=== PATIENT | male | born 1940 | race Hispanic/Latino ===

== ENCOUNTER 2019-06-05 12:07 | Inpatient (IN) | payer MEDICARE, OTHER ==
[~2019-06-05] VITALS: Ht 165.1 cm; Wt 65.1 kg
--- OUTSIDE RECORDS SUMMARY | 2019-06-05 12:11 | XMS REPORT | Clinical Summary ---
Author Author [facility] Organization [facility] Address Unknown Phone Unavailable Care Team Providers Care Jewel Sawyer Name Role Phone PCP Unavailable Allergies No Known Allergies Medications End Date Status Medication Sig Dispensed Refills Start Date 06/08/2019 Active lisinopril (PRINIVIL, Take 1 tablet 90 tablet 1 ZESTRIL) 5 mg by mouth 9 tabletIndications: Acute daily for 90 on chronic combined days. systolic and diastolic congestive heart failure 06/08/2019 Active atorvastatin (LIPITOR) 20 Take 1 tablet 90 tablet 1 mg tabletIndications: by mouth at 9 Acute on chronic combined bedtime systolic and diastolic nightly for congestive heart failure 90 days. 07/06/2019 Active furosemide (LASIX) 40 mg Take 2 360 tablet 1 tabletIndications: Acute tablets by 9 on chronic combined mouth 2 times systolic and diastolic daily for 90 congestive heart failure days. 03/03/2019 Discontinued lisinopril (PRINIVIL, Take 1 tablet 90 tablet 1 ZESTRIL) 5 mg by mouth 7 tabletIndications: daily. Syncope and collapse, Essential hypertension, benign 03/10/2019 Discontinued atorvastatin (LIPITOR) 20 Take 1 tablet 90 tablet 1 mg tabletIndications: by mouth at 7 Syncope and collapse, bedtime Hospital discharge nightly. follow-up, Abnormal computed tomography angiography (CTA) 12/27/2018 Discontinued furosemide (LASIX) 20 mg Take 1 tablet 30 tablet 0 tabletIndications: by mouth 9 Shortness of breath daily. 03/03/2019 Discontinued furosemide (LASIX) 20 mg Take 1 tablet 30 tablet 0 tabletIndications: by mouth 9 Shortness of breath daily. 03/10/2019 Discontinued furosemide (LASIX) 40 mg Take 1 tablet 60 tablet 2 tabletIndications: Acute by mouth 2 9 on chronic combined times daily systolic and diastolic for 90 days. congestive heart failure 03/10/2019 Discontinued lisinopril (PRINIVIL, Take 1 tablet 30 tablet 2 ZESTRIL) 5 mg by mouth 9 tabletIndications: Acute daily for 90 on chronic combined days. systolic and diastolic congestive heart failure 03/10/2019 Discontinued albuterol (PROVENTIL) 2.5 Inhale 3 mL 75 mL 3 mg /3 mL (0.083 %) by mouth 9 nebulizer every 6 hours solutionIndications: as needed for Chronic obstructive Wheezing. pulmonary disease, unspecified COPD type 04/07/2019 Discontinued furosemide (LASIX) 40 mg Take 1 tablet 360 tablet 1 tabletIndications: Acute by mouth 2 9 on chronic combined times daily systolic and diastolic for 90 days. congestive heart failure Active Problems Problem Noted Date Heart failure, diastolic, acute on chronic 03/01/2019 Renal cyst 01/16/2017 Overview: noted on CTA Essential hypertension, benign 01/16/2017 Abnormal computed tomography angiography (CTA) 01/16/2017 Aortic insufficiency 01/09/2017 Heart failure 01/09/2017 Overview: Added By MIPs Interface Last Assessment & Plan: Condition: stable Diagnosis based upon a [id number] evaluation, physical exam, and ROS. Compensated Requested patient to continue regular follow-up with their PCP and/or specialist for continued evaluation and/or treatment. Follow up in: six months Prostatic hypertrophy 02/25/2011 SOB (shortness of breath) Resolved Problems Problem Noted Date Resolved Date S/P thoracentesis 03/02/2019 03/03/2019 Pleural effusion on right 03/01/2019 03/03/2019 Fish hook injury of finger of right hand 01/31/2018 04/07/2019 Encounters Care Team Description Date Type Specialty Rui Yung MD Chest pain, unspecified type (Primary Dx) 04/30/2019 Emergency Emergency Medicine 04/30/2019 Travel 04/07/2019 Hospital Lab Encounter Zack Gimenez ResidentMD Hughes, Andres, ResidentMD Acute on chronic combined systolic and diastolic congestive heart failure 04/07/2019 Office Visit Internal Medicine 04/07/2019 Travel Marv Acevedo MD 04/05/2019 Pre-Clinic Internal Medicine Review 03/20/2019 Hospital Lab Encounter Bebo Simon ResidentMD Wesley, Robby G, DO Encounter for monitoring diuretic therapy (Primary Dx); Aortic valve insufficiency, etiology of cardiac valve disease unspecified; Healthcare maintenance; Chronic combined systolic and diastolic heart failure 03/20/2019 Office Visit Internal Medicine Marv Acevedo MD 03/19/2019 Pre-Clinic Internal Medicine Review Acute on chronic combined systolic and diastolic congestive heart failure 03/10/2019 Hospital Lab Encounter Acute on chronic combined systolic and diastolic congestive heart failure 03/10/2019 Hospital Radiology Encounter Porter Jones ResidentMD Acute on chronic combined systolic and diastolic congestive heart failure (Primary Dx); Essential hypertension, benign; Loculated pleural effusion; Prostatic hypertrophy 03/10/2019 Office Visit Internal Medicine Denisse Aleman Interpretation 03/07/2019 Telephone Judy Pedro RNre etcher F/U; Appointment Related Questions 03/07/2019 Telephone Mario Montano LMSW 03/06/2019 Clinical Case Mgt Mario Montano LMSW 03/05/2019 Clinical Case Mgt Dante Espinal Interpretation 03/03/2019 Telephone Stiven Myrick ResidentMD Pleural effusion on right (Primary Dx) 03/02/2019 Orders Only Lab Jordan Meadows MD Aisenberg, Gabriel M, MD S/P thoracentesis (Primary Dx); SOB (shortness of breath); Pleural effusion on right; Heart failure, diastolic, acute on chronic; Chronic obstructive pulmonary disease, unspecified COPD type; Acute on chronic combined systolic and diastolic congestive heart failure 03/01/2019 Emergency - 03/03/2019 03/01/2019 Travel Mahsa Briggs MD Chest pain, unspecified type (Primary Dx) 01/23/2019 Emergency Emergency Medicine 01/23/2019 Travel Dayna Saleem MD Shortness of breath (Primary Dx) 12/27/2018 Emergency Emergency Medicine 12/27/2018 Travel after 06/04/2018 Immunizations Name Administration Dates Next Due PCV 13 (Pnuemococcal 03/10/2019 Conjugated 13 Valent) Tdap (Tetanus Toxoid, 01/30/2018 Reduced Diphtheria Toxoid And Acellular Pertussis, Absorbed) Family History Medical History Relation Name Comments Unknown Fam Hx Father Unknown Fam Hx Maternal Grandfather Unknown Fam Hx Maternal Grandmother Unknown Fam Hx Mother Unknown Fam Hx Paternal Grandfather Unknown Fam Hx Paternal Grandmother Relation Name Status Comments Brother Alive Father Maternal Grandfather Maternal Grandmother Mother Paternal Grandfather Paternal Grandmother Sister Alive Social History Date Tobacco Use Types Packs/Day Years Used Never Smoker Smokeless Tobacco: Never Used Drinks/Week oz/Week Comments Alcohol Use 0 Standard drinks or equivalent 0.0 4-18-17 denies any ETOH usage No Food Insecurity Answer Date Recorded Within the past 12 months, you worried that your Never true 03/10/2019 food would run out before you got money to buy more. Within the past 12 months, the food you bought Never true 03/10/2019 just didn't last and you didn't have money to get more. Sex Assigned at Date Recorded Not on file Industry Job Start Date Occupation Not on file Not on file Not on file Travel End Travel History Travel Start No recent travel history available. Last Filed Vital Signs Reading Time Taken Comments Vital Sign 126/72 04/30/2019 11:47 AM CDT Blood Pressure 90 04/30/2019 11:47 AM CDT Pulse 36.5 C (97.7 F) 04/30/2019 11:47 AM CDT Temperature 18 04/30/2019 11:47 AM CDT Respiratory Rate 98% 04/30/2019 11:47 AM CDT Oxygen Saturation - - Inhaled Oxygen Concentration 64 kg (141 lb 1.6 oz) 04/07/2019 9:20 AM CDT Weight 152.4 cm (5') 04/07/2019 9:20 AM CDT Height 27.56 04/07/2019 9:20 AM CDT Body Mass Index Plan of Treatment Care Team Description Date Type Specialty Rui Yung MD [address] [facility], [id number] [place] [address] 07/22/2019 Office Visit Cardiology Health Maintenance Due Date Last Done Comments IMM Pneumococcal Age 65 2006 and Up IMM Influenza Seasonal 07/01/2019 Oct to November (>/=19 yrs) Procedures Comments Procedure Name Priority Date/Time Associated Diagnosis XRAY CHEST 2 VIEWS STAT 04/30/2019 Chest pain, unspecified 2:17 PM CDT type BMP POC Routine 04/30/2019 1:13 PM CDT CBC STAT 04/30/2019 1:12 PM CDT CBC/DIFF STAT 04/30/2019 1:12 PM CDT TROPONIN I POC Routine 04/30/2019 1:11 PM CDT 12 LEAD EKG Routine 04/30/2019 10:57 AM CDT BASIC METABOLIC PANEL Routine 04/07/2019 Acute on chronic combined 11:45 AM CDT systolic and diastolic congestive heart failure THYROID STIMULATING Routine 03/20/2019 Chronic combined systolic HORMONE (TSH) 10:15 AM CDT and diastolic heart failure LIPID PROFILE Routine 03/20/2019 Aortic valve 10:15 AM CDT insufficiency, etiology of cardiac valve disease unspecified BASIC METABOLIC PANEL Routine 03/20/2019 Encounter for monitoring 10:15 AM CDT diuretic therapy BASIC METABOLIC PANEL Routine 03/10/2019 2:02 PM CDT BASIC METABOLIC PANEL Routine 03/10/2019 Acute on chronic combined 11:36 AM CDT systolic and diastolic congestive heart failure XRAY CHEST 2 VIEWS Routine 03/10/2019 Acute on chronic combined 11:18 AM CDT systolic and diastolic congestive heart failure TRANSTHORACIC ECHO (TTE) STAT 03/03/2019 7:51 AM CDT CBC STAT 03/03/2019 7:26 AM CDT BASIC METABOLIC PANEL STAT 03/03/2019 7:26 AM CDT CBC/DIFF STAT 03/03/2019 7:26 AM CDT GLUCOSE, FLD Routine 03/02/2019 Pleural effusion on right 2:26 PM CDT T PROTEIN, FLD Add-on 03/02/2019 2:26 PM CDT LDH, FLD Routine 03/02/2019 2:11 PM CDT XRAY CHEST 1 VIEW STAT 03/02/2019 S/P thoracentesis 1:46 PM CDT PLEURAL FLUID CYTOLOGY Routine 03/02/2019 1:27 PM CDT FLUID CULTURE AND GRAM Routine 03/02/2019 STAIN 1:27 PM CDT BLD GAS, MIXED VENOUS POC Routine 03/02/2019 1:26 PM CDT CBC Routine 03/02/2019 10:55 AM CDT CBC/DIFF Routine 03/02/2019 10:55 AM CDT BASIC METABOLIC PANEL Routine 03/02/2019 10:55 AM CDT BMP POC Routine 03/01/2019 5:45 PM CDT TROPONIN I POC Routine 03/01/2019 2:38 PM CDT XRAY CHEST 2 VIEWS STAT 03/01/2019 SOB (shortness of breath) 11:37 AM CDT URINALYSIS Routine 03/01/2019 11:18 AM CDT ABG POC Routine 03/01/2019 11:12 AM CDT BMP POC Routine 03/01/2019 11:12 AM CDT TROPONIN I POC Routine 03/01/2019 11:10 AM CDT COMPREHENSIVE METABOLIC Routine 03/01/2019 PANEL 10:12 AM CDT CBC/DIFF Routine 03/01/2019 10:12 AM CDT 12 LEAD EKG Routine 03/01/2019 9:18 AM CDT URINALYSIS STAT 01/23/2019 8:30 AM CDT CTA CHEST AORTA STAT 01/23/2019 Chest pain, unspecified 8:25 AM CDT type CTA ABDOMEN-PELVIS W STAT 01/23/2019 Chest pain, unspecified CONTRAST - AORTA 8:25 AM CDT type XRAY CHEST 2 VIEWS STAT 01/23/2019 Chest pain, unspecified 6:20 AM CDT type VBG POC Routine 01/23/2019 5:59 AM CDT BMP POC Routine 01/23/2019 5:57 AM CDT TROPONIN I POC Routine 01/23/2019 5:56 AM CDT TYPE AND SCREEN STAT 01/23/2019 5:51 AM CDT LIPASE STAT 01/23/2019 5:51 AM CDT LIVER PROFILE STAT 01/23/2019 5:51 AM CDT PT/INR/PTT STAT 01/23/2019 5:51 AM CDT CBC/DIFF STAT 01/23/2019 5:51 AM CDT 12 LEAD EKG Routine 01/23/2019 5:37 AM CDT CTA CHEST AORTA STAT 12/27/2018 Shortness of breath 3:38 PM CDT CTA ABDOMEN-PELVIS W STAT 12/27/2018 Shortness of breath CONTRAST - AORTA 3:38 PM CDT ABG POC Routine 12/27/2018 3:18 PM CDT XRAY CHEST 2 VIEWS STAT 12/27/2018 Shortness of breath 2:50 PM CDT BMP POC Routine 12/27/2018 2:18 PM CDT TROPONIN I POC Routine 12/27/2018 2:16 PM CDT HIV-1/HIV-2 ROUTINE STAT 12/27/2018 SCREENING 2:14 PM CDT BEDSIDE ULTRASOUND Routine 12/27/2018 1:54 PM CDT 12 LEAD EKG Routine 12/27/2018 11:47 AM CDT after 06/04/2018 Results * XRAY CHEST 2 VIEWS (04/30/2019 2:17 PM CDT) Only the most recent of 5 results within the time period is included. Specimen Impressions Performed At IMPRESSION: [facility] *Cardiomegaly with bilateral pleural effusions, unchanged from prior with probable loculation on the right, and underlying streaky opacities that may represent atelectasis. *Fluffy opacities at the lung bases may represent any combination of edema, atelectasis or early consolidation with overlying pleural fluid. Signed By: Kathy Casas MD, 04/30/2019 2:23 PM Narrative Performed At XRAY CHEST 2 VIEWS [facility] DATE: 04/30/2019 2:17 PM CLINICAL INDICATION: CP COMPARISON: Chest x-ray performed 03/10/2019 TECHNIQUE: PA and lateral views of the chest are obtained and submitted for interpretation. DISCUSSION: Streaky opacities are seen in the perihilar and bibasilar regions along with overlying patchy opacities.The lungs appear emphysematous. Bilateral pleural effusions are again identified bilaterally, right greater than left, overall unchanged. There is some loculated appearance on the right side. The heart remains enlarged with tortuosity of the aorta and scattered vascular calcifications. Bones and surrounding soft tissues are unchanged. Procedure Note Interface, Rad/Mammog In - 04/30/2019 2:28 PM CDT XRAY CHEST 2 VIEWS DATE: 04/30/2019 2:17 PM CLINICAL INDICATION: CP COMPARISON: Chest x-ray performed 03/10/2019 TECHNIQUE: PA and lateral views of the chest are obtained and submitted for interpretation. DISCUSSION: Streaky opacities are seen in the perihilar and bibasilar regions along with overlying patchy opacities. The lungs appear emphysematous. Bilateral pleural effusions are again identified bilaterally, right greater than left, overall unchanged. There is some loculated appearance on the right side. The heart remains enlarged with tortuosity of the aorta and scattered vascular calcifications. Bones and surrounding soft tissues are unchanged. IMPRESSION IMPRESSION: * Cardiomegaly with bilateral pleural effusions, unchanged from prior with probable loculation on the right, and underlying streaky opacities that may represent atelectasis. * Fluffy opacities at the lung bases may represent any combination of edema, atelectasis or early consolidation with overlying pleural fluid. Signed By: Kathy Casas MD, 04/30/2019 2:23 PM Performing Organization Address City/[facility] Phone Number SMS * BMP POC (04/30/2019 1:13 PM CDT) Only the most recent of 3 results within the time period is included. Pathologist [facility] Sodium POC 138 136 - 145 mmol/L [facility] Potassium POC 4.4 3.5 - 5.1 mmol/L [facility] Chloride POC 104 98 - 107 mmol/L [facility] TCO2 POC 26 21 - 32 mmol/L [facility] Urea Nitrogen 9 7 - 18 mg/dL [facility] POC Creatinine POC 0.8 0.6 - 1.3 mg/dL [facility] Glucose POC 101 74 - 106 mg/dL [facility] Ionized Calcium 1.13 (L) 1.15 - 1.29 mmol/L [facility] POC GFR, Estimated 86 (L) >=90 mL/min/1.73 m2 [facility] Specimen Blood, venous Performing Organization Address [facility] Phone Number [facility] [address] [place] [address] * CBC (04/30/2019 1:12 PM CDT) Only the most recent of 3 results within the time period is included. WBC 7.3 4.5 - 12.0 K/uL [facility] RBC 4.56 (L) 4.60 - 6.20 M/uL [facility] Hemoglobin 12.5 (L) 14.0 - 18.0 g/dL [facility] Hematocrit 38.7 (L) 40.0 - 54.0 % [facility] MCV 84.9 82.0 - 92.0 fL [facility] MCH 27.4 27.0 - 31.0 pg [facility] MCHC 32.3 32.0 - 36.0 g/dL [facility] RDW 43.1 35.1 - 43.9 fL [facility] Platelet 252 150 - 400 K/uL [facility] Mean Platelet 9.9 9.4 - 12.4 fL [facility] Volume Percent NRBC 0.0 % [facility] Neutrophil 66.9 34.0 - 67.9 % [facility] Lymphs 16.9 (L) 21.8 - 50.0 % [facility] Monocytes 8.1 5.3 - 12.0 % [facility] Eos 7.3 (H) 0.8 - 5.0 % [facility] Basos 0.4 0.2 - 1.2 % [facility] Immature 0.4 0.0 - 0.5 % [facility] Granulocytes Neutrophils 4.87 1.78 - 5.36 K/uL [facility] (Absolute) Lymphs 1.23 (L) 1.32 - 3.57 K/uL [facility] (Absolute) Monocytes(Absol 0.59 0.30 - 0.82 K/uL [facility] alt[place]) Eos (Absolute) 0.53 0.04 - 0.54 K/uL [facility] Baso (Absolute) 0.03 0.01 - 0.08 K/uL [facility] Immature Grans 0.03 0.00 - 0.03 K/uL [facility] (Abs) Absolute NRBC 0.00 K/uL [facility] Specimen Blood Performing Organization Address [facility] Phone Number [facility] [address] [place] [address] * TROPONIN I POC (04/30/2019 1:11 PM CDT) Only the most recent of 3 results within the time period is included. Pathologist [facility] Troponin POC 0.06 0.00 - 0.08 ng/mL [facility] Specimen Blood, venous Performing Organization Address [facility] Phone Number [facility] [address] [place] [address] * 12 LEAD EKG (04/30/2019 10:57 AM CDT) Pathologist [facility] 12 LEAD EKG FOR [facility] Test Date:2019-04-30 Pat Name: JEFF Ruiz ent: Room: Gender: M [employer] Manager: HELENA :[id number] Requested By: VONNIE Soria Order Number: [id number] Reading MD: Armond Akbar Measurements Intervals [place] Rate: 94 P:60 CT: 192 QRS: -54 QRSD: 132 T: 69 QT: 404 QTc:507 Interpretive Statements SINUS RHYTHM RIGHT BUNDLE BRANCH BLOCK LEFT ANTERIOR FASCICULAR BLOCK Left Ventricular Hypertrophy Bifasicular block Prolonged QT Interval Non-specific T wave abnormality Electronically Signed On 04-30-2019 12:38:57 CDT by Armond Akbar Specimen Performing Organization Address [facility] Phone Number SMS * BASIC METABOLIC PANEL (04/07/2019 11:45 AM CDT) Only the most recent of 6 results within the time period is included. Sodium 140 136 - 145 mmol/L [facility] Potassium 4.0 3.5 - 5.1 mmol/L [facility] Chloride 105 98 - 107 mmol/L [facility] CO2 31 21 - 31 mmol/L [facility] Urea Nitrogen 15.0 7.0 - 25.0 mg/dL [facility] Creatinine 0.9 0.7 - 1.3 mg/dL [facility] Glucose 99 70 - 110 mg/dL [facility] Calcium, Total 9.4 8.6 - 10.3 mg/dL [facility] GFR, Estimated 82 (L) >=90 mL/min/1.73 m2 [facility] Anion Gap 4 (L) 5 - 16 mmol/L [facility] Specimen Blood Performing Organization Address [facility] Phone Number [facility] [address] [place] [address] * THYROID STIMULATING HORMONE (TSH) (03/20/2019 10:15 AM CDT) Pathologist [facility] TSH 3.05 0.57 - 3.74 uIU/mL [facility] Specimen Blood Performing Organization Address [facility] Phone Number [facility] [address] [place] [address] * LIPID PROFILE (03/20/2019 10:15 AM CDT) Triglyceride 108 <150 mg/dL [facility] Comment: Normal: < 150.0 mg/dL Borderline: 150-199 mg/dL High: 200-499 mg/dL Very High: >=500 mg/dL Cholesterol 186.0 <=200.0 mg/dL [facility] Comment: Desirable: < 200.0 mg/dL Borderline: 200 - 240 mg/dL High Risk: > 240 mg/dL HDL 39.0 See Reference Range [facility] Comment: Narrative. mg/dL Increased CHD Risk: < 40.0 mg/dL Decreased CHD Risk: > 60 mg/dL LDL 125 (H) <100 mg/dL [facility] Comment: Optimal: < 100.0 mg/dL Near Optimal: 120-129 mg/dL Borderline: 130-159 mg/dL High: 160-189 mg/dL Very High: >=190 mg/dL Specimen Blood Performing Organization Address City/State/Zipcode Phone Number [facility] [address] [place] [address] * TRANSTHORACIC ECHO (TTE) (03/03/2019 7:51 AM CDT) TRANSTHORACIC Transthoracic SMS ECHO (TTE) Echo Report JEFF MA Age:79 Gender: M :1940 Exam Date: 03/03/2019 07:51 Exam Location: [facility] Echo Ordering Phys: NARENDRA PETTY Referring Phys:MALINDA Delarosa Reading Phys:Clemencia Robles M.D. Fellow Phys: Fellow Phys: Rubber Gasket Inspector Trimmer: Nicole John Reason For Exam: Indications: CHF exacerbation ICD-9 Codes: Exam Type: Transthoracic Echo Procedure CPT:92753 Addtional CPT: Ht (in): 60 BSA: 1.72HR: 76 Rhythm: Sinus rhythm w/ectopy Wt (lb): 149BP: 122/ 65 Technical Quality: Technically difficult History: MEASUREMENTS Normal ranges based on 95% confidence intervals for adults, some normal patients may fall outside of this range especially when indexing for BSA 2D ECHO LV Diastolic Diameter PLAX5.3 cm 4.2-5.8 (M) / 3.8-5.2 (F) LV Systolic Diameter PLAX 5.1 cm 2.5-4.0 (M) / 2.2-3.5 (F) LV Fractional Shortening PLAX 5.5 % IVS Diastolic Thickness 1 cm 0.6-1.0 (M) / 0.6-0.9 (F) IVS Systolic Thickness 1.4 cm LVPW Diastolic Thickness0 .98 cm 0.6-1.0 (M) / 0.6-0.9 (F) LVPW Systolic Thickness 1.3 cm LV Relative Wall Thickness0.37 <=0.42 LVOT Diameter 2 cm Aortic Root Diameter 3 cm LV Diastolic Volume MOD BP226 cm 62-150 cm (M) / 46-106 cm (F) LV Systolic Volume MOD BP 139 cm 21-61 cm (M) / 14-42 cm (F) LV Ejection Fraction MOD BP 38.6 % 52-72 (M) / 54-74 (F) LV Stroke Volume MOD BP 87.2 cm LV Cardiac Output MOD [id number] cm/min LV Cardiac Index MOD BP 3863 cm/minm LV Diastolic Volume MOD 4C195 cm LV Systolic Volume MOD 4C 128 cm LV Ejection Fraction MOD 4C 34 % LV Stroke Volume MOD 4C 66.1 cm LV Cardiac Output MOD [id number] cm/min LV Cardiac Index MOD 4C 2928 cm/minm LV Diastolic Volume MOD 2C249 cm LV Systolic Volume MOD 2C 160 cm LV Ejection Fraction MOD 2C 35.7 % LV Stroke Volume MOD 2C 89 cm LV Cardiac Output MOD [id number] cm/min LV Cardiac Index MOD 2C 3943 cm/minm LA Volume 75.4 cm LA Volume Index 44 cm/m 16 - 34 cm/m LA Volume MOD 2C 99.5 cm LA Volume MOD 4C 92.8 cm LV Mass by linear g LV Mass by linear method [id number] g/m IVC Diameter Inspiration 1.1 cm IVC Diameter Expiration 1.6 cm RA Volume 81.4 cm RA Volume Index 47.4 cm/m DOPPLER AV Peak Velocity 128 cm/s AV Peak Gradient 6.6 mmHg AV Mean Velocity 93.1 cm/s AV Mean Gradient 3.8 mmHg AV Velocity Time Integral 20.6 cm AI Peak Velocity 328 cm/s AI Peak Gradient 43 mmHg AI Deceleration [place] 245 cm/s LVOT Peak Velocity 119 cm/s LVOT Peak Gradient 5.7 mmHg LVOT Mean Velocity 91.8 cm/s LVOT Mean Gradient 3.6 mmHg LVOT Velocity Time Integral 23.5 cm LVOT Stroke Volume 72.1 cm AV Area Cont Eq vti 3.5 cm AV Area Cont Eq pk 2.8 cm Mitral E Point Velocity 162 cm/s MR Peak Velocity 502 cm/s MR Peak Gradient 101 mmHg MR Velocity Time Integral 154 cm MR Flow Rate PISA 19.7 cm/s MR ERO PISA 0.039 cm MR Regurgitant Volume PISA6 cm PV Peak Velocity 93.2 cm/s PV Peak Gradient 3.5 mmHg PV Mean Velocity 67.2 cm/s PV Mean Gradient 1.9 mmHg PV Velocity Time Integral 18.6 cm FINDINGS Left Ventricle Study enhanced with Optison contrast. The left ventricle is normal in size. Mild eccentric left ventricular hypertrophy. LV systolic function is moderatelu reduced. LVEF is 35-39%. Moderate global hypokinesis with sevrely hypokinetic basal to mid inferior and basal to mid inferolateral wall segments. "Pseudonormal" filling pattern of the left ventricle for age (grade 2 diastolic dysfunction) with elevated filling pressure (mean E/e' 40.6). Right Ventricle The right ventricle is normal in size and systolic function. TAPSE 2.3 cm. Right Atrium The right atrium is dilated (EMILE 47.5 cm3/m2). Left Atrium The left atrium is moderately dilated. IAS Mitral Valve Structurally normal mitral valve without significant stenosis or prolapse. There is moderate mitral regurgitation (EROA 0.4 cm2, Regurg Vol 6.2 mL, Regurg Frac 7.8%; these values likely underetimated the extent of regurgitation due to reduced cardiac output). Aortic Valve The aortic valve is trileaflet. There is no aortic stenosis. There is mild- moderate aortic regurgitation. Tricuspid Valve Structurally normal tricuspid valve without significant stenosis. There is trace tricuspid regurgitation. RVSP could not be estimated due to insufficient TR jet. Pulmonic Valve Not well visualized. No significant stenosis. There is no pulmonic regurgitation. Pericardium No pericardial effusion. Aorta Normal aortic root for body surface area. Dilated ascending aorta (4.9 cm). Normal descending aorta diameter (2.4 cm). IVC The inferior vena cava is normal in size with blunted respirophasic variation. Estimated RA pressure is 8 mmHg. CONCLUSIONS Left ventricle is normal in size with mild eccentric left ventricular hypertrophy and moderately reduced systolic function. Moderate global hypokinesis with sevrely hypokinetic basal to mid inferior and basal to mid inferolateral wall segments. LVEF is estimated at 35-39%. "Pseudonormal" filling pattern of the left ventricle for age (grade 2 diastolic dysfunction) with elevated filling pressure. Right ventricle is normal in size and systolic function. Moderately dilated left atrium. Dilated right atrium. Moderate mitral regurgitation Mild-moderate aortic regurgitation. RVSP could not be estimated due to insufficient TR jet. No pericardial effusion. Normal aortic root for body surface area. Dilated ascending aorta (4.9 cm). Normal descending aorta diameter (2.4 cm). Compared to the prior echocardiogram from 03/01/19, IV contrast was used in this study and the LV systolic function has declined with new wall motion abnormalities. Also, there is grade 2 diastolic dysfunction, increased mitral regurgitation, and increased dilatation of the ascending aorta. If clinically indicated, recommend CTA of the aorta for definitive measurements. Clemencia Robles M.D. (Electronically Signed) Final Date:03 March 2019 10:27 2D ECHO LV Diastolic Diameter PLAX5.3 cm 4.2-5.8 (M) / 3.8-5.2 (F) LV Systolic Diameter PLAX 5.1 cm 2.5-4.0 (M) / 2.2-3.5 (F) LV Fractional Shortening PLAX 5.5 % IVS Diastolic Thickness 1 cm 0.6-1.0 (M) / 0.6-0.9 (F) IVS Systolic Thickness 1.4 cm LVPW Diastolic Thickness0 .98 cm 0.6-1.0 (M) / 0.6-0.9 (F) LVPW Systolic Thickness 1.3 cm LV Relative Wall Thickness0.37 <=0.42 LVOT Diameter 2 cm Aortic Root Diameter 3 cm LV Diastolic Volume MOD BP226 cm 62-150 cm (M) / 46-106 cm (F) LV Systolic Volume MOD BP 139 cm 21-61 cm (M) / 14-42 cm (F) LV Ejection Fraction MOD BP 38.6 % 52-72 (M) / 54-74 (F) LV Stroke Volume MOD BP 87.2 cm LV Cardiac Output MOD [id number] cm/min LV Cardiac Index MOD BP 3863 cm/minm LV Diastolic Volume MOD 4C195 cm LV Systolic Volume MOD 4C 128 cm LV Ejection Fraction MOD 4C 34 % LV Stroke Volume MOD 4C 66.1 cm LV Cardiac Output MOD [id number] cm/min LV Cardiac Index MOD 4C 2928 cm/minm LV Diastolic Volume MOD 2C249 cm LV Systolic Volume MOD 2C 160 cm LV Ejection Fraction MOD 2C 35.7 % LV Stroke Volume MOD 2C 89 cm LV Cardiac Output MOD [id number] cm/min LV Cardiac Index MOD 2C 3943 cm/minm LA Volume 75.4 cm LA Volume Index 44 cm/m 16 - 34 cm/m LA Volume MOD 2C 99.5 cm LA Volume MOD 4C 92.8 cm LV Mass by linear [id number] g LV Mass by linear method [id number] g/m IVC Diameter Inspiration 1.1 cm IVC Diameter Expiration 1.6 cm RA Volume 81.4 cm RA Volume Index 47.4 cm/m DOPPLER AV Peak Velocity 128 cm/s AV Peak Gradient 6.6 mmHg AV Mean Velocity 93.1 cm/s AV Mean Gradient 3.8 mmHg AV Velocity Time Integral 20.6 cm AI Peak Velocity 328 cm/s AI Peak Gradient 43 mmHg AI Deceleration [place] 245 cm/s LVOT Peak Velocity 119 cm/s LVOT Peak Gradient 5.7 mmHg LVOT Mean Velocity 91.8 cm/s LVOT Mean Gradient 3.6 mmHg LVOT Velocity Time Integral 23.5 cm LVOT Stroke Volume 72.1 cm AV Area Cont Eq vti 3.5 cm AV Area Cont Eq pk 2.8 cm Mitral E Point Velocity 162 cm/s MR Peak Velocity 502 cm/s MR Peak Gradient 101 mmHg MR Velocity Time Integral 154 cm MR Flow Rate PISA 19.7 cm/s MR ERO PISA 0.039 cm MR Regurgitant Volume PISA6 cm PV Peak Velocity 93.2 cm/s PV Peak Gradient 3.5 mmHg PV Mean Velocity 67.2 cm/s PV Mean Gradient 1.9 mmHg PV Velocity Time Integral 18.6 cm Specimen Performing Organization Address [facility] Phone Number SMS * T PROTEIN, NJD (03/02/2019 2:26 PM CDT) Pathologist [facility] Protein, Fluid 1.4 g/dL [facility] Comment: The reference range and other method performance specifications have not been established for body fluids. The test result must be interpreted into clinical context for integration. Specimen Body Fluid - Pleura, right Narrative Performed At Transudate <3 g/dL, Exudate >3 g/dL [facility] TEST PERFORMED [facility] Performing Organization Address [facility] Phone Number [facility] [address] [place] [address] * GLUCOSE, FLD (03/02/2019 2:26 PM CDT) Glucose, Pad 64 mg/dL [facility] Comment: The reference range and other method performance specifications have not been established for body fluids. The test result must be interpreted into clinical context for integration. Specimen Body Fluid - Pleura, right Narrative Performed At [facility] Performing Organization Address [facility]/Zipcode Phone Number [facility] [address] [place] [address] * LDH, FLD (03/02/2019 2:11 PM CDT) LDH, Fld 59 U/L [facility] Comment: The reference range and other method performance specifications have not been established for body fluids. The test result must be interpreted into clinical context for integration. Specimen Body Fluid - Pleura, right Narrative Performed At Transudate <200 U/L, Exudate >200 U/L [facility] TEST [facility] [place] Performing Organization Address [facility] Phone Number [facility] [address] [place] [address] * XRAY CHEST 1 VIEW (03/02/2019 1:46 PM CDT) Specimen Impressions Performed At IMPRESSION: SMS 1. Decrease layering right pleural effusion following thoracentesis. 2. Persistent loculated right pleural effusion and small left pleural effusion. 3. Focal alveolar opacity of right lower lobe and to a lesser degree right middle lobe are due singly or in combination to effusion, atelectasis or superimposed consolidation. 4. Improving mild interstitial pulmonary edema. 5. Stable cardiomegaly. Signed By: Nicolette Palomino MD, 03/02/2019 2:18 PM Narrative Performed At EXAM: XR CHEST 1 VIEW SMS DATE: 03/02/2019 1:47 PM INDICATION: s/p thoracentesis. S/P thoracentesis COMPARISON: Chest 2 views 03/01/2019 at 11:29 AM TECHNIQUE: AP chest FINDINGS: Lines, tubes and hardware: None. Lungs and pleura:Hazy opacification of right lower lobe has improved following thoracentesis. This indicates decreasing right pleural effusion although this is associated with the persistent loculated component seen adjacent to the lateral wall of the right hemithorax. There is increased hazy opacification within right middle lobe. Left pleural effusion persists. Central pulmonary vascularity remains increased and perihilar haze persists however, pulmonary vascularity overall has improved. A pneumothorax is not visible. Heart and mediastinum: The cardiac silhouette is enlarged with a left ventricular shape. The thoracic aorta remains tortuous and partially calcified as well as mildly ectatic.Mediastinal contours are stable. Bones: No acute bony abnormality is identified. Procedure Note Interface, Rad/Mammog In - 03/02/2019 2:23 PM CDT EXAM: XR CHEST 1 VIEW DATE: 03/02/2019 1:47 PM INDICATION: s/p thoracentesis. S/P thoracentesis COMPARISON: Chest 2 views 03/01/2019 at 11:29 AM TECHNIQUE: AP chest FINDINGS: Lines, tubes and hardware: None. Lungs and pleura: Hazy opacification of right lower lobe has improved following thoracentesis. This indicates decreasing right pleural effusion although this is associated with the persistent loculated component seen adjacent to the lateral wall of the right hemithorax. There is increased hazy opacification within right middle lobe. Left pleural effusion persists. Central pulmonary vascularity remains increased and perihilar haze persists however, pulmonary vascularity overall has improved. A pneumothorax is not visible. Heart and mediastinum: The cardiac silhouette is enlarged with a left ventricular shape. The thoracic aorta remains tortuous and partially calcified as well as mildly ectatic. Mediastinal contours are stable. Bones: No acute bony abnormality is identified. IMPRESSION IMPRESSION: 1. Decrease layering right pleural effusion following thoracentesis. 2. Persistent loculated right pleural effusion and small left pleural effusion. 3. Focal alveolar opacity of right lower lobe and to a lesser degree right middle lobe are due singly or in combination to effusion, atelectasis or superimposed consolidation. 4. Improving mild interstitial pulmonary edema. 5. Stable cardiomegaly. Signed By: Nicolette Palomino MD, 03/02/2019 2:18 PM Performing Organization Address City/State/Zipcode Phone Number SMS * PLEURAL FLUID CYTOLOGY (03/02/2019 1:27 PM CDT) Case Report Non-gynecologic [facility] Cytology Case: [id number] Authorizing Provider:Narendra Petty MD Collected: 03/02/2019 01:27 PM Ordering Location: [facility] Med SurgRe ceived: 03/03/2019 07:38 AM Pathologist: Kassidy Pearl MD Specimen:Pleural Cavity, right Specimen Satisfactory for evaluation [facility] Adequacy INTERPRETATION Negative for malignancy [facility] Final Diagnosis Negative for malignancy [facility] Comment Chronic inflammation and scant [facility] degenerative mesothelial cells Pertinent right pleural effusion [facility] Clinical Information Gross 10cc unfixed cloudy orange [facility] Description fluid 1 PAP cytospin prepared 1 DQ cytospin prepared 1 Cell Block prepared Specimen Body Fluid - Pleural Cavity, right Performing Organization Address [facility] Phone Number [facility] [address] [place] [address] * FLUID CULTURE AND GRAM STAIN (03/02/2019 1:27 PM CDT) Body Fluid No growth 3 days [facility] Gram Stain 2+ WBCs [facility] Gram Stain No organisms seen [facility] Specimen Body Fluid - Pleural Cavity, right Performing Organization Address [facility] Phone Number [facility] [address] [place] [address] * BLD GAS, MIXED VENOUS POC (03/02/2019 1:26 PM CDT) pCO2, Mix Carl 44.5 40 - 50 mm Hg [facility] POC pH, Mix Carl POC 7.32 7.32 - 7.45 [facility] pO2, Mix Carl 98 (H) 36 - 42 mm Hg [facility] POC HCO3, Mix Carl 23 22 - 31 mmol/L [facility] POC Base Deficit, -2 [facility] Mix Carl POC % Sat, Mix Carl 97 (H) 60 - 80 % [facility] POC Lactic Acid, 5.0 (H) 0.4 - 2.0 mmol/L [facility] Mix Carl POC Vitaliy's Test POSITI [facility] Sample Type IMIX [facility] Site CENTRAComment: Physician [facility] Notified TCO2, MIXED 24 15-9,999 mmol/L [facility] VENOUS POC Specimen Blood, venous Performing Organization Address [facility] Phone Number [facility] [address] [place] [address] * ABG POC (03/01/2019 11:12 AM CDT) pH, Art POC 7.41 7.35 - 7.45 [facility] pCO2, Arterial 37.1 32 - 45 mmHg [facility] POC pO2, Arterial 57 (L) 72 - 104 mmHg [facility] POC HCO3, Arterial 24 22 - 26 mmol/L [facility] POC Base Deficit -1 [facility] Arterial POC % Sat, Art POC 90 % [facility] TCO2, ART POC 25 21 - 32 mmol/L [facility] Lactic Acid POC 1 0.4 - 2 mmol/L [facility] Sample Type IART [facility] ETCO2 [facility] Specimen Blood, arterial Performing Organization Address [facility] Phone Number [facility] [address] [place] [address] * 12 LEAD EKG (03/01/2019 9:18 AM CDT) 12 LEAD [facility] Date:2019-03-01 Pat Name: JEFF Ruiz ent: [id number] Room: Gender: M [employer] Manager: [id number] Requested By: VONNIE Soria Order Number: [id number] Reading MD: Jonny WEBSTER Measurements Intervals [place] Rate: 92 P:80 CT: 186 QRS: -62 QRSD: 100 T: 88 QT: 377 QTc:468 Interpretive Statements SINUS RHYTHM WITH FREQUENT VENTRICULAR PREMATURE COMPLEXES POSSIBLE RIGHT VENTRICULAR CONDUCTION DELAY LEFT ANTERIOR FASCICULAR BLOCK Poor anterior R wave cannot r/o prior Anteroseptal Infarct POSSIBLE LEFT VENTRICULAR HYPERTROPHY NONSPECIFIC ST & T-WAVE ABNORMALITY Abnormal ECG Electronically Signed On 03-01-2019 11:16:09 CDT by Jonny WEBSTER Specimen Performing Organization Address [facility] Phone Number [facility] * UA CHEMISTRIES (01/23/2019 8:30 AM CDT) Color Straw [facility] Clarity Clear [facility] Specific 1.005 1.001 - 1.035 [facility] [place] [facility] pH 8.0 5 - 8 [facility] Protein Negative NEG [facility] Glucose Negative NEG [facility] Ketones Negative NEG [facility] Bilirubin Negative NEG [facility] Nitrate Negative NEG [facility] Urobilinogen,Se <1.0 0.2 - 1.0 EU/dL [facility] Leukocyte Negative NEG [facility] Occult Blood Negative NEG [facility] Specimen Urine Performing Organization Address City/[facility] Phone Number MISYS [facility] * CTA ABDOMEN-PELVIS W CONTRAST - AORTA (01/23/2019 8:25 AM CDT) Only the most recent of 2 results within the time period is included. Specimen Impressions Performed At IMPRESSION: SMS 1.Unchanged thoracic aortic aneurysm up to 4.7 cm transverse. No dissection, pseudoaneurysm or surrounding hemorrhage. 2.Enlarging bilateral loculated pleural effusions, moderate to large on the right and small on the left 3.Unchanged four-chamber cardiomegaly with coronary artery calcifications 4.Mild dilatation of the main pulmonary artery suggestive of pulmonary hypertension 5.No acute intra-abdominal abnormality. Unchanged prostatomegaly impinging upon the bladder base Signed By: Erin Sotomayor MD, 01/23/2019 9:09 AM Narrative Performed At EXAM: CTA CHEST WITH CONTRAST SMS EXAM: CTA ABDOMEN AND PELVIS WITH CONTRAST DATE: 01/23/2019 8:47 AM INDICATION: Known CTA aneurysm. Chest pain, unspecified type ADDITIONAL INFORMATION: None. COMPARISON: 12/27/2018. TECHNIQUE: Volumetric CTA of the chest, abdomen and pelvis is acquired following intravenous administration of contrast. Axial, coronal and sagittal images are provided. IV contrast: 100 mL Omnipaque 350 Enteric contrast: None. DLP: 1062.37 mGy-cm FINDINGS: VASCULAR: Aorta: No dissection, penetrating ulcer, or rupture identified. Fine detail of the ascending aorta is limited by motion artifact on this nongated examination. Within this limitation, measurements are as follows: Aortic root: 3.9 cm Sinotubular junction: 4.5 cm Ascending aorta at the level of the RPA: 4.7 cm Aortic arch: 3.8 cm Descending aorta at the level of the RPA: 3.2 cm Descending aorta at the hiatus: 3.2 cm Abdominal aorta at the level of the renal arteries: 2.4 cm Abdominal aorta prior to the bifurcation: 2 cm Thoracic and abdominal arterial anatomy: Great vessels: Conventional anatomy at the aortic arch without hemodynamically significant stenosis at the visualized carotids, subclavian, vertebral arteries Pulmonary arteries: Dilated. MPA: 3.2 cm Hepatic arteries: Conventional. Renal arteries: Single right and left renal artery without stenosis Right run-off: Common iliac artery: 1.7 cm External iliac artery: 1.1 cm Internal iliac artery: 0.9 cm Common femoral artery: Patent with only minimal atherosclerotic plaque Superficial femoral artery: Patent with only minimal atherosclerotic plaque Left run-off: Common iliac artery: 1.5 cm External iliac artery: 1 cm Internal iliac artery: 0.9 cm Common femoral artery: Patent with only minimal atherosclerotic plaque Superficial femoral artery: Patent with only minimal atherosclerotic plaque SVC, IVC and veins: Normal. Portal vasculature: Main portal vein: 1.5 cm NONVASCULAR: Lines, tubes and hardware: None. Lower neck:The visible portions or the lower neck and thyroid are unremarkable. Axilla: Clear. Airway: Clear. Lungs and pleura:Loculated bilateral pleural effusions are present, moderate to large on the right and small on the left, with areas of loculation in the minor fissures bilaterally. Parenchymal evaluation is limited by patient breathing motion artifact, with areas of scattered atelectasis related to the pleural effusions, and small areas of air trapping present. Mediastinum, favio and intrathoracic lymph nodes: Normal. Heart and pericardium: Four-chamber cardiomegaly. Atherosclerotic calcifications of all 3 coronary arteries. Liver: Normal. Biliary tree: No intra- or extrahepatic biliary ductal dilation. Gallbladder: Normal. Pancreas: Normal. Spleen: Few dystrophic calcifications at the splenic capsule and inferiorly, most likely postinfectious. Otherwise unremarkable.. Adrenals: Normal. Kidneys and ureters: Large bilateral simple density renal cysts measure up to 8.1 cm on the left, unchanged. No hydronephrosis or acute renal abnormality. Bladder: Normal. Reproductive organs: Prostatomegaly. Seminal vesicles are symmetric. Gastrointestinal tract: Stomach: Normal. Small bowel: Normal. Colon: Uninflamed diverticula. Appendix: Not seen. No inflammation. Peritoneum, mesentery and retroperitoneum: No free air, ascites or loculated fluid. Abdominal and pelvic lymph nodes: Normal. Bones: No acute abnormality. 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 Degenerative disc height loss is also present at L2-3, with small multilevel osteophytes.. Soft tissues: Postsurgical changes of prior left inguinal hernia repair. Procedure Note Interface, Rad/Mammog In - 01/23/2019 9:14 AM CDT EXAM: CTA CHEST WITH CONTRAST EXAM: CTA ABDOMEN AND PELVIS WITH CONTRAST DATE: 01/23/2019 8:47 AM INDICATION: Known CTA aneurysm. Chest pain, unspecified type ADDITIONAL INFORMATION: None. COMPARISON: 12/27/2018. TECHNIQUE: Volumetric CTA of the chest, abdomen and pelvis is acquired following intravenous administration of contrast. Axial, coronal and sagittal images are provided. IV contrast: 100 mL Omnipaque 350 Enteric contrast: None. DLP: 1062.37 mGy-cm FINDINGS: VASCULAR: Aorta: No dissection, penetrating ulcer, or rupture identified. Fine detail of the ascending aorta is limited by motion artifact on this nongated examination. Within this limitation, measurements are as follows: Aortic root: 3.9 cm Sinotubular junction: 4.5 cm Ascending aorta at the level of the RPA: 4.7 cm Aortic arch: 3.8 cm Descending aorta at the level of the RPA: 3.2 cm Descending aorta at the hiatus: 3.2 cm Abdominal aorta at the level of the renal arteries: 2.4 cm Abdominal aorta prior to the bifurcation: 2 cm Thoracic and abdominal arterial anatomy: Great vessels: Conventional anatomy at the aortic arch without hemodynamically significant stenosis at the visualized carotids, subclavian, vertebral arteries Pulmonary arteries: Dilated. MPA: 3.2 cm Hepatic arteries: Conventional. Renal arteries: Single right and left renal artery without stenosis Right run-off: Common iliac artery: 1.7 cm External iliac artery: 1.1 cm Internal iliac artery: 0.9 cm Common femoral artery: Patent with only minimal atherosclerotic plaque Superficial femoral artery: Patent with only minimal atherosclerotic plaque Left run-off: Common iliac artery: 1.5 cm External iliac artery: 1 cm Internal iliac artery: 0.9 cm Common femoral artery: Patent with only minimal atherosclerotic plaque Superficial femoral artery: Patent with only minimal atherosclerotic plaque SVC, IVC and veins: Normal. Portal vasculature: Main portal vein: 1.5 cm NONVASCULAR: Lines, tubes and hardware: None. Lower neck: The visible portions or the lower neck and thyroid are unremarkable. Axilla: Clear. Airway: Clear. Lungs and pleura: Loculated bilateral pleural effusions are present, moderate to large on the right and small on the left, with areas of loculation in the minor fissures bilaterally. Parenchymal evaluation is limited by patient breathing motion artifact, with areas of scattered atelectasis related to the pleural effusions, and small areas of air trapping present. Mediastinum, favio and intrathoracic lymph nodes: Normal. Heart and pericardium: Four-chamber cardiomegaly. Atherosclerotic calcifications of all 3 coronary arteries. Liver: Normal. Biliary tree: No intra- or extrahepatic biliary ductal dilation. Gallbladder: Normal. Pancreas: Normal. Spleen: Few dystrophic calcifications at the splenic capsule and inferiorly, most likely postinfectious. Otherwise unremarkable.. Adrenals: Normal. Kidneys and ureters: Large bilateral simple density renal cysts measure up to 8.1 cm on the left, unchanged. No hydronephrosis or acute renal abnormality. Bladder: Normal. Reproductive organs: Prostatomegaly. Seminal vesicles are symmetric. Gastrointestinal tract: Stomach: Normal. Small bowel: Normal. Colon: Uninflamed diverticula. Appendix: Not seen. No inflammation. Peritoneum, mesentery and retroperitoneum: No free air, ascites or loculated fluid. Abdominal and pelvic lymph nodes: Normal. Bones: No acute abnormality. 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 Degenerative disc height loss is also present at L2-3, with small multilevel osteophytes.. Soft tissues: Postsurgical changes of prior left inguinal hernia repair. IMPRESSION IMPRESSION: 1. Unchanged thoracic aortic aneurysm up to 4.7 cm transverse. No dissection, pseudoaneurysm or surrounding hemorrhage. 2. Enlarging bilateral loculated pleural effusions, moderate to large on the right and small on the left 3. Unchanged four-chamber cardiomegaly with coronary artery calcifications 4. Mild dilatation of the main pulmonary artery suggestive of pulmonary hypertension 5. No acute intra-abdominal abnormality. Unchanged prostatomegaly impinging upon the bladder base Signed By: Erin Sotomayor MD, 01/23/2019 9:09 AM Performing Organization Address City/State/Zipcode Phone Number SMS * CTA CHEST AORTA (01/23/2019 8:25 AM CDT) Only the most recent of 2 results within the time period is included. Specimen Impressions Performed At IMPRESSION: SMS 1.Unchanged thoracic aortic aneurysm up to 4.7 cm transverse. No dissection, pseudoaneurysm or surrounding hemorrhage. 2.Enlarging bilateral loculated pleural effusions, moderate to large on the right and small on the left 3.Unchanged four-chamber cardiomegaly with coronary artery calcifications 4.Mild dilatation of the main pulmonary artery suggestive of pulmonary hypertension 5.No acute intra-abdominal abnormality. Unchanged prostatomegaly impinging upon the bladder base Signed By: Erin Sotomayor MD, 01/23/2019 9:09 AM Narrative Performed At EXAM: CTA CHEST WITH CONTRAST SMS EXAM: CTA ABDOMEN AND PELVIS WITH CONTRAST DATE: 01/23/2019 8:47 AM INDICATION: Known CTA aneurysm. Chest pain, unspecified type ADDITIONAL INFORMATION: None. COMPARISON: 12/27/2018. TECHNIQUE: Volumetric CTA of the chest, abdomen and pelvis is acquired following intravenous administration of contrast. Axial, coronal and sagittal images are provided. IV contrast: 100 mL Omnipaque 350 Enteric contrast: None. DLP: 1062.37 mGy-cm FINDINGS: VASCULAR: Aorta: No dissection, penetrating ulcer, or rupture identified. Fine detail of the ascending aorta is limited by motion artifact on this nongated examination. Within this limitation, measurements are as follows: Aortic root: 3.9 cm Sinotubular junction: 4.5 cm Ascending aorta at the level of the RPA: 4.7 cm Aortic arch: 3.8 cm Descending aorta at the level of the RPA: 3.2 cm Descending aorta at the hiatus: 3.2 cm Abdominal aorta at the level of the renal arteries: 2.4 cm Abdominal aorta prior to the bifurcation: 2 cm Thoracic and abdominal arterial anatomy: Great vessels: Conventional anatomy at the aortic arch without hemodynamically significant stenosis at the visualized carotids, subclavian, vertebral arteries Pulmonary arteries: Dilated. MPA: 3.2 cm Hepatic arteries: Conventional. Renal arteries: Single right and left renal artery without stenosis Right run-off: Common iliac artery: 1.7 cm External iliac artery: 1.1 cm Internal iliac artery: 0.9 cm Common femoral artery: Patent with only minimal atherosclerotic plaque Superficial femoral artery: Patent with only minimal atherosclerotic plaque Left run-off: Common iliac artery: 1.5 cm External iliac artery: 1 cm Internal iliac artery: 0.9 cm Common femoral artery: Patent with only minimal atherosclerotic plaque Superficial femoral artery: Patent with only minimal atherosclerotic plaque SVC, IVC and veins: Normal. Portal vasculature: Main portal vein: 1.5 cm NONVASCULAR: Lines, tubes and hardware: None. Lower neck:The visible portions or the lower neck and thyroid are unremarkable. Axilla: Clear. Airway: Clear. Lungs and pleura:Loculated bilateral pleural effusions are present, moderate to large on the right and small on the left, with areas of loculation in the minor fissures bilaterally. Parenchymal evaluation is limited by patient breathing motion artifact, with areas of scattered atelectasis related to the pleural effusions, and small areas of air trapping present. Mediastinum, favio and intrathoracic lymph nodes: Normal. Heart and pericardium: Four-chamber cardiomegaly. Atherosclerotic calcifications of all 3 coronary arteries. Liver: Normal. Biliary tree: No intra- or extrahepatic biliary ductal dilation. Gallbladder: Normal. Pancreas: Normal. Spleen: Few dystrophic calcifications at the splenic capsule and inferiorly, most likely postinfectious. Otherwise unremarkable.. Adrenals: Normal. Kidneys and ureters: Large bilateral simple density renal cysts measure up to 8.1 cm on the left, unchanged. No hydronephrosis or acute renal abnormality. Bladder: Normal. Reproductive organs: Prostatomegaly. Seminal vesicles are symmetric. Gastrointestinal tract: Stomach: Normal. Small bowel: Normal. Colon: Uninflamed diverticula. Appendix: Not seen. No inflammation. Peritoneum, mesentery and retroperitoneum: No free air, ascites or loculated fluid. Abdominal and pelvic lymph nodes: Normal. Bones: No acute abnormality. 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 Degenerative disc height loss is also present at L2-3, with small multilevel osteophytes.. Soft tissues: Postsurgical changes of prior left inguinal hernia repair. Procedure Note Interface, Rad/Mammog In - 01/23/2019 9:14 AM CDT EXAM: CTA CHEST WITH CONTRAST EXAM: CTA ABDOMEN AND PELVIS WITH CONTRAST DATE: 01/23/2019 8:47 AM INDICATION: Known CTA aneurysm. Chest pain, unspecified type ADDITIONAL INFORMATION: None. COMPARISON: 12/27/2018. TECHNIQUE: Volumetric CTA of the chest, abdomen and pelvis is acquired following intravenous administration of contrast. Axial, coronal and sagittal images are provided. IV contrast: 100 mL Omnipaque 350 Enteric contrast: None. DLP: 1062.37 mGy-cm FINDINGS: VASCULAR: Aorta: No dissection, penetrating ulcer, or rupture identified. Fine detail of the ascending aorta is limited by motion artifact on this nongated examination. Within this limitation, measurements are as follows: Aortic root: 3.9 cm Sinotubular junction: 4.5 cm Ascending aorta at the level of the RPA: 4.7 cm Aortic arch: 3.8 cm Descending aorta at the level of the RPA: 3.2 cm Descending aorta at the hiatus: 3.2 cm Abdominal aorta at the level of the renal arteries: 2.4 cm Abdominal aorta prior to the bifurcation: 2 cm Thoracic and abdominal arterial anatomy: Great vessels: Conventional anatomy at the aortic arch without hemodynamically significant stenosis at the visualized carotids, subclavian, vertebral arteries Pulmonary arteries: Dilated. MPA: 3.2 cm Hepatic arteries: Conventional. Renal arteries: Single right and left renal artery without stenosis Right run-off: Common iliac artery: 1.7 cm External iliac artery: 1.1 cm Internal iliac artery: 0.9 cm Common femoral artery: Patent with only minimal atherosclerotic plaque Superficial femoral artery: Patent with only minimal atherosclerotic plaque Left run-off: Common iliac artery: 1.5 cm External iliac artery: 1 cm Internal iliac artery: 0.9 cm Common femoral artery: Patent with only minimal atherosclerotic plaque Superficial femoral artery: Patent with only minimal atherosclerotic plaque SVC, IVC and veins: Normal. Portal vasculature: Main portal vein: 1.5 cm NONVASCULAR: Lines, tubes and hardware: None. Lower neck: The visible portions or the lower neck and thyroid are unremarkable. Axilla: Clear. Airway: Clear. Lungs and pleura: Loculated bilateral pleural effusions are present, moderate to large on the right and small on the left, with areas of loculation in the minor fissures bilaterally. Parenchymal evaluation is limited by patient breathing motion artifact, with areas of scattered atelectasis related to the pleural effusions, and small areas of air trapping present. Mediastinum, favio and intrathoracic lymph nodes: Normal. Heart and pericardium: Four-chamber cardiomegaly. Atherosclerotic calcifications of all 3 coronary arteries. Liver: Normal. Biliary tree: No intra- or extrahepatic biliary ductal dilation. Gallbladder: Normal. Pancreas: Normal. Spleen: Few dystrophic calcifications at the splenic capsule and inferiorly, most likely postinfectious. Otherwise unremarkable.. Adrenals: Normal. Kidneys and ureters: Large bilateral simple density renal cysts measure up to 8.1 cm on the left, unchanged. No hydronephrosis or acute renal abnormality. Bladder: Normal. Reproductive organs: Prostatomegaly. Seminal vesicles are symmetric. Gastrointestinal tract: Stomach: Normal. Small bowel: Normal. Colon: Uninflamed diverticula. Appendix: Not seen. No inflammation. Peritoneum, mesentery and retroperitoneum: No free air, ascites or loculated fluid. Abdominal and pelvic lymph nodes: Normal. Bones: No acute abnormality. 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 Degenerative disc height loss is also present at L2-3, with small multilevel osteophytes.. Soft tissues: Postsurgical changes of prior left inguinal hernia repair. IMPRESSION IMPRESSION: 1. Unchanged thoracic aortic aneurysm up to 4.7 cm transverse. No dissection, pseudoaneurysm or surrounding hemorrhage. 2. Enlarging bilateral loculated pleural effusions, moderate to large on the right and small on the left 3. Unchanged four-chamber cardiomegaly with coronary artery calcifications 4. Mild dilatation of the main pulmonary artery suggestive of pulmonary hypertension 5. No acute intra-abdominal abnormality. Unchanged prostatomegaly impinging upon the bladder base Signed By: Erin Sotomayor MD, 01/23/2019 9:09 AM Performing Organization Address [facility] Phone Number SMS * VBG POC (01/23/2019 5:59 AM CDT) pH, Carl POC 7.39 7.33 - 7.43 [facility] pCO2, Carl POC 41.9 38.0 - 50.0 mm Hg [facility] pO2, Carl POC 30 (L) 50 - 75 mm Hg [facility] 1 Base Excess, 0 mmol/L [facility] Carl POC [facility] 1 HCO3, Carl POC 25.4 22.0 - 26.0 mmol/L [facility] % Sat, Carl POC 57 (L) 60 - 85 % [facility] 1 Lactic Acid, 1.18 0.4 - 2.0 mmol/L [facility] Carl POC [facility] 1 Sample Type Carl [facility] 1 TCO2, CARL POC 27 21 - 32 mmol/L [facility] 1 Specimen Performing Organization Address [facility] Phone Number MISYS [facility] * BMP POC (01/23/2019 5:57 AM CDT) Only the most recent of 2 results within the time period is included. CO2 POC 25 21 - 32 mmol/L [facility] Chloride POC 102 98 - 107 mmol/L [facility] 1 Potassium POC 3.8 3.50 - 5.10 mmol/L [facility] 1 Sodium POC 141 136 - 145 mmol/L [facility] 1 Glucose POC 118 (H) 74 - 106 mg/dL [facility] 1 Urea Nitrogen 4 (L) 7 - 18 mg/dL [facility] POC [facility] 1 Creatinine POC 0.8 0.6 - 1.3 mg/dL [facility] 1 Calcium Ionized 1.24 1.15 - 1.29 mmol/L [facility] POC [facility] 1 Hemoglobin POC 15.0 14.0 - 18.0 g/dL [facility] 1 Hematocrit POC 44.0 40.0 - 54.0 % [facility] 1 GFR, Estimated >60 mL/min/1.73 m2 [facility] 1 GFR, Estim, >60 mL/min/1.73 m2 [facility] Afr-Am [facility] 1 Specimen Performing Organization Address [facility] [place] Phone Number [facility] 1 * TROPONIN I POC (01/23/2019 5:56 AM CDT) Only the most recent of 2 results within the time period is included. Pathologist [facility] Troponin POC 0.05 0.00 - 0.08 ng/mL [facility] 1 Specimen Performing Organization Address [facility] [place] Phone [facility] 1 * PT/INR/PTT (01/23/2019 5:51 AM CDT) Pathologist [facility] PT 14.4 11.8 - 15.0 Seconds [facility] 2 INR 1.1 [facility] SUGGESTED THERAPEUTIC RANGES: MAIN-STATION 2 INR 2.0-3.0 for MODERATE INTENSITY ANTICOAGULATION INR 2.5-3.5 for HIGH INTENSITY ANTICOAGULATION PTT 35.9 23.6 - 36.4 Seconds [facility] 2 Specimen Blood Performing Organization Address [facility] [place] Phone Number [facility] 2 * LIVER PROFILE (01/23/2019 5:51 AM CDT) Pathologist [facility] Protein, Total, 7.2 6.0 - 8.3 g/dL [facility] Serum [facility] 1 Albumin 4.3 4.2 - 5.5 g/dL [facility] 1 Bilirubin, 0.6 0.2 - 1.2 mg/dL [facility] Total [facility] 1 Alkaline 90 34 - 104 U/L [facility] Phosphatase, S [facility] 1 AST (SGOT) 19 13 - 39 U/L [facility] 1 ALT 14 7 - 52 U/L [facility] 1 D Bilirubin 0.1 0.0 - 0.2 mg/dL [facility] 1 Specimen Blood Performing Organization Address City/State/Zipcode Phone Number [facility] 1 * LIPASE (01/23/2019 5:51 AM CDT) Lipase 7 (L) 11 - 81 U/L [facility] 1 Specimen Blood Performing Organization Address City/State/Zipcode Phone [facility] 1 * CBC/DIFF (01/23/2019 5:51 AM CDT) WBC 7.4 4.5 - 12.0 K/uL [facility] 2 RBC 4.72 4.60 - 6.20 M/uL [facility] 2 Hemoglobin 13.4 (L) 14.0 - 18.0 g/dL [facility] 2 Hematocrit 41.8 40.0 - 54.0 % [facility] 2 MCV 89 82 - 92 fL [facility] 2 MCH 28.4 27.0 - 31.0 pg [facility] 2 MCHC 32.1 32.0 - 36.0 g/dL [facility] 2 RDW 44.3 (H) 35.1 - 43.9 fL [facility] 2 Platelets 254 150 - 400 K/uL [facility] 2 Mean Platelet 10.0 9.4 - 12.4 fL [facility] Volume [facility] 2 Percent NRBC 0.0 [facility] 2 Absolute NRBC 0.00 [facility] 2 Neutrophils 76.9 (H) 34.0 - 67.9 % [facility] 2 Lymphs 12.8 (L) 21.8 - 50.0 % [facility] 2 Monocytes 6.7 5.3 - 12.0 % [facility] 2 Eos 2.7 0.8 - 5.0 % [facility] 2 Basos 0.5 0.2 - 1.2 % [facility] 2 Immature 0.4 0.0 - 0.5 [facility] Granulocytes [facility] 2 Neutrophils 5.70 (H) 1.78 - 5.36 K/uL [facility] (Absolute) [facility] 2 Lymphs 0.95 (L) 1.32 - 3.57 K/uL [facility] (Absolute) [facility] 2 Monocytes(Absol 0.50 0.30 - 0.82 K/uL [facility] [place]) [facility] 2 Eos (Absolute) 0.20 0.04 - 0.54 K/uL [facility] 2 Baso (Absolute) 0.04 0.01 - 0.08 K/uL [facility] 2 Immature Grans 0.03 0.00 - 0.03 K/uL [facility] (Abs) [facility] 2 Specimen Blood Performing Organization Address City/[facility] Phone Number MISYS [facility] 2 * 12 LEAD EKG (01/23/2019 5:37 AM CDT) 12 LEAD EKG FOR [facility] Test Date:2019-01-23 Pat Name: JEFF Ruiz ent: [id number] Room: Gender: M [employer] Manager: 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 :[id number] 4-16 Requested By: VONNIE Soria Order Number: [id number] Reading MD: Darien Menendez Measurements Intervals [place] Rate: 91 P:49 CT: 194 QRS: -40 QRSD: 97 T:104 QT: 389 QTc:481 Interpretive Statements SINUS RHYTHM WITH OCCASIONAL VENTRICULAR PREMATURE COMPLEXES MARKED LEFT AXIS DEVIATION POSSIBLE LEFT VENTRICULAR HYPERTROPHY PROLONGED QTC NONSPECIFIC T-WAVE ABNORMALITY Abnormal ECG Electronically Signed On 01-23-2019 7:43:25 CDT by Darien Menendez Specimen Performing Organization Address [facility] [place] Phone Number [facility] * ABG POC (12/27/2018 3:18 PM CDT) pH, Art POC 7.40Comment: Physician 7.35 - 7.45 [facility] Notified [facility] 1 pCO2,Art POC 39.5 32.0 - 45.0 mm Hg [facility] 1 pO2, Art POC 31 (LL) 72 - 104 mm Hg [facility] 1 Base Excess, 0 mmol/L [facility] ART POC [facility] 1 HCO3, Art POC 24.5 22.0 - 26.0 mmol/L [facility] % Sat, Art POC 59 (L) 95 - 99 % [facility] 1 Lactic Acid POC 1.10 0.4 - 2.0 mmol/L [facility] 1 Sample Type Art [facility] 1 TCO2, ART POC 26 21 - 32 mmol/L [facility] 1 Specimen Performing Organization Address City/[facility] Phone Number [facility] MA[facility] 1 * HIV-1/HIV-2 ROUTINE SCREENING (12/27/2018 2:14 PM CDT) HIV-1/HIV-2 Negative NEG [facility] Specimen Performing Organization Address City/[facility] Phone Number [facility] [address] [place] [address] * Bedside Ultrasound (12/27/2018 1:54 PM CDT) Narrative Performed At [facility] ResidentMD 12/27/20187:08 PM Bedside Ultrasound Date/Time: 12/27/2018 6:32 PM Performed by: Eloise Villareal ResidentMD Authorized by: Dayna Saleem MD Consent: Consent obtained:Verbal Consent given by:Patient Indications: Indications:Chest pain Comments: Cardiothoracic Bedside Ultrasound Views obtained: PSLAX, PSSAX, IVC, R Thoracic, L Thoracic Adequate LV systolic fxn with EF moderately depressed, No evidence of RV enlargement, Septal bowing, D sign. No pericardial effusion. Bilateral lung slided. 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[place] :[id number] 01-14 Requested By: VONNIE Soria Order Number: [id number] Aakash MD: Armond Akbar Measurements Intervals [place] Rate: 84 P:78 CT: 213 QRS: -60 QRSD: 124 T: 56 QT: 386 QTc:458 Interpretive Statements SINUS RHYTHM WITH FIRST DEGREE AV BLOCK WITH FREQUENT VENTRICULAR PREMATURE COMPLEXES RIGHT BUNDLE BRANCH BLOCK [120+ ms QRS DURATION, UPRIGHT V1, 40+ ms S IN I/aVL/V4/V5/V6] MODERATE VOLTAGE CRITERIA FOR LVH, CONSIDER NORMAL VARIANT [MEETS CRITERIA IN ONE OF: R(aVL), S(V1), R(V5), R(V5/V6)+S(V1)] early r wave progression Electronically Signed On 12-27-2018 12:10:48 CDT by Armond Akbar Specimen Performing Organization Address City/State/Zipcode Phone Number SMS after 06/04/2018 Insurance Type Payer Benefit Subscriber ID Effective Phone Address Plan / Dates Group [employer] OPTIONS S[place]Y xxxxxxxxx 2016-P [phone] [facility] [id number] [employer] [address] [address] [place] [address] Advance Directives Date Inactivated Comments Code Status Date Activated 03/03/2019 6:46 PM Full Code 03/01/2019 4:50 PM 01/10/2017 7:44 PM Full Code 01/08/2017 3:24 PM 01/08/2017 9:33 AM Full Code 01/08/2017 8:28 AM
--- OUTSIDE RECORDS SUMMARY | 2019-06-05 12:12 | XMS REPORT | Continuity of Care Document ---
Author Author [employer] Address Unknown Phone Unavailable Care Team Providers Care Orthotics Prosthetics Assistant Name Role Phone [employer] Unavailable Unavailable Problems Problem Status Onset Date Classification Date Reported Comments Source Heart failure, diastolic, acute on chronic Active 03/01/2019 04/30/2019 Located [facility] Fish hook injury of finger of right hand Active 01/31/2018 01/30/2019 [facility] Renal cyst Active 01/16/2017 04/30/2019 [facility] Essential hypertension, benign Active 01/16/2017 04/30/2019 [facility] Abnormal computed tomography angiography (CTA) Active 01/16/2017 04/30/2019 [facility] Aortic insufficiency Active 01/09/2017 04/30/2019 [facility] Heart failure Active 01/09/2017 04/30/2019 Loc[facility] ABDOMINAL PAIN GENERAL Active 01/08/2016 [facility] Discharge Diagnosis: Abdominal pain in male 01/08/2016 01/11/2016 [facility] RIGHT INGUINAL HERNIA Active 12/20/2015 [facility] Prostatic hypertrophy Active 02/25/2011 04/30/2019 Located [facility] Disease of hand (disorder) Resolved Problem 01/11/2016 [facility] Shortness of breath Active 04/30/2019 Located [facility] Fish hook injury of finger of right hand, initial encounter Active 01/30/2019 [facility] Chest pain, unspecified type Active 04/30/2019 [facility] SOB (shortness of breath) Active 04/30/2019 [facility] Acute on chronic combined systolic and diastolic congestive heart failure Active 04/30/2019 [facility] Encounter for monitoring diuretic therapy Active 04/30/2019 [facility] Aortic valve insufficiency, etiology of cardiac valve disease unspecified Active 04/30/2019 [facility] Healthcare maintenance Active 04/30/2019 [facility] Chronic combined systolic and diastolic heart failure Active 04/30/2019 [facility] Loculated pleural effusion Active 04/30/2019 [facility] Pleural effusion on right Active 04/30/2019 [facility] S/P thoracentesis Active 04/30/2019 [facility] Chronic obstructive pulmonary disease, unspecified COPD type Active 04/30/2019 [facility] UNIL INGUINAL HERNIA, W/O OBST OR GANGR, Active [facility] Medications Medication Details Route Status Patient Instructions Ordering Provider Order Date Source furosemide (LASIX) 40 mg tablet Take 2 tablets by mouth 2 times daily for 90 days. Oral Active 04/07/2019 [facility] lisinopril (PRINIVIL, ZESTRIL) 5 mg tablet Take 1 tablet by mouth daily for 90 days. Oral Active 03/10/2019 [facility] furosemide (LASIX) 40 mg tablet Take 1 tablet by mouth 2 times daily for 90 days. Oral No Longer Active 03/10/2019 [facility] atorvastatin (LIPITOR) 20 mg tablet Take 1 tablet by mouth at bedtime nightly for 90 days. Oral Active 03/10/2019 [facility] lisinopril (PRINIVIL, ZESTRIL) 5 mg tablet Take 1 tablet by mouth daily for 90 days. Oral No Longer Active 03/04/2019 [facility] furosemide (LASIX) 40 mg tablet Take 1 tablet by mouth 2 times daily for 90 days. Oral No Longer Active 03/03/2019 [facility] albuterol (PROVENTIL) 2.5 mg /3 mL (0.083 %) nebulizer solution Inhale 3 mL by mouth every 6 hours as needed for Wheezing. Inhalation No Longer Active 03/03/2019 [facility] furosemide (LASIX) 20 mg tablet Take 1 tablet by mouth daily. Oral Inactive 12/27/2018 [facility] furosemide (LASIX) 20 mg tablet Take 1 tablet by mouth daily. Oral Inactive 12/27/2018 [facility] doxycycline monohydrate (MONODOX) 100 mg capsule Take 1 capsule by mouth 2 times daily for 10 days. Oral No Longer Active 01/31/2018 [facility] levoFLOXacin (LEVAQUIN) 750 mg tablet Take 1 tablet by mouth daily for 10 days. Oral No Longer Active 01/31/2018 [facility] lisinopril (PRINIVIL, ZESTRIL) 5 mg tablet Take 1 tablet by mouth daily. Oral No Longer Active 01/16/2017 [facility] atorvastatin (LIPITOR) 20 mg tablet Take 1 tablet by mouth at bedtime nightly. Oral No Longer Active 01/16/2017 [facility] Naproxen 500 MG Oral Tablet [Naprosyn] 500 mg=1 tab, PO, BID, # 30 tab, 0 Refill(s) Active 01/09/2016 [facility] tramadol hydrochloride 50 MG Oral Tablet 50 mg=1 tab, PO, Q6H, PRN Pain, X 10 day, # 40 tab, 0 Refill(s) Active 01/09/2016 [facility] Metoprolol 1 mg, 1 mL, Route: IVP, Drug form: INJ, Q5Min, Dosing Weight 71.818, kg, PRN Other -See Comment, Start date: 12/21/15 8:05:00, Duration: 5 doses or times, Stop date: Limited # of timesNotes: (Same as: Lopressor) Push over 2 minutes Inactive 12/21/2015 [facility] Oxycodone Hydrochloride 1 MG/ML Oral Solution 5 mg, 5 mL, Route: NG, Drug form: LIQ, Q4H, Dosing Weight 71.818, kg, PRN Pain Score 4-6, Start date: 12/21/15 8:05:00, Duration: 30 day, Stop date: 01/20/16 8:04:00Notes: (Same as: 'Roxicodone) Inactive 12/21/2015 [facility] Calcium Chloride 0.0014 MEQ/ML / Potassium Chloride 0.004 MEQ/ML / Sodium Chloride 0.103 MEQ/ML / Sodium Lactate 0.028 MEQ/ML Injectable Solution 1,000 mL, Rate: 125 ml/hr, Infuse over: 8 hr, Route: IV, Dosing Weight 71.818 kg, Total Volume: 1,000, Start date: 12/21/15 8:05:00, Duration: 30 day, Stop date: 01/20/16 8:04:00 Inactive 12/21/2015 [facility] Hydralazine 10 mg, 0.5 mL, Route: IVP, Drug form: INJ, Q20Min, Dosing Weight 71.818, kg, PRN Elevated BP, Start date: 12/21/15 8:05:00, Duration: 2 doses or times, Stop date: Limited # of timesNotes: (Same as: A presoline) Push over 5 minutes Inactive 12/21/2015 [facility] Ondansetron 4 mg, 2 mL, Route: IVP, Drug form: INJ, ONCE, Dosing Weight 71.818, kg, PRN Nausea & Vomiting, Start date: 12/21/15 8:05:00Notes: (Same as: Zofran) MEDICATION WASTE Product Size: 4 mg Product Wasted: ___ mg Inactive 12/21/2015 [facility] Fentanyl 50 microgram, 1 mL, Route: IVP, Drug form: INJ, Q5Min, Dosing Weight 71.818, kg, PRN Pain Score 7-10, Start date: 12/21/15 8:05:00, Duration: 2 doses or times, Stop date: Limited # of timesNotes: (Same as: Sublimaze) Preservative free. Inactive 12/21/2015 [facility] Morphine 4 mg, 1 mL, Route: IVP, Drug form: INJ, Q5Min, Dosing Weight 71.818, kg, PRN Pain Score 7-10, Start date: 12/21/15 8:05:00, Duration: 3 doses or times, Stop date: Limited # of timesNotes: (Same as:MO RPhine Sulfate) Inactive 12/21/2015 [facility] Meperidine 12.5 mg, 0.25 mL, Route: IVP, Drug form: INJ, Q30Min, Dosing Weight 71.818, kg, PRN Other -See Comment, For shivering, Start date: 12/21/15 8:05:00, Duration: 2 doses or times, Stop date: Limited # of timesNotes: (Same As: Demerol) Inactive 12/21/2015 [facility] Naloxone 0.04 mg, 0.1 mL, Route: IVP, Drug form: INJ, Q2MIN, Dosing Weight 71.818, kg, PRN Narcotic Reversal, Start date: 12/21/15 8:05:00, Duration: 8 doses or times, Stop date: Limited # of timesNotes: Same as Narcan Inactive 12/21/2015 [facility] Flumazenil 0.2 mg, 2 mL, Route: IVP, Drug form: INJ, PRN, Dosing Weight 71.818, kg, PRN Benzodiazepine Reversal, Initial dose, Start date: 12/21/15 8:05:00, Duration: 30 day, Stop date: 01/20/16 8:04:00Notes: ( Same as: Romazicon) Inactive 12/21/2015 [facility] Allergies, Adverse Reactions, Alerts No Known Medication Allergies Immunizations Immunization Date Given Site Status Last Updated Comments Source PCV 13 (Pnuemococcal Conjugated 13 Valent) 03/10/2019 completed Agustin Loc[facility] Tdap (Tetanus Toxoid, Reduced Diphtheria Toxoid And Acellular Pertussis, Absorbed) 01/30/2018 completed Juliette Loc[facility] Results Order Name Results Value Reference Range Date Interpretation Comments Source BASIC METABOLIC PANEL <td ID="[id number]">Sodium</td><td>140</td><td>136 - 145 mmol/L</td><td>[facility]</td><td ID="[id number]"/> 140 136 - 145 04/07/2019 [facility] BASIC METABOLIC PANEL <td ID="[id number]">Potassium</td><td>4.0</td><td>3.5 - 5.1 mmol/L</td><td>[facility]</td><td ID="[id number]"/> 4.0 3.5 - 5.1 04/07/2019 Loc[facility] BASIC METABOLIC PANEL <td ID="[id number]">Chloride</td><td>105</td><td>98 - 107 mmol/L</td><td>[facility]</td><td ID="[id number]"/> 105 98 - 107 04/07/2019 Loc[facility] BASIC METABOLIC PANEL CO2 31 21 - 31 04/07/2019 [facility] BASIC METABOLIC PANEL Urea Nitrogen 15.0 7 - 25 04/07/2019 Loc[facility] BASIC METABOLIC PANEL Creatinine 0.9 0.7 - 1.3 04/07/2019 Loc[facility] BASIC METABOLIC PANEL Glucose 99 70 - 110 04/07/2019 Loc[facility] BASIC METABOLIC PANEL Calcium, Total 9.4 8.6 - 10.3 04/07/2019 Loc[facility] BASIC METABOLIC PANEL GFR, Estimated 82 >=90 mL/min/1.73 m2 04/07/2019 Loc[facility] BASIC METABOLIC PANEL Anion Gap 4 5 - 16 04/07/2019 Located [facility] BASIC METABOLIC PANEL Lab Interpretation Abnormal 04/07/2019 Loc[facility] THYROID STIMULATING HORMONE (TSH) TSH 3.05 0.57 - 3.74 03/20/2019 Located [facility] THYROID STIMULATING HORMONE (TSH) Lab Interpretation Normal 03/20/2019 Loc[facility] BASIC METABOLIC PANEL <td ID="[id number]">Sodium</td><td>142</td><td>136 - 145 mmol/L</td><td>[facility]</td><td ID="[id number]"/> 142 136 - 145 03/20/2019 Located [facility] BASIC METABOLIC PANEL <td ID="[id number]">Potassium</td><td>3.5</td><td>3.5 - 5.1 mmol/L</td><td>[facility]</td><td ID="[id number]"/> 3.5 3.5 - 5.1 03/20/2019 Located [facility] BASIC METABOLIC PANEL <td ID="[id number]">Chloride</td><td>102</td><td>98 - 107 mmol/L</td><td>[facility]</td><td ID="[id number]"/> 102 98 - 107 03/20/2019 Loc[facility] BASIC METABOLIC PANEL CO2 33 21 - 31 03/20/2019 Loc[facility] BASIC METABOLIC PANEL Urea Nitrogen 10.0 7 - 25 03/20/2019 Located [facility] BASIC METABOLIC PANEL Creatinine 0.9 0.7 - 1.3 03/20/2019 Located [facility] BASIC METABOLIC PANEL Glucose 98 70 - 110 03/20/2019 Loc[facility] BASIC METABOLIC PANEL Calcium, Total 9.3 8.6 - 10.3 03/20/2019 Located [facility] BASIC METABOLIC PANEL GFR, Estimated 82 >=90 mL/min/1.73 m2 03/20/2019 Located [facility] BASIC METABOLIC PANEL Anion Gap 7 5 - 16 03/20/2019 Loc[facility] BASIC METABOLIC PANEL Lab Interpretation Abnormal 03/20/2019 Located [facility] LIPID PROFILE Triglyceride 108 <150 03/20/2019 Normal: < 150.0 mg/dL
Borderline: 150-199 mg/dL
High: 200- 499 mg/dL
Very High: >=500 mg/dL
Loc[facility] LIPID PROFILE <td ID="[id number]">Cholesterol</td><td><span>186.0</span>
<span style="allIndent"><span style="cellHeader">Comment: </span>
<span ID="[id number]" style="pre">Desirable: < 200.0 mg/dL
Borderline: 200 - 240 mg/dL
High Risk: > 240 mg/dL
</span&gt ;</span></td><td><=200.0 mg/dL</td><td>[facility]</td><td ID="[id number]"/> 186.0 <=200.0 03/20/2019 Desirable: < 200.0 mg/dL
Borderline: 200 - 240 mg/dL
High Risk: > 240 mg/dL
[facility] LIPID PROFILE <td ID="[id number]">HDL</td><td><span>39.0</span>
<span style="allIndent"><span style="cellHeader">Comment: </span>
<span ID="[id number]" style="pre">Increased CHD Risk: < 40.0 mg/dL
Decreased CHD Risk: > 60 mg/dL
</span></span></td><td>See Reference Range Narrative. mg/dL</td><td>[facility]</td><td ID="[id number]"/> 39.0 See Reference Range Narrative. 03/20/2019 Increased CHD Risk: < 40.0 mg/dL
Decreased CHD Risk: > 60 mg/dL
[facility] LIPID PROFILE <td ID="[id number]">LDL</td><td><span style="flagData">125</span><span style="flagData"> (H)</span>
<span style="allIndent"><span style="cellHeader">Comment: </span>
<span ID="[id number]" style="pre">Optimal: < 100.0 mg/dL
Near Optimal: 120-129 mg/dL
Borderline: 130-159 mg/dL
High: 160-189 mg/dL
Very High: >=190 mg/dL
</span></span></td><td><100 mg/dL</td><td>[facility]</td><td ID="[id number]"/> 125 <100 03/20/2019 Optimal: < 100.0 mg/dL
Near Optimal: 120-129 mg/dL
Borderline: 130-159 mg/dL
High: 160-189 mg/dL
Very High: >=190 mg/dL
[facility] LIPID PROFILE Lab Interpretation Abnormal 03/20/2019 [facility] GLUCOSE, FLD Glucose, Fld 64 03/11/2019
The reference range and other method performance specifications have not been established for body fluids. The test result must be interpreted into clinical context for integration.
[facility] GLUCOSE, FLD <p>TEST PERFORMED [facility]</p> TEST PERFORMED [facility] 03/11/2019 Loc[facility] T PROTEIN, FLD <td ID="[id number]">Protein, Fluid</td><td><span>1.4</span>
<span style="allIndent"><span style="cellHeader">Comment: </span>
<span ID="[id number]" style="pre">
The reference range and other method performance specifications have not been established for body fluids. The test result must be interpreted into clinical context for integration.
</span></span></td><td>g/dL</td><td>[facility]</td><td ID="[id number]"/> 1.4 03/11/2019
The reference range and other method performance specifications have not been established for body fluids. The test result must be interpreted into clinical context for integration.
[facility] T PROTEIN, FLD <p>Transudate <3 g/dL, Exudate >3 g/dL</p><p>TEST PERFORMED [facility]</p> Transudate 3 g/dLTEST PERFORMED [facility] 03/11/2019 Located [facility] LDH, FLD LDH, Fld 59 03/11/2019
The reference range and other method performance specifications have not been established for body fluids. The test result must be interpreted into clinical context for integration.
Loc[facility] LDH, FLD <p>Transudate <200 U/L, Exudate >200 U/L</p><p>TEST PERFORMED [facility]</p> Transudate 200 U/LTEST PERFORMED [facility] 03/11/2019 Loc[facility] FLUID CULTURE AND GRAM STAIN <td ID="[id number]">Body Fluid Culture</td><td>No growth 3 days</td><td/><td>[facility]</td><td ID="[id number]"/> No growth 3 days 03/05/2019 Loc[facility] FLUID CULTURE AND GRAM STAIN <td ID="[id number]">Gram Stain</td><td>2+ WBCs</td><td/><td>[facility]</td><td ID="[id number]"/> 2+ WBCs 03/05/2019 Loc[facility] FLUID CULTURE AND GRAM STAIN <td ID="[id number]">Gram Stain</td><td>No organisms seen</td><td/><td>[facility]</td><td ID="[id number]"/> No organisms seen 03/05/2019 Loc[facility] PLEURAL FLUID CYTOLOGY Case Report Non-gynecologic CytologyCase: [id number] Authorizing Provider:Narendra Petty MD Collected: 03/02/2019 01:27 PM Ordering Location: [address] SurgReceived:03/03/2019 07:38 AM Pathologist: Kassidy Pearl MD Specimen:Pleural Cavity, right 03/04/2019 [facility] PLEURAL FLUID CYTOLOGY Specimen Adequacy Satisfactory for evaluation 03/04/2019 Loc[facility] PLEURAL FLUID CYTOLOGY INTERPRETATION Negative for malignancy 03/04/2019 Loc[facility] PLEURAL FLUID CYTOLOGY Final Diagnosis Negative for malignancy 03/04/2019 Loc[facility] PLEURAL FLUID CYTOLOGY Comment Chronic inflammation and scant degenerative mesothelial cells 03/04/2019 Loc[facility] PLEURAL FLUID CYTOLOGY Pertinent Clinical Information right pleural effusion 03/04/2019 Loc[facility] PLEURAL FLUID CYTOLOGY Gross Description 10cc unfixed cloudy orange fluid 1 PAP cytospin prepared 1 DQ cytospin prepared 1 Cell Block prepared 03/04/2019 [facility] TRANSTHORACIC ECHO (TTE) TRANSTHORACIC ECHO (TTE) Transthoracic Echo Report JEFF MA Age:79 Gender: M :1940 Exam Date: 03/03/2019 07:51 Exam Location: [facility] Echo Ordering Phys: NARENDRA PETTY Referring Phys:[id number] Pérez Reading Phys:Clemencia Robles M.D. Fellow Phys: Fellow Phys: Storm Chaser: Nicole John Reason For Exam: Indications:CHF exacerbation ICD-9 Codes: Exam Type: Transthoracic Echo Procedure CPT:69339 Addtional CPT: Ht (in): 60 BSA: 1.72HR: 76 Rhythm: Sinus rhythm w/ectopy Wt (lb): 149BP: 122/ 65 Technical Quality: Technically difficult History: MEASUREMENTS Normal ranges based on 95% confidence intervals for adults, some normal patients may fall outside of this range especially when indexing for BSA 2D ECHO LV Diastolic Diameter PLAX5.3 cm4.2-5.8 (M) / 3.8-5.2 (F) LV Systolic Diameter PLAX 5.1 cm2.5-4.0 (M) / 2.2-3.5 (F) LV Fractional Shortening PLAX 5.5 % IVS Diastolic Thickness 1 cm0.6-1.0 (M) / 0.6-0.9 (F) IVS Systolic Thickness1.4 cm LVPW Diastolic Thickness0.98 cm 0.6-1.0 (M) / 0.6-0.9 (F) LVPW Systolic Thickness 1.3 cm LV Relative Wall Thickness0.37<=0.42 LVOT Diameter 2 cm Aortic Root Diameter3 cm LV Diastolic Volume MOD BP226 cm 62-150 cm (M) / 46-106 cm (F) LV Systolic Volume MOD BP 139 cm 21-61 cm (M) / 14-42 cm (F) LV Ejection Fraction MOD BP 38.6 %52-72 (M) / 54-74 (F) LV Stroke Volume MOD BP 87.2 cm LV Cardiac Output MOD QE2627 cm/min LV Cardiac Index MOD BP 3863 cm/minm LV Diastolic Volume MOD 4C195 cm LV Systolic Volume MOD 4C 128 cm LV Ejection Fraction MOD 4C 34 % LV Stroke Volume MOD 4C 66.1 cm LV Cardiac Output MOD 9J5255 cm/min LV Cardiac Index MOD 4C 2928 cm/minm LV Diastolic Volume MOD 2C249 cm LV Systolic Volume MOD 2C 160 cm LV Ejection Fraction MOD 2C 35.7 % LV Stroke Volume MOD 2C 89 cm LV Cardiac Output MOD 0E2188 cm/min LV Cardiac Index MOD 2C 3943 cm/minm LA Volume 75.4 cm LA Volume Index 44 cm/m 16 - 34 cm/m LA Volume MOD 2C99.5 cm LA Volume MOD 4C92.8 cm LV Mass by linear ukxziu960 g LV Mass by linear method Ergpy691 g/m IVC Diameter Inspiration1.1 cm IVC Diameter Expiration 1.6 cm RA Volume 81.4 cm RA Volume Index 47.4 cm/m DOPPLER AV Peak Vcypxdlu173 cm/s AV Peak Gradient6.6 mmHg AV Mean Lqcykqsc40.1 cm/s AV Mean Gradient3.8 mmHg AV Velocity Time Integral 20.6 cm AI Peak Nrnwwbsi278 cm/s AI Peak Eackssxr27 mmHg AI Deceleration [place] 245 cm/s LVOT Peak Rqeilgqe202 cm/s LVOT Peak Gradient5.7 mmHg LVOT Mean Cumljefd21.8 cm/s LVOT Mean Gradient3.6 mmHg LVOT Velocity Time Integral 23.5 cm LVOT Stroke Igbalw90.1 cm AV Area Cont Eq vti 3.5 cm AV Area Cont Eq pk2.8 cm Mitral E Point Velocity 162 cm/s MR Peak Iytmqtqq626 cm/s MR Peak Wwpxwroj436 mmHg MR Velocity Time Integral 154 cm MR Flow Rate PISA 19.7 cm/s MR ERO PISA 0.039 cm MR Regurgitant Volume PISA6 cm PV Peak Ndaqionb36.2 cm/s PV Peak Gradient3.5 mmHg PV Mean Fonwjvpx38.2 cm/s PV Mean Gradient1.9 mmHg PV Velocity Time Integral 18.6 cm [...] 10:27 2D ECHO LV Diastolic Diameter PLAX5.3 cm4.2-5.8 (M) / 3.8-5.2 (F) LV Systolic Diameter PLAX 5.1 cm2.5-4.0 (M) / 2.2-3.5 (F) LV Fractional Shortening PLAX 5.5 % IVS Diastolic Thickness 1 cm0.6-1.0 (M) / 0.6-0.9 (F) IVS Systolic Thickness1.4 cm LVPW Diastolic Thickness0.98 cm 0.6-1.0 (M) / 0.6-0.9 (F) LVPW Systolic Thickness 1.3 cm LV Relative Wall Thickness0.37<=0.42 LVOT Diameter 2 cm Aortic Root Diameter3 cm LV Diastolic Volume MOD BP226 cm 62-150 cm (M) / 46-106 cm (F) LV Systolic Volume MOD BP 139 cm 21-61 cm (M) / 14-42 cm (F) LV Ejection Fraction MOD BP 38.6 %52-72 (M) / 54-74 (F) LV Stroke Volume MOD BP 87.2 cm LV Cardiac Output MOD XX7088 cm/min LV Cardiac Index MOD BP 3863 cm/minm LV Diastolic Volume MOD 4C195 cm LV Systolic Volume MOD 4C 128 cm LV Ejection Fraction MOD 4C 34 % LV Stroke Volume MOD 4C 66.1 cm LV Cardiac Output MOD 1N4592 cm/min LV Cardiac Index MOD 4C 2928 cm/minm LV Diastolic Volume MOD 2C249 cm LV Systolic Volume MOD 2C 160 cm LV Ejection Fraction MOD 2C 35.7 % LV Stroke Volume MOD 2C 89 cm LV Cardiac Output MOD 6V6456 cm/min LV Cardiac Index MOD 2C 3943 cm/minm LA Volume 75.4 cm LA Volume Index 44 cm/m 16 - 34 cm/m LA Volume MOD 2C99.5 cm LA Volume MOD 4C92.8 cm LV Mass by linear dosvlh303 g LV Mass by linear method Uxgjy929 g/m IVC Diameter Inspiration1.1 cm IVC Diameter Expiration 1.6 cm RA Volume 81.4 cm RA Volume Index 47.4 cm/m DOPPLER AV Peak Pzilyneu614 cm/s AV Peak Gradient6.6 mmHg AV Mean Hfgkqtlr22.1 cm/s AV Mean Gradient3.8 mmHg AV Velocity Time Integral 20.6 cm AI Peak Bmcutsmc275 cm/s AI Peak Fxjshtuu58 mmHg AI Deceleration [place] 245 cm/s LVOT Peak Gwyzkvol524 cm/s LVOT Peak Gradient5.7 mmHg LVOT Mean Yfrjacla94.8 cm/s LVOT Mean Gradient3.6 mmHg LVOT Velocity Time Integral 23.5 cm LVOT Stroke Ptowng24.1 cm AV Area Cont Eq vti 3.5 cm AV Area Cont Eq pk2.8 cm Mitral E Point Velocity 162 cm/s MR Peak Goqpvsar424 cm/s MR Peak Jtfsffkr907 mmHg MR Velocity Time Integral 154 cm MR Flow Rate PISA 19.7 cm/s MR ERO PISA 0.039 cm MR Regurgitant Volume PISA6 cm PV Peak Pjfefhcw44.2 cm/s PV Peak Gradient3.5 mmHg PV Mean Lvufrhio56.2 cm/s PV Mean Gradient1.9 mmHg PV Velocity Time Integral 18.6 cm 03/03/2019 Located [facility] CBC <td ID="[id number]">WBC</td><td>6.1</td><td>4.5 - 12.0 K/uL</td><td>[facility]</td><td ID="[id number]"/> 6.1 4.5 - 12 03/03/2019 Loc[facility] CBC <td ID="[id number]">RBC</td><td>4.60</td><td>4.60 - 6.20 M/uL</td><td>[facility]</td><td ID="[id number]"/> 4.60 4.60 - 6.20 03/03/2019 [facility] CBC <td ID="[id number]">Hemoglobin</td><td><span style="flagData">12.8</span><span style="flagData"> (L)</span></td><td>14.0 - 18.0 g/dL</td><td>[facility]</td><td ID="[id number]"/> 12.8 14 - 18 03/03/2019 [facility] CBC <td ID="[id number]">Hematocrit</td><td><span style="flagData">39.2</span><span style="flagData"> (L)</span></td><td>40.0 - 54.0 %</td><td>[facility]</td><td ID="[id number]"/> 39.2 40 - 54 03/03/2019 [facility] CBC <td ID="[id number]">MCV</td><td>85.2</td><td>82.0 - 92.0 fL</td><td>[facility]</td><td ID="Huknuf378332158Wquo6Tkudbrjfi"/> 85.2 82 - 92 03/03/2019 [facility] CBC <td ID="Sneeet770711932Qnzi9Wwdu">MCH</td><td>27.8</td><td>27.0 - 31.0 pg</td><td>[facility]</td><td ID="Ssnxny791213522Tmex2Lbugbhsbg"/> 27.8 27 - 31 03/03/2019 [facility] CBC <td ID="[id number]">MCHC</td><td>32.7</td><td>32.0 - 36.0 g/dL</td><td>[facility]</td><td ID="[id number]"/> 32.7 32 - 36 03/03/2019 Located [facility] CBC <td ID="[id number]">RDW</td><td>43.4</td><td>35.1 - 43.9 fL</td><td>[facility]</td><td ID="[id number]"/> 43.4 35.1 - 43.9 03/03/2019 Located [facility] CBC <td ID="[id number]">Platelet</td><td>230</td><td>150 - 400 K/uL</td><td>[facility]</td><td ID="[id number]"/> 230 150 - 400 03/03/2019 Loc[facility] CBC <td ID="[id number]">Mean Platelet Volume</td><td>9.8</td><td>9.4 - 12.4 fL</td><td>[facility]</td><td ID="[id number]"/> 9.8 9.4 - 12.4 03/03/2019 Located [facility] CBC Percent NRBC 0.0 03/03/2019 Located [facility] CBC <td ID="[id number]">Neutrophil</td><td>65.4</td><td>34.0 - 67.9 %</td><td>[facility]</td><td ID="[id number]"/> 65.4 34 - 67.9 03/03/2019 Loc[facility] CBC <td ID="[id number]">Lymphocyte</td><td><span style="flagData">18.8</span><span style="flagData"> (L)</span></td><td>21.8 - 50.0 %</td><td>[facility]</td><td ID="[id number]"/> 18.8 21.8 - 50 03/03/2019 [facility] CBC <td ID="[id number]">Monocyte</td><td>9.9</td><td>5.3 - 12.0 %</td><td>[facility]</td><td ID="[id number]"/> 9.9 5.3 - 12 03/03/2019 Loc[facility] CBC <td ID="[id number]">Eosinophil</td><td><span style="flagData">5.1</span><span style="flagData"> (H)</span></td><td>0.8 - 5.0 %</td><td>[facility]</td><td ID="[id number]"/> 5.1 0.8 - 5 03/03/2019 [facility] CBC <td ID="[id number]">Basophil</td><td>0.5</td><td>0.2 - 1.2 %</td><td>[facility]</td><td ID="[id number]"/> 0.5 0.2 - 1.2 03/03/2019 [facility] CBC Pct Immat Gran 0.3 0 - 0.5 03/03/2019 [facility]ated [facility] CBC Neutrophil, Abs 3.98 1.78 - 5.36 03/03/2019 [facility] CBC Lymphocyte, Abs 1.14 1.32 - 3.57 03/03/2019 [facility]ated [facility] CBC Monocyte, Abs 0.60 0.3 - 0.82 03/03/2019 [facility]ated [facility] CBC Eosinophil, Abs 0.31 0.04 - 0.54 03/03/2019 [facility] CBC Basophil, Abs 0.03 0.01 - 0.08 03/03/2019 Located [facility] CBC Absol Immat Gran 0.02 0 - 0.03 03/03/2019 [facility] CBC Absolute NRBC-CV 0.00 03/03/2019 Located [facility] CBC Lab Interpretation Abnormal 03/03/2019 [facility] BLD GAS, MIXED VENOUS POC pCO2, Mix Carl POC 44.5 40 - 50 03/02/2019 [facility] BLD GAS, MIXED VENOUS POC pH, Mix Carl POC 7.32 7.32 - 7.45 03/02/2019 [facility] BLD GAS, MIXED VENOUS POC pO2, Mix Carl POC 98 36 - 42 03/02/2019 [facility] BLD GAS, MIXED VENOUS POC HCO3, Mix Carl POC 23 22 - 31 03/02/2019 [facility] BLD GAS, MIXED VENOUS POC Base Deficit, Mix Carl POC -2 03/02/2019 [facility] BLD GAS, MIXED VENOUS POC % Sat, Mix Carl POC 97 60 - 80 03/02/2019 [facility] BLD GAS, MIXED VENOUS POC Lactic Acid, Mix Carl POC 5.0 0.4 - 2 03/02/2019 [facility] BLD GAS, MIXED VENOUS POC Vitaliy's Test POSITI 03/02/2019 Loc[facility] BLD GAS, MIXED VENOUS POC Sample Type [facility] 03/02/2019 Physician Notified Located [facility] BLD GAS, MIXED VENOUS POC TCO2, MIXED VENOUS POC 24 53 - 9999 03/02/2019 [facility]ated [facility] BLD GAS, MIXED VENOUS POC Lab Interpretation Abnormal 03/02/2019 [facility] AB POC pH, Art POC 7.41 7.35 - 7.45 03/02/2019 [facility] POC pCO2, Arterial POC 37.1 32 - 45 03/02/2019 [facility] POC pO2, Arterial POC 57 72 - 104 03/02/2019 [facility] POC HCO3, Arterial POC 24 22 - 26 [facility] [facility] Deficit Arterial POC -1 03/02/2019 [facility] ABG POC % Sat, Art POC 90 03/02/[address] [facility] TCO2, ART POC 25 21 - 32 03/02/2019 [facility] POC Lactic Acid POC 1 0.4 - 2 03/02/[address] [facility] Sample Type IART 03/02/[address] [facility] ETCO2 ETCO2 [facility] 03/02/[address] [facility] Lab Interpretation Abnormal 03/02/2019 [facility] POC Sodium POC 142 136 - 145 03/02/2019 [facility] POC Potassium POC 3.9 3.5 - 5.1 03/02/2019 [facility] POC Chloride POC 103 98 - 107 03/02/2019 [facility] POC TCO2 POC 29 21 - 32 03/02/2019 [facility] POC Urea Nitrogen POC 11 7 - 18 03/02/2019 [facility] POC Creatinine POC 1.0 0.6 - 1.3 03/02/2019 [facility] POC Glucose POC 86 74 - 106 03/02/2019 [facility] POC Ionized Calcium POC 1.14 1.15 - 1.29 03/02/2019 [facility] POC GFR, Estimated, -Thai >60 mL/min/1.73 m2 03/02/2019 [facility] POC Lab Interpretation Abnormal 03/02/2019 [facility] TROPONIN I POC Troponin POC 0.08 0 - 0.08 03/01/2019 Physician Notified Located [facility] TROPONIN I POC Lab Interpretation Normal 03/01/2019 Located [facility] 12 LEAD EKG 12 LEAD EKG FOR [facility] Test Date:2019-03-01 Pat Name: JEFF MADepartment: 6520 : Gender: MTechnician: [id number] :1940 Requested By: VONNIE Soria Order Number: [id number] MD: Jonny WEBSTER Measurements IntervalsAxis Rate: 92 P:80 AR: 186QRS:-62 QRSD: 100T:88 QT: 377 QTc:468 Interpretive Statements SINUS RHYTHM WITH FREQUENT VENTRICULAR PREMATURE COMPLEXES POSSIBLE RIGHT VENTRICULAR CONDUCTION DELAY LEFT ANTERIOR FASCICULAR BLOCK Poor anterior R wave cannot r/o prior Anteroseptal Infarct POSSIBLE LEFT VENTRICULAR HYPERTROPHY NONSPECIFIC ST and T-WAVE ABNORMALITY Abnormal ECG Electronically Signed On 03-01-2019 11:16:09 CDT by Jonny WEBSTER 03/01/2019 Located [facility] UA CHEMISTRIES <td ID="[id number]">Color</td><td>Straw</td><td/><td>[facility]</td><td ID="[id number]"/> Straw 01/23/2019 Located [facility] UA CHEMISTRIES Clarity Clear 01/23/2019 Located [facility] UA CHEMISTRIES <td ID="[id number]">Specific Ideal</td><td>1.005</td><td>1.001 - 1.035</td><td>[facility]</td><td ID="[id number]"/> 1.005 1.001 - 1.035 01/23/2019 Located [facility] UA CHEMISTRIES <td ID="[id number]">pH</td><td>8.0</td><td>5 - 8</td><td>[facility]</td><td ID="Yhfqlf287754575Vrpu5Pphpuzisp"/> 8.0 5 - 8 01/23/2019 Loc[facility] UA CHEMISTRIES <td ID="Hzxbbx759007736Ircc7Ujmn">Protein</td><td>Negative</td><td>NEG</td><td>[facility]</td><td ID="[id number]"/> Negative NEG 01/23/2019 Located [facility] UA CHEMISTRIES <td ID="[id number]">Glucose</td><td>Negative</td><td>NEG</td><td>[facility] 2</td><td ID="[id number]"/> Negative NEG 01/23/2019 Loc[facility]A CHEMISTRIES <td ID="[id number]">Ketones</td><td>Negative</td><td>NEG</td><td>[facility]</td><td ID="[id number]"/> Negative NEG 01/23/2019 Loc[facility]A CHEMISTRIES <td ID="[id number]">Bilirubin</td><td>Negative</td><td>NEG</td><td>[facility]</td><td ID="Hhdbxz990254775Ogsh8Lhexaxdfb"/> Negative NEG 01/23/2019 Loc[facility]A CHEMISTRIES <td ID="Hxdlme168734876Rnew9Rtab">Nitrate</td><td>Negative</td><td>NEG</td><td>[facility]</td><td ID="[id number]"/> Negative NEG 01/23/2019 Located [facility]A CHEMISTRIES <td ID="[id number]">Urobilinogen,Semi- Qn</td><td><1.0</td><td>0.2 - 1.0 EU/dL</td><td>[facility] 2</td><td ID="[id number]"/> <1.0 0.2 - 1 01/23/2019 Located [facility] CHEMISTRIES <td ID="[id number]">Leukocyte</td><td>Negative</td><td>NEG</td><td>[facility] 2</td><td ID="[id number]"/> Negative NEG 01/23/2019 Loc[facility] Occult Blood Negative NEG 01/23/2019 Loc[facility] LIPASE <td ID="[id number]">Lipase</td><td><span style="flagData">7</span><span style="flagData"> (L)</span></td><td>11 - 81 U/L</td><td>[facility]IN-STATION 1</td><td ID=&a mp;quot;[id number]"/> 7 11 - 81 01/23/2019 Located [facility] LIPASE Lab Interpretation Abnormal 01/23/2019 Located [facility] LIVER PROFILE <td ID="[id number]">Protein, Total, Serum</td><td>7.2</td><td>6.0 - 8.3 g/dL</td><td>[facility]</td><td ID="[id number]"/> 7.2 6 - 8.3 01/23/2019 [facility] LIVER PROFILE <td ID="[id number]">Albumin</td><td>4.3</td><td>4.2 - 5.5 g/dL</td><td>[facility]</td><td ID="Fmklcr816528999Oorr3Apqsiubeo"/> 4.3 4.2 - 5.5 01/23/2019 [facility] LIVER PROFILE <td ID="[id number]">Bilirubin, Total</td><td>0.6</td><td>0.2 - 1.2 mg/dL</td><td>[facility]-ST[facility] 1</td><td ID="[id number]"/> 0.6 0.2 - 1.2 01/23/2019 [facility] LIVER PROFILE <td ID="[id number]">Alkaline Phosphatase, S</td><td>90</td><td>34 - 104 U/L</td><td>[facility] 1</td><td ID="[id number]"/> 90 34 - 104 01/23/2019 [facility] LIVER PROFILE <td ID="Rubqpz541744272Pmrr6Dino">AST (SGOT)</td><td>19</td><td>13 - 39 U/L</td><td>[facility]IN-ST[facility] 1</td><td ID="[id number]"/> 19 13 - 39 01/23/2019 [facility] LIVER PROFILE <td ID="[id number]">ALT</td><td>14</td><td>7 - 52 U/L</td><td>[facility] 1</td><td ID="Dfwrmo834029336Adut8Fjiwgliws"/> 14 7 - 52 01/23/2019 [facility] LIVER PROFILE <td ID="[id number]">D Bilirubin</td><td>0.1</td><td>0.0 - 0.2 mg/dL</td><td>[facility] 1</td><td ID="[id number]"/> 0.1 0 - 0.2 01/23/2019 Loc[facility] 12 LEAD EKG 12 [facility] Pat Name: JEFF Spauldingpartment: 6520 : Gender: MTechnician: [id number] :1940 Requested By: VONNIE Soria Order Number: [id number] MD: Darien Menendez Measurements IntervalsAxis Rate: 91 P:49 AR: 194QRS:-40 QRSD: 97 T:104 QT: 389 QTc:481 Interpretive Statements SINUS RHYTHM WITH OCCASIONAL VENTRICULAR PREMATURE COMPLEXES MARKED LEFT AXIS DEVIATION POSSIBLE LEFT VENTRICULAR HYPERTROPHY PROLONGED QTC NONSPECIFIC T-WAVE ABNORMALITY Abnormal ECG Electronically Signed On 01-23-2019 7:43:25 CDT by Darien Menendez 01/23/2019 Located [facility] PT/INR/PTT <td ID="[id number]">PT</td><td>14.4</td><td>11.8 - 15.0 Seconds</td><td>[facility] 2</td><td ID="[id number]"/> 14.4 11.8 - 15.0 01/23/2019 Located [facility] PT/INR/PTT INR 1.1 SUGGESTED THERAPEUTIC RANGES: INR 2.0-3.0 for MODERATE INTENSITY ANTICOAGULATION INR 2.5-3.5 for HIGH INTENSITY ANTICOAGULATION 01/23/2019 Located [facility] PT/INR/PTT PTT 35.9 23.6 - 36.4 01/23/2019 Located [facility] CBC/DIFF <td ID="[id number]">WBC</td><td>7.4</td><td>4.5 - 12.0 K/uL</td><td>[facility] 2</td><td ID="[id number]"/> 7.4 4.5 - 12 01/23/2019 Located [facility] CBC/DIFF <td ID="Cmuvun751709170Acke5Hfxi">RBC</td><td>4.72</td><td>4.60 - 6.20 M/uL</td><td>[facility] 2</td><td ID="[id number]"/> 4.72 4.60 - 6.20 01/23/2019 Located [facility] CBC/DIFF <td ID="Ooycgu509970769Edqc4Seum">Hemoglobin</td><td><span style="flagData">13.4</span><span style="flagData"> (L)</span></td><td>14.0 - 18.0 g/dL</td><td>[facility] 2</td><td ID="[id number]"/> 13.4 14 - 18 01/23/2019 Located [facility] CBC/DIFF <td ID="[id number]">Hematocrit</td><td>41.8</td><td>40.0 - 54.0 %</td><td>[facility] 2</td><td ID="[id number]"/> 41.8 40 - 54 01/23/2019 Located [facility] CBC/DIFF <td ID="[id number]">MCV</td><td>89</td><td>82 - 92 fL</td><td>[facility]</td><td ID="Nylczi094539689Uadz2Spwfotknj"/> 89 82 - 92 01/23/2019 Located [facility] CBC/DIFF <td ID="[id number]">MCH</td><td>28.4</td><td>27.0 - 31.0 pg</td><td>[facility] 2</td><td ID="[id number]"/> 28.4 27 - 31 01/23/2019 Located [facility] CBC/DIFF <td ID="[id number]">MCHC</td><td>32.1</td><td>32.0 - 36.0 g/dL</td><td>[facility] 2</td><td ID="[id number]"/> 32.1 32 - 36 01/23/2019 Located [facility] CBC/DIFF <td ID="[id number]">RDW</td><td><span style="flagData">44.3</span><span style="flagData"> (H)</span></td><td>35.1 - 43.9 fL</td><td>[facility] 2</td><td ID="[id number]"/> 44.3 35.1 - 43.9 01/23/2019 Located [facility] CBC/DIFF <td ID="[id number]">Platelets</td><td>254</td><td>150 - 400 K/uL</td><td>[facility]</td><td ID="[id number]"/> 254 150 - 400 01/23/2019 Located [facility] CBC/DIFF <td ID="[id number]">Mean Platelet Volume</td><td>10.0</td><td>9.4 - 12.4 fL</td><td>[facility]</td><td ID="[id number]"/> 10.0 9.4 - 12.4 01/23/2019 Located [facility] CBC/DIFF Percent NRBC 0.0 01/23/2019 Located [facility] CBC/DIFF Absolute NRBC 0.00 01/23/2019 Located [facility] CBC/DIFF <td ID="[id number]">Neutrophils</td><td><span style="flagData">76.9</span><span style="flagData"> (H)</span></td><td>34.0 - 67.9 %</td><td>[facility]</td><td ID="[id number]"/> 76.9 34 - 67.9 01/23/2019 Located [facility] CBC/DIFF <td ID="[id number]">Lymphs</td><td><span style="flagData">12.8</span><span style="flagData"> (L)</span></td><td>21.8 - 50.0 %</td><td>[facility]</td><td ID="[id number]"/> 12.8 21.8 - 50 01/23/2019 Located [facility] CBC/DIFF <td ID="[id number]">Monocytes</td><td>6.7</td><td>5.3 - 12.0 %</td><td>[facility] 2</td><td ID="[id number]"/> 6.7 5.3 - 12 01/23/2019 Located [facility] CBC/DIFF <td ID="[id number]">Eos</td><td>2.7</td><td>0.8 - 5.0 %</td><td>[facility] 2</td><td ID="[id number]"/> 2.7 0.8 - 5 01/23/2019 Located [facility] CBC/DIFF <td ID="[id number]">Basos</td><td>0.5</td><td>0.2 - 1.2 %</td><td>[facility] 2</td><td ID="[id number]"/> 0.5 0.2 - 1.2 01/23/2019 Located [facility] CBC/DIFF Immature Granulocytes 0.4 0.0 - 0.5 01/23/2019 Located [facility] CBC/DIFF Neutrophils (Absolute) 5.70 1.78 - 5.36 01/23/2019 Located [facility] CBC/DIFF Lymphs (Absolute) 0.95 1.32 - 3.57 01/23/2019 Located [facility] CBC/DIFF Monocytes(Absolute) 0.50 0.3 - 0.82 01/23/2019 Located [facility] CBC/DIFF Eos (Absolute) 0.20 0.04 - 0.54 01/23/2019 Located [facility] CBC/DIFF Baso (Absolute) 0.04 0.01 - 0.08 01/23/2019 Located [facility] CBC/DIFF Immature Grans (Abs) 0.03 0 - 0.03 01/23/2019 Located [facility] CBC/DIFF Lab Interpretation Abnormal 01/23/2019 Located [facility] TROPONIN I POC Troponin POC 0.05 0 - 0.08 [facility] POC 7.39 7.33 - 7.43 [facility] pCO2, Carl POC 41.9 38.0 - 50.0 [facility] pO2, Carl POC 30 50 - 75 [facility] Base Excess, Carl POC 0 [facility] HCO3, Carl POC 25.4 22 - 26 [facility] % Sat, Carl POC 57 60 - 85 [facility] Lactic Acid, Carl POC 1.18 0.4 - 2 01/23/2019 Loc[facility] VBG POC Sample Type Carl [facility] TCO[facility], CARL POC 27 21 - 32 [facility] Lab Interpretation Abnormal 01/23/2019 Loc[facility] BMP POC CO2 POC 25 21 - 32 01/23/2019 [facility] POC Chloride POC 102 98 - 107 01/23/2019 [facility] POC Potassium POC 3.8 3.5 - 5.1 01/23/2019 [facility] POC Sodium POC 141 136 - 145 01/23/2019 [facility] POC <td ID="Xlcqta972173090Obib1Rqxh">Glucose POC</td><td><span style="flagData">118</span><span style="flagData"> (H)</span></td><td>74 - 106 mg/dL</td><td>[facility] MAIN-STATION 1</td><td ID="[id number]"/> 118 74 - 106 01/23/2019 [facility] POC Urea Nitrogen POC 4 7 - 18 01/23/2019 [facility] POC Creatinine POC 0.8 0.6 - 1.3 01/23/2019 [facility] POC Calcium Ionized POC 1.24 1.15 - 1.29 01/23/2019 [facility] POC Hemoglobin POC 15.0 14 - 18 01/23/2019 [facility] POC Hematocrit POC 44.0 40 - 54 01/23/2019 [facility] POC GFR, Estimated >60 mL/min/1.73 m2 01/23/2019 [facility] POC GFR, Estim, Afr-Am >60 mL/min/1.73 m2 01/23/2019 [facility] POC Lab Interpretation Abnormal 01/23/2019 Located [facility] HIV-1/HIV-2 ROUTINE SCREENING <td ID="[id number]">HIV-1/HIV-2</td><td>Negative</td><td>NEG</td><td>[facility]LOOD [facility]</td><td ID="[id number]"/> Negative NEG 12/27/2018 [facility] POC pH, Art POC 7.40 7.35 - 7.45 12/27/2018 Physician Notified [facility] POC pCO2,Art POC 39.5 32.0 - 45.0 12/27/2018 [facility] POC pO2, Art POC 31 72 - 104 [facility]/[address] [facility] Excess, ART POC 0 12/27/2018 [facility] POC HCO3, Art POC 24.5 22 - 26 12/27/[address] [facility] % Sat, Art POC 59 95 - 99 12/27/2018 [facility] POC Lactic Acid POC 1.10 0.4 - 2 12/27/[address] [facility] Sample Type Art 12/27/2018 [facility] POC TCO2, ART POC 26 21 - 32 12/27/2018 [facility] POC Lab Interpretation Abnormal 12/27/2018 Located [facility] TROPONIN I POC Troponin POC 0.03 0 - 0.08 12/27/2018 [facility] POC CO2 POC 25 21 - 32 12/27/[address] [facility] POC Chloride POC 104 98 - 107 12/27/2018 [facility] POC Potassium POC 4.1 3.5 - 5.1 12/27/2018 [facility] POC Sodium POC 141 136 - 145 12/27/2018 [facility] POC Glucose POC 106 74 - 106 12/27/2018 [facility] POC Urea Nitrogen POC 9 7 - 18 12/27/2018 [facility] POC Creatinine POC 0.8 0.6 - 1.3 12/27/2018 [facility] POC Calcium Ionized POC 1.23 1.15 - 1.29 12/27/2018 [facility] POC Hemoglobin POC 14.6 14 - 18 12/27/2018 [facility] POC Hematocrit POC 43.0 40 - 54 12/27/2018 [facility] POC GFR, Estimated >60 mL/min/1.73 m2 12/27/2018 [facility] POC GFR, Estim, Afr-Am >60 mL/min/1.73 m2 12/27/2018 Located [facility] Bedside Ultrasound <p>Eloise Villareal ResidentMD 12/27/20187:08 PM</p><p>Bedside Ultrasound</p><p>Date/Time: 12/27/2018 6:32 PM</p>&amp ;lt;p>Performed by: Eloise Villareal ResidentMD</p><p>Authorized by: Dayna Saleem MD </p><p> </p><p>Consent: </p><p>Consent obtained:Verbal</p><p>Consent given by:Patient</p><p>Indications: </p><p& amp;gt;Indications:Chest pain</p><p>Comments: </p><p> Cardiothoracic Bedside Ultrasound</p><p>Views obtained: PSLAX, PSSAX, IVC, R Thoracic, L Thoracic</p><p>Adequate LV systolic fxn with EF moderately depressed, No evidence of RV </p><p>enlargement, Septal bowing, D sign. No pericardial effusion. Bilateral </p><p>lung slided.</p><p>IVC: plethoric</p> Eloise Villareal ResidentMD 12/27/20187:08 PMBedside UltrasoundDate/Time: 12/27/2018 6:32 PMPerformed by: Eloise Villareal ResidentMDAuthorized by: Dayna Saleem MD Consent: Consent obtained:VerbalConsent given by:PatientIndications: Indications:Chest painComments: Cardiothoracic Bedside UltrasoundViews obtained: PSLAX, PSSAX, IVC, R Thoracic, L ThoracicAdequate LV systolic fxn with EF moderately depressed, No evidence of RV enlargement, Septal bowing, D sign. No pericardial effusion. Bilateral lung slided.IVC: plethoric 12/27/2018 Repeatit 12 LEAD EKG 12 LEAD EKG FOR [facility] Test Date:2018-12-27 Pat Name: JEFF Spauldingpartment: [id number] : Gender:Registered Nurse Maternity: KAI :[id number] Requested By: VONNIE Soria Order Number: [id number] MD: Armond Akbar Measurements IntervalsAxis Rate: 84 P:78 AR: 213QRS:-60 QRSD: 124T:56 QT: 386 QTc:458 Interpretive Statements SINUS RHYTHM WITH FIRST DEGREE AV BLOCK WITH FREQUENT VENTRICULAR PREMATURE COMPLEXES RIGHT BUNDLE BRANCH BLOCK [120+ ms QRS DURATION, UPRIGHT V1, 40+ ms S IN I/aVL/V4/V5/V6] MODERATE VOLTAGE CRITERIA FOR LVH, CONSIDER NORMAL VARIANT [MEETS CRITERIA IN ONE OF: R(aVL), S(V1), R(V5), R(V5/V6)+S(V1)] early r wave progression Electronically Signed On 12-27-2018 12:10:48 CDT by Armond Akbar 12/27/2018 Repeatit FOREIGN BODY REMOVAL SIMPLE <p>Franchesca Paz NP 01/31/2018 12:26 AM</p><p>Foreign body removal simple</p><p>Date/Time: 01/31/2018 12:22 AM</p><p>Performed by: FRANCHESCA PAZ</p><p>Authorized by: FRANCHESCA PAZ </p><p> </p><p>Consent: </p><p>Consent obtained:Verbal</p><p>Consent given by:Patient</p><p>Risks discussed:Bleeding, incomplete removal, infection, pain, nerve </p><p>damage, worsening of condition and poor cosmetic result</p><p>Alternatives discussed:No treatment</p>< p>Location: </p><p>Location:Finger</p><p>Finger location:R middle finger</p><p>Depth:Subcutaneous</p><p>Tendon involvement:None</p><p>Pre- procedure details: </p><p>Neurovascular status: intact</p><p>Preparation: Patient was prepped and draped in usual sterile fashion</p><p>Anesthesia (see MAR for exact dosages): </p><p>Anesthesia method:Local infiltration</p><p>Local anesthetic:Lidocaine 1% w/o epi</p><p>Procedure type: </p><p>Procedure complexity:Simple</p><p>Procedure details: </p><p>Removal mechanism: needle technique.</p><p>Foreign bodies recovered:1</p><p>Description:One prong fish hook</p><p>Intact foreign body removal: yes</p><p>Post-procedure details: </p><p>Neurovascular status: intact</p><p>Confirmation:No additional foreign bodies on visualization</p><p>Skin closure:None</p><p>Dressing:Sterile dressing</p><p>Patient tolerance of procedure:Tolerated well, no immediate </p><p>complications</p> Franchesca Paz NP 01/31/2018 12:26 AMForeign body removal simpleDate/Time: 01/31/2018 12:22 AMPerformed by: FRANCHESCA PAZ CAuthorized by: FRANCHESCA PAZ Consent: Consent obtained:VerbalConsent given by:PatientRisks discussed:Bleeding, incomplete removal, infection, pain, nerve damage, worsening of condition and poor cosmetic resultAlternatives discussed:No treatmentLocation: Location:FingerFinger location:R middle fingerDepth:SubcutaneousTendon involvement:NonePre-procedure details: Neurovascular status: intactPreparation: Patient was prepped and draped in usual sterile fashionAnesthesia (see MAR for exact dosages): Anesthesia method:Local infiltrationLocal anesthetic:Lidocaine 1% w/o epiProcedure type: Procedure complexity:SimpleProcedure details: Removal mechanism: needle technique.Foreign bodies recovered:1Description:One prong fish hookIntact foreign body removal: yesPost-procedure details: Neurovascular status: intactConfirmation:No additional foreign bodies on visualizationSkin closure:NoneDressing:Sterile dressingPatient tolerance of procedure:Tolerated well, no immediate complications 01/31/2018 Located Within [facility] URINE AND STOOL UA Protein Negative mg/dL Negative mg/dL 01/08/2016 [facility] URINE AND STOOL UA pH 6.0 5.0 - 8.0 01/08/2016 [facility] URINE AND STOOL UA Glucose Negative mg/dL Negative mg/dL 01/08/2016 [facility] URINE AND STOOL UA Ketones Negative mg/dL Negative mg/dL 01/08/2016 [facility] URINE AND STOOL UA Spec Grav 1.015 <=1.030 01/08/2016 [facility] URINE AND STOOL UA Color Yellow *NA* (01/08/16 6:25 PM) Yellow 01/08/2016 [facility] URINE AND STOOL UA Turbidity Clear (01/08/16 6:25 PM) Clear 01/08/2016 [facility] URINE AND STOOL UA Leuk Est Negative (01/08/16 6:25 PM) Negative 01/08/2016 [facility] URINE AND STOOL UA Bili Negative *NA* (01/08/16 6:25 PM) Negative 01/08/2016 [facility] URINE AND STOOL UA Nitrite Negative (01/08/16 6:25 PM) Negative 01/08/2016 [facility] URINE AND STOOL UA Blood Negative (01/08/16 6:25 PM) Negative 01/08/2016 [facility] URINE AND STOOL UA Urobilinogen 0.2 0.1 - 1.0 01/08/2016 [facility] URINE AND STOOL UA Sq Epi None Seen (01/08/16 6:25 PM) Few 01/08/2016 [facility] URINE AND STOOL UA Bacteria None Seen (01/08/16 6:25 PM) None Seen 01/08/2016 [facility] CHEM PANEL Lipase Lvl 124 73 - 393 01/08/2016 [facility] CHEM PANEL B/C Ratio 10 6 - 25 01/08/2016 [facility] CHEM PANEL Globulin 3.2 2.0 - 4.0 01/08/2016 [facility] CHEM PANEL A/G Ratio 1.2 0.7 - 1.6 01/08/2016 [facility] CHEM PANEL AGAP 10.0 10.0 - 20.0 01/08/2016 [facility] CHEM PANEL Bili Total 0.3 0.2 - 1.3 01/08/2016 [facility] CHEM PANEL AST 15 0 - 37 01/08/2016 [facility] CHEM PANEL Alk Phos 74 39 - 136 01/08/2016 [facility] CHEM PANEL ALT 28 0 - 65 01/08/2016 [facility] CHEM PANEL eGFR 92 01/08/2016 Result Comment: The eGFR is calculated using the CKD-EPI formula. In most young, healthy individuals the eGFR will be >90 mL/min/1.73m2. The eGFR declines with age. An eGFR of 60-89 may be normal in some populations, particularly the elderly, for whom the CKD-EPI formula has not been extensively validated. Use of the eGFR is not recommended in the following populations:

Individuals with unstable creatinine concentrations, including patients and those with serious co-morbid conditions.

Patients with extremes in muscle mass or diet.

The data above are obtained from the National Kidney Disease Education Program (NKDEP) which additionally recommends that when the eGFR is used in patients with extremes of body mass index for purposes of drug dosing, the eGFR should be multiplied by the estimated BMI. [facility] CHEM PANEL Creatinine Lvl 0.71 0.50 - 1.40 01/08/2016 [facility] CHEM PANEL Glucose Lvl 88 70 - 99 01/08/2016 [facility] CHEM PANEL Calcium Lvl 9.2 8.5 - 10.5 01/08/2016 [facility] CHEM PANEL Chloride Lvl 109 95 - 109 01/08/2016 [facility] CHEM PANEL Sodium Lvl 140 135 - 145 01/08/2016 [facility] CHEM PANEL Potassium Lvl 4.0 3.5 - 5.1 01/08/2016 [facility] CHEM PANEL BUN 7 7 - 22 01/08/2016 [facility] CHEM PANEL Total Protein 7.2 6.4 - 8.4 01/08/2016 [facility] CHEM PANEL Albumin Lvl 4.0 3.5 - 5.0 01/08/2016 [facility] CHEM PANEL CO2 25 24 - 32 01/08/2016 [facility] HEMATOLOGY Segs 50.0 45.0 - 75.0 01/08/2016 [facility] HEMATOLOGY Lymphocytes # 2.3 1.0 - 5.5 01/08/2016 [facility] HEMATOLOGY Monocytes # 0.6 0.0 - 0.8 01/08/2016 [facility] HEMATOLOGY Eosinophils # 0.4 0.0 - 0.5 01/08/2016 [facility] Lymphocytes 33.9 20.0 - 40.0 01/08/2016 [facility] Monocytes 9.0 2.0 - 12.0 01/08/2016 [facility] HEMATOLOGY Segs-Bands # 3.3 1.5 - 8.1 01/08/2016 [facility] HEMATOLOGY Eosinophils 6.5 0.0 - 4.0 01/08/2016 [facility] HEMATOLOGY Basophils 0.6 0.0 - 1.0 01/08/2016 [facility] Basophils # 0.0 0.0 - 0.2 01/08/2016 [facility] PTT 31.0 22.9 - 35.8 01/08/2016 [facility] Hct 47.1 42.0 - 54.0 01/08/2016 [facility] Hgb 15.5 14.0 - 18.0 01/08/2016 [facility] MCV 89.1 80.0 - 94.0 01/08/2016 [facility] MCH 29.3 27.0 - 31.0 01/08/2016 [facility] Platelet 252 133 - 450 01/08/2016 [facility] MCHC 32.9 32.0 - 36.0 01/08/2016 [facility] MPV 7.9 7.4 - 10.4 01/08/2016 [facility] RDW 13.8 11.5 - 14.5 01/08/2016 [facility] WBC 6.7 3.7 - 10.4 01/08/2016 [facility] HEMATOLOGY RBC 5.29 4.70 - 6.10 01/08/2016 [facility] HEMATOLOGY INR 1.04 0.85 - 1.17 01/08/2016 [facility] HEMATOLOGY PT 13.9 12.0 - 14.7 01/08/2016 [facility] ELECTROLYTES AGAP 13.0 10.0 - 20.0 12/21/2015 [facility] ELECTROLYTES eGFR 88 12/21/2015 Result Comment: The eGFR is calculated using the CKD-EPI formula. In most young, healthy individuals the eGFR will be >90 mL/min/1.73m2. The eGFR declines with age. An eGFR of 60-89 may be normal in some populations, particularly the elderly, for whom the CKD-EPI formula has not been extensively validated. Use of the eGFR is not recommended in the following populations:

Individuals with unstable creatinine concentrations, including patients and those with serious co-morbid conditions.

Patients with extremes in muscle mass or diet.

The data above are obtained from the National Kidney Disease Education Program (NKDEP) which additionally recommends that when the eGFR is used in patients with extremes of body mass index for purposes of drug dosing, the eGFR should be multiplied by the estimated BMI. [facility] ELECTROLYTES BUN 9 7 - 22 12/21/2015 [facility] ELECTROLYTES Glucose Lvl 103 70 - 99 12/21/2015 [facility] ELECTROLYTES Creatinine Lvl 0.80 0.50 - 1.40 12/21/2015 [facility] ELECTROLYTES Calcium Lvl 9.0 8.5 - 10.5 12/21/2015 [facility] ELECTROLYTES Sodium Lvl 141 135 - 145 12/21/2015 [facility] ELECTROLYTES Chloride Lvl 107 95 - 109 12/21/2015 [facility] ELECTROLYTES Potassium Lvl 4.0 3.5 - 5.1 12/21/2015 [facility] ELECTROLYTES CO2 25 24 - 32 12/21/2015 [facility] HEMATOLOGY Basophils 0.5 0.0 - 1.0 12/21/2015 [facility] HEMATOLOGY Segs-Bands # 2.7 1.5 - 8.1 12/21/2015 [facility] HEMATOLOGY Monocytes # 0.5 0.0 - 0.8 12/21/2015 [facility] HEMATOLOGY Eosinophils # 0.5 0.0 - 0.5 12/21/2015 [facility] HEMATOLOGY Lymphocytes # 1.9 1.0 - 5.5 12/21/2015 [facility] Monocytes 9.4 2.0 - 12.0 12/21/2015 [facility] Eosinophils 8.6 0.0 - 4.0 12/21/2015 [facility] Segs 47.2 45.0 - 75.0 12/21/2015 [facility] Lymphocytes 34.3 20.0 - 40.0 12/21/2015 [facility] MCH 28.9 27.0 - 31.0 12/21/2015 [facility] MCV 87.9 80.0 - 94.0 12/21/2015 [facility] Hct 47.7 42.0 - 54.0 12/21/2015 [facility] RBC 5.43 4.70 - 6.10 12/21/2015 [facility] Hgb 15.7 14.0 - 18.0 12/21/2015 [facility] WBC 5.7 3.7 - 10.4 12/21/2015 [facility] MPV 8.1 7.4 - 10.4 12/21/2015 [facility] Platelet 200 133 - 450 12/21/2015 [facility] RDW 13.6 11.5 - 14.5 12/21/2015 [facility] MCHC 32.8 32.0 - 36.0 12/21/2015 [facility] Pathology Reports No Data Provided for This Section Diagnostic Reports Report Value Date Source XRAY CHEST 2 VIEWS IMPRESSION: 1. Mild cardiomegaly2. 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 Heart and mediastinum: The cardiac silhouette is slightly enlarged.There is calcification in the aortic knob. The thoracic aorta istortuous. A soft tissue opacity in the right superior mediastinum isthought to be vascular in origin. Lungs and pleura: Small bilateral, right greater than left, pleuraleffusions are present. There has been some decrease in the right-sidedpleural effusion when compared with a chest x-ray done on 03/09/2019.There may be atelectasis and/or consolidation associated with theright-sided pleural effusion. Pulmonary vascularity is normal. Bones/soft tissues: The bony structures are intact. Upper abdomen: Unremarkable Interface, Rad/Mammog In - 03/11/2019 7:33 AM CDTEXAM: XR CHEST 2 VIEWS DATE: 03/10/2019 11:44 AM INDICATION: Hx of pleural effusions Acute on chronic combined systolic and diastolic congestive heart failure COMPARISON: 03/02/2019 TECHNIQUE: PA and lateral views DISCUSSION: Lines/tubes/devices: None. Heart and mediastinum: The cardiac silhouette is slightly enlarged. There is calcification in the aortic knob. The thoracic aorta is tortuous. A soft tissue opacity in the right superior mediastinum is thought to be vascular in origin. Lungs and pleura: Small bilateral, right greater than left, pleural effusions are present. There has been some decrease in the right-sided pleural effusion when compared with a chest x-ray done on 03/09/2019. There may be atelectasis and/or consolidation associated with the right-sided pleural effusion. Pulmonary vascularity is normal. Bones/soft tissues: The bony structures are intact. Upper abdomen: Unremarkable IMPRESSION IMPRESSION: 1. Mild cardiomegaly 2. Bilateral, right greater than left, pleural effusions with some decrease in the right-sided pleural effusion when compared with a chest x-ray done on 03/02/2019 Signed By: Aime Palma MD, 03/11/2019 7:28 AM 03/11/2019 Located Within [facility] XRAY CHEST 1 VIEW IMPRESSION:1. Decrease layering right pleural effusion following thoracentesis.2. Persistent loculated right pleural effusion and small left pleuraleffusion.3. Focal alveolar opacity of right lower lobe and to a lesser degreeright middle lobe are due singly or in combination to effusion,atelectasis or superimposed consolidation.4. Improving mild interstitial pulmonary edema.5. Stable cardiomegaly. Signed By: Nicolette Palomino MD, 03/02/2019 2:18 PM EXAM: XR CHEST 1 VIEW DATE: 03/02/2019 1:47 PM INDICATION: s/p thoracentesis. S/P thoracentesis COMPARISON: Chest 2 views 03/01/2019 at 11:29 AM TECHNIQUE: AP chest FINDINGS: Lines, tubes and hardware: None. Lungs and pleura:Hazy opacification of right lower lobe has improvedfollowing thoracentesis. This indicates decreasing right pleuraleffusion although this is associated with the persistent loculatedcomponent seen adjacent to the lateral wall of the right hemithorax.There is increased hazy opacification within right middle lobe. Leftpleural effusion persists. Central pulmonary vascularity remainsincreased and perihilar haze persists however, pulmonary vascularityoverall has improved. A pneumothorax is not visible. Heart andmediastinum: The cardiac silhouette is enlarged with a left ventricularshape. The thoracic aorta remains tortuous and partially calcified aswell as mildly ectatic.Mediastinal contours are stable. Bones: No acute bony abnormality is identified. Interface, Rad/Mammog In - 03/02/2019 2:23 PM CDTEXAM: XR CHEST 1 VIEW DATE: 03/02/2019 1:47 [...] By: Nicolette Palomino MD, 03/02/2019 2:18 PM 03/02/2019 Located Within [facility] CTA CHEST AORTA IMPRESSION:1.Unchanged thoracic aortic aneurysm up to 4.7 cm transverse. Nodissection, pseudoaneurysm or surrounding hemorrhage.2.Enlarging bilateral loculated pleural effusions, moderate to largeon the right and small on the left3.Unchanged four-chamber cardiomegaly with coronary arterycalcifications4.Mild dilatation of the main pulmonary artery suggestive of pulmonaryhypertension5.No acute intra-abdominal abnormality. Unchanged prostatomegalyimpinging upon the bladder base Signed By: Erin Sotomayor MD, 01/23/2019 9:09 AM EXAM: CTA CHEST WITH CONTRASTEXAM: CTA ABDOMEN AND PELVIS WITH CONTRAST DATE: 01/23/2019 8:47 AM INDICATION: Known CTA aneurysm. Chest pain, unspecified type ADDITIONAL INFORMATION: None. COMPARISON: 12/27/2018. TECHNIQUE: Volumetric CTA of the chest, abdomen and pelvis is acquire dfollowing intravenous administration of contrast. Axial, coronal andsagittal images are provided.IV contrast: 100 mL Omnipaque 350Enteric contrast: None.DLP: 1062.37 mGy-cm FINDINGS: VASCULAR: Aorta: No dissection, penetrating ulcer, or rupture identified. Finedetail of the ascending aorta is limited by motion artifact on thisnongated examination. Within this limitation, measurements are asfollows:Aortic root: 3.9 cmSinotubular junction: 4.5 cmAscending aorta at the level of the RPA: 4.7 cmAortic arch: 3.8 cmDescending aorta at the level of the RPA: 3.2 cmDescending aorta at the hiatus: 3.2 cmAbdominal aorta at the level of the renal arteries: 2.4 cmAbdominal aorta prior to the bifurcation: 2 cm Thoracic and abdominal arterial anatomy:Great vessels: Conventional anatomy at the aortic arch withouthemodynamically significant stenosis at the visualized carotids,subclavian, vertebral arteriesPulmonary arteries: Dilated. MPA: 3.2 cmHepatic arteries: Conventional.Renal arteries: Single right and left renal artery without stenosis Right run-off:Common iliac artery: 1.7 cmExternal iliac artery: 1.1 cmInternal iliac artery: 0.9 cmCommon femoral artery: Patent with only minimal atherosclerotic plaqueSuperficial femoral artery: Patent with only minimal atheroscleroticplaque Left run-off:Common iliac artery: 1.5 cmExternal iliac artery: 1 cmInternal iliac artery: 0.9 cmCommon femoral artery: Patent wit h only minimal atherosclerotic plaqueSuperficial femoral artery: Patent with only minimal atheroscleroticplaque SVC, IVC and veins: Normal.Portal vasculature: Main portal vein: 1.5 cm NONVASCULAR: Lines, tubes and hardware: None. Lower neck:The visible portions or the lower neck and thyroid areunremarkable. Axilla: Clear. Airway: Clear. Lungs and pleura:Loculated bilateral pleural effusions are present,moderate to large on the right and small on the left, with areas ofloculation in the minor fissures bilaterally. Parenchymal evaluation islimited by patient breathing motion artifact, with areas of scatteredatelectasis related to the pleural effusions, and small areas of airtrapping present. Mediastinum, favio and intrathoracic lymph nodes: Normal. Heart and pericardium: Four-chamber cardiomegaly. Atheroscleroticcalcifications of all 3 coronary arteries. Liver: Normal. Biliary tree: No intra- or extrahepatic biliary ductal dilation. Gallbladder: Normal. Pancreas: Normal. Spleen: Few dystrophic calcifications at the splenic capsule andinferiorly, most likely postinfectious. Otherwise unremarkable.. Adrenals: Normal. Kidneys and ureters: Large bilateral simple density renal cysts measureup to 8.1 cm on the left, unchanged. No hydronephrosis or acute renalabnormality. Bladder: Normal. Reproductive organs: Prostatomegaly. Seminal vesicles are symmetric. Gastrointestinal tract:Stomach: Normal.Small bowel: Normal.Colon: Uninflamed diverticula.Appendix: Not seen. No inflammation. Peritoneum, mesentery and retroperitoneum: No free air, ascites orloculated fluid. Abdominal and pelvic lymph nodes: Normal. Bones: No acute abnormality. Bilateral L5 pars defects are againidentified, with grade 1 anterolisthesis of L5 on S1. Degenerative discheight loss is also present at L2-3, with small multilevel osteophytes.. Soft tissues: Postsurgical changes of prior left inguinal hernia repair. Interface, Rad/Mammog In - 01/23/2019 9:14 AM CDTEXAM: CTA CHEST WITH CONTRAST EXAM: CTA ABDOMEN [...] upon the bladder base Signed By: Erin oStomayor MD, 01/23/2019 9:09 AM 01/23/2019 Located Within [facility] CTA ABDOMEN-PELVIS W CONTRAST - AORTA IMPRESSION:1.Unchanged thoracic aortic aneurysm up to 4.7 cm transverse. Nodissection, pseudoaneurysm or surrounding hemorrhage.2.Enlarging bilateral loculated pleural effusions, moderate to largeon the right and small on the left3.Unchanged four-chamber cardiomegaly with coronary arterycalcifications4.Mild dilatation of the main pulmonary artery suggestive of pulmonaryhypertension5.No acute intra-abdominal abnormality. Unchanged prostatomegalyimpinging upon the bladder base Signed By: Erin Sotomayor MD, 01/23/2019 9:09 AM EXAM: CTA CHEST WITH CONTRASTEXAM: CTA ABDOMEN AND PELVIS WITH CONTRAST DATE: 01/23/2019 8:47 AM INDICATION: Known CTA aneurysm. Chest pain, unspecified type ADDITIONAL INFORMATION: None. COMPARISON: 12/27/2018. TECHNIQUE: Volumetric CTA of the chest, abdomen and pelvis is acquiredfollowing intravenous administration of contrast. Axial, coronal andsagittal images are provided.IV contrast: 100 mL Omnipaque 350Enteric contrast: None.DLP: 1062.37 mGy-cm FINDINGS: VASCULAR: Aorta: No dissection, penetrating ulcer, or rupture identified. Finedetail of the ascending aorta is limited by motion artifact on thisnongated examination. Within this limitation, measurements are asfollows:Aortic root: 3.9 cmSinotubular junction: 4.5 cmAscending aorta at the level of the RPA: 4.7 cmAortic arch: 3.8 cmDescending aorta at the level of the RPA: 3.2 cmDescending aorta at the hiatus: 3.2 cmAbdom inal aorta at the level of the renal arteries: 2.4 cmAbdominal aorta prior to the bifurcation: 2 cm Thoracic and abdominal arterial anatomy:Great vessels: Conventional anatomy at the aortic arch withouthemodynamically significant stenosis at the visualized carotids,subclavian, vertebral arteriesPulmonary arteries: Dilated. MPA: 3.2 cmHepatic arteries: Conventional.Renal arteries: Single right and left renal artery without stenosis Right run-off:Common iliac artery: 1.7 cmExternal iliac artery: 1.1 cmInternal iliac artery: 0.9 cmCommon femoral artery: Patent with only minimal atherosclerotic plaqueSuperficial femoral artery: Patent with only minimal atheroscleroticplaque Left run- off:Common iliac artery: 1.5 cmExternal iliac artery: 1 cmInternal iliac artery: 0.9 cmCommon femoral artery: Patent with only minimal atherosclerotic plaqueSuperficial femoral artery: Patent with only minimal atheroscleroticplaque SVC, IVC and veins: Normal.Portal vasculature: Main portal vein: 1.5 cm NONVASCULAR: Lines, tubes and hardware: None. Lower neck:The visible portions or the lower neck and thyroid areunremarkable. Axilla: Clear. Airway: Clear. Lungs and pleura:Loculated bilateral pleural effusions are present,moderate to large on the right and small on the left, with areas ofloculation in the minor fissures bilaterally. Parenchymal evaluation islimited by patient breathing motion artifact, with areas of scatteredatelectasis related to the pleural effusions, and small areas of airtrapping present. Mediastinum, favio and intrathoracic lymph nodes: Normal. Heart and pericardium: Four-chamber cardiomegaly. Atheroscleroticcalcifications of all 3 coronary arteries. Liver: Normal. Biliary tree: No intra- or extrahepatic biliary ductal dilation. Gallbladder: Normal. Pancreas: Normal. Spleen: Few dystrophic calcifications at the splenic capsule andinferiorly, most likely postinfectious. Otherwise unremarkable.. Adrenals: Normal. Kidneys and ureters: Large bilateral simple density renal cysts measureup to 8.1 cm on the left, unchanged. No hydronephrosis or acute renalabnormality. Bladder: Normal. Reproductive organs: Prostatomegaly. Seminal vesicles are symmetric. Gastrointestinal tract:Stomach: Normal.Small bowel: Normal.Colon: Uninflamed diverticula.Appendix: Not seen. No inflammation. Peritoneum, mesentery and retroperitoneum: No free air, ascites orloculated fluid. Abdominal and pelvic lymph nodes: Normal. Bones: No acute abnormality. Bilateral L5 pars defects are againidentified, with grade 1 anterolisthesis of L5 on S1. Degenerative discheight loss is also present at L2- 3, with small multilevel osteophytes.. Soft tissues: Postsurgical changes of prior left inguinal hernia repair. Interface, Rad/Mammog In - 01/23/2019 9:14 AM CDTEXAM: CTA CHEST WITH CONTRAST EXAM: CTA ABDOMEN [...] By: Erin Sotomayor MD, 01/23/2019 9:09 AM 01/23/2019 Located Within [facility] XRAY CHEST 2 VIEWS IMPRESSION:1.Slight interval enlargement in the moderate sized right pleuraleffusion. Stable trace left pleural effusion.2.Unchanged right lung base opacities may represent atelectasis orconsolidation.3.Mild left basilar subsegmental atelectasis.4.Moderate cardiomegaly with mild pulmonary venous congestion. This [facility] radiology report is a preliminary resident dictation untilfinalized by an attending.Changes to this preliminary report may occurin an additional preliminary or finalized version. Dictated By: Chong Malik MD, 01/23/2019 6:25 AM I have reviewed the study and agree with the findings in this report. Signed By: Porter Santos MD, 01/23/2019 7:10 AM EXAM: XR CHEST 2 VIEWS DATE: 01/23/2019 6:04 AM INDICATION: Chest pain. Chest pain, unspecified type COMPARISON: CXR two-view 12/27/2018; CTA chest 12/27/2018. TECHNIQUE: PA and lateral chest radiographs FINDINGS: Lines, tubes and hardware: None. Lungs and pleura: Again seen is a moderate- sized right pleural effusionwhich is increased slightly in the interim. A trace left pleuraleffusion is unchanged. Right basilar airspace opacities may representatelectasis or consolidation. Left basilar subsegmental atelectasis isagain noted.No pneumothorax. Heart and mediastinum: The heart size is moderately enlarged butunchanged. There is mild pulmonary venous congestion. The thoracic aortais ectatic and tortuous with calcifications along the arch. Bones: No acute bony abnormality. Interface, Rad/Mammog In - 01/23/2019 7:15 AM CDTEXAM: XR CHEST 2 VIEWS DATE: 01/23/2019 6:04 AM INDICATION: Chest pain. Chest pain, unspecified type COMPARISON: CXR two-view 12/27/2018; CTA chest 12/27/2018. TECHNIQUE: PA and lateral chest radiographs FINDINGS: Lines, tubes and hardware: None. Lungs and pleura: Again seen is a moderate-sized right pleural effusion which is increased slightly in the interim. A trace left pleural effusion is unchanged. Right basilar airspace opacities may represent atelectasis or consolidation. Left basilar subsegmental atelectasis is again noted. No pneumothorax. Heart and mediastinum: The heart size is moderately enlarged but unchanged. There is mild pulmonary venous congestion. The thoracic aorta is ectatic and tortuous with calcifications along the arch. Bones: No acute bony abnormality. IMPRESSION IMPRESSION: 1. Slight interval enlargement in the moderate sized right pleural effusion. Stable trace left pleural effusion. 2. Unchanged right lung base opacities may represent atelectasis or consolidation. 3. Mild left basilar subsegmental atelectasis. 4. Moderate cardiomegaly with mild pulmonary venous congestion. This [facility] radiology report is a preliminary resident dictation until finalized by an attending. Changes to this preliminary report may occur in an additional preliminary or finalized version. Dictated By: Chong Malik MD, 01/23/2019 6:25 AM I have reviewed the study and agree with the findings in this report. Signed By: Porter Santos MD, 01/23/2019 7:10 AM 01/23/2019 Located Within [facility] CTA CHEST AORTA IMPRESSION: 1.No aortic dissection. Minimally progressed ascending aortaaneurysmal dilation, now measuring up approximately 4.7 cm, previously4.6 cm in 2017.2.Mild pulmonary edema with small bilateral p leural effusions, rightgreater left. There is scattered overlying compressive atelectasis. 3.Large bilateral renal exophytic simple renal cysts. Unlesspreviously performed, renal ultrasound recommended for completeevaluation.4.Moderate prostatomegaly with mass effect on the bladder. Recommendfurther evaluation with PSA and clinical exam, unless previouslyperformed.5.Bilateral pars defects at L5. Grade 1/2 anterolisthesis at L5-S1. This [facility] radiology report is a preliminary resident dictation untilfinalized by an attending.Changes to this preliminary report may occurin an additional preliminary or finalized version. I have reviewed the study and agree with the findings in this report. Signed By: Nito Lopez MD, 12/27/2018 4:28 PM EXAM: CTA CHEST WITH CONTRASTEXAM: CTA ABDOMEN AND PELVIS WITH CONTRAST DATE: 12/27/2018 3:42 PM INDICATION: hx of aneurysm ascending aorta with back pain. Shortness ofbreath COMPARISON: Same-day chest x-ray and CTA on 01/15/2017. TECHNIQUE:Volumetric CT of the chest, abdomen and pelvis is acquiredduring the intravenous infusion of contrast in arterial phase. Axial,coronal and sagittal reconstructions, along with MIP reconstructions,are created at the acquisition workstation. IV contrast: 100 mL of Omnipaque 350Oral contrast: None.DLP: 639 mGy-cm FINDINGS: AORTA:The aorta measures:4.7 cm at the ascending aorta at the level of the pulmonary artery(previously 4.6 cm),3.6 cm at the mid arch, 3.4 cm at the descending aorta at the level of the main pulmonaryartery,3.2 cm at the level of the aortic hiatus, 2.5 cm at the level of the renal arteries, and 2.2 cm just proximal to the iliac bifurcation. Mild scattered atherosclerotic plaque. The branching pattern isunremarkable. No dissection is identified. The main pulmonary trunk measures 2.6 cm. Prominent right left mainpulmonary arteries continue to measure 2.4 and 2.5 cm. Lungs and pleura: Mild diffuse mucosal opacification and interlobularseptal thickening, consistent with pulmonary edema. Scatteredsubsegmental atelectasis in the lungs, most prominent in the right base.Minimal diffuse groundglass opacification. There are small bilateralpleural effusions, more prominent on the right, and layering into thefissures bilaterally. Hearth and mediastinum: Heart size is is mildly enlarged.Subcentimetermediastinal lymph nodes are nonspecific. Hepatobiliary: Unremarkable. Gallbladder: Unremarkable. Spleen: Punctate calcified splenic granulomas. Pancreas: Unremarkable. Adrenals: Unremarkable. Kidneys: Multiple large bilateral exophytic simple renal cysts largestof which the right kidney measures up to 5.3 cm and in the left kidneymeasures up to 7.5 cm. Left renal cyst has been, partially calcifiedseptations.Other: Prominent prostatomegaly measuring up to 6 cm axial, and exertingmass effect on the bladder inferiorly. Bowel and mesentery: Unremarkable. Bones: No acute abnormality. Age-related degenerative changes. Bilateralpars defects at L5. Grade 1/2 anterolisthesis at L5-S1. Interface, Rad/Mammog In - 12/27/2018 4:33 PM CDTEXAM: CTA CHEST WITH CONTRAST EXAM: CTA ABDOMEN AND PELVIS WITH CONTRAST DATE: 12/27/2018 3:42 PM INDICATION: hx of aneurysm ascending aorta with back pain. Shortness of breath COMPARISON: Same-day chest x-ray and CTA on 01/15/2017. TECHNIQUE: Volumetric CT of the chest, abdomen and pelvis is acquired during the intravenous infusion of contrast in arterial phase. Axial, coronal and sagittal reconstructions, along with MIP reconstructions, are created at the acquisition workstation. IV contrast: 100 mL of Omnipaque 350 Oral contrast: None. DLP: 639 mGy-cm FINDINGS: AORTA: The aorta measures: 4.7 cm at the ascending aorta at the level of the pulmonary artery (previously 4.6 cm), 3.6 cm at the mid arch, 3.4 cm at the descending aorta at the level of the main pulmonary artery, 3.2 cm at the level of the aortic hiatus, 2.5 cm at the level of the renal arteries, and 2.2 cm just proximal to the iliac bifurcation. Mild scattered atherosclerotic plaque. The branching pattern is unremarkable. No dissection is identified. The main pulmonary trunk measures 2.6 cm. Prominent right left main pulmonary arteries continue to measure 2.4 and 2.5 cm. Lungs and pleura: Mild diffuse mucosal opacification and interlobular septal thickening, consistent with pulmonary edema. Scattered subsegmental atelectasis in the lungs, most prominent in the right base. Minimal diffuse groundglass opacification. There are small bilateral pleural effusions, more prominent on the right, and layering into the fissures bilaterally. Hearth and mediastinum: Heart size is is mildly enlarged. Subcentimeter mediastinal lymph nodes are nonspecific. Hepatobiliary: Unremarkable. Gallbladder: Unremarkable. Spleen: Punctate calcified splenic granulomas. Pancreas: Unremarkable. Adrenals: Unremarkable. Kidneys: Multiple large bilateral exophytic simple renal cysts largest of which the right kidney measures up to 5.3 cm and in the left kidney measures up to 7.5 cm. Left renal cyst has been, partially calcified septations. Other: Prominent prostatomegaly measuring up to 6 cm axial, and exerting mass effect on the bladder inferiorly. Bowel and mesentery: Unremarkable. Bones: No acute abnormality. Age-related degenerative changes. Bilateral pars defects at L5. Grade 1/2 anterolisthesis at L5-S1. IMPRESSION IMPRESSION: 1. No aortic dissection. Minimally progressed ascending aorta aneurysmal dilation, now measuring up approximately 4.7 cm, previously 4.6 cm in 2017. 2. Mild pulmonary edema with small bilateral pleural effusions, right greater left. There is scattered overlying compressive atelectasis. 3. Large bilateral renal exophytic simple renal cysts. Unless previously performed, renal ultrasound recommended for complete evaluation. 4. Moderate prostatomegaly with mass effect on the bladder. Recommend further evaluation with PSA and clinical exam, unless previously performed. 5. Bilateral pars defects at L5. Grade 1/2 anterolisthesis at L5-S1. This [facility] radiology report is a preliminary resident dictation until finalized by an attending. Changes to this preliminary report may occur in an additional preliminary or finalized version. I have reviewed the study and agree with the findings in this report. Signed By: Nito Lopez MD, 12/27/2018 4:28 PM 12/27/2018 Located Within [facility] CTA ABDOMEN-PELVIS W CONTRAST - AORTA IMPRESSION: 1.No aortic dissection. Minimally progressed ascending aortaaneurysmal dilation, now measuring up approximately 4.7 cm, previously4.6 cm in 2017.2.Mild pulmonary edema with small bilateral pleural effusions, rightgreater left. There is scattered overlying compressive atelectasis. 3.Large bilateral renal exophytic simple renal cysts. Unlesspreviously performed, renal ultrasound recommended for completeevaluation.4.Moderate prostatomegaly with mass effect on the bladder. Recommendfurther evaluation with PSA and clinical exam, unless previouslyperformed.5.Bilateral pars defects at L5. Grade 1/2 anterolisthesis at L5-S1. This [facility] radiology report is a preliminary resident dictation untilfinalized by an attending.Changes to this preliminary report may occurin an additional preliminary or finalized version. I have reviewed the study and agree with the findings in this report. Signed By: Nito Lopez MD, 12/27/2018 4:28 PM EXAM: CTA CHEST WITH CONTRASTEXAM: CTA ABDOMEN AND PELVIS WITH CONTRAST DATE: 12/27/2018 3:42 PM INDICATION: hx of aneurysm ascending aorta with back pain. Shortness ofbreath COMPARISON: Same-day chest x-ray and CTA on 01/15/2017. TECHNIQUE:Volumetric CT of the chest, abdomen and pelvis is acquiredduring the intravenous infusion of contrast in arterial phase. Axial,coronal and sagittal reconstructions, along with MIP reconstructions,are created at the acquisition workstation. IV contrast: 100 mL of Omnipaque 350Oral contrast: None.DLP: 639 mGy-cm FINDINGS: AORTA:The aorta measures:4.7 cm at the ascending aorta at the level of the pulmonary artery(previously 4.6 cm),3.6 cm at the mid arch, 3.4 cm at the descending aorta at the level of the main pulmonaryartery,3.2 cm at the level of the aortic hiatus, 2.5 cm at the level of the renal arteries, and 2.2 cm just proximal to the iliac bifurcation. Mild scattered atherosclerotic plaque. The branching pattern isunremarkable. No dissection is identified. The main pulmonary trunk measures 2.6 cm. Prominent right left mainpulmonary arteries continue to measure 2.4 and 2.5 cm. Lungs and pleura: Mild diffuse mucosal opacification and interlobularseptal thickening, consistent with pulmonary edema. Scatteredsubsegmental atelectasis in the lungs, most prominent in the right base.Minimal diffuse groundglass opacification. There are small bilateralpleural effusions, more prominent on the right, and layering into thefissures bilaterally. Hearth and mediastinum: Heart size is is mildly enlarged.Subcentimetermediastinal lymph nodes are nonspecific. Hepatobiliary: Unremarkable. Gallbladder: Unremarkable. Spleen: Punctate calcified splenic granulomas. Pancreas: Unremarkable. Adrenals: Unremarkable. Kidneys: Multiple large bilateral exophytic simple renal cysts largestof which the right kidney measures up to 5.3 cm and in the left kidneymeasures up to 7.5 cm. Left renal cyst has been, partially calcifiedseptations.Other: Prominent prostatomegaly measuring up to 6 cm axial, and exertingmass effect on the bladder inferiorly. Bowel and mesentery: Unremarkable. Bones: No acute abnormality. Age-related degenerative changes. Bilateralpars defects at L5. Grade 1/2 anterolisthesis at L5-S1. Interface, Rad/Mammog In - 12/27/2018 4:33 PM CDTEXAM: CTA CHEST WITH CONTRAST EXAM: CTA ABDOMEN AND PELVIS WITH CONTRAST DATE: 12/27/2018 3:42 PM INDICATION: hx of aneurysm ascending aorta with back pain. Shortness of breath COMPARISON: Same-day chest x-ray and CTA on 01/15/2017. TECHNIQUE: Volumetric CT of the chest, abdomen and pelvis is acquired during the intravenous infusion of contrast in arterial phase. Axial, coronal and sagittal reconstructions, along with MIP reconstructions, are created at the acquisition workstation. IV contrast: 100 mL of Omnipaque 350 Oral contrast: None. DLP: 639 mGy-cm FINDINGS: AORTA: The aorta measures: 4.7 cm at the ascending aorta at the level of the pulmonary artery (previously 4.6 cm), 3.6 cm at the mid arch, 3.4 cm at the descending aorta at the level of the main pulmonary artery, 3.2 cm at the level of the aortic hiatus, 2.5 cm at the level of the renal arteries, and 2.2 cm just proximal to the iliac bifurcation. Mild scattered atherosclerotic plaque. The branching pattern is unremarkable. No dissection is identified. The main pulmonary trunk measures 2.6 cm. Prominent right left main pulmonary arteries continue to measure 2.4 and 2.5 cm. Lungs and pleura: Mild diffuse mucosal opacification and interlobular septal thickening, consistent with pulmonary edema. Scattered subsegmental atelectasis in the lungs, most prominent in the right base. Minimal diffuse groundglass opacification. There are small bilateral pleural effusions, more prominent on the right, and layering into the fissures bilaterally. Hearth and mediastinum: Heart size is is mildly enlarged. Subcentimeter mediastinal lymph nodes are nonspecific. Hepatobiliary: Unremarkable. Gallbladder: Unremarkable. Spleen: Punctate calcified splenic granulomas. Pancreas: Unremarkable. Adrenals: Unremarkable. Kidneys: Multiple large bilateral exophytic simple renal cysts largest of which the right kidney measures up to 5.3 cm and in the left kidney measures up to 7.5 cm. Left renal cyst has been, partially calcified septations. Other: Prominent prostatomegaly measuring up to 6 cm axial, and exerting mass effect on the bladder inferiorly. Bowel and mesentery: Unremarkable. Bones: No acute abnormality. Age-related degenerative changes. Bilateral pars defects at L5. Grade 1/2 anterolisthesis at L5-S1. IMPRESSION IMPRESSION: 1. No aortic dissection. Minimally progressed ascending aorta aneurysmal dilation, now measuring up approximately 4.7 cm, previously 4.6 cm in 2017. 2. Mild pulmonary edema with small bilateral pleural effusions, right greater left. There is scattered overlying compressive atelectasis. 3. Large bilateral renal exophytic simple renal cysts. Unless previously performed, renal ultrasound recommended for complete evaluation. 4. Moderate prostatomegaly with mass effect on the bladder. Recommend further evaluation with PSA and clinical exam, unless previously performed. 5. Bilateral pars defects at L5. Grade 1/2 anterolisthesis at L5-S1. This [facility] radiology report is a preliminary resident dictation until finalized by an attending. Changes to this preliminary report may occur in an additional preliminary or finalized version. I have reviewed the study and agree with the findings in this report. Signed By: Nito Lopez MD, 12/27/2018 4:28 PM 12/27/2018 Located Within [facility] XRAY CHEST 2 VIEWS IMPRESSION:1.Small right pleural effusion. Trace left pleural effusion.2.Bilateral lower lung opacities, more prominent on the right, mayrepresent infection, atelectasis layering effusion, or any combin ationof these entities. Signed By: Nito Lopez MD, 12/27/2018 2:54 PM EXAM: XR CHEST 2 VIEWS DATE: 12/27/2018 2:50 PM INDICATION: dyspnea, chest pain. Shortness of breath COMPARISON: Chest x-ray 01/07/2017 TECHNIQUE: PA and lateral chest radiographs FINDINGS: Lines, tubes and hardware: Lungs and pleura: Low lung lines. There are bilateral lower lungopacities, more prominent on the right. Small right pleural effusion.Trace left pleural effusion. No pneumothorax. Heart and mediastinum: Mildly enlarged cardiac silhouette. Tortuousthoracic aorta. Bones: No acute bony abnormality. Interface, Rad/Mammog In - 12/27/2018 2:59 PM CDTEXAM: XR CHEST 2 VIEWS DATE: 12/27/2018 2:50 PM INDICATION: dyspnea, chest pain. Shortness of breath COMPARISON: Chest x-ray 01/07/2017 TECHNIQUE: PA and lateral chest radiographs FINDINGS: Lines, tubes and hardware: Lungs and pleura: Low lung lines. There are bilateral lower lung opacities, more prominent on the right. Small right pleural effusion. Trace left pleural effusion. No pneumothorax. Heart and mediastinum: Mildly enlarged cardiac silhouette. Tortuous thoracic aorta. Bones: No acute bony abnormality. IMPRESSION IMPRESSION: 1. Small right pleural effusion. Trace left pleural effusion. 2. Bilateral lower lung opacities, more prominent on the right, may represent infection, atelectasis layering effusion, or any combination of these entities. Signed By: Nito Lopez MD, 12/27/2018 2:54 PM 12/27/2018 Located Within [facility] Abdomen AP DX Study: Abdomen, one view Clinical Indication: Abdominal pain, acute; Comparison: None FINDINGS: Supine exam demonstrates a normal bowel gas pattern. Left inguinal hernia repair has been performed. No abnormal soft tissue mass or calcification is seen. Minor spondylosis is noted. IMPRESSION: No acute abnormality. SL: [id number] 01/08/2016 [facility] Consultation Notes No Data Provided for This Section Discharge Summaries No Data Provided for This Section History and Physicals No Data Provided for This Section Vital Signs Vital Sign Value Date Comments Source Systolic (mm Hg) 126 04/30/2019 [facility] Diastolic (mm Hg) 72 04/30/2019 [facility] Heart Rate 90 04/30/2019 [facility] Temperature Oral (F) 36.5 Angélica 04/30/2019 [facility] Respitory Rate 18 04/30/2019 Located Within [facility] Height 152.4 cm 04/07/2019 Located Within [facility] Weight 64.003 04/07/2019 [facility] Systolic (mm Hg) 114 04/07/2019 [facility] Diastolic (mm Hg) 70 04/07/2019 [facility] Heart Rate 80 04/07/2019 [facility] Temperature Oral (F) 36.61 Angélica 04/07/2019 [facility] Respitory Rate 19 04/07/2019 [facility] Systolic (mm Hg) 135 01/23/2019 [facility] Diastolic (mm Hg) 65 01/23/2019 [facility] Heart Rate 83 01/23/2019 [facility] Temperature Oral (F) 36.5 Angélica 01/23/2019 [facility] Respitory Rate 20 01/23/2019 [facility] Systolic (mm Hg) 174 12/28/2018 Located [facility] Diastolic (mm Hg) 53 12/28/2018 Located [facility] Heart Rate 83 12/28/2018 Located [facility] Temperature Oral (F) 36.61 Angélica 12/28/2018 Located [facility] Respitory Rate 18 12/28/2018 Located [facility] Systolic (mm Hg) 176 12/27/2018 Located [facility] Diastolic (mm Hg) 55 12/27/2018 Located [facility] Heart Rate 80 12/27/2018 Located [facility] Temperature Oral (F) 36.28 Angélica 12/27/2018 [facility] Respitory Rate 16 12/27/2018 Located [facility] Weight 68.04 12/27/2018 Located [facility] Heart Rate 71 01/09/2016 [facility] Respitory Rate 20 01/09/2016 [facility] Temperature Oral (F) 98.0 F 01/09/2016 [facility] Systolic (mm Hg) 128 01/09/2016 [facility] Diastolic (mm Hg) 84 01/09/2016 [facility] Temperature Oral (F) 97.6 F 01/08/2016 [facility] Weight 63.636 01/08/2016 [facility] Systolic (mm Hg) 144 01/08/2016 [facility] Diastolic (mm Hg) 94 01/08/2016 [facility] Heart Rate 79 01/08/2016 [facility] Respitory Rate 20 01/08/2016 [facility] Systolic (mm Hg) 150 12/21/2015 [facility] Diastolic (mm Hg) 76 12/21/2015 [facility] Respitory Rate 18 12/21/2015 [facility] Systolic (mm Hg) 152 12/21/2015 [facility] Diastolic (mm Hg) 78 12/21/2015 [facility] Respitory Rate 11 12/21/2015 [facility] Systolic (mm Hg) 142 12/21/2015 [facility] Diastolic (mm Hg) 78 12/21/2015 [facility] Respitory Rate 11 12/21/2015 [facility] Temperature Oral (F) 97.7 F 12/21/2015 [facility] Heart Rate 69 12/21/2015 [facility] BMI Calculated 29.92 12/20/2015 [facility] Height 154.94 cm 12/20/2015 [facility] Weight 71.818 12/20/2015 [facility] Encounters Location Location Details Encounter Type Encounter Number Reason For Visit Attending Provider ADM Date DC Date Status Source [facility] OBS Day Surgery [id number] Mike zacarias Leon 12/21/2015 12/21/2015 [facility] [id number] Jason Resendiz 01/08/2016 01/09/2016 [facility] ([facility] [id number] Chacorta Baltazar MD 01/31/2018 01/31/2018 Located [facility] Travel [id number] 12/27/2018 Located [facility] ([facility] [id number] Dayna Saleem MD 12/27/2018 12/28/2018 Located [facility] Travel [id number] 01/23/2019 Located [facility] Center ([facility] [id number] Mahsa Briggs MD 01/23/2019 01/23/2019 Located [facility] Travel [id number] 03/01/2019 Located [facility] 2[facility] Med Surg Emergency [id number] Jordan Meadows MD 03/01/2019 03/03/2019 Located [facility] LABORATORY [facility] Orders Only [id number] Stiven Myrick ResidentCT 03/02/2019 [facility] CUSTOMER RELATIONS SERVICES Telephone [id number] Dante Espinal 03/03/2019 Located [facility] OC ACS Clinical Case Mgmt Svcs Clinical Case Mgt [id number] Mario Montano [facility] 03/05/2019 Located [facility] ACS Clinical Case Mgmt S[facility] Clinical Case Mgt [id number] Mario Montano [facility] 03/06/2019 [facility] CUSTOMER RELATIONS SERVICES Telephone [id number] Denisse Aleman 03/07/2019 [facility] Craft Worker Services Telephone [id number] Judy Pedro RN 03/07/2019 Located [facility] Medicine Clinic [place] Office Visit [id number] Porter Jones ResidentMD 03/10/2019 03/10/2019 Located [facility] Radiology [facility] Encounter [id number] 03/10/2019 03/10/2019 Located [facility] LAB[facility]ATORY [facility] Encounter [id number] 03/10/2019 03/11/2019 Located [facility] Pre-Clinic Review [id number] Marv Acevedo MD 03/19/2019 Located [facility] Office Visit [id number] Bebo Simon ResidentMD 03/20/2019 03/20/2019 Located [facility] LAB[facility]ATORY [facility] Encounter [id number] 03/20/2019 03/21/2019 Located [facility] Pre-Clinic Review [id number] Marv Acevedo MD 04/05/2019 Located [facility] Travel [id number] 04/07/2019 Located [facility] Office Visit [id number] Zack Gimenez ResidentMD 04/07/2019 04/07/2019 Located [facility] LAB[facility]ATORY [facility] Encounter [id number] 04/07/2019 04/08/2019 Located [facility] Travel [id number] 04/30/2019 Located [facility] Emergency Center ([facility] [id number] 04/30/2019 Located [facility] Procedures Procedure Code Date Perfomer Comments Source LIPID PROFILE [id number] 03/20/2019 [facility] THYROID STIMULATING HORMONE (TSH) 81914 03/20/2019 [facility] BASIC METABOLIC PANEL 31549 03/10/2019 [facility] TRANSTHORACIC ECHO (TTE) 12814 03/03/2019 [facility] T PROTEIN, FLD 85742 03/03/2019 [facility] GLUCOSE, FLD 28926 03/03/2019 [facility] LDH, FLD 53021 03/03/2019 [facility] XRAY CHEST 1 VIEW 61389 03/02/2019 [facility] FLUID CULTURE AND GRAM STAIN 32856 03/02/2019 [facility] PLEURAL FLUID CYTOLOGY 35790 03/02/2019 [facility] BLD GAS, MIXED VENOUS POC 76210 03/02/2019 [facility] BASIC METABOLIC PANEL 17368 03/02/2019 [facility] CBC/DIFF 46713 03/02/2019 [facility] CBC 14244 03/02/2019 [facility] COMPREHENSIVE METABOLIC PANEL 12784 03/01/2019 [facility] UA CHEMISTRIES [id number] 01/23/2019 [facility] URINALYSIS [id number] 01/23/2019 [facility] VBG POC 11356 01/23/2019 [facility] CBC/DIFF 51074 01/23/2019 [facility] [facility] PT/INR/PTT [id number] 01/23/2019 [facility] LIVER PROFILE [id number] 01/23/2019 [facility] LIPASE [id number] 01/23/2019 [facility] TYPE AND SCREEN [id number] 01/23/2019 [facility] CTA ABDOMEN-PELVIS W CONTRAST - AORTA [id number] 12/28/2018 [facility] CTA CHEST AORTA [id number] 12/28/2018 [facility] ABG POC [id number] 12/28/2018 [facility] XRAY CHEST 2 VIEWS 05930 12/28/2018 [facility] BMP POC [id number] 12/28/2018 [facility] BMP POC [id number] 12/28/2018 [facility] TROPONIN I POC [id number] 12/28/2018 [facility] HIV-1/HIV-2 ROUTINE SCREENING [id number] 12/28/2018 [facility] BEDSIDE ULTRASOUND [id number] 12/27/2018 [facility] 12 LEAD EKG 35301 12/27/2018 [facility] FOREIGN BODY REMOVAL SIMPLE [id number] 01/31/2018 [facility] Operative procedure on hand [id number] [facility] Hernia repair [phone] [facility] Assessment and Plan No Data Provided for This Section Plan of Care Plan of Care Date Source IMM Influenza Seasonal Jul to November (>/=19 yrs) 07/01/2019 Located [facility] Upcoming EncountersDateTypeSpecialtyCare TeamDescription 05/08/2019 Office Visit Internal Medicine Karel Lopez, Stacia Gómez[address] [phone] Health MaintenanceDue DateLast DoneComments IMM Pneumococcal Age 65 and Up 2006 IMM Influenza Seasonal Jul to November (>/=19 yrs) 07/01/2019 04/30/2019 [facility] IMM Influenza Seasonal Oct to November (>/=19 yrs) 07/01/2018 [facility] IMM Pneumococcal Age 65 and Up 2006 [facility] Social History Social History Date Source Tobacco UseTypesPacks/DayYears UsedDate Never Smoker Smokeless Tobacco: Never Used Alcohol UseDrinks/Weekoz/WeekComments No 0 Standard drinks or equivalent 0.0 4-18-17 denies any ETOH usage Food InsecurityAnswerDate Recorded Within the past 12 months, you worried that your food would run out before you got money to buy more. Never true 03/10/2019 Within the past 12 months, the food you bought just didn't last and you didn't have money to get more. Never true 03/10/2019 Sex Assigned at BirthDate Recorded Not on file Job Start DateOccupationIndustry Not on file Not on file Not on file Travel HistoryTravel StartTravel End No recent travel history available. 04/07/2019 [facility] Social History TypeResponse Substance Abuse Use: None. Alcohol Never Smoking Status Never smoker; Exposure to Tobacco Smoke None; Cigarette Smoking Last 365 Days No; Reg Smoking Cessation Counseling No 12/20/2015 [facility] Family History Value Date Source Medical HistoryRelationNameComments Unknown Fam Hx Father Unknown Fam Hx Maternal Grandfather Unknown Fam Hx Maternal Grandmother Unknown Fam Hx Mother Unknown Fam Hx Paternal Grandfather Unknown Fam Hx Paternal Grandmother RelationNameStatusComments Brother Alive Father Maternal Grandfather Maternal Grandmother Mother Paternal Grandfather Paternal Grandmother Sister Alive 04/30/2019 [facility] Medical HistoryRelationNameComments Unknown Fam Hx Father Unknown Fam Hx Maternal Grandfather Unknown Fam Hx Maternal Grandmother Unknown Fam Hx Mother Unknown Fam Hx Paternal Grandfather Unknown Fam Hx Paternal Grandmother RelationNameStatusComments Brother Alive Father Maternal Grandfather Maternal Grandmother Mother Paternal Grandfather Paternal Grandmother Sister Alive 04/07/2019 [facility] Medical HistoryRelationNameComments Unknown Fam Hx Father Unknown Fam Hx Maternal Grandfather Unknown Fam Hx Maternal Grandmother Unknown Fam Hx Mother Unknown Fam Hx Paternal Grandfather Unknown Fam Hx Paternal Grandmother RelationNameStatusComments Brother Alive Father Maternal Grandfather Maternal Grandmother Mother Paternal Grandfather Paternal Grandmother Sister Alive 01/30/2019 [facility] Medical HistoryRelationNameComments Unknown Fam Hx Father Unknown Fam Hx Maternal Grandfather Unknown Fam Hx Maternal Grandmother Unknown Fam Hx Mother Unknown Fam Hx Paternal Grandfather Unknown Fam Hx Paternal Grandmother RelationNameStatusComments Brother Alive Father Maternal Grandfather Maternal Grandmother Mother Paternal Grandfather Paternal Grandmother Sister Alive 01/23/2019 [facility] Medical HistoryRelationNameComments Unknown Fam Hx Father Unknown Fam Hx Maternal Grandfather Unknown Fam Hx Maternal Grandmother Unknown Fam Hx Mother Unknown Fam Hx Paternal Grandfather Unknown Fam Hx Paternal Grandmother RelationNameStatusComments Brother Alive Father Maternal Grandfather Maternal Grandmother Mother Paternal Grandfather Paternal Grandmother Sister Alive 12/27/2018 [facility] Advance Directives Order Name Results Value Date Source Advance Directives Advance Directives Latest Code Status on FileCode StatusDate ActivatedDate InactivatedComments Full Code 03/01/2019 4:50 PM 03/03/2019 6:46 PM Full Code 01/08/2017 3:24 PM 01/10/2017 7:44 PM Full Code 01/08/2017 8:28 AM 01/08/2017 9:33 AM 04/30/2019 [facility] Advance Directives Advance Directives Latest Code Status on FileCode StatusDate ActivatedDate InactivatedComments Full Code 03/01/2019 4:50 PM 03/03/2019 6:46 PM Full Code 01/08/2017 3:24 PM 01/10/2017 7:44 PM Full Code 01/08/2017 8:28 AM 01/08/2017 9:33 AM 04/07/2019 [facility] Advance Directives Advance Directives For more information, please contact:[address] [id number] Code Status on FileCode StatusDate ActivatedDate InactivatedComments Full Code 01/08/2017 3:24 PM 01/10/2017 7:44 PM Full Code 01/08/2017 8:28 AM 01/08/2017 9:33 AM 01/30/2019 [facility] Advance Directives Advance Directives For more information, please contact:[address] [id number] Code Status on FileCode StatusDate ActivatedDate InactivatedComments Full Code 01/08/2017 3:24 PM 01/10/2017 7:44 PM Full Code 01/08/2017 8:28 AM 01/08/2017 9:33 AM 01/23/2019 [facility] Advance Directives Advance Directives For more information, please contact:[address] [id number] Code Status on FileCode StatusDate ActivatedDate InactivatedComments Full Code 01/08/2017 3:24 PM 01/10/2017 7:44 PM Full Code 01/08/2017 8:28 AM 01/08/2017 9:33 AM 12/27/2018 [facility] Functional Status No Data Provided for This Section
--- OUTSIDE RECORDS SUMMARY | 2019-06-05 12:12 | XMS REPORT | Summary of Care ---
Author Author [facility] Organization [facility] Address Unknown Phone Unavailable Encounter EASTON Canas(DIOMEDES) [id number] Date(s): 12/21/15 - 12/21/15 [facility] [address] [place] [address]- [phone] Discharge Disposition: Home Attending Physician: Mike Murphy MD Referring Physician: Mike Murphy MD Vital Signs 1 2 3 Most recent to oldest [Reference Range]: 154.94 cm (12/20/15 6:42 PM) Height 97.7 DegF (12/21/15 6:45 AM) Temperature Oral [96.4-99.1 DegF] 150/76 mmHg *HI* (12/21/15 1:00 PM) 152/78 mmHg *HI* (12/21/15 12:45 PM) Blood Pressure [90-140/60-90 mmHg] 142 mmHg *HI* (12/21/15 12:30 PM) Systolic Blood Pressure [90-140 mmHg] 78 mmHg (12/21/15 12:30 PM) Diastolic Blood Pressure [60-90 mmHg] 18 BRMIN (12/21/15 1:00 PM) 11 BRMIN *LOW* (12/21/15 12:45 PM) 11 BRMIN *LOW* (12/21/15 12:30 PM) Respiratory Rate [14-20 BRMIN] 69 bpm (12/21/15 6:45 AM) Peripheral Pulse Rate [60-100 bpm] 71.818 kg (12/20/15 6:42 PM) Weight 29.92 m2 (12/20/15 6:42 PM) Body Mass Index Problem List Condition Effective Dates Status Health Status Informant Hand Resolved disorder(Confirmed) Allergies, Adverse Reactions, Alerts Substance Reaction Severity Status NKDA Active Medications fentaNYL 50 microgram, 1 mL, Route: IVP, Drug form: INJ, Q5Min, Dosing Weight 71.818, kg, PRN Pain Score 7-10, Start date: 12/21/15 8:05:00, Duration: 2 doses or times, Stop date: Limited # of times Notes: (Same as: Sublimaze) Preservative free. Start Date: 12/21/15 Stop Date: 12/21/15 Status: Discontinued flumazenil 0.2 mg, 2 mL, Route: IVP, Drug form: INJ, PRN, Dosing Weight 71.818, kg, PRN Miles zodiazepine Reversal, Initial dose, Start date: 12/21/15 8:05:00, Duration: 30 d ay, Stop date: 01/20/16 8:04:00 Notes: (Same as: Romazicon) Start Date: 12/21/15 Stop Date: 12/21/15 Status: Discontinued hydrALAZINE 10 mg, 0.5 mL, Route: IVP, Drug form: INJ, Q20Min, Dosing Weight 71.818, kg, PRN Elevated BP, Start date: 12/21/15 8:05:00, Duration: 2 doses or times, Stop ovidio e: Limited # of times Notes: (Same as: Apresoline)Push over 5 minutes Start Date: 12/21/15 Stop Date: 12/21/15 Status: Discontinued Lactated Ringers Injection IV 1,000 mL 1,000 mL, Rate: 125 ml/hr, Infuse over: 8 hr, Route: IV, Dosing Weight 71.818 kg , Total Volume: 1,000, Start date: 12/21/15 8:05:00, Duration: 30 day, Stop date : 01/20/16 8:04:00 Start Date: 12/21/15 Stop Date: 12/21/15 Status: Discontinued meperidine 12.5 mg, 0.25 mL, Route: IVP, Drug form: INJ, Q30Min, Dosing Weight 71.818, kg, PRN Other -See Comment, For shivering, Start date: 12/21/15 8:05:00, Duration: 2 doses or times, Stop date: Limited # of times Notes: (Same As: Demerol) Start Date: 12/21/15 Stop Date: 12/21/15 Status: Discontinued metoprolol 1 mg, 1 mL, Route: IVP, Drug form: INJ, Q5Min, Dosing Weight 71.818, kg, PRN Oth er -See Comment, Start date: 12/21/15 8:05:00, Duration: 5 doses or times, Stop date: Limited # of times Notes: (Same as: Lopressor)Push over 2 minutes Start Date: 12/21/15 Stop Date: 12/21/15 Status: Discontinued morphine Sulfate 4 mg, 1 mL, Route: IVP, Drug form: INJ, Q5Min, Dosing Weight 71.818, kg, PRN Dimitris n Score 7-10, Start date: 12/21/15 8:05:00, Duration: 3 doses or times, Stop ovidio e: Limited # of times Notes: (Same as:MORPhine Sulfate) Start Date: 12/21/15 Stop Date: 12/21/15 Status: Discontinued naloxone 0.04 mg, 0.1 mL, Route: IVP, Drug form: INJ, Q2MIN, Dosing Weight 71.818, kg, UT N Narcotic Reversal, Start date: 12/21/15 8:05:00, Duration: 8 doses or times, S top date: Limited # of times Notes: Same as Narcan Start Date: 12/21/15 Stop Date: 12/21/15 Status: Discontinued ondansetron 4 mg, 2 mL, Route: IVP, Drug form: INJ, ONCE, Dosing Weight 71.818, kg, PRN Naus ea & Vomiting, Start date: 12/21/15 8:05:00 Notes: (Same as: Kay) MEDICATION WASTE Product Size: 4 mgProduct Was roe: ___ mg Start Date: 12/21/15 Stop Date: 12/21/15 Status: Completed oxyCODONE 5 mg/5 mL oral solution 5 mg, 5 mL, Route: NG, Drug form: LIQ, Q4H, Dosing Weight 71.818, kg, PRN Pain S core 4-6, Start date: 12/21/15 8:05:00, Duration: 30 day, Stop date: 01/20/16 8: 04:00 Notes: (Same as: 'Roxicodone) Start Date: 12/21/15 Stop Date: 12/21/15 Status: Discontinued oxyCODONE 5 mg/5 mL oral solution 10 mg, 10 mL, Route: NG, Drug form: LIQ, Q4H, Dosing Weight 71.818, kg, PRN Pain Score 7-10, Start date: 12/21/15 8:05:00, Duration: 30 day, Stop date: 01/20/16 8:04:00 Notes: (Same as: 'Roxicodone) Start Date: 12/21/15 Stop Date: 12/21/15 Status: Discontinued Results ELECTROLYTES Most recent to 1 oldest [Reference Range]: Sodium Lvl [135-145 141 mEq/L mEq/L] (12/21/15 7:07 AM) Potassium Lvl 4.0 mEq/L [3.5-5.1 mEq/L] (12/21/15 7:07 AM) Chloride Lvl [95-109 107 mEq/L mEq/L] (12/21/15 7:07 AM) CO2 [24-32 mEq/L] 25 mEq/L (12/21/15 7:07 AM) AGAP [10.0-20.0 13.0 mEq/L mEq/L] (12/21/15 7:07 AM) CHEM PANEL Most recent to 1 oldest [Reference Range]: Creatinine Lvl 0.80 mg/dL [0.50-1.40 mg/dL] (12/21/15 7:07 AM) eGFR 88 mL/min/1.73m2 1 *NA* (12/21/15 7:07 AM) BUN [7-22 mg/dL] 9 mg/dL (12/21/15 7:07 AM) Glucose Lvl [70-99 103 mg/dL mg/dL] *HI* (12/21/15 7:07 AM) Calcium Lvl 9.0 mg/dL [8.5-10.5 mg/dL] (12/21/15 7:07 AM) 1Result Comment: The eGFR is calculated using the [...] from the National Kidney Disease Education Program ( NKDEP) which additionally recommends that when the eGFR is used in patients with extremes of body mass index for purposes of drug dosing, the eGFR should be mul tiplied by the estimated BMI. HEMATOLOGY Most recent to 1 oldest [Reference Range]: WBC [3.7-10.4 K/CMM] 5.7 K/CMM (12/21/15 707 AM) RBC [4.70-6.10 5.43 M/CMM M/CMM] (12/21/15 AM) Hgb [14.0-18.0 g/dL] 15.7 g/dL (12/21/15 AM) Hct [42.0-54.0 %] 47.7 % (12/21/15 AM) MCV [80.0-94.0 fL] 87.9 fL (12/21/15 AM) MCH [27.0-31.0 pg] 28.9 pg (12/21/15 AM) MCHC [32.0-36.0 32.8 g/dL g/dL] (12/21/15 AM) RDW [11.5-14.5 %] 13.6 % (12/21/15 AM) Platelet [133-450 200 K/CMM K/CMM] (12/21/15 AM) MPV [7.4-10.4 fL] 8.1 fL (12/21/1507 AM) Segs [45.0-75.0 %] 47.2 % (12/21/15 AM) Lymphocytes 34.3 % [20.0-40.0 %] (12/21/15 AM) Monocytes [2.0-12.0 9.4 % %] (12/21/15 AM) Eosinophils [0.0-4.0 8.6 % %] *HI* (12/21/15 AM) Basophils [0.0-1.0 0.5 % %] (12/21/15 7:07 AM) Segs-Bands # 2.7 K/CMM [1.5-8.1 K/CMM] (12/21/15 7:07 AM) Lymphocytes # 1.9 K/CMM [1.0-5.5 K/CMM] (12/21/15 7:07 AM) Monocytes # [0.0-0.8 0.5 K/CMM K/CMM] (12/21/15 7:07 AM) Eosinophils # 0.5 K/CMM [0.0-0.5 K/CMM] (12/21/15 7:07 AM) Immunizations No data available for this section Procedures Procedure Date Related Diagnosis Body Site Operative procedure on hand Social History Social History Type Response Substance Abuse Use: None. Alcohol Never Smoking Status Never smoker; Exposure to Tobacco Smoke None; Cigarette Smoking Last 365 Days No; Reg Smoking Cessation Counseling No Assessment and Plan No data available for this section
--- OUTSIDE RECORDS SUMMARY | 2019-06-05 12:12 | XMS REPORT | Summary of Care ---
Author Author [facility] Organization [facility] Address Unknown Phone Unavailable Encounter EASTON Canas(DIOMEDES) [id number] Date(s): 01/08/16 - 01/08/16 [facility] [address] [place] [address]- Discharge Diagnosis: Abdominal pain in male Discharge Disposition: Home Attending Physician: Jason Resendiz MD Vital Signs Most recent to 1 2 oldest [Reference Range]: Temperature Oral 98.0 DegF 97.6 DegF [96.4-99.1 DegF] (01/08/16 8:00 PM) (01/08/16 5:53 PM) Blood Pressure 128/84 mmHg 144/94 mmHg [90-140/60-90 mmHg] (01/08/16 8:00 PM) *HI* (01/08/16 5:53 PM) Respiratory Rate 20 BRMIN 20 BRMIN [14-20 BRMIN] (01/08/16 8:00 PM) (01/08/16 5:53 PM) Peripheral Pulse 71 bpm 79 bpm Rate [60-100 bpm] (01/08/16 8:00 PM) (01/08/16 5:53 PM) Weight 63.636 kg (01/08/16 5:53 PM) Problem List Condition Effective Dates Status Health Status Informant Hand Resolved disorder(Confirmed) Allergies, Adverse Reactions, Alerts Substance Reaction Severity Status NKDA Active Medications Naprosyn 500 mg oral tablet 500 mg=1 tab, PO, BID, # 30 tab, 0 Refill(s) Start Date: 01/08/16 Status: Ordered tramadol 50 mg oral tablet 50 mg=1 tab, PO, Q6H, PRN Pain, X 10 day, # 40 tab, 0 Refill(s) Start Date: 01/08/16 Stop Date: 01/18/16 Status: Ordered Results ELECTROLYTES Most recent to 1 oldest [Reference Range]: Sodium Lvl [135-145 140 mEq/L mEq/L] (01/08/16 6:17 PM) Potassium Lvl 4.0 mEq/L [3.5-5.1 mEq/L] (01/08/16: PM) Chloride Lvl [95-109 109 mEq/L mEq/L] (01/08/16: PM) CO2 [24-32 mEq/L] 25 mEq/L (01/08/16: PM) AGAP [10.0-20.0 10.0 mEq/L mEq/L] (01/08/16: PM) CHEM PANEL Most recent to 1 oldest [Reference Range]: Creatinine Lvl 0.71 mg/dL [0.50-1.40 mg/dL] (01/08/16: PM) eGFR 92 mL/min/1.73m2 1 *NA* (01/08/16: PM) BUN [7-22 mg/dL] 7 mg/dL (01/08/16: PM) B/C Ratio [6-25] 10 (01/08/16: PM) Glucose Lvl [70-99 88 mg/dL mg/dL] (01/08/16: PM) Total Protein 7.2 g/dL [6.4-8.4 g/dL] (01/08/16: PM) Albumin Lvl [3.5-5.0 4.0 g/dL g/dL] (01/08/16: PM) Globulin [2.0-4.0 3.2 g/dL g/dL] (01/08/16: PM) A/G Ratio [0.7-1.6] 1.2 (01/08/16: PM) Calcium Lvl 9.2 mg/dL [8.5-10.5 mg/dL] (01/08/16: PM) ALT [0-65 unit/L] 28 unit/L (01/08/16 6: PM) AST [0-37 unit/L] 15 unit/L (01/08/16: PM) Alk Phos [39-136 74 unit/L unit/L] (01/08/16 6:17 PM) Bili Total [0.2-1.3 0.3 mg/dL mg/dL] (01/08/16 6:17 PM) Lipase Lvl [73-393 124 unit/L unit/L] (01/08/16 6:17 PM) 1Result Comment: The eGFR is calculated using [...] be mul tiplied by the estimated BMI. URINE AND STOOL Most recent to 1 oldest [Reference Range]: UA Turbidity [Clear] Clear (01/08/16 6:25 PM) UA Color [Yellow] Yellow *NA* (01/08/16 6:25 PM) UA pH [5.0-8.0] 6.0 (01/08/16 6:25 PM) UA Spec Grav 1.015 [<=1.030] (01/08/16 6:25 PM) UA Glucose [Negative Negative mg/dL mg/dL] (01/08/16 6:25 PM) UA Blood [Negative] Negative (01/08/16 6:25 PM) UA Ketones [Negative Negative mg/dL mg/dL] *NA* (01/08/16 6:25 PM) UA Protein [Negative Negative mg/dL mg/dL] (01/08/16 6:25 PM) UA Urobilinogen 0.2 EU/dL [0.1-1.0 EU/dL] (01/08/16 6:25 PM) UA Bili [Negative] Negative *NA* (01/08/16 6:25 PM) UA Leuk Est Negative [Negative] (01/08/16 6:25 PM) UA Nitrite Negative [Negative] (01/08/16 6:25 PM) UA Bacteria [None None Seen Seen] (01/08/16 6:25 PM) UA Sq Epi [Few] None Seen (01/08/16 6:25 PM) HEMATOLOGY Most recent to 1 oldest [Reference Range]: WBC [3.7-10.4 K/CMM] 6.7 K/CMM (01/08/16 6:17 PM) RBC [4.70-6.10 5.29 M/CMM M/CMM] (01/08/16 6:17 PM) Hgb [14.0-18.0 g/dL] 15.5 g/dL (01/08/16:17 PM) Hct [42.0-54.0 %] 47.1 % (01/08/16: PM) MCV [80.0-94.0 fL] 89.1 fL (01/08/16: PM) MCH [27.0-31.0 pg] 29.3 pg (01/08/16: PM) MCHC [32.0-36.0 32.9 g/dL g/dL] (01/08/16 6:17 PM) RDW [11.5-14.5 %] 13.8 % (01/08/16: PM) Platelet [133-450 252 K/CMM K/CMM] (01/08/16:17 PM) MPV [7.4-10.4 fL] 7.9 fL (01/08/16:17 PM) Segs [45.0-75.0 %] 50.0 % (01/08/16:17 PM) Lymphocytes 33.9 % [20.0-40.0 %] (01/08/16:17 PM) Monocytes [2.0-12.0 9.0 % %] (01/08/16:17 PM) Eosinophils [0.0-4.0 6.5 % %] *HI* (01/08/16:17 PM) Basophils [0.0-1.0 0.6 % %] (01/08/16:17 PM) Segs-Bands # 3.3 K/CMM [1.5-8.1 K/CMM] (01/08/16 6:17 PM) Lymphocytes # 2.3 K/CMM [1.0-5.5 K/CMM] (01/08/16 6:17 PM) Monocytes # [0.0-0.8 0.6 K/CMM K/CMM] (01/08/16 6:17 PM) Eosinophils # 0.4 K/CMM [0.0-0.5 K/CMM] (01/08/16 6:17 PM) Basophils # [0.0-0.2 0.0 K/CMM K/CMM] (01/08/16 6:17 PM) PT [12.0-14.7 13.9 seconds seconds] (01/08/16 6:17 PM) INR [0.85-1.17] 1.04 (01/08/16 6:17 PM) PTT [22.9-35.8 31.0 seconds seconds] (01/08/16 6:17 PM) Immunizations No data available for this section Procedures Procedure Date Related Diagnosis Body Site Hernia repair Operative procedure on hand Social History Social History Type Response Substance Abuse Use: None. Alcohol Never Smoking Status Never smoker; Exposure to Tobacco Smoke None; Cigarette Smoking Last 365 Days No; Reg Smoking Cessation Counseling No Assessment and Plan No data available for this section
--- OUTSIDE RECORDS SUMMARY | 2019-06-05 12:12 | XMS REPORT | Clinical Summary ---
Author Author [facility] Organization [facility] Address Unknown Phone Unavailable Care Team Providers Care Wildlife Biology Technician Name Role Phone PCP Unavailable Allergies No Known Allergies Medications End Date Status Medication Sig Dispensed Refills Start Date Active lisinopril (PRINIVIL, Take 1 tablet 90 tablet 1 ZESTRIL) 5 mg by mouth 7 tabletIndications: daily. Syncope and collapse, Essential hypertension, benign Active atorvastatin (LIPITOR) 20 Take 1 tablet 90 tablet 1 mg tabletIndications: by mouth at 7 Syncope and collapse, bedtime Hospital discharge nightly. follow-up, Abnormal computed tomography angiography (CTA) Active furosemide (LASIX) 20 mg Take 1 tablet 30 tablet 0 tabletIndications: by mouth 9 Shortness of breath daily. 02/10/2018 doxycycline monohydrate Take 1 20 capsule 0 (MONODOX) 100 mg capsule by 8 capsuleIndications: Fish mouth 2 times hook injury of finger of daily for 10 right hand, initial days. encounter 02/10/2018 levoFLOXacin (LEVAQUIN) Take 1 tablet 10 tablet 0 750 mg tabletIndications: by mouth 8 Fish hook injury of daily for 10 finger of right hand, days. initial encounter 12/27/2018 Discontinued furosemide (LASIX) 20 mg Take 1 tablet 30 tablet 0 tabletIndications: by mouth 9 Shortness of breath daily. Active Problems Problem Noted Date Fish hook injury of finger of right hand 01/31/2018 Renal cyst 01/16/2017 Overview: noted on CTA Essential hypertension, benign 01/16/2017 Abnormal computed tomography angiography (CTA) 01/16/2017 Aortic insufficiency 01/09/2017 Prostatic hypertrophy 02/25/2011 Encounters Care Team Description Date Type Specialty 01/23/2019 Emergency Emergency Medicine Dayna Saleem MD Shortness of breath (Primary Dx) 12/27/2018 Emergency Emergency Medicine 12/27/2018 Travel Chacorta Baltazar MD Fish hook injury of finger of right hand, initial encounter (Primary Dx) 01/30/2018 Emergency Emergency Medicine - 01/31/2018 after 01/22/2018 Immunizations Name Dates Previously Given Next Due Tdap (Tetanus Toxoid, 01/30/2018 Reduced Diphtheria Toxoid [...] Used Never Smoker Smokeless Tobacco: Never Used Alcohol Use Drinks/Week oz/Week Comments No 0 Standard 0.0 18-17 denies any ETOH usage drinks or equivalent Sex Assigned at Date Recorded Not on file Industry Job Start Date Occupation Not on file Not on file Not on file Travel End Travel History Travel Start No recent travel history available. Last Filed Vital Signs Time Taken Vital Sign Reading 12/27/2018 7:00 PM CDT Blood Pressure 174/53 12/27/2018 7:00 PM CDT Pulse 83 12/27/2018 7:00 PM CDT Temperature 36.6 C (97.9 F) 12/27/2018 7:00 PM CDT Respiratory Rate 18 12/27/2018 7:00 PM CDT Oxygen Saturation 96% - Inhaled Oxygen - Concentration 12/27/2018 11:40 AM CDT Weight 68 kg (150 lb) - Height - 01/16/2017 9:43 AM CDT Body Mass Index 25.75 Plan of Treatment Health Maintenance Due Date Last Done Comments IMM Pneumococcal Age 65 2006 and Up IMM Influenza Seasonal 07/01/2019 Oct to November (>/=19 yrs) Procedures Comments Procedure Name Priority Date/Time Associated Diagnosis CTA CHEST AORTA STAT 12/27/2018 Shortness of [...] LEAD EKG Routine 12/27/2018 11:47 AM CDT FOREIGN BODY REMOVAL Routine 01/30/2018 Fish hook injury of SIMPLE 10:20 PM CDT finger of right hand, initial encounter after 01/22/2018 Results * CTA ABDOMEN-PELVIS W CONTRAST - AORTA (12/27/2018 3:38 PM CDT) Impressions Performed At IMPRESSION: [facility] 1.No aortic dissection. Minimally progressed ascending aorta aneurysmal dilation, now measuring up approximately 4.7 cm, previously 4.6 cm in 2017. 2.Mild pulmonary edema with small bilateral pleural effusions, right greater left. There is scattered overlying compressive atelectasis. 3.Large bilateral renal exophytic simple renal cysts. Unless previously performed, renal ultrasound recommended for complete evaluation. 4.Moderate prostatomegaly with mass effect on the bladder. Recommend further evaluation with PSA and clinical exam, unless previously performed. 5.Bilateral pars defects at L5. Grade 1/2 anterolisthesis at L5-S1. This [facility] radiology report is a preliminary resident dictation until finalized by an attending.Changes to this preliminary report may occur in an additional preliminary or finalized version. I have reviewed the study and agree with the findings in this report. Signed By: Nito Lopez MD, 12/27/2018 4:28 PM Narrative Performed At EXAM: CTA CHEST WITH CONTRAST [facility] EXAM: CTA ABDOMEN AND PELVIS WITH CONTRAST [...] and mediastinum: Heart size is is mildly enlarged.Subcentimeter mediastinal lymph nodes are nonspecific. Hepatobiliary: Unremarkable. [...] at L5. Grade 1/2 anterolisthesis at L5-S1. Procedure Note Interface, Rad/Mammog In - 12/27/2018 4:33 PM CDT EXAM: CTA CHEST WITH CONTRAST EXAM: [...] L5. Grade 1/2 anterolisthesis at L5-S1. This [facility] radiology report is a preliminary resident dictation until finalized by an attending. Changes to this preliminary report may occur in an additional preliminary or finalized version. I have reviewed the study and agree with the findings in this report. Signed By: Nito Lopez MD, 12/27/2018 4:28 PM Performing Organization Address City/State/Zipcode Phone Number SMS * CTA CHEST AORTA (12/27/2018 3:38 PM CDT) Impressions Performed At IMPRESSION: [facility] 1.No aortic dissection. Minimally progressed ascending aorta aneurysmal dilation, now measuring up approximately 4.7 cm, previously 4.6 cm in 2017. 2.Mild pulmonary edema with small bilateral pleural effusions, right greater left. There is scattered overlying compressive atelectasis. 3.Large bilateral renal exophytic simple renal cysts. Unless previously performed, renal ultrasound recommended for complete evaluation. 4.Moderate prostatomegaly with mass effect on the bladder. Recommend further evaluation with PSA and clinical exam, unless previously performed. 5.Bilateral pars defects at L5. Grade 1/2 anterolisthesis at L5-S1. This [facility] radiology report is a preliminary resident dictation until finalized by an attending.Changes to this preliminary report may occur in an additional preliminary or finalized version. I have reviewed the study and agree with the findings in this report. Signed By: Nito Lopez MD, 12/27/2018 4:28 PM Narrative Performed At EXAM: CTA CHEST WITH CONTRAST [facility] EXAM: CTA ABDOMEN AND PELVIS WITH CONTRAST [...] and mediastinum: Heart size is is mildly enlarged.Subcentimeter mediastinal lymph nodes are nonspecific. Hepatobiliary: Unremarkable. [...] at L5. Grade 1/2 anterolisthesis at L5-S1. Procedure Note Interface, Rad/Mammog In - 12/27/2018 4:33 PM CDT EXAM: CTA CHEST WITH CONTRAST EXAM: [...] L5. Grade 1/2 anterolisthesis at L5-S1. This [facility] radiology report is a preliminary resident dictation until finalized by an attending. Changes to this preliminary report may occur in an additional preliminary or finalized version. I have reviewed the study and agree with the findings in this report. Signed By: Nito Lopez MD, 12/27/2018 4:28 PM Performing Organization Address [facility] Phone Number SMS * ABG POC (12/27/2018 3:18 PM CDT) [...] 21 - 32 mmol/L [facility] Performing Organization Address [facility] Phone Number MISYS [facility] * XRAY CHEST 2 VIEWS (12/27/2018 2:50 PM CDT) Impressions Performed At IMPRESSION: [facility] 1.Small right pleural effusion. Trace left pleural effusion. 2.Bilateral lower lung opacities, more prominent on the right, may represent infection, atelectasis layering effusion, or any combination of these entities. Signed By: Nito Lopez MD, 12/27/2018 2:54 PM Narrative Performed At EXAM: XR CHEST 2 VIEWS [facility] DATE: 12/27/2018 2:50 PM INDICATION: dyspnea, chest [...] thoracic aorta. Bones: No acute bony abnormality. Procedure Note Interface, Rad/Mammog In - 12/27/2018 2:59 PM CDT EXAM: XR CHEST 2 VIEWS DATE: 12/27/2018 [...] By: Nito Lopez MD, 12/27/2018 2:54 PM Performing Organization Address City/State/Zipcode Phone Number SMS * BMP POC (12/27/2018 2:18 PM CDT) CO2 POC 25Comment: Physician Notified 21 - 32 mmol/L [facility] Chloride POC 104 98 - 107 mmol/L [facility] Potassium POC 4.1 3.50 - 5.10 mmol/L [facility] Sodium POC 141 136 - 145 mmol/L [facility] Glucose POC 106 74 - 106 mg/dL [facility] Urea Nitrogen 9 7 - 18 mg/dL [facility] Creatinine POC 0.8 0.6 - 1.3 mg/dL [facility] Calcium Ionized 1.23 1.15 - 1.29 mmol/L [facility] Hemoglobin POC 14.6 14.0 - 18.0 g/dL [facility] Hematocrit POC 43.0 40.0 - 54.0 % [facility] GFR, Estimated >60 mL/min/1.73 m2 [facility] GFR, Estim, >60 mL/min/1.73 m2 [facility] Performing Organization Address [facility] Phone Number KUNALYS [facility] * TROPONIN I POC (12/27/2018 2:16 PM CDT) Troponin POC 0.03 0.00 - 0.08 ng/mL [facility] Performing Organization Address [facility] Phone Number MISBERNADINE [facility] * HIV-1/HIV-2 ROUTINE SCREENING (12/27/2018 2:14 PM CDT) HIV-1/HIV-2 Negative NEG [facility] Performing Organization Address [facility] Phone Number [facility] * 12 LEAD EKG (12/27/2018 11:47 AM CDT) 12 LEAD EKG FOR [facility] Test Date:2018-12-27 Pat Name: JOSE Ruiz ent: [id number] Room: Gender: Planning Specialist: KAI :[id number] 01-14 Requested By: VONNIE Soria Order Number: [id number] Reading MD: Armond Akbar Measurements Intervals [place] Rate: 84 P:78 WI: 213 QRS: -60 QRSD: 124 T: 56 [...] On 12-27-2018 12:10:48 CDT by Armond Akbar Performing Organization Address [facility] Phone Number [facility] * FOREIGN BODY REMOVAL SIMPLE (01/30/2018 10:20 PM CDT) Narrative Performed At Franchesca Paz NP 01/31/2018 12:26 AM Foreign body removal simple Date/Time: 01/31/2018 12:22 AM Performed by: FRANCHESCA PAZ Authorized by: FRANCHESCA PAZ Consent: Consent obtained:Verbal Consent given by:Patient Risks discussed:Bleeding, incomplete removal, infection, pain, nerve damage, worsening of condition and poor cosmetic result Alternatives discussed:No treatment Location: Location:Finger Finger location:R middle finger Depth:Subcutaneous Tendon involvement:None Pre-procedure details: Neurovascular status: intact Preparation: Patient was prepped and draped in usual sterile fashion Anesthesia (see MAR for exact dosages): Anesthesia method:Local infiltration Local anesthetic:Lidocaine 1% w/o epi Procedure type: Procedure complexity:Simple Procedure details: Removal mechanism: needle technique. Foreign bodies recovered:1 Description:One prong fish hook Intact foreign body removal: yes Post-procedure details: Neurovascular status: intact Confirmation:No additional foreign bodies on visualization Skin closure:None Dressing:Sterile dressing Patient tolerance of procedure:Tolerated well, no immediate complications after 01/22/2018 Insurance Type Payer Benefit Subscriber ID Effective Phone Address Plan / Dates Group [employer] OPTIONS SANDY xxxxxxxxxxxx 2016-P [phone] [employer] [place] D[employer] resent [id number] OPTION [facility] [address] [address] [place] [address] Advance Directives For more information, please contact: [address] [address] Date Inactivated Comments Code Status Date Activated 01/10/2017 7:44 PM Full Code 01/08/2017 3:24 PM 01/08/2017 9:33 AM Full Code 01/08/2017 8:28 AM
--- OUTSIDE RECORDS SUMMARY | 2019-06-05 12:13 | XMS REPORT | Clinical Summary ---
Author Author [facility] Organization [facility] Address Unknown Phone Unavailable Care Team Providers Care Retail Financial Analyst Name Role Phone PCP Unavailable Allergies No [...] Plan: Condition: stable Diagnosis based upon a [id number] evaluation, physical exam, and ROS. Compensated Requested [...] Encounters Care Team Description Date Type Specialty Chest pain, unspecified type (Primary Dx) 04/30/2019 Emergency Emergency Medicine 04/30/2019 Travel 04/07/2019 Hospital Lab Encounter Zack Gimenez ResidentMD Hughes, Andres, ResidentMD Acute on chronic combined systolic and diastolic congestive heart failure 04/07/2019 Office Visit Internal Medicine 04/07/2019 Travel Marv Acevedo MD 04/05/2019 Pre-Clinic Internal Medicine Review 03/20/2019 Hospital Lab Encounter Bebo Simon, Fermín Muñiz DO Encounter for monitoring diuretic therapy (Primary [...] Denisse Aleman Interpretation 03/07/2019 Telephone Judy Pedro RNpickler helper F/U; Appointment Related Questions 03/07/2019 Telephone Mario [...] 12/27/2018 Emergency Emergency Medicine 12/27/2018 Travel after 04/29/2018 Immunizations Name Administration Dates Next Due PCV [...] Treatment Care Team Description Date Type Specialty Karel Lopez ResidentDO [address] [address] 05/08/2019 Office Visit Internal Medicine Health Maintenance Due Date Last Done Comments IMM Pneumococcal Age 65 2006 and Up IMM Influenza Seasonal 07/01/2019 Oct to November (>/=19 yrs) Procedures * The patient is currently admitted. The information in this section might not be complete until the patient is discharged. Comments Procedure Name Priority Date/Time Associated Diagnosis 12 LEAD EKG Routine 04/30/2019 10:57 AM [...] EKG Routine 12/27/2018 11:47 AM CDT after 04/29/2018 Results * BASIC METABOLIC PANEL (04/07/2019 11:45 AM CDT) Only the most recent of 6 results within the time period is included. Sodium 140 136 - 145 mmol/L [facility] Potassium 4.0 3.5 - 5.1 mmol/L [facility] Chloride 105 98 - 107 mmol/L [facility] CO2 31 21 - 31 mmol/L [facility] Urea Nitrogen 15.0 7.0 - 25.0 mg/dL [facility] Creatinine 0.9 0.7 - 1.3 mg/dL [facility] Glucose 99 70 - 110 mg/dL [facility] Calcium, Total 9.4 8.6 - 10.3 mg/dL [facility] GFR, Estimated 82 (L) >=90 mL/min/1.73 m2 [facility] Anion Gap 4 (L) 5 - 16 mmol/L [facility] Specimen Blood Performing Organization Address [facility] Phone Number [facility] [address] [place] [phone] * THYROID STIMULATING HORMONE (TSH) (03/20/2019 10:15 AM CDT) TSH 3.05 0.57 - 3.74 uIU/mL [facility] Specimen Blood Performing Organization Address [facility] Phone Number [facility] [address] [place] [address] [phone] * LIPID PROFILE (03/20/2019 10:15 AM CDT) Triglyceride 108 <150 mg/dL [facility] Comment: Normal: < 150.0 mg/dL Borderline: 150-199 mg/dL High: 200-499 mg/dL Very High: >=500 mg/dL Cholesterol 186.0 <=200.0 mg/dL [facility] Comment: Desirable: < 200.0 mg/dL Borderline: 200 - 240 mg/dL High Risk: > 240 mg/dL HDL 39.0 See Reference Range [facility] Comment: Narrative. mg/dL Increased CHD Risk: < 40.0 mg/dL Decreased CHD Risk: > 60 mg/dL LDL 125 (H) <100 mg/dL [facility] Comment: Optimal: < 100.0 mg/dL Near Optimal: 120-129 mg/dL Borderline: 130-159 mg/dL High: 160-189 mg/dL Very High: >=190 mg/dL Specimen Blood Performing Organization Address [facility] Phone Number [facility] [address] [place] [address] * XRAY CHEST 2 VIEWS (03/10/2019 11:18 AM CDT) Only the most recent of 4 results within the time period is included. Specimen Impressions Performed At IMPRESSION: SMS 1. Mild cardiomegaly 2. Bilateral, right greater than left, pleural effusions with some decrease in the right-sided pleural effusion when compared with a chest x-ray done on 03/02/2019 Signed By: Aime Palma MD, 03/11/2019 7:28 AM Narrative Performed At EXAM: XR CHEST 2 VIEWS SMS DATE:03/10/2019 11:44 AM INDICATION: Hx of pleural [...] bony structures are intact. Upper abdomen: Unremarkable Procedure Note Interface, Rad/Mammog In - 03/11/2019 7:33 AM CDT EXAM: XR CHEST 2 VIEWS DATE: 03/10/2019 11:44 [...] By: Aime Palma MD, 03/11/2019 7:28 AM Performing Organization Address City/State/Zipcode Phone Number SMS * TRANSTHORACIC ECHO (TTE) (03/03/2019 7:51 AM CDT) TRANSTHORACIC Transthoracic SMS ECHO (TTE) Echo Report JEFF MA Age:79 Gender: M :1940 Exam Date: 03/03/2019 07:51 Exam Location: [facility] Echo Ordering Phys: NARENDRA PETTY Referring Phys:[id number] Pérez Reading Phys:Clemencia Robles M.D. Fellow Phys: Fellow Phys: Data Security Consultant: Nicole John Reason For Exam: Indications: CHF exacerbation ICD-9 Codes: Exam Type: Transthoracic Echo Procedure CPT:80813 Addtional CPT: Ht (in): 60 BSA: 1.72HR: [...] BP 87.2 cm LV Cardiac Output MOD QO1920 cm/min LV Cardiac Index MOD BP 3863 cm/minm LV Diastolic Volume MOD 4C195 cm LV Systolic Volume MOD 4C 128 cm LV Ejection Fraction MOD 4C 34 % LV Stroke Volume MOD 4C 66.1 cm LV Cardiac Output MOD [id number] cm/min LV Cardiac Index MOD 4C 2928 cm/minm LV Diastolic Volume MOD 2C249 cm LV Systolic Volume MOD 2C 160 cm LV Ejection Fraction MOD 2C 35.7 % LV Stroke Volume MOD 2C 89 cm LV Cardiac Output MOD [id number] cm/min LV Cardiac Index MOD 2C 3943 cm/minm LA Volume 75.4 cm LA Volume Index 44 cm/m 16 - 34 cm/m LA Volume MOD 2C 99.5 cm LA Volume MOD 4C 92.8 cm LV Mass by linear g LV Mass by linear method [id number] g/m IVC Diameter Inspiration 1.1 cm IVC Diameter Expiration 1.6 cm RA Volume 81.4 cm RA Volume Index 47.4 cm/m DOPPLER AV Peak Velocity 128 cm/s AV Peak Gradient 6.6 mmHg AV Mean Velocity 93.1 cm/s AV Mean Gradient 3.8 mmHg AV Velocity Time Integral 20.6 cm AI Peak Velocity 328 cm/s AI Peak Gradient 43 mmHg AI Deceleration [place] 245 cm/s LVOT Peak Velocity 119 cm/s [...] BP 87.2 cm LV Cardiac Output MOD [id number] cm/min LV Cardiac Index MOD BP 3863 cm/minm LV Diastolic Volume MOD 4C195 cm LV Systolic Volume MOD 4C 128 cm LV Ejection Fraction MOD 4C 34 % LV Stroke Volume MOD 4C 66.1 cm LV Cardiac Output MOD [id number] cm/min LV Cardiac Index MOD 4C 2928 cm/minm LV Diastolic Volume MOD 2C249 cm LV Systolic Volume MOD 2C 160 cm LV Ejection Fraction MOD 2C 35.7 % LV Stroke Volume MOD 2C 89 cm LV Cardiac Output MOD [id number] cm/min LV Cardiac Index MOD 2C 3943 cm/minm LA Volume 75.4 cm LA Volume Index 44 cm/m 16 - 34 cm/m LA Volume MOD 2C 99.5 cm LA Volume MOD 4C 92.8 cm LV Mass by linear g LV Mass by linear method [id number] g/m IVC Diameter Inspiration 1.1 cm IVC Diameter Expiration 1.6 cm RA Volume 81.4 cm RA Volume Index 47.4 cm/m DOPPLER AV Peak Velocity 128 cm/s AV Peak Gradient 6.6 mmHg AV Mean Velocity 93.1 cm/s AV Mean Gradient 3.8 mmHg AV Velocity Time Integral 20.6 cm AI Peak Velocity 328 cm/s AI Peak Gradient 43 mmHg AI Deceleration [place] 245 cm/s LVOT Peak Velocity 119 cm/s [...] Integral 18.6 cm Specimen Performing Organization Address City/State/Zipcode Phone Number SMS * CBC (03/03/2019 7:26 AM CDT) Only the most recent of 2 results within the time period is included. WBC 6.1 4.5 - 12.0 K/uL [facility] RBC 4.60 4.60 - 6.20 M/uL [facility] Hemoglobin 12.8 (L) 14.0 - 18.0 g/dL [facility] Hematocrit 39.2 (L) 40.0 - 54.0 % [facility] MCV 85.2 82.0 - 92.0 fL [facility] MCH 27.8 27.0 - 31.0 pg [facility] MCHC 32.7 32.0 - 36.0 g/dL [facility] RDW 43.4 35.1 - 43.9 fL [facility] Platelet 230 150 - 400 K/uL [facility] Mean Platelet 9.8 9.4 - 12.4 fL [facility] Volume Percent NRBC 0.0 % [facility] Neutrophil 65.4 34.0 - 67.9 % [facility] Lymphocyte 18.8 (L) 21.8 - 50.0 % [facility] Monocyte 9.9 5.3 - 12.0 % [facility] Eosinophil 5.1 (H) 0.8 - 5.0 % [facility] Basophil 0.5 0.2 - 1.2 % [facility] Pct Immat Gran 0.3 0.0 - 0.5 % [facility] Neutrophil, Abs 3.98 1.78 - 5.36 K/uL [facility] Lymphocyte, Abs 1.14 (L) 1.32 - 3.57 K/uL [facility] Monocyte, Abs 0.60 0.30 - 0.82 K/uL [facility] Eosinophil, Abs 0.31 0.04 - 0.54 K/uL [facility] Basophil, Abs 0.03 0.01 - 0.08 K/uL [facility] Absol Immat 0.02 0.00 - 0.03 K/uL [facility] Gran Absolute 0.00 K/uL [facility] NRBC-CV Specimen Blood Performing Organization Address [facility] Phone Number [facility] [address] [place] [address] * T PROTEIN, FLD (03/02/2019 2:26 PM CDT) Protein, Fluid 1.4 g/dL [facility] Comment: The reference range and other method performance specifications have not been established for body fluids. The test result must be interpreted into clinical context for integration. Specimen Body Fluid - Pleura, right Narrative Performed At Transudate <3 g/dL, Exudate >3 g/dL [facility] TEST PERFORMED [facility] Performing Organization Address [facility] Phone Number [facility] [address] [place] [phone] * GLUCOSE, FLD (03/02/2019 2:26 PM CDT) Pathologist [facility] Glucose, Fld 64 mg/dL [facility] Comment: The reference range and other method performance specifications have not been established for body fluids. The test result must be interpreted into clinical context for integration. Specimen Body Fluid - Pleura, right Narrative Performed At TEST PERFORMED [facility] Performing Organization Address [facility] Phone Number [facility] [address] [place] [phone] * LDH, FLD (03/02/2019 2:11 PM CDT) LDH, Fld 59 U/L [facility] Comment: The reference range and other method performance specifications have not been established for body fluids. The test result must be interpreted into clinical context for integration. Specimen Body Fluid - Pleura, right Narrative Performed At Transudate <200 U/L, Exudate >200 U/L [facility] TEST PERFORMED [facility] [place] Performing Organization Address City/State/Zipcode Phone Number [facility] [address] [place] [address] * XRAY CHEST 1 VIEW (03/02/2019 1:46 [...] MD, 03/02/2019 2:18 PM Performing Organization Address [facility] Phone Number SMS * PLEURAL FLUID CYTOLOGY (03/02/2019 1:27 PM CDT) Case Report Non-gynecologic [facility] Cytology Case: [id number] Authorizing Provider:Narendra Petty MD Collected: 03/02/2019 01:27 PM Ordering Location: [facility] Med SurgRe ceived: 03/03/2019 07:38 AM Pathologist: Kassidy Pearl MD Specimen:Pleural Cavity, right Specimen Satisfactory for evaluation [facility] Adequacy INTERPRETATION Negative for malignancy [facility] Final Diagnosis Negative for malignancy [facility] Comment Chronic inflammation and scant [facility] degenerative mesothelial cells Pertinent right pleural effusion [facility] Clinical Information Gross 10cc unfixed cloudy orange [facility] Description fluid 1 PAP cytospin prepared 1 DQ cytospin prepared 1 Cell Block prepared Specimen Body Fluid - Pleural Cavity, right Performing Organization Address [facility] Phone Number [facility] [address] [place] [address] * FLUID CULTURE AND GRAM STAIN (03/02/2019 1:27 PM CDT) [facility] Body Fluid No growth 3 days [facility] Gram Stain 2+ WBCs [facility] Gram Stain No organisms seen [facility] Specimen Body Fluid - Pleural Cavity, right Performing Organization Address [facility] Phone Number [facility] [address] [place] [address] * BLD GAS, MIXED VENOUS POC (03/02/2019 1:26 PM CDT) [facility] pCO2, Mix Carl 44.5 40 - 50 mm Hg [facility] POC pH, Mix Carl POC 7.32 7.32 - 7.45 [facility] pO2, Mix Carl 98 (H) 36 - 42 mm Hg [facility] POC HCO3, Mix Carl 23 22 - 31 mmol/L [facility] POC Base Deficit, -2 [facility] Mix Carl POC % Sat, Mix Carl 97 (H) 60 - 80 % [facility] POC Lactic Acid, 5.0 (H) 0.4 - 2.0 mmol/L [facility] Mix Carl POC Vitaliy's Test POSITI [facility] Sample Type IMIX [facility] Site CENTRAComment: Physician [facility] Notified TCO2, MIXED 24 15-9,999 mmol/L [facility] VENOUS POC Specimen Blood, venous Performing Organization Address [facility] Phone Number [facility] [address] [place], [place] [phone] * BMP POC (03/01/2019 5:45 PM CDT) Only the most recent of 2 results within the time period is included. [facility] Sodium POC 142 136 - 145 mmol/L [facility] Potassium POC 3.9 3.5 - 5.1 mmol/L [facility] Chloride POC 103 98 - 107 mmol/L [facility] TCO2 POC 29 21 - 32 mmol/L [facility] Urea Nitrogen 11 7 - 18 mg/dL [facility] POC Creatinine POC 1.0 0.6 - 1.3 mg/dL [facility] Glucose POC 86 74 - 106 mg/dL [facility] Ionized Calcium 1.14 (L) 1.15 - 1.29 mmol/L [facility] POC GFR, Estimated, >60 mL/min/1.73 m2 [facility] -[place] n Specimen Blood, venous Performing Organization Address [facility]/Zipcode Phone Number [facility] [address] [place] [address] * TROPONIN I POC (03/01/2019 2:38 PM CDT) Only the most recent of 2 results within the time period is included. [facility] Troponin POC 0.08Comment: Physician 0.00 - 0.08 ng/mL [facility] Notified Specimen Blood, venous Performing Organization Address [facility] Phone Number [facility] [address] [place] [address] * ABG POC (03/01/2019 11:12 AM CDT) [facility] pH, Art POC 7.41 7.35 - 7.45 [facility] pCO2, Arterial 37.1 32 - 45 mmHg [facility] POC pO2, Arterial 57 (L) 72 - 104 mmHg [facility] POC HCO3, Arterial 24 22 - 26 mmol/L [facility] POC Base Deficit -1 [facility] Arterial POC % Sat, Art POC 90 % [facility] TCO2, ART POC 25 21 - 32 mmol/L [facility] Lactic Acid POC 1 0.4 - 2 mmol/L [facility] Sample Type IART [facility] ETCO2 [facility] Specimen Blood, arterial Performing Organization Address [facility] Phone Number [facility] [address] [place], [place] [phone] * 12 LEAD EKG (03/01/2019 9:18 AM CDT) [facility] 12 LEAD EKG FOR [facility] Test Date:2019-03-01 Pat Name: JEFF Ruiz ent: [id number] Room: Gender: M Supervisor Shearing: [id number] :1940-0 01-14 Requested By: VONNIE Soria Order Number: [id number] Reading MD: Jonny WEBSTER Measurements Intervals [place] Rate: 92 P:80 MD: 186 QRS: -62 QRSD: 100 T: 88 QT: 377 QTc:468 Interpretive Statements SINUS RHYTHM WITH FREQUENT VENTRICULAR PREMATURE COMPLEXES POSSIBLE RIGHT VENTRICULAR CONDUCTION DELAY LEFT ANTERIOR FASCICULAR BLOCK Poor anterior R wave cannot r/o prior Anteroseptal Infarct POSSIBLE LEFT VENTRICULAR HYPERTROPHY NONSPECIFIC ST & T-WAVE ABNORMALITY Abnormal ECG Electronically Signed On 03-01-2019 11:16:09 CDT by Jonny WEBSTER Specimen Performing Organization Address [facility] Phone Number SMS * UA CHEMISTRIES (01/23/2019 8:30 AM CDT) Color Straw [facility] Clarity Clear [facility] Specific 1.005 1.001 - 1.035 [facility] 2 pH 8.0 5 - 8 [...] [facility]IN-[facility] 2 Specimen Urine Performing Organization Address City/[facility] Phone Number MISYS [facility] [...] Performed At EXAM: CTA CHEST WITH CONTRAST [facility] EXAM: CTA ABDOMEN AND PELVIS WITH [...] Organization Address City/State/Zipcode Phone Number SMS * VBG POC (01/23/2019 5:59 AM CDT) pH, Carl POC 7.39 7.33 - 7.43 [facility] pCO2, Carl POC 41.9 38.0 - 50.0 mm Hg [facility] pO2, Acrl POC 30 (L) 50 - 75 mm Hg [facility] Base Excess, 0 mmol/L [facility] Carl POC [facility] 1 HCO3, Carl POC 25.4 22.0 - 26.0 mmol/L [facility] 1 % Sat, Carl POC 57 (L) 60 - 85 % [facility] 1 Lactic Acid, 1.18 0.4 - 2.0 mmol/L [facility] Carl POC [facility] 1 Sample Type Carl [facility] 1 TCO2, CARL POC 27 21 - 32 mmol/L [facility] 1 Specimen Performing Organization Address [facility] Phone Number MISYS [facility] * BMP POC (01/23/2019 5:57 AM CDT) Only the most recent of 2 results within the time period is included. CO2 POC 25 21 - 32 mmol/L [facility] 1 Chloride POC 102 98 - 107 mmol/L [facility] 1 Potassium POC 3.8 3.50 - 5.10 mmol/L [facility] 1 Sodium POC 141 136 - 145 mmol/L [facility] 1 Glucose POC 118 (H) 74 - 106 mg/dL [facility] 1 Urea Nitrogen 4 (L) 7 - 18 mg/dL [facility] POC [facility] 1 Creatinine POC 0.8 0.6 - 1.3 mg/dL [facility] 1 Calcium Ionized 1.24 1.15 - 1.29 mmol/L [facility] POC [facility] 1 Hemoglobin POC 15.0 14.0 - 18.0 g/dL [facility] 1 Hematocrit POC 44.0 40.0 - 54.0 % [facility] 1 GFR, Estimated >60 mL/min/1.73 m2 [facility] 1 GFR, Estim, >60 mL/min/1.73 m2 [facility] Afr-Am [facility] 1 Specimen Performing Organization Address [facility] Phone Number [facility] * TROPONIN I POC (01/23/2019 5:56 AM CDT) Only the most recent of 2 results within the time period is included. Troponin POC 0.05 0.00 - 0.08 ng/mL [facility] 1 Specimen Performing Organization Address [facility]/Zipcode Phone Number MISYS [facility] * PT/INR/PTT (01/23/2019 5:51 AM CDT) PT 14.4 11.8 - 15.0 Seconds [facility] 2 INR 1.1 [facility] SUGGESTED THERAPEUTIC RANGES: MAIN-STATION 2 INR 2.0-3.0 for MODERATE INTENSITY ANTICOAGULATION INR 2.5-3.5 for HIGH INTENSITY ANTICOAGULATION PTT 35.9 23.6 - 36.4 Seconds [facility] 2 Specimen Blood Performing Organization Address [facility] Phone Number [facility] * LIVER PROFILE (01/23/2019 5:51 AM CDT) Protein, Total, 7.2 6.0 - 8.3 g/dL [facility] Serum [facility] 1 Albumin 4.3 4.2 - 5.5 g/dL [facility] 1 Bilirubin, 0.6 0.2 - 1.2 mg/dL [facility] Total [facility] 1 Alkaline 90 34 - 104 U/L [facility] Phosphatase, S [facility]IN-STATION 1 AST (SGOT) 19 13 - 39 U/L [facility] 1 ALT 14 7 - 52 U/L [facility] 1 D Bilirubin 0.1 0.0 - 0.2 mg/dL [facility] 1 Specimen Blood Performing Organization Address [facility] Phone Number [facility] * LIPASE (01/23/2019 5:51 AM CDT) Lipase 7 (L) 11 - 81 U/L [facility] 1 Specimen Blood Performing Organization Address [facility] Phone Number [facility] * CBC/DIFF (01/23/2019 5:51 AM CDT) WBC 7.4 4.5 - 12.0 K/uL [facility] 2 RBC 4.72 4.60 - 6.20 M/uL [facility] 2 Hemoglobin 13.4 (L) 14.0 - 18.0 g/dL [facility] 2 Hematocrit 41.8 40.0 - 54.0 % [facility] 2 MCV 89 82 - 92 fL [facility] 2 MCH 28.4 27.0 - 31.0 pg [facility] MCHC 32.1 32.0 - 36.0 g/dL [facility] 2 RDW 44.3 (H) 35.1 - 43.9 fL [facility] Platelets 254 150 - 400 K/uL [facility] Mean Platelet 10.0 9.4 - [...] Monocytes(Absol 0.50 0.30 - 0.82 K/uL [facility]) [facility] 2 Eos (Absolute) 0.20 0.04 - 0.54 K/uL [facility] Baso (Absolute) 0.04 0.01 - 0.08 K/uL [facility] 2 Immature Grans 0.03 0.00 - 0.03 K/uL [facility] (Abs) [facility] 2 Specimen Blood Performing Organization Address City/State/Zipcode Phone Number MISYS [facility] * 12 LEAD EKG (01/23/2019 5:37 AM CDT) [facility] Test Date:2019-01-23 Pat Name: JEFF Ruiz ent: [id number] Room: Gender: M Supervisor Shearing: [id number] :[id number] 4-16 Requested By: VONNIE Soria Order Number: [id number] Reading MD: Darien Menendez Measurements Intervals [place] Rate: 91 P:49 MD: 194 QRS: -40 QRSD: 97 T:104 QT: 389 QTc:481 Interpretive Statements SINUS RHYTHM WITH OCCASIONAL VENTRICULAR PREMATURE COMPLEXES MARKED LEFT AXIS DEVIATION POSSIBLE LEFT VENTRICULAR HYPERTROPHY PROLONGED QTC NONSPECIFIC T-WAVE ABNORMALITY Abnormal ECG Electronically Signed On 01-23-2019 7:43:25 CDT by Darien Menendez Specimen Performing Organization Address [facility] Phone Number SMS * ABG POC (12/27/2018 [...] [facility] Specimen Performing Organization Address [facility] Phone Number MIS[facility] 1 * HIV-1/HIV-2 ROUTINE SCREENING (12/27/2018 2:14 PM CDT) HIV-1/HIV-2 Negative NEG [facility] Specimen Performing Organization Address [facility] Phone Number MIS[facility] [address] [place] [address] * Bedside Ultrasound (12/27/2018 1:54 PM CDT) [...] 11:47 AM CDT) 12 LEAD EKG FOR [facility] Test Date:2018-12-27 Pat Name: JEFF Ruiz ent: [id number] Room: Gender: Supervisor Shearing: KAI :1940-0 01-14 Requested By: VONNIE Soria Order Number: [id number] Reading MD: Armond Akbar Measurements Intervals [place] Rate: 84 P:78 MD: 213 QRS: -60 QRSD: 124 T: 56 [...] Electronically Signed On 12-27-2018 12:10:48 CDT by Armnod Akbar Specimen Performing Organization Address City/State/Zipcode Phone Number [facility] after 04/29/2018 Insurance Type Payer Benefit Subscriber ID Effective Phone Address Plan / Dates Group [employer] [place] xxxxxxxxx 2016-P [phone] [facility] DUAL resent [id number] OPTION [facility] [address] [address] [place] [address] Advance Directives Date Inactivated Comments Code Status Date Activated 03/03/2019 6:46 PM Full Code 03/01/2019 4:50 PM 01/10/2017 7:44 PM Full Code 01/08/2017 3:24 PM 01/08/2017 9:33 AM Full Code 01/08/2017 8:28 AM
--- OUTSIDE RECORDS SUMMARY | 2019-06-05 12:13 | XMS REPORT | Clinical Summary ---
Author Author [facility] Organization [facility] Address Unknown Phone Unavailable Care Team Providers Care Litigation Legal Secretary Name Role Phone PCP Unavailable Allergies No [...] nightly. follow-up, Abnormal computed tomography angiography (CTA) 02/10/2018 doxycycline monohydrate Take 1 20 capsule 0 (MONODOX) 100 mg capsule by 8 capsuleIndications: Fish mouth 2 times hook injury of finger of daily for 10 right hand, initial days. encounter 02/10/2018 levoFLOXacin (LEVAQUIN) Take 1 tablet 10 tablet 0 750 mg tabletIndications: by mouth 8 Fish hook injury of daily for 10 finger of right hand, days. initial encounter Active Problems Problem Noted Date Fish hook injury of finger of right hand 01/31/2018 Renal cyst 01/16/2017 Overview: noted on CTA Essential hypertension, benign 01/16/2017 Abnormal computed tomography angiography (CTA) 01/16/2017 Aortic insufficiency 01/09/2017 Prostatic hypertrophy 02/25/2011 Encounters Care Team Description Date Type Specialty Dayna Saleem MD Shortness of breath (Primary Dx) 12/27/2018 Emergency Emergency Medicine 12/27/2018 Travel Chacorta Baltazar MD Fish hook injury of finger of right hand, initial encounter (Primary Dx) 01/30/2018 Emergency Emergency Medicine - 01/31/2018 after 12/26/2017 Immunizations Name Dates Previously Given Next Due [...] Drinks/Week oz/Week Comments No 0 Standard 0.0 01-16-17 denies any ETOH usage drinks or equivalent Sex Assigned at Date Recorded Not on file Industry Job Start Date Occupation Not on file Not on file Not on file Travel End Travel History Travel Start No recent travel history available. Last Filed Vital Signs Time Taken Vital Sign Reading 12/27/2018 11:40 AM CDT Blood Pressure 176/55 12/27/2018 11:40 AM CDT Pulse 80 12/27/2018 11:40 AM CDT Temperature 36.3 C (97.3 F) 12/27/2018 11:40 AM CDT Respiratory Rate 16 12/27/2018 11:40 AM CDT Oxygen Saturation 96% - Inhaled Oxygen - Concentration 12/27/2018 11:40 AM CDT Weight 68 kg (150 lb) - Height - 01/16/2017 9:43 AM CDT Body Mass Index 25.75 Plan of Treatment Health Maintenance Due Date Last Done Comments IMM Pneumococcal Age 65 2006 and Up IMM Influenza Seasonal 07/01/2018Jul to November (>/=19 yrs) Procedures * The patient is currently admitted. The information in this section might not be complete until the patient is discharged. Comments Procedure Name Priority Date/Time Associated Diagnosis BMP POC Routine 12/27/2018 2:18 PM CDT HIV-1/HIV-2 ROUTINE STAT 12/27/2018 SCREENING 2:14 PM CDT 12 LEAD EKG Routine 12/27/2018 11:47 AM CDT FOREIGN BODY REMOVAL Routine 01/30/2018 Fish hook injury of SIMPLE 10:20 PM CDT finger of right hand, initial encounter after 12/26/2017 Results * BMP POC (12/27/2018 2:18 PM CDT) CO2 POC 25Comment: Physician Notified 21 - 32 mmol/L [facility] 1 Chloride POC 104 98 - 107 mmol/L [facility] 1 Potassium POC 4.1 3.50 - 5.10 mmol/L [facility] 1 Sodium POC 141 136 - 145 mmol/L [facility] 1 Glucose POC 106 74 - 106 mg/dL [facility] 1 Urea Nitrogen 9 7 - 18 mg/dL [facility] POC MAIN-STATION 1 Creatinine POC 0.8 0.6 - 1.3 mg/dL [facility] 1 Calcium Ionized 1.23 1.15 - 1.29 mmol/L [facility] POC MAIN-STATION 1 Hemoglobin POC 14.6 14.0 - 18.0 g/dL [facility] 1 Hematocrit POC 43.0 40.0 - 54.0 % [facility] 1 GFR, Estimated >60 mL/min/1.73 m2 [facility] 1 GFR, Estim, >60 mL/min/1.73 m2 [facility] Afr-Am MAIN-STATION 1 Performing Organization Address City/State/Zipcode Phone Number MISYS [facility] 1 * 12 LEAD EKG (12/27/2018 11:47 AM CDT) 12 LEAD EKG FOR [facility] Test Date:2018-12-27 Pat Name: JOSE Ruiz ent: [id number] Room: Gender: Reconditioner: KAI :[id number] Requested By: VONNIE Soria Order Number: [id number] Reading MD: Armond Akbar Measurements Intervals [place] Rate: 84 P:78 [place]: 213 QRS: -60 QRSD: 124 T: 56 [...] CDT by Armond Akbar Performing Organization Address City/State/Zipcode Phone Number SMS * FOREIGN BODY REMOVAL SIMPLE (01/30/2018 10:20 [...] of procedure:Tolerated well, no immediate complications after 12/26/2017 Insurance Type Payer Benefit Subscriber ID Effective Phone Address Plan / Dates Group [employer] OPTIONS SANDY xxxxxxxxxxxx 2016-P [phone] [facility] DUAL resent [id number] OPTION [facility] [address] [address] [place] [address] Advance Directives For more information, please contact: [address] [address] Date Inactivated Comments Code Status Date Activated 01/10/2017 7:44 PM Full Code 01/08/2017 3:24 PM 01/08/2017 9:33 AM Full Code 01/08/2017 8:28 AM
--- OUTSIDE RECORDS SUMMARY | 2019-06-05 12:13 | XMS REPORT | Clinical Summary ---
Author Author [facility] Organization [facility] Address Unknown Phone Unavailable Care Team Providers Care Oyster Grower Name Role Phone PCP Unavailable Allergies No [...] Encounters Care Team Description Date Type Specialty Mahsa Briggs MD Chest pain, unspecified type (Primary Dx) 01/23/2019 Emergency Emergency Medicine 01/23/2019 Travel Dayna Saleem MD Shortness of breath (Primary Dx) 12/27/2018 Emergency Emergency Medicine 12/27/2018 Travel Chacorta Baltazar MD Fish hook injury of finger of right hand, initial encounter (Primary Dx) 01/30/2018 Emergency Emergency Medicine - 01/31/2018 after 01/29/2018 Immunizations Name Dates Previously Given Next Due [...] Vital Signs Time Taken Vital Sign Reading 01/23/2019 12:04 PM CDT Blood Pressure 135/65 01/23/2019 12:04 PM CDT Pulse 83 01/23/2019 12:04 PM CDT Temperature 36.5 C (97.7 F) 01/23/2019 12:04 PM CDT Respiratory Rate 20 01/23/2019 12:04 PM CDT Oxygen Saturation 96% - Inhaled [...] Comments Procedure Name Priority Date/Time Associated Diagnosis UA CHEMISTRIES STAT 01/23/2019 8:30 AM CDT CTA CHEST [...] finger of right hand, initial encounter after 01/29/2018 Results * UA CHEMISTRIES (01/23/2019 8:30 AM CDT) Color Straw [facility] 2 Clarity Clear [facility] Spec Walls 1.005 1.001 - 1.035 [facility] 2 pH 8.0 5 - 8 [facility] 2 Protein Negative NEG [facility] 2 Glucose Negative NEG [facility] 2 Ketone Negative NEG [facility] 2 Bilirubin Negative NEG [facility] 2 Nitrate Negative NEG [facility] 2 Urobilinogen <1.0 0.2 - 1.0 EU/dL [facility] 2 Leukocyte Negative NEG [facility] 2 Blood Negative NEG [facility] 2 Specimen Urine Performing Organization Address City/State/Zipcode Phone Number MISYS [facility] * CTA ABDOMEN-PELVIS W CONTRAST - AORTA (01/23/2019 8:25 AM CDT) Only the most recent of 2 results within the time period is included. Impressions Performed At IMPRESSION: SMS 1.Unchanged thoracic [...] Performed At EXAM: CTA CHEST WITH CONTRAST [facility] EXAM: CTA ABDOMEN AND PELVIS WITH CONTRAST [...] results within the time period is included. Impressions Performed At IMPRESSION: SMS 1.Unchanged thoracic [...] Performed At EXAM: CTA CHEST WITH CONTRAST [facility] EXAM: CTA ABDOMEN AND PELVIS WITH CONTRAST [...] Organization Address City/State/Zipcode Phone Number SMS * XRAY CHEST 2 VIEWS (01/23/2019 6:20 AM CDT) Only the most recent of 2 results within the time period is included. Impressions Performed At IMPRESSION: SMS 1.Slight interval enlargement in the moderate sized right pleural effusion. Stable trace left pleural effusion. 2.Unchanged right lung base opacities may represent atelectasis or consolidation. 3.Mild left basilar subsegmental atelectasis. 4.Moderate cardiomegaly with mild pulmonary venous congestion. This [facility] radiology report is a preliminary resident dictation until finalized by an attending.Changes to this preliminary report may occur in an additional preliminary or finalized version. Dictated By: Chong Malik MD, 01/23/2019 6:25 AM I have reviewed the study and agree with the findings in this report. Signed By: Porter Santos MD, 01/23/2019 7:10 AM Narrative Performed At EXAM: XR CHEST 2 VIEWS [facility] DATE: 01/23/2019 6:04 AM INDICATION: Chest pain. [...] consolidation. Left basilar subsegmental atelectasis is again noted.No pneumothorax. Heart and mediastinum: The heart size is moderately enlarged but unchanged. There is mild pulmonary venous congestion. The thoracic aorta is ectatic and tortuous with calcifications along the arch. Bones: No acute bony abnormality. Procedure Note Interface, Rad/Mammog In - 01/23/2019 7:15 AM CDT EXAM: XR CHEST 2 VIEWS DATE: 01/23/2019 [...] cardiomegaly with mild pulmonary venous congestion. This [facility] radiology report is a preliminary resident dictation until finalized by an attending. Changes to this preliminary report may occur in an additional preliminary or finalized version. Dictated By: Chong Malik MD, 01/23/2019 6:25 AM I have reviewed the study and agree with the findings in this report. Signed By: Porter Santos MD, 01/23/2019 7:10 AM Performing Organization Address [facility] Phone Number SMS * VBG POC (01/23/2019 [...] Lactic Acid, 1.18 0.4 - 2.0 mmol/L [facility] 1 Sample Type Carl [facility] TCO2, CARL POC 27 21 - 32 mmol/L [facility] 1 Performing Organization Address [facility] Phone Number MISYS [facility] 1 * BMP POC (01/23/2019 5:57 AM CDT) Only the most recent of 2 results within the time period is included. CO2 POC 25 21 - 32 mmol/L [facility] 1 Chloride POC 102 98 - 107 mmol/L [facility] 1 Potassium POC 3.8 3.50 - 5.10 mmol/L [facility] 1 Sodium POC 141 136 - 145 mmol/L J MAIN-STATION 1 Glucose POC 118 (H) 74 - 106 mg/dL [facility] 1 Urea Nitrogen 4 (L) 7 - 18 mg/dL [facility] POC MAIN-STATION 1 Creatinine POC 0.8 0.6 - 1.3 mg/dL [facility] MAIN[facility] 1 Calcium Ionized 1.24 1.15 - 1.29 mmol/L [facility] POC [facility] 1 Hemoglobin POC 15.0 14.0 - 18.0 g/dL [facility] 1 Hematocrit POC 44.0 40.0 - 54.0 % [facility] 1 GFR, Estimated >60 mL/min/1.73 m2 [facility] 1 GFR, Estim, >60 mL/min/1.73 m2 [facility] Afr-Am MAIN-STATION 1 Performing Organization Address [facility] Phone Number [facility] 1 * TROPONIN I POC (01/23/2019 5:56 AM CDT) Only the most recent of 2 results within the time period is included. Troponin POC 0.05 0.00 - 0.08 ng/mL [facility] MA[facility] 1 Performing Organization Address [facility] Phone [facility] 1 * PT/INR/PTT (01/23/2019 5:51 AM CDT) PT 14.4 11.8 - 15.0 Seconds [facility] MAIN-STATION 2 INR 1.1 [facility] SUGGESTED THERAPEUTIC RANGES: MAIN-STATION 2 INR 2.0-3.0 for MODERATE INTENSITY ANTICOAGULATION INR 2.5-3.5 for HIGH INTENSITY ANTICOAGULATION PTT 35.9 23.6 - 36.4 Seconds [facility] 2 Specimen Blood Performing Organization Address [facility] Phone Number [facility] 2 * LIVER PROFILE (01/23/2019 5:51 AM CDT) T Protein 7.2 6.0 - 8.3 g/dL [facility] MAIN-STATION 1 Albumin 4.3 4.2 - 5.5 g/dL [facility] MA[facility]-STATION 1 T Bilirubin 0.6 0.2 - 1.2 mg/dL [facility] MA[facility] 1 Alk Phos 90 34 - 104 U/L [facility] 1 AST 19 13 - 39 U/L [facility] MA[facility] 1 ALT 14 7 - 52 U/L [facility] 1 D Bilirubin 0.1 0.0 - 0.2 mg/dL [facility] 1 Specimen Blood Performing Organization Address City/State/Zipcode Phone Number MISYS [facility] MA[facility]STATION 1 * LIPASE (01/23/2019 5:51 AM CDT) Lipase 7 (L) 11 - 81 U/L [facility] 1 Specimen Blood Performing Organization Address City/State/Zipcode Phone Number KUNALYS [facility]-STATION 1 * CBC/DIFF (01/23/2019 5:51 AM CDT) WBC 7.4 4.5 - 12.0 K/uL [facility] 2 RBC 4.72 4.60 - 6.20 M/uL [facility] 2 Hemoglobin 13.4 (L) 14.0 - 18.0 g/dL [facility] 2 Hematocrit 41.8 40.0 - 54.0 % [facility] 2 MCV 89 82 - 92 fL [facility] 2 MCH 28.4 27.0 - 31.0 pg [facility] 2 MCHC 32.1 32.0 - 36.0 g/dL [facility] 2 RDW 44.3 (H) 35.1 - 43.9 fL [facility] 2 Platelet 254 150 - 400 K/uL [facility] 2 Mean Platelet 10.0 9.4 - 12.4 fL [facility] Volume [facility] 2 Percent NRBC 0.0 [facility] 2 Absolute NRBC 0.00 [facility] 2 Neutrophil 76.9 (H) 34.0 - 67.9 % [facility] 2 Lymphocyte 12.8 (L) 21.8 - 50.0 % [facility] 2 Monocyte 6.7 5.3 - 12.0 % [facility] 2 Eosinophil 2.7 0.8 - 5.0 % [facility] 2 Basophil 0.5 0.2 - 1.2 % [facility] 2 Pct Immat Gran 0.4 0.0 - 0.5 [facility] 2 Neutrophil, Abs 5.70 (H) 1.78 - 5.36 K/uL [facility] 2 Lymphocyte, Abs 0.95 (L) 1.32 - 3.57 K/uL [facility] 2 Monocyte, Abs 0.50 0.30 - 0.82 K/uL [facility] 2 Eosinophil, Abs 0.20 0.04 - 0.54 K/uL [facility] 2 Basophil, Abs 0.04 0.01 - 0.08 K/uL [facility] 2 Absol Immat 0.03 0.00 - 0.03 K/uL [facility] Gran [facility]IN-[facility] 2 Specimen Blood Performing Organization Address City/[facility]/Zipcode Phone Number [facility] * 12 LEAD EKG (01/23/2019 5:37 AM CDT) 12 [facility]AD [facility]:2019-01-23 Pat Name: JEFF Ruiz ent: [id number] Room: 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 Mother: [id number] Requested By: VONNIE Soria Order Number: [id number] Reading MD: Darien Menendez Measurements Intervals Preemption Rate: 91 P:49 OR: 194 QRS: -40 QRSD: 97 T:104 QT: 389 QTc:481 Interpretive Statements SINUS RHYTHM WITH OCCASIONAL VENTRICULAR PREMATURE COMPLEXES MARKED LEFT AXIS DEVIATION POSSIBLE LEFT VENTRICULAR HYPERTROPHY PROLONGED QTC NONSPECIFIC T-WAVE ABNORMALITY Abnormal ECG Electronically Signed On 01-23-2019 7:43:25 CDT by Darien Menendez Performing Organization Address [facility] Phone Number [facility] * ABG POC (12/27/2018 3:18 PM CDT) [...] mmol/L [facility] 1 Performing Organization Address [facility] Phone Number CHRISTA [facility] MA[facility]-STATION 1 * HIV-1/HIV-2 ROUTINE SCREENING (12/27/2018 2:14 PM CDT) HIV-1/HIV-2 Negative NEG [facility] BLOOD BANK Performing Organization Address [facility] Phone Number CHRISTA [facility] * 12 LEAD EKG (12/27/2018 11:47 AM CDT) 12 LEAD EKG FOR [facility] Test Date:2018-12-27 Pat Name: JEFF Ruiz ent: [id number] Room: 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 Mother: KAI :[id number] Requested By: VONNIE Soria Order Number: [id number] Reading MD: Armond Akbar Measurements Intervals Preemption Rate: 84 P:78 OR: 213 QRS: -60 QRSD: 124 T: 56 [...] CDT by Armond Akbar Performing Organization Address [facility] Phone Number [facility] * FOREIGN BODY REMOVAL SIMPLE (01/30/2018 10:20 PM CDT) Narrative Performed At Franchesca Paz NP 01/31/2018 12:26 AM Foreign body removal simple Date/Time: 01/31/2018 12:22 AM Performed by: FRANCHESCA APZ Authorized by: FRANCHESCA PAZ Consent: Consent obtained:Verbal [...] of procedure:Tolerated well, no immediate complications after 01/29/2018 Insurance Type Payer Benefit Subscriber ID Effective Phone Address Plan / Dates Group [employer] OPTIONS S[place]Y xxxxxxxxxxx 2016-P [phone] [facility] DUAL resent [id number] OPTION [facility] [address] [address] [place] [address] Advance Directives For more information, please contact: [address] [address] Date Inactivated Comments Code Status Date Activated 01/10/2017 7:44 PM Full Code 01/08/2017 3:24 PM 01/08/2017 9:33 AM Full Code 01/08/2017 8:28 AM
--- OUTSIDE RECORDS SUMMARY | 2019-06-05 12:14 | XMS REPORT ---
Author Author [facility] Address Unknown Phone Unavailable Care Team Providers Care Color Card Maker Name Role Phone Unavailable Unavailable Problems This patient has no known problems. Allergies, Adverse Reactions, Alerts This patient has no known allergies or adverse reactions. Medications This patient has no known medications. Encounters Start Date/Time End Date/Time Encounter Type Admission Type Attending [facility] Care Department Encounter ID 2019-03-03 11:57:57 Inpatient [facility] [id number] 2019-03-03 06:41:25 Inpatient [facility] [id number] 2019-03-02 13:30:40 Inpatient [facility] [id number] 2019-07-22 00:00:00 2019-07-22 00:00:00 Outpatient [facility] [id number] 2019-05-08 00:00:00 2019-05-08 00:00:00 Outpatient [facility] [id number] 2019-04-30 14:13:03 2019-04-30 14:13:03 Emergency [facility] [id number] 2019-04-30 12:19:38 2019-04-30 12:19:38 Emergency [facility] [id number] 2019-04-07 11:45:43 2019-04-07 11:45:43 Outpatient [facility] [id number] 2019-04-07 09:19:54 2019-04-07 09:19:54 Outpatient [facility] [id number] 2019-04-07 00:00:00 2019-04-07 00:00:00 Outpatient [facility] [id number] 2019-03-20 10:01:04 2019-03-20 10:01:04 Outpatient [facility] [id number] 2019-03-20 09:08:43 2019-03-20 09:08:43 Outpatient [facility] [id number] 2019-03-20 00:00:00 2019-03-20 00:00:00 Outpatient [facility] [id number] 2019-03-20 00:00:00 2019-03-20 00:00:00 Outpatient [facility] [id number] 2019-03-10 11:35:47 2019-03-10 11:35:47 Outpatient [facility] [id number] 2019-03-10 11:08:11 2019-03-10 11:08:11 Outpatient [facility] [id number] 2019-03-10 07:49:10 2019-03-10 07:49:10 Outpatient [facility] [id number] 2019-03-03 00:00:00 2019-03-03 00:00:00 Outpatient [facility] [id number] 2019-03-01 16:17:38 2019-03-01 16:17:38 Emergency [facility] [id number] 2019-03-01 10:00:12 2019-03-01 10:00:12 Outpatient [facility] [id number] 2019-01-23 07:51:35 2019-01-23 07:51:35 Emergency [facility] [id number] 2019-01-23 06:10:35 2019-01-23 06:10:35 Emergency [facility] [id number] 2019-01-23 06:04:29 2019-01-23 06:04:29 Emergency [facility] [id number] 2018-12-27 15:01:46 2018-12-27 15:01:46 Emergency [facility] [id number] 2018-12-27 14:21:14 2018-12-27 14:21:14 Emergency [facility] [id number] 2018-12-27 14:02:50 2018-12-27 14:02:50 Emergency [facility] [id number] 2018-12-27 13:07:33 2018-12-27 13:07:33 Emergency [facility] [id number] 2018-01-30 22:03:07 2018-01-30 22:03:07 Emergency [facility] [id number] 2017-04-11 00:00:00 2017-04-11 00:00:00 Outpatient [facility] [id number] 2017-03-14 00:00:00 2017-03-14 00:00:00 Outpatient [facility] [id number] 2017-03-12 00:00:00 2017-03-12 00:00:00 Outpatient [facility] [id number]
--- OUTSIDE RECORDS SUMMARY | 2019-06-05 12:14 | XMS REPORT | Clinical Summary ---
Author Author [facility] Organization [facility] Address Unknown Phone Unavailable Care Team Providers Care Retail Merchandiser Technician Name Role Phone PCP Unavailable Allergies No Known Allergies Medications End Date Status Medication Sig Dispensed Refills Start Date 06/08/2019 Active lisinopril (PRINIVIL, Take 1 tablet 90 tablet 1 ZESTRIL) 5 mg by mouth 9 tabletIndications: Acute daily for 90 on chronic combined days. systolic and diastolic congestive heart failure 06/08/2019 Active furosemide (LASIX) 40 mg Take 1 tablet 360 tablet 1 tabletIndications: Acute by mouth 2 9 on chronic combined times daily systolic and diastolic for 90 days. congestive heart failure 06/08/2019 Active atorvastatin (LIPITOR) 20 Take 1 tablet 90 tablet 1 mg tabletIndications: by mouth at 9 Acute on chronic combined bedtime systolic and diastolic nightly for congestive heart failure 90 days. 03/03/2019 Discontinued lisinopril (PRINIVIL, Take 1 [...] obstructive Wheezing. pulmonary disease, unspecified COPD type Active Problems Problem Noted Date Heart failure, diastolic, acute on chronic 03/01/2019 Renal cyst 01/16/2017 Overview: noted on CTA Essential hypertension, benign 01/16/2017 Abnormal computed tomography angiography (CTA) 01/16/2017 Aortic insufficiency 01/09/2017 Heart failure 01/09/2017 Overview: Added By MIPs Interface Last Assessment & Plan: Condition: stable Diagnosis based upon a ihcf-no-rwzj evaluation, physical exam, and ROS. Compensated Requested [...] Encounters Care Team Description Date Type Specialty Zack Gimenez ResidentMD Acute on chronic combined systolic and diastolic congestive heart failure 04/07/2019 Office Visit Internal Medicine 04/07/2019 Travel Marv Acevedo MD 04/05/2019 Pre-Clinic Internal Medicine Review 03/20/2019 Hospital Lab Encounter Bebo Simon, ResidentMD Fermín Thompson DO Encounter for monitoring diuretic therapy (Primary [...] Denisse Aleman Interpretation 03/07/2019 Telephone Judy Pedro RNit operations specialist F/U; Appointment Related Questions 03/07/2019 Telephone Mario [...] 12/27/2018 Emergency Emergency Medicine 12/27/2018 Travel after 04/06/2018 Immunizations Name Administration Dates Next Due PCV [...] Signs Reading Time Taken Comments Vital Sign 114/70 04/07/2019 9:20 AM CDT Blood Pressure 80 04/07/2019 9:20 AM CDT Pulse 36.6 C (97.9 F) 04/07/2019 9:20 AM CDT Temperature 19 04/07/2019 9:20 AM CDT Respiratory Rate 96% 03/03/2019 3:22 PM CDT Oxygen Saturation - - Inhaled Oxygen Concentration 64 kg (141 lb 1.6 oz) 04/07/2019 9:20 AM CDT Weight 152.4 cm (5') 04/07/2019 9:20 AM CDT Height 27.56 04/07/2019 9:20 AM CDT Body Mass Index Plan of Treatment Health Maintenance Due Date Last Done Comments IMM Pneumococcal Age 65 2006 and Up IMM Influenza Seasonal 07/01/2019 Oct to November (>/=19 yrs) Procedures Comments Procedure Name Priority Date/Time Associated Diagnosis THYROID STIMULATING Routine 03/20/2019 Chronic combined systolic [...] EKG Routine 12/27/2018 11:47 AM CDT after 04/06/2018 Results * THYROID STIMULATING HORMONE (TSH) (03/20/2019 10:15 AM CDT) TSH 3.05 0.57 - 3.74 uIU/mL [facility] Specimen Blood Performing Organization Address City/State/Zipcode Phone Number [facility] [address] [place] [address] * LIPID PROFILE (03/20/2019 10:15 AM CDT) Triglyceride 108 <150 mg/dL [facility] Comment: Normal: < 150.0 mg/dL Borderline: 150-199 mg/dL High: 200-499 mg/dL Very High: >=500 mg/dL Cholesterol 186.0 <=200.0 mg/dL [facility] Comment: Desirable: < 200.0 mg/dL Borderline: 200 - 240 mg/dL High Risk: > 240 mg/dL HDL 39.0 See Reference Range [facility] Comment: Narrative. mg/dL Increased CHD Risk: < 40.0 mg/dL Decreased CHD Risk: > 60 mg/dL LDL 125 (H) <100 mg/dL [facility] Comment: Optimal: < 100.0 mg/dL Near Optimal: 120-129 mg/dL Borderline: 130-159 mg/dL High: 160-189 mg/dL Very High: >=190 mg/dL Specimen Blood Performing Organization Address [facility] [place] [facility] Phone Number [facility] [address] [place] [address] * BASIC METABOLIC PANEL (03/20/2019 10:15 AM CDT) Only the most recent of 5 results within the time period is included. Sodium 142 136 - 145 mmol/L [facility] Potassium 3.5 3.5 - 5.1 mmol/L [facility] Chloride 102 98 - 107 mmol/L [facility] CO2 33 (H) 21 - 31 mmol/L [facility] Urea Nitrogen 10.0 7.0 - 25.0 mg/dL [facility] Creatinine 0.9 0.7 - 1.3 mg/dL [facility] Glucose 98 70 - 110 mg/dL [facility] Calcium, Total 9.3 8.6 - 10.3 mg/dL [facility] GFR, Estimated 82 (L) >=90 mL/min/1.73 m2 [facility] Anion Gap 7 5 - 16 mmol/L [facility] Specimen Blood Performing Organization Address [facility] [place] [facility] Phone Number [facility] [address] [place] [address] * XRAY CHEST 2 VIEWS (03/10/2019 11:18 AM CDT) Only the most recent of 4 results within the time period is included. Specimen Impressions Performed At IMPRESSION: [facility] 1. Mild cardiomegaly 2. Bilateral, right greater than left, pleural effusions with some decrease in the right-sided pleural effusion when compared with a chest x-ray done on 03/02/2019 Signed By: Aime Palma MD, 03/11/2019 7:28 AM Narrative Performed At EXAM: XR CHEST 2 VIEWS [facility] DATE:03/10/2019 11:44 AM INDICATION: Hx of pleural [...] Transthoracic SMS ECHO (TTE) Echo Report JEFF AM Age:79 Gender: M :1940 Exam Date: 03/03/2019 07:51 Exam Location: [facility] Echo Ordering Phys: NARENDRA PETTY Referring Phys:[id number] Pérez Reading Phys:Clemencia Robles M.D. Fellow Phys: Fellow Phys: Insurance Counselor: Nicole John Reason For Exam: Indications: CHF exacerbation ICD-9 Codes: Exam Type: Transthoracic Echo Procedure CPT:08792 Addtional CPT: Ht (in): 60 BSA: 1.72HR: [...] BP 87.2 cm LV Cardiac Output MOD [id number] cm/min LV Cardiac Index MOD BP 3863 cm/minm LV Diastolic Volume MOD 4C195 cm LV Systolic Volume MOD 4C 128 cm LV Ejection Fraction MOD 4C 34 % LV Stroke Volume MOD 4C 66.1 cm LV Cardiac Output MOD [id number] cm/min LV Cardiac Index MOD 4C 2928 cm/minm LV Diastolic Volume MOD 2C249 cm LV Systolic Volume MOD 2C 160 cm LV Ejection Fraction MOD 2C 35.7 % LV Stroke Volume MOD 2C 89 cm LV Cardiac Output MOD [id number] cm/min LV Cardiac Index MOD 2C 3943 cm/minm LA Volume 75.4 cm LA Volume Index 44 cm/m 16 - 34 cm/m LA Volume MOD 2C 99.5 cm LA Volume MOD 4C 92.8 cm LV Mass by linear g LV Mass by linear method [id number] g/m IVC Diameter Inspiration 1.1 cm IVC Diameter Expiration 1.6 cm RA Volume 81.4 cm RA Volume Index 47.4 cm/m DOPPLER AV Peak Velocity 128 cm/s AV Peak Gradient 6.6 mmHg AV Mean Velocity 93.1 cm/s AV Mean Gradient 3.8 mmHg AV Velocity Time Integral 20.6 cm AI Peak Velocity 328 cm/s AI Peak Gradient 43 mmHg AI Deceleration Blackford 245 cm/s LVOT Peak Velocity 119 cm/s [...] BP 87.2 cm LV Cardiac Output MOD [id number] cm/min LV Cardiac Index MOD BP 3863 cm/minm LV Diastolic Volume MOD 4C195 cm LV Systolic Volume MOD 4C 128 cm LV Ejection Fraction MOD 4C 34 % LV Stroke Volume MOD 4C 66.1 cm LV Cardiac Output MOD [id number] cm/min LV Cardiac Index MOD 4C 2928 cm/minm LV Diastolic Volume MOD 2C249 cm LV Systolic Volume MOD 2C 160 cm LV Ejection Fraction MOD 2C 35.7 % LV Stroke Volume MOD 2C 89 cm LV Cardiac Output MOD [id number] cm/min LV Cardiac Index MOD 2C 3943 cm/minm LA Volume 75.4 cm LA Volume Index 44 cm/m 16 - 34 cm/m LA Volume MOD 2C 99.5 cm LA Volume MOD 4C 92.8 cm LV Mass by linear [id number] g LV Mass by linear method [id number] g/m IVC Diameter Inspiration 1.1 cm IVC Diameter Expiration 1.6 cm RA Volume 81.4 cm RA Volume Index 47.4 cm/m DOPPLER AV Peak Velocity 128 cm/s AV Peak Gradient 6.6 mmHg AV Mean Velocity 93.1 cm/s AV Mean Gradient 3.8 mmHg AV Velocity Time Integral 20.6 cm AI Peak Velocity 328 cm/s AI Peak Gradient 43 mmHg AI Deceleration Blackford 245 cm/s LVOT Peak Velocity 119 cm/s [...] Integral 18.6 cm Specimen Performing Organization Address City/[facility] [place] [facility]/Zipcode Phone Number SMS * CBC (03/03/2019 7:26 AM CDT) Only the most recent of 2 results within the time period is included. WBC 6.1 4.5 - 12.0 K/uL [facility] RBC 4.60 4.60 - 6.20 M/uL [facility] Hemoglobin 12.8 (L) 14.0 - 18.0 g/dL [facility] Hematocrit 39.2 (L) 40.0 - 54.0 % [facility] MCV 85.2 82.0 - 92.0 fL [facility] MCH 27.8 27.0 - 31.0 pg [facility] MCHC 32.7 32.0 - 36.0 g/dL [facility] RDW 43.4 35.1 - 43.9 fL [facility] Platelet 230 150 - 400 K/uL [facility] Mean Platelet 9.8 9.4 - 12.4 fL [facility] Volume Percent NRBC 0.0 % [facility] Neutrophil 65.4 34.0 - 67.9 % [facility] Lymphocyte 18.8 (L) 21.8 - 50.0 % [facility] Monocyte 9.9 5.3 - 12.0 % [facility] Eosinophil 5.1 (H) 0.8 - 5.0 % [facility] Basophil 0.5 0.2 - 1.2 % [facility] Pct Immat Gran 0.3 0.0 - 0.5 % [facility] Neutrophil, Abs 3.98 1.78 - 5.36 K/uL [facility] Lymphocyte, Abs 1.14 (L) 1.32 - 3.57 K/uL [facility] Monocyte, Abs 0.60 0.30 - 0.82 K/uL [facility] Eosinophil, Abs 0.31 0.04 - 0.54 K/uL [facility] Basophil, Abs 0.03 0.01 - 0.08 K/uL [facility] Absol Immat 0.02 0.00 - 0.03 K/uL [facility] Gran Absolute 0.00 K/uL [facility] NRBC-CV Specimen Blood Performing Organization Address City/[facility] [place] [facility]/Zipcode Phone Number [facility] [address] [place], [place] [phone] * T PROTEIN, FLD (03/02/2019 2:26 PM CDT) Protein, Fluid 1.4 g/dL [facility] Comment: The reference range and other method performance specifications have not been established for body fluids. The test result must be interpreted into clinical context for integration. Specimen Body Fluid - Pleura, right Narrative Performed At Transudate <3 g/dL, Exudate >3 g/dL [facility] Performing Organization Address [facility] [place] [facility] Phone Number [facility] [address] [place] [address] * GLUCOSE, FLD (03/02/2019 2:26 PM CDT) Glucose, Fld 64 mg/dL [facility] Comment: The reference range and other method performance specifications have not been established for body fluids. The test result must be interpreted into clinical context for integration. Specimen Body Fluid - Pleura, right Narrative Performed At [facility] Performing Organization Address [facility] Phone Number [facility] [address] [place] [address] * LDH, FLD (03/02/2019 2:11 PM CDT) LDH, Fld 59 U/L [facility] Comment: The reference range and other method performance specifications have not been established for body fluids. The test result must be interpreted into clinical context for integration. Specimen Body Fluid - Pleura, right Narrative Performed At Transudate <200 U/L, Exudate >200 U/L [facility] TEST PERFORMED [facility] Performing Organization Address [facility] [place] [facility] Phone Number [facility] [address] [place] [address] * XRAY CHEST 1 VIEW (03/02/2019 1:46 [...] MD, 03/02/2019 2:18 PM Performing Organization Address [facility] [place] [facility] Phone Number SMS * PLEURAL FLUID CYTOLOGY (03/02/2019 1:27 PM CDT) Case Report Non-gynecologic [facility] Cytology Case: [id number] Authorizing Provider:Narendra Petty MD Collected: 03/02/2019 01:27 PM Ordering Location: [facility] Med SurgRe ceived: 03/03/2019 07:38 AM Pathologist: [...] - Pleural Cavity, right Performing Organization Address [facility] [place] [facility] Phone Number [facility] [address] [place] [address] * FLUID CULTURE AND GRAM STAIN (03/02/2019 1:27 PM CDT) Body Fluid No growth 3 days [facility] Gram Stain 2+ WBCs [facility] Gram Stain No organisms seen [facility] Specimen Body Fluid - Pleural Cavity, right Performing Organization Address [facility] [place] [facility] Phone Number [facility] [address] [place] [address] * BLD GAS, MIXED VENOUS POC (03/02/2019 1:26 PM CDT) pCO2, Mix Carl 44.5 40 - 50 mm Hg [facility] POC pH, Mix Carl POC 7.32 7.32 - 7.45 [facility] pO2, Mix Carl 98 (H) 36 - 42 mm Hg [facility] POC HCO3, Mix Carl 23 22 - 31 mmol/L [facility] POC Base Deficit, -2 [facility] Mix Carl POC % Sat, Mix Carl 97 (H) 60 - 80 % [facility] POC Lactic Acid, 5.0 (H) 0.4 - 2.0 mmol/L [facility] Mix Carl POC Vitaliy's Test POSITI [facility] Sample Type IMIX [facility] Site CENTRAComment: Physician [facility] Notified TCO2, MIXED 24 15-9,999 mmol/L [facility] VENOUS POC Specimen Blood, venous Performing Organization Address City/[facility] [place] [facility]ode Phone Number [facility] [address] [place] [address] * BMP POC (03/01/2019 5:45 PM CDT) Only the most recent of 2 results within the time period is included. Pathologist [facility] Sodium POC 142 136 - 145 mmol/L [facility] Potassium POC 3.9 3.5 - 5.1 mmol/L [facility] Chloride POC 103 98 - 107 mmol/L [facility] TCO2 POC 29 21 - 32 mmol/L [facility] Urea Nitrogen 11 7 - 18 mg/dL [facility] POC Creatinine POC 1.0 0.6 - 1.3 mg/dL [facility] Glucose POC 86 74 - 106 mg/dL [facility] Ionized Calcium 1.14 (L) 1.15 - 1.29 mmol/L [facility] POC GFR, Estimated, >60 mL/min/1.73 m2 [facility] -[place] n Specimen Blood, venous Performing Organization Address [facility] [place] [facility] Phone Number [facility] [address] [place] [address] * TROPONIN I POC (03/01/2019 2:38 PM CDT) Only the most recent of 2 results within the time period is included. Troponin POC 0.08Comment: Physician 0.00 - 0.08 ng/mL [facility] Notified Specimen Blood, venous Performing Organization Address City/[facility] [place] [facility]/Zipcode Phone Number [facility] [address] [place] [address] * ABG POC (03/01/2019 11:12 AM CDT) [facility] Signature pH, Art POC 7.41 7.35 - 7.45 [facility] pCO2, Arterial 37.1 32 - 45 mmHg [facility] POC pO2, Arterial 57 (L) 72 - 104 mmHg [facility] POC HCO3, Arterial 24 22 - 26 mmol/L [facility] POC Base Deficit -1 [facility] Arterial POC % Sat, Art POC 90 % [facility] TCO2, ART POC 25 21 - 32 mmol/L [facility] Lactic Acid POC 1 0.4 - 2 mmol/L [facility] Sample Type IART [facility] ETCO2 [facility] Specimen Blood, arterial Performing Organization Address City/[facility] [place] [facility] Centercode Phone Number [facility] [address] [place] [address] * 12 LEAD EKG (03/01/2019 9:18 AM CDT) 12 LEAD EKG FOR [facility] Date:2019-03-01 Pat Name: JEFF Ruiz ent: [id number] Room: Gender: Program Administrator: [id number] :[id number] Requested By: VONNIE Soria Order Number: [id number] Reading MD: Jonny WEBSTER Measurements Intervals [place] Rate: 92 P:80 MT: 186 QRS: -62 QRSD: 100 T: 88 QT: 377 QTc:468 Interpretive Statements SINUS RHYTHM WITH FREQUENT VENTRICULAR PREMATURE COMPLEXES POSSIBLE RIGHT VENTRICULAR CONDUCTION DELAY LEFT ANTERIOR FASCICULAR BLOCK Poor anterior R wave cannot r/o prior Anteroseptal Infarct POSSIBLE LEFT VENTRICULAR HYPERTROPHY NONSPECIFIC ST & T-WAVE ABNORMALITY Abnormal ECG Electronically Signed On 03-01-2019 11:16:09 CDT by Jonny WEBSTER Specimen Performing Organization Address City/[facility] [place] [facility] Phone Number [facility] * UA CHEMISTRIES (01/23/2019 8:30 AM CDT) Color Straw [facility] Clarity Clear [facility] Specific 1.005 1.001 - 1.035 [facility] 2 pH 8.0 5 - 8 [facility] Protein Negative NEG [facility] Glucose Negative NEG [facility] Ketones Negative NEG [facility] Bilirubin Negative NEG [facility] Nitrate Negative NEG [facility] 2 Urobilinogen,Se <1.0 0.2 - 1.0 EU/dL [facility] mi-Qn [facility] 2 Leukocyte Negative NEG [facility] 2 Occult Blood Negative NEG [facility] 2 Specimen Urine Performing Organization Address City/State/Zipcode Phone Number MISYS [facility] 2 * CTA ABDOMEN-PELVIS W CONTRAST [...] MD, 01/23/2019 9:09 AM Performing Organization Address City/[facility] [place] [email or web address] Phone Number SMS * VBG POC (01/23/2019 [...] [facility] Specimen Performing Organization Address City/[facility] [place] [facility] Phone Number M[facility] * BMP POC (01/23/2019 5:57 AM CDT) Only the most recent of 2 results within the time period is included. CO2 POC 25 21 - 32 mmol/L [facility] Chloride POC 102 98 - 107 mmol/L [facility] Potassium POC 3.8 3.50 - 5.10 mmol/L [facility] 1 Sodium POC 141 136 - 145 mmol/L [facility] 1 Glucose POC 118 (H) 74 - 106 mg/dL [facility] 1 Urea Nitrogen 4 (L) 7 - 18 mg/dL [facility] POC [facility] 1 Creatinine POC 0.8 0.6 - 1.3 mg/dL [facility] 1 Calcium Ionized 1.24 1.15 - 1.29 mmol/L [facility] POC [facility] 1 Hemoglobin POC 15.0 14.0 - 18.0 g/dL [facility] 1 Hematocrit POC 44.0 40.0 - 54.0 % [facility] 1 GFR, Estimated >60 mL/min/1.73 m2 [facility] 1 GFR, Estim, >60 mL/min/1.73 m2 [facility] Afr-Am [facility] 1 Specimen Performing Organization Address [facility] [place] [facility] Phone Number [facility] * TROPONIN I POC (01/23/2019 5:56 AM CDT) Only the most recent of 2 results within the time period is included. Troponin POC 0.05 0.00 - 0.08 ng/mL [facility] 1 Specimen Performing Organization Address [facility] [place] [facility] Phone Number [facility] * PT/INR/PTT (01/23/2019 5:51 AM CDT) PT 14.4 11.8 - 15.0 Seconds [facility] 2 INR 1.1 [facility] SUGGESTED THERAPEUTIC RANGES: MAIN-STATION 2 INR 2.0-3.0 for MODERATE INTENSITY ANTICOAGULATION INR 2.5-3.5 for HIGH INTENSITY ANTICOAGULATION PTT 35.9 23.6 - 36.4 Seconds [facility] 2 Specimen Blood Performing Organization Address [facility] [place] [facility] Phone Number [facility] 2 * LIVER PROFILE (01/23/2019 5:51 AM CDT) Protein, Total, 7.2 6.0 - 8.3 g/dL [facility] Serum [facility]IN-STATION 1 Albumin 4.3 4.2 - 5.5 g/dL [facility] 1 Bilirubin, 0.6 0.2 - 1.2 mg/dL [facility] Total [facility] 1 Alkaline 90 34 - 104 U/L [facility] Phosphatase, S [facility]IN[facility] 1 AST (SGOT) 19 13 - 39 U/L [facility] 1 ALT 14 7 - 52 U/L [facility] 1 D Bilirubin 0.1 0.0 - 0.2 mg/dL [facility] 1 Specimen Blood Performing Organization Address City/[facility] [place] [facility]/Zipcode Phone Number [facility] 1 * LIPASE (01/23/2019 5:51 AM CDT) Lipase 7 (L) 11 - 81 U/L [facility] Specimen Blood Performing Organization Address City/[facility] [place] [facility]/Zipcode Phone Number [facility] * CBC/DIFF (01/23/2019 5:51 [...] Monocytes(Absol 0.50 0.30 - 0.82 K/uL [facility]) [facility] 2 Eos (Absolute) 0.20 0.04 - 0.54 K/uL [facility] Baso (Absolute) 0.04 0.01 - 0.08 K/uL [facility] 2 Immature Grans 0.03 0.00 - 0.03 K/uL [facility] (Abs) [facility] 2 Specimen Blood Performing Organization Address City/[facility] [place] [facility] Phone Number MISYS [facility] * 12 LEAD EKG (01/23/2019 5:37 AM CDT) 12 LEAD EKG FOR [facility] Test Date:2019-01-23 Pat Name: JEFF Ruiz ent: [id number] Room: Gender: Program Administrator: [id number] Requested By: VONNIE Soria Order Number: [id number] Reading MD: Darien Menendez Measurements Intervals [place] Rate: 91 P:49 MT: 194 QRS: -40 QRSD: 97 T:104 QT: 389 QTc:481 Interpretive Statements SINUS RHYTHM WITH OCCASIONAL VENTRICULAR PREMATURE COMPLEXES MARKED LEFT AXIS DEVIATION POSSIBLE LEFT VENTRICULAR HYPERTROPHY PROLONGED QTC NONSPECIFIC T-WAVE ABNORMALITY Abnormal ECG Electronically Signed On 01-23-2019 7:43:25 CDT by Darien Menendez Specimen Performing Organization Address City/[facility] [place] [facility] Phone Number [facility] * ABG POC (12/27/2018 3:18 PM CDT) [...] [facility] Specimen Performing Organization Address City/[facility] [place] [facility] Phone Number [facility] 1 * HIV-1/HIV-2 ROUTINE SCREENING (12/27/2018 2:14 PM CDT) HIV-1/HIV-2 Negative NEG [facility] Specimen Performing Organization Address City/[facility] [place] [facility] Phone Number [facility] [address] [place] [address] * Bedside Ultrasound (12/27/2018 1:54 PM CDT) [...] CDT) 12 LEAD EKG FOR [facility] Test Date:2018-12-27 Pat Name: JEFF Ruiz ent: [id number] Room: Gender: Program Administrator: [id number] :[id number] 01-14 Requested By: VONNIE Soria Order Number: [id number] Reading MD: Armond Akbar Measurements Intervals [place] Rate: 84 P:78 MT: 213 QRS: -60 QRSD: 124 T: 56 [...] Organization Address City/State/Zipcode Phone Number SMS after 04/06/2018 Insurance Type Payer Benefit Subscriber ID Effective Phone Address Plan / Dates Group [employer] OPTIONS [place] xxxxxxxxxxxx 2016-P [phone] [id number] [address] [address] [place] [address] Advance Directives Date Inactivated Comments Code Status Date Activated 03/03/2019 6:46 PM Full Code 03/01/2019 4:50 PM 01/10/2017 7:44 PM Full Code 01/08/2017 3:24 PM 01/08/2017 9:33 AM Full Code 01/08/2017 8:28 AM
[2019-06-05] MEDS ORDERED: PANTOPRAZOLE 40 MG 10ML VIAL IV STA (13:00)
[2019-06-05] MEDS ORDERED: ONDANSETRON HCL INJ 2MG/ML 2ML 2 MG/ML VIAL IV NR (13:00)
[2019-06-05] MEDS ORDERED: SODIUM CHLORIDE 0.9% 1000ML 1,000 ML IV STA (13:00)
[2019-06-05 13:42] LABS: BASOPHILS % 0.5 % (0.0-1.0); EOSINOPHILS # (AUTO) 0.2 (0.0-0.4); EOSINOPHILS % 3.6 % (0.0-6.0); HEMATOCRIT 37.8 % (38.2-49.6); HEMOGLOBIN 12.3 g/dL (14.0-18.0); LYMPHOCYTES # (AUTO) 1.1 (1.0-3.2); LYMPHOCYTES % 16.6 % (18.0-39.1); MEAN CORPUSCULAR HGB CONC 32.5 g/dL (31-35); MEAN CORPUSCULAR VOLUME 85.9 fL (81-99); MONOCYTES # (AUTO) 0.5 (0.2-0.8); MONOCYTES % 8.1 % (4.4-11.3); NEUTROPHILS # (AUTO) 4.5 (2.1-6.9); NEUTROPHILS % 70.9 % (38.7-80.0); PLATELET COUNT 220 x10e3/uL (140-360); RED CELL DISTRIBUTION WIDTH 14.9 % (11.7-14.4)
[2019-06-05 13:55] LABS: BILIRUBIN,URINE NEGATIVE (NEGATIVE); CLARITY,URINE CLEAR (CLEAR); COLOR,URINE YELLOW (YELLOW); KETONES,URINE NEGATIVE (NEGATIVE); LEUKOCYTE ESTERASE ,URINE NEGATIVE (NEGATIVE); NITRITE,URINE NEGATIVE (NEGATIVE); PROTEIN,URINE DIPSTICK NEGATIVE (NEGATIVE); URINE UROBILINOGEN 0.2 mg/dL (0.2 - 1)
[2019-06-05 13:58] LABS: INR 1.19; PROTHROMBIN TIME 15.7 seconds (11.9-14.5)
[2019-06-05 13:59] LABS: PARTIAL THROMBOPLASTIN TIME 34.5 seconds (23.8-35.5)
[2019-06-05 14:09] LABS: ALANINE AMINOTRANSFERASE 12 IU/L (0-55); ALBUMIN 3.7 g/dL (3.5-5.0); ALBUMIN/GLOBULIN RATIO 1.2 (0.8-2.0); ALKALINE PHOSPHATASE 93 IU/L (40-150); AMYLASE 55 U/L (25-125); ANION GAP 12.9 mmol/L (8-16); BLOOD UREA NITROGEN 10 mg/dL (7-26); BUN/CREATININE RATIO 11 (6-25); CALCIUM 9.6 mg/dL (8.4-10.2); CARBON DIOXIDE 26 mmol/L (22-29); CHLORIDE 103 mmol/L (98-107); CREATINE KINASE 80 IU/L (30-200); CREATININE, SERUM 0.92 mg/dL (0.72-1.25); EST GLOMERULAR FILTRATION RATE > 60 ML/MIN (60-); GLUCOSE 101 mg/dL (74-118); LIPASE 11 U/L (8-78); POTASSIUM 3.9 mmol/L (3.5-5.1); SODIUM 138 mmol/L (136-145)
[2019-06-05 14:12] LABS: BACTERIA,URINE FEW /HPF; EPITHELIAL CELLS,URINE RARE /LPF
--- NOTE | 2019-06-05 14:16 | Diagnostic Imaging Report ---
Examination: Single AP view of the chest. COMPARISON: None. INDICATION: Abdominal pain DISCUSSION: Lines/tubes: None. Lungs: Lung base opacities likely atelectasis. Pulmonary venous congestion. Pleura: Moderate right small left pleural effusion. Heart and mediastinum: Cardiomegaly Bones and soft tissues: No acute bony abnormalities. IMPRESSION: 1. Cardiomegaly with pulmonary venous congestion and moderate right and small left effusion 2. Lung base opacities likely related to atelectasis Signed by: Dr. Russel Lu M.D. on 06/05/2019 2:13 PM
--- NOTE | 2019-06-05 15:42 | Diagnostic Imaging Report ---
EXAMINATION: CT of the abdomen and pelvis with contrast. TECHNIQUE: Helical CT images of the abdomen and pelvis were performed from the lung bases to the lesser trochanters after the intravenous administration of 100 cc of Isovue 300 and the oral administration of none. Coronal and sagittal reformatted images were obtained.Dose modulation, iterative reconstruction, and/or weight based adjustment of the mA/kV was utilized to reduce the radiation dose to as low as reasonably achievable. COMPARISON: None. CLINICAL HISTORY:Abdominal pain DISCUSSION: ABDOMEN/PELVIS: LOWER THORAX:Moderate right and small left pleural effusion. Adjacent atelectasis. Cardiomegaly. HEPATOBILIARY: No focal hepatic lesions. No intra-or extrahepatic biliary ductal dilation. Gallbladder wall thickening. SPLEEN: No splenomegaly. PANCREAS: No focal masses or ductal dilatation. ADRENALS: No adrenal nodules. KIDNEYS/URETERS: No solid mass lesion. No obstruction. Bilateral renal cysts largest on the right 6.1 cm and largest on the left 7.8 cm. PELVIC ORGANS/BLADDER: The bladder is normal. The prostate is enlarged measuring 6 cm. PERITONEUM/RETROPERITONEUM: No free air or fluid. LYMPH NODES: No intra-abdominal, retroperitoneal, pelvic or inguinal lymphadenopathy. VESSELS: Vascular calcifications. Mild dilation of the suprarenal abdominal aorta measuring 3.2 cm. GI TRACT: No distention or wall thickening. BONES AND SOFT TISSUE: No bony destructive lesions. 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 IMPRESSION: No definite acute CT finding. Gallbladder wall thickening secondary to volume overload. If right upper quadrant pain consider right upper quadrant ultrasound if patient is fasting. Cardiomegaly with bilateral effusions and adjacent atelectasis. Multiple bilateral simple renal cysts, largest on the left 7.8 cm. Prostate hypertrophy. Pars defect L5 Signed by: Dr. Russel Lu M.D. on 06/05/2019 3:38 PM
[2019-06-05] MEDS ORDERED: MORPHINE SULFATE 2 MG/ML SYR 1ML IV PRN (16:30)
[2019-06-05] MEDS ORDERED: ONDANSETRON HCL INJ 2MG/ML 2ML 2 MG/ML VIAL IV PRN (16:30)
--- OUTSIDE RECORDS SUMMARY | 2019-06-05 17:01 | XMS REPORT | Clinical Summary ---
Author Author [facility] Organization [facility] Address Unknown Phone Unavailable Care Team Providers Care Manager Of Internal Name Role Phone PCP Unavailable Allergies No [...] Plan: Condition: stable Diagnosis based upon a [id number] evaluation, physical exam, and ROS. Compensated Requested [...] type (Primary Dx) 04/30/2019 Emergency Emergency Medicine 04/07/2019 Hospital Lab Encounter Zack Gimenez ResidentMD Hughes, Andres, ResidentMD Acute on chronic combined systolic and diastolic congestive heart failure 04/07/2019 Office Visit Internal Medicine Marv Acevedo MD 04/05/2019 Pre-Clinic Internal Medicine [...] Prostatic hypertrophy 03/10/2019 Office Visit Internal Medicine Mario Montano LMSW 03/06/2019 Clinical Case Mgt Mario Montano LMSW 03/05/2019 Clinical Case Mgt Stiven Myrick ResidentMD Pleural effusion on right (Primary Dx) 03/02/2019 Orders Only Lab [place] MD Aisenberg, Gabriel M, MD S/P thoracentesis (Primary Dx); SOB (shortness of breath); Pleural effusion on right; Heart failure, diastolic, acute on chronic; Chronic obstructive pulmonary disease, unspecified COPD type; Acute on chronic combined systolic and diastolic congestive heart failure 03/01/2019 Emergency - 03/03/2019 Mahsa Briggs MD Chest pain, unspecified type (Primary Dx) 01/23/2019 Emergency Emergency Medicine Dayna Saleem MD Shortness of breath (Primary Dx) 12/27/2018 Emergency Emergency Medicine after 06/04/2018 Immunizations Name Administration Dates Next [...] Description Date Type Specialty Rui Yung MD [address] [place] [id number] 07/22/2019 Office Visit Cardiology Health Maintenance Due Date Last Done Comments IMM Pneumococcal Age 65 2006 and Up IMM Influenza Seasonal 07/01/2019Jul to November (>/=19 yrs) Procedures Comments Procedure [...] included. Specimen Impressions Performed At IMPRESSION: SMS *Cardiomegaly with bilateral pleural effusions, unchanged from prior with probable loculation on the right, and underlying streaky opacities that may represent atelectasis. *Fluffy opacities at the lung bases may represent any combination of edema, atelectasis or early consolidation with overlying pleural fluid. Signed By: Kathy Casas MD, 04/30/2019 2:23 PM Narrative Performed At XRAY CHEST 2 VIEWS [facility] DATE: 04/30/2019 2:17 PM CLINICAL INDICATION: CP [...] MD, 04/30/2019 2:23 PM Performing Organization Address City/State/Zipcode Phone Number [facility] * BMP POC (04/30/2019 1:13 PM CDT) Only the most recent of 3 results within the time period is included. Sodium POC 138 136 - 145 mmol/L [facility] Potassium POC 4.4 3.5 - 5.1 mmol/L [facility] Chloride POC 104 98 - 107 mmol/L [facility] TCO2 POC 26 21 - 32 mmol/L [facility] Urea Nitrogen 9 7 - 18 mg/dL [facility] POC Creatinine POC 0.8 0.6 - 1.3 mg/dL [facility] Glucose POC 101 74 - 106 mg/dL [facility] Ionized Calcium 1.13 (L) 1.15 - 1.29 mmol/L [facility] POC GFR, Estimated 86 (L) >=90 mL/min/1.73 m2 [facility] Specimen Blood, venous Performing Organization Address City/State/Zipcode Phone Number [facility] [address] [place] [address] * CBC (04/30/2019 1:12 PM CDT) Only the most recent of 3 results within the time period is included. Pathologist [facility] WBC 7.3 4.5 - 12.0 K/uL [facility] RBC 4.56 (L) 4.60 - 6.20 M/uL [facility] Hemoglobin 12.5 (L) 14.0 - 18.0 g/dL [facility] Hematocrit 38.7 (L) 40.0 - 54.0 % [facility] MCV 84.9 82.0 - 92.0 fL [facility] MCH 27.4 27.0 - 31.0 pg [facility] MCHC 32.3 32.0 - 36.0 g/dL [facility] RDW 43.1 35.1 - 43.9 fL [facility] Platelet 252 150 - 400 K/uL [facility] Mean Platelet 9.9 9.4 - 12.4 fL [facility] Volume [...] 0.59 0.30 - 0.82 K/uL [facility] carolyn) Eos (Absolute) 0.53 0.04 - 0.54 K/uL [facility] Baso (Absolute) 0.03 0.01 - 0.08 K/uL [facility] Immature Grans 0.03 0.00 - 0.03 K/uL [facility] (Abs) Absolute NRBC 0.00 K/uL [facility] Specimen Blood Performing Organization Address [facility] Phone Number [facility] [address] [place], [place] [phone] * TROPONIN I POC (04/30/2019 1:11 PM CDT) Only the most recent of 3 results within the time period is included. Pathologist [facility] Troponin POC 0.06 0.00 - 0.08 ng/mL [facility] Specimen Blood, venous Performing Organization Address [facility] Phone Number [facility] [address] [place], [place] [phone] * 12 LEAD EKG (04/30/2019 10:57 AM CDT) Pathologist [facility] 12 LEAD EKG FOR [facility] Test Date:2019-04-30 Pat Name: JEFF Ruiz ent: Room: Gender: M Water Filter Cleaner: HELENA :1940-0 01-14 Requested By: VONNEI Soria Order Number: [id number] Reading MD: Armond Akbar Measurements Intervals [place] Rate: 94 P:60 MT: 192 QRS: -54 QRSD: 132 T: 69 QT: 404 QTc:507 Interpretive Statements SINUS RHYTHM RIGHT BUNDLE BRANCH BLOCK LEFT ANTERIOR FASCICULAR BLOCK Left Ventricular Hypertrophy Bifasicular block Prolonged QT Interval Non-specific T wave abnormality Electronically Signed On 04-30-2019 12:38:57 CDT by Armond Akbar Specimen Performing Organization Address City/[facility] Phone Number [facility] * BASIC METABOLIC PANEL (04/07/2019 11:45 AM CDT) Only the most recent of 6 results within the time period is included. Sodium 140 136 - 145 mmol/L [facility] Potassium 4.0 3.5 - 5.1 mmol/L [facility] Chloride 105 98 - 107 mmol/L [facility] CO2 31 21 - 31 mmol/L [facility] Urea Nitrogen 15.0 7.0 - 25.0 mg/dL [facility] Creatinine 0.9 0.7 - 1.3 mg/dL [facility] Glucose 99 70 - 110 mg/dL [facility] Calcium, Total 9.4 8.6 - 10.3 mg/dL [facility] GFR, Estimated 82 (L) >=90 mL/min/1.73 m2 [facility] Anion Gap 4 (L) 5 - 16 mmol/L [facility] Specimen Blood Performing Organization Address City/[facility]/Zipcode Phone Number [facility] [address] [place] [address] * THYROID STIMULATING HORMONE (TSH) (03/20/2019 10:15 AM CDT) TSH 3.05 0.57 - 3.74 uIU/mL [facility] Specimen Blood Performing Organization Address [facility]/Zipcode Phone Number [facility] [address] [place] [address] * LIPID PROFILE (03/20/2019 10:15 AM CDT) Pathologist [facility] Triglyceride 108 <150 mg/dL [facility] Comment: Normal: < 150.0 mg/dL Borderline: 150-199 mg/dL High: 200-499 mg/dL Very High: >=500 mg/dL Cholesterol 186.0 <=200.0 mg/dL [facility] Comment: Desirable: < 200.0 mg/dL Borderline: 200 - 240 mg/dL High Risk: > 240 mg/dL HDL 39.0 See Reference Range [facility] Comment: Narrative. mg/dL Increased CHD Risk: < 40.0 mg/dL Decreased CHD Risk: > 60 mg/dL LDL 125 (H) <100 mg/dL [facility] Comment: Optimal: < 100.0 mg/dL Near Optimal: 120-129 mg/dL Borderline: 130-159 mg/dL High: 160-189 mg/dL Very High: >=190 mg/dL Specimen Blood Performing Organization Address City/State/Zipcode Phone Number [facility] [address] [place] [address] * TRANSTHORACIC ECHO (TTE) (03/03/2019 7:51 AM CDT) TRANSTHORACIC Transthoracic SMS ECHO (TTE) Echo Report JEFF MA Age:79 Gender: M :1940 Exam Date: 03/03/2019 07:51 Exam Location: [facility] Echo Ordering Phys: NARENDRA PETTY Referring Phys:[id number] Pérez Reading Phys:Clemencia Robles M.D. Fellow Phys: Fellow Phys: Metal Window Screen Assembler: Nicole John Reason For Exam: Indications: CHF exacerbation ICD-9 Codes: Exam Type: Transthoracic Echo Procedure CPT:64540 Addtional CPT: Ht (in): 60 BSA: 1.72HR: [...] BP 87.2 cm LV Cardiac Output MOD [id number] cm/min LV Cardiac Index MOD BP 3863 cm/minm LV Diastolic Volume MOD 4C195 cm LV Systolic Volume MOD 4C 128 cm LV Ejection Fraction MOD 4C 34 % LV Stroke Volume MOD 4C 66.1 cm LV Cardiac Output MOD 3G9249 cm/min LV Cardiac Index MOD 4C 2928 cm/minm LV Diastolic Volume MOD 2C249 cm LV Systolic Volume MOD 2C 160 cm LV Ejection Fraction MOD 2C 35.7 % LV Stroke Volume MOD 2C 89 cm LV Cardiac Output MOD 3G7951 cm/min LV Cardiac Index MOD 2C 3943 cm/minm LA Volume 75.4 cm LA Volume Index 44 cm/m 16 - 34 cm/m LA Volume MOD 2C 99.5 cm LA Volume MOD 4C 92.8 cm LV Mass by linear g LV Mass by linear method [id number] g/m IVC Diameter Inspiration 1.1 cm IVC Diameter Expiration 1.6 cm RA Volume 81.4 cm RA Volume Index 47.4 cm/m DOPPLER AV Peak Velocity 128 cm/s AV Peak Gradient 6.6 mmHg AV Mean Velocity 93.1 cm/s AV Mean Gradient 3.8 mmHg AV Velocity Time Integral 20.6 cm AI Peak Velocity 328 cm/s AI Peak Gradient 43 mmHg AI Deceleration [place] 245 cm/s LVOT Peak Velocity 119 cm/s [...] BP 87.2 cm LV Cardiac Output MOD [id number] cm/min LV Cardiac Index MOD BP 3863 cm/minm LV Diastolic Volume MOD 4C195 cm LV Systolic Volume MOD 4C 128 cm LV Ejection Fraction MOD 4C 34 % LV Stroke Volume MOD 4C 66.1 cm LV Cardiac Output MOD 4B8726 cm/min LV Cardiac Index MOD 4C 2928 cm/minm LV Diastolic Volume MOD 2C249 cm LV Systolic Volume MOD 2C 160 cm LV Ejection Fraction MOD 2C 35.7 % LV Stroke Volume MOD 2C 89 cm LV Cardiac Output MOD 6P8838 cm/min LV Cardiac Index MOD 2C 3943 cm/minm LA Volume 75.4 cm LA Volume Index 44 cm/m 16 - 34 cm/m LA Volume MOD 2C 99.5 cm LA Volume MOD 4C 92.8 cm LV Mass by linear [id number] g LV Mass by linear method [id number] g/m IVC Diameter Inspiration 1.1 cm IVC Diameter Expiration 1.6 cm RA Volume 81.4 cm RA Volume Index 47.4 cm/m DOPPLER AV Peak Velocity 128 cm/s AV Peak Gradient 6.6 mmHg AV Mean Velocity 93.1 cm/s AV Mean Gradient 3.8 mmHg AV Velocity Time Integral 20.6 cm AI Peak Velocity 328 cm/s AI Peak Gradient 43 mmHg AI Deceleration [place] 245 cm/s LVOT Peak Velocity 119 cm/s [...] Integral 18.6 cm Specimen Performing Organization Address [facility] Phone Number SMS * T PROTEIN, FLD (03/02/2019 2:26 PM CDT) [facility] Protein, Fluid 1.4 g/dL [facility] Comment: The reference range and other method performance specifications have not been established for body fluids. The test result must be interpreted into clinical context for integration. Specimen Body Fluid - Pleura, right Narrative Performed At Transudate <3 g/dL, Exudate >3 g/dL [facility] TEST PERFORMED [facility] Performing Organization Address [facility] Phone Number [facility] [address] [place] [address] * GLUCOSE, FLD (03/02/2019 2:26 PM CDT) [facility] Glucose, Fld 64 mg/dL [facility] Comment: The reference range and other method performance specifications have not been established for body fluids. The test result must be interpreted into clinical context for integration. Specimen Body Fluid - Pleura, right Narrative Performed At TEST PERFORMED [facility] Performing Organization Address [facility] Phone Number [facility] [address] [place] [address] * LDH, FLD (03/02/2019 2:11 PM CDT) [facility] LDH, Fld 59 U/L [facility] Comment: The reference range and other method performance specifications have not been established for body fluids. The test result must be interpreted into clinical context for integration. Specimen Body Fluid - Pleura, right Narrative Performed At Transudate <200 U/L, Exudate >200 U/L [facility] TEST PERFORMED [facility] Performing Organization Address City/State/Zipcode Phone Number [facility] [address] [place] [address] * XRAY CHEST 1 VIEW (03/02/2019 1:46 [...] MD, 03/02/2019 2:18 PM Performing Organization Address City/[facility] Phone Number SMS * PLEURAL FLUID CYTOLOGY (03/02/2019 1:27 PM CDT) Case Report Non-gynecologic [facility] Cytology Case: [id number] Authorizing Provider:Narendra Petty MD Collected: 03/02/2019 01:27 PM Ordering Location: [facility] Med SurgRe ceived: 03/03/2019 07:38 AM Pathologist: [...] - Pleural Cavity, right Performing Organization Address City/[facility] Phone Number [facility] [address] [place] [address] * FLUID CULTURE AND GRAM STAIN (03/02/2019 1:27 PM CDT) Body Fluid No growth 3 days [facility] Gram Stain 2+ WBCs [facility] Gram Stain No organisms seen [facility] Specimen Body Fluid - Pleural Cavity, right Performing Organization Address [facility] Phone Number [facility] [address] [place] [address] * BLD GAS, MIXED VENOUS POC (03/02/2019 1:26 PM CDT) pCO2, Mix Carl 44.5 40 - 50 mm Hg [facility] POC pH, Mix Carl POC 7.32 7.32 - 7.45 [facility] pO2, Mix Carl 98 (H) 36 - 42 mm Hg [facility] POC HCO3, Mix Carl 23 22 - 31 mmol/L [facility] POC Base Deficit, -2 [facility] Mix Carl POC % Sat, Mix Carl 97 (H) 60 - 80 % [facility] POC Lactic Acid, 5.0 (H) 0.4 - 2.0 mmol/L [facility] Mix Carl POC Vitaliy's Test POSITI [facility] Sample Type IMIX [facility] Site CENTRAComment: Physician [facility] Notified TCO2, MIXED 24 15-9,999 mmol/L [facility] VENOUS POC Specimen Blood, venous Performing Organization Address [facility] Phone Number [facility] [address] [place] [address] * ABG POC (03/01/2019 11:12 AM CDT) pH, Art POC 7.41 7.35 - 7.45 [facility] pCO2, Arterial 37.1 32 - 45 mmHg [facility] POC pO2, Arterial 57 (L) 72 - 104 mmHg [facility] POC HCO3, Arterial 24 22 - 26 mmol/L [facility] POC Base Deficit -1 [facility] Arterial POC % Sat, Art POC 90 % [facility] TCO2, ART POC 25 21 - 32 mmol/L [facility] Lactic Acid POC 1 0.4 - 2 mmol/L [facility] Sample Type IART [facility] ETCO2 [facility] Specimen Blood, arterial Performing Organization Address City/[facility] Phone Number [facility] [address] [place] [address] * 12 LEAD EKG (03/01/2019 9:18 AM CDT) 12 LEAD EKG FOR [facility] Zachary Chang [facility] Test Date:2019-03-01 Pat Name: JEFF Ruiz ent: [id number] Room: Gender: Water Filter Cleaner: [id number] :[id number] 16 Requested By: VONNIE Soria Order Number: [id number] Reading MD: Jonny WEBSTER Measurements Intervals [place] Rate: 92 P:80 MT: 186 QRS: -62 [...] by Jonny WEBSTER Specimen Performing Organization Address City/[facility] Phone Number [facility] * UA CHEMISTRIES (01/23/2019 8:30 AM CDT) Color Straw [facility] Clarity Clear [facility] Specific 1.005 1.001 - 1.035 [facility] 2 pH 8.0 5 - 8 [...] MAIN-STATION 2 Specimen Urine Performing Organization Address [facility] Phone Number MISYS [facility] * CTA ABDOMEN-PELVIS W CONTRAST - AORTA (01/23/2019 8:25 AM CDT) Only the most recent of 2 results within the time period is included. Specimen Impressions Performed At IMPRESSION: [facility] 1.Unchanged thoracic aortic aneurysm up to 4.7 [...] Performed At EXAM: CTA CHEST WITH CONTRAST [facility] EXAM: CTA ABDOMEN AND PELVIS WITH CONTRAST [...] MD, 01/23/2019 9:09 AM Performing Organization Address City/[facility] Phone Number SMS * VBG POC (01/23/2019 5:59 AM CDT) pH, Carl POC 7.39 7.33 - 7.43 [facility] 1 pCO2, Carl POC 41.9 38.0 - 50.0 mm Hg [facility] 1 pO2, Carl POC 30 (L) 50 - 75 mm Hg [facility] 1 Base Excess, 0 mmol/L [facility] Carl POC MAIN-STATION 1 HCO3, Carl POC 25.4 22.0 - 26.0 mmol/L [facility] 1 % Sat, Carl POC 57 (L) 60 - 85 % [facility] 1 Lactic Acid, 1.18 0.4 - 2.0 mmol/L [facility] Carl POC MAIN-STATION 1 Sample Type Carl [facility] 1 TCO2, CARL POC 27 21 - 32 mmol/L [facility] 1 Specimen Performing Organization Address [facility] Phone Number MISYS [facility] 1 * BMP POC (01/23/2019 5:57 AM CDT) Only the most recent of 2 results within the time period is included. CO2 POC 25 21 - 32 mmol/L [facility] 1 Chloride POC 102 98 - 107 mmol/L [facility] 1 Potassium POC 3.8 3.50 - 5.10 mmol/L [facility] 1 Sodium POC 141 136 - 145 mmol/L [facility] 1 Glucose POC 118 (H) 74 - 106 mg/dL [facility] 1 Urea Nitrogen 4 (L) 7 - 18 mg/dL [facility] POC MAIN-STATION 1 Creatinine POC 0.8 0.6 - 1.3 mg/dL [facility] 1 Calcium Ionized 1.24 1.15 - 1.29 mmol/L [facility] POC MAIN-STATION 1 Hemoglobin POC 15.0 14.0 - 18.0 g/dL [facility] 1 Hematocrit POC 44.0 40.0 - 54.0 % [facility] 1 GFR, Estimated >60 mL/min/1.73 m2 [facility] 1 GFR, Estim, >60 mL/min/1.73 m2 [facility] Afr-Am MAIN-STATION 1 Specimen Performing Organization Address [facility] Phone Number [facility]IN-STATION 1 * TROPONIN I POC (01/23/2019 5:56 AM CDT) Only the most recent of 2 results within the time period is included. Troponin POC 0.05 0.00 - 0.08 ng/mL [facility]IN-ST[facility] 1 Specimen Performing Organization Address [facility] Phone Number [facility]-ST[facility] 1 * PT/INR/PTT (01/23/2019 5:51 AM CDT) PT 14.4 11.8 - 15.0 Seconds [facility]-STATION 2 INR 1.1 [facility] SUGGESTED THERAPEUTIC RANGES: MAIN-STATION 2 INR 2.0-3.0 for MODERATE INTENSITY ANTICOAGULATION INR 2.5-3.5 for HIGH INTENSITY ANTICOAGULATION PTT 35.9 23.6 - 36.4 Seconds [facility] MAIN-STATION 2 Specimen Blood Performing Organization Address [facility] Phone Number [facility]-ST[facility] 2 * LIVER PROFILE (01/23/2019 5:51 AM CDT) Protein, Total, 7.2 6.0 - 8.3 g/dL [facility] Serum MAIN-STATION 1 Albumin 4.3 4.2 - 5.5 g/dL [facility]IN-STATION 1 Bilirubin, 0.6 0.2 - 1.2 mg/dL [facility] Total MAIN-STATION 1 Alkaline 90 34 - 104 U/L [facility] Phosphatase, S MAIN-STATION 1 AST (SGOT) 19 13 - 39 U/L [facility] MAIN-STATION 1 ALT 14 7 - 52 U/L [facility]IN-STATION 1 D Bilirubin 0.1 0.0 - 0.2 mg/dL [facility] MAIN-STATION 1 Specimen Blood Performing Organization Address [facility] Phone Number [facility]IN-ST[facility] 1 * LIPASE (01/23/2019 5:51 AM CDT) Lipase 7 (L) 11 - 81 U/L [facility] Specimen Blood Performing Organization Address City/State/Zipcode Phone Number MISYS [facility] MAIN-STATION 1 * CBC/DIFF (01/23/2019 5:51 [...] MAIN-STATION 2 Specimen Blood Performing Organization Address [facility] Phone Number MISYS [facility]-ST[facility] 2 * 12 LEAD EKG (01/23/2019 5:37 AM CDT) 12 LEAD EKG FOR [facility] Test Date:2019-01-23 Pat Name: JEFF Ruiz ent: [id number] Room: Gender: Water Filter Cleaner: [id number] :1940-0 01-14 Requested By: VONNIE Soria Order Number: [id number] Reading MD: Darien Menendez Measurements Intervals [place] Rate: 91 P:49 MT: 194 QRS: -40 QRSD: 97 T:104 QT: 389 QTc:481 Interpretive Statements SINUS RHYTHM WITH OCCASIONAL VENTRICULAR PREMATURE COMPLEXES MARKED LEFT AXIS DEVIATION POSSIBLE LEFT VENTRICULAR HYPERTROPHY PROLONGED QTC NONSPECIFIC T-WAVE ABNORMALITY Abnormal ECG Electronically Signed On 01-23-2019 7:43:25 CDT by Darien Menendez Specimen Performing Organization Address [facility] Phone Number [facility] * ABG POC (12/27/2018 3:18 PM CDT) [...] [facility] Specimen Performing Organization Address [facility] Phone Number MISYS [facility] MAIN-STATION 1 * HIV-1/HIV-2 ROUTINE SCREENING (12/27/2018 2:14 PM CDT) HIV-1/HIV-2 Negative NEG [facility] Specimen Performing Organization Address [facility] Phone Number CHRISTA [facility] [address] [place] [address] * Bedside Ultrasound (12/27/2018 1:54 PM CDT) [...] 11:47 AM CDT) 12 LEAD EKG FOR [facility] Test Date:2018-12-27 Pat Name: JEFF Ruiz ent: [id number] Room: Gender: Water Filter Cleaner: [id number] :[id number] Requested By: VONNIE Soria Order Number: [id number] Reading MD: Armond Akbar Measurements Intervals [place] Rate: 84 P:78 MT: 213 QRS: -60 [...] by Armond Akbar Specimen Performing Organization Address City/[facility]/Zipcode Phone Number [facility] after 06/04/2018 Insurance Type Payer Benefit Subscriber ID Effective Phone Address Plan / Dates Group [employer] OPTIONS S[place]Y xxxxxxxxx 2016-P [phone] [employer] HMO DUAL resent [id number] OPTION MMP [address] [address] [place] [address] Advance Directives Date Inactivated Comments Code Status Date Activated 03/03/2019 6:46 PM Full Code 03/01/2019 4:50 PM 01/10/2017 7:44 PM Full Code 01/08/2017 3:24 PM 01/08/2017 9:33 AM Full Code 01/08/2017 8:28 AM
--- OUTSIDE RECORDS SUMMARY | 2019-06-05 17:02 | XMS REPORT | Continuity of Care Document ---
Author Author [employer] Address Unknown Phone Unavailable Care Team Providers Care Beater Out Leveling Machine Name Role Phone [employer] Information [employer] Unavailable Unavailable Problems Problem Status Onset Date Classification Date Reported Comments Source Heart failure, diastolic, acute on chronic Active 03/01/2019 04/30/[address] [facility] Fish hook injury of finger of right hand Active 01/31/2018 01/30/[address] [facility] Renal cyst Active 01/16/2017 04/30/[address] [facility] Essential hypertension, benign Active 01/16/2017 04/30/[address] [facility] Abnormal computed tomography angiography (CTA) Active 01/16/2017 04/30/[address] [facility] Aortic insufficiency Active 01/09/2017 04/30/[address] [facility] Heart failure Active 01/09/2017 04/30/[address] [facility] ABDOMINAL PAIN GENERAL Active 01/08/2016 [facility] Discharge Diagnosis: Abdominal pain in male 01/08/2016 01/11/2016 [facility] RIGHT INGUINAL HERNIA Active 12/20/2015 [facility] Prostatic hypertrophy Active 02/25/2011 04/30/[address] [facility] Disease of hand (disorder) Resolved Problem 01/11/2016 [facility] Shortness of breath Active 04/30/[address] [facility] Fish hook injury of finger of right hand, initial encounter Active 01/30/[address] [facility] Chest pain, unspecified type Active 04/30/[address] [facility] SOB (shortness of breath) Active 04/30/[address] [facility] Acute on chronic combined systolic and diastolic congestive heart failure Active 04/30/[address] [facility] Encounter for monitoring diuretic therapy Active 04/30/[address] [facility] Aortic valve insufficiency, etiology of cardiac valve disease unspecified Active 04/30/[address] [facility] Healthcare maintenance Active 04/30/[address] [facility] Chronic combined systolic and diastolic heart failure Active 04/30/[address] [facility] Loculated pleural effusion Active 04/30/[address] [facility] Pleural effusion on right Active 04/30/[address] [facility] S/P thoracentesis Active 04/30/[address] [facility] Chronic obstructive pulmonary disease, unspecified COPD type Active 04/30/[address] [facility] UNIL INGUINAL HERNIA, W/O OBST OR GANGR, Active [facility] Medications Medication Details Route Status Patient Instructions Ordering Provider Order Date Source furosemide (LASIX) 40 mg tablet Take 2 tablets by mouth 2 times daily for 90 days. Oral Active 04/07/[address] [facility] lisinopril (PRINIVIL, ZESTRIL) 5 mg tablet Take 1 tablet by mouth daily for 90 days. Oral Active 03/10/[address] [facility] furosemide (LASIX) 40 mg tablet Take 1 tablet by mouth 2 times daily for 90 days. Oral No Longer Active 03/10/[address] [facility] atorvastatin (LIPITOR) 20 mg tablet Take 1 tablet by mouth at bedtime nightly for 90 days. Oral Active 03/10/[address] [facility] lisinopril (PRINIVIL, ZESTRIL) 5 mg tablet Take 1 tablet by mouth daily for 90 days. Oral No Longer Active 03/04/[address] [facility] furosemide (LASIX) 40 mg tablet Take 1 tablet by mouth 2 times daily for 90 days. Oral No Longer Active 03/03/[address] [facility] albuterol (PROVENTIL) 2.5 mg /3 mL (0.083 %) nebulizer solution Inhale 3 mL by mouth every 6 hours as needed for Wheezing. Inhalation No Longer Active 03/03/[address] [facility] furosemide (LASIX) 20 mg tablet Take 1 tablet by mouth daily. Oral Inactive 12/27/[address] [facility] furosemide (LASIX) 20 mg tablet Take 1 tablet by mouth daily. Oral Inactive 12/27/[address] [facility] doxycycline monohydrate (MONODOX) 100 mg capsule Take 1 capsule by mouth 2 times daily for 10 days. Oral No Longer Active 01/31/[address] [facility] levoFLOXacin (LEVAQUIN) 750 mg tablet Take 1 tablet by mouth daily for 10 days. Oral No Longer Active 01/31/[address] [facility] lisinopril (PRINIVIL, ZESTRIL) 5 mg tablet Take 1 tablet by mouth daily. Oral No Longer Active 01/16/[address] [facility] atorvastatin (LIPITOR) 20 mg tablet Take 1 tablet by mouth at bedtime nightly. Oral No Longer Active 01/16/[address] [facility] Naproxen 500 MG Oral Tablet [Naprosyn] 500 mg=1 tab, PO, BID, # 30 tab, 0 Refill(s) Active 01/09/2016 [facility] tramadol hydrochloride 50 MG Oral Tablet 50 mg=1 tab, PO, Q6H, PRN Pain, X 10 day, # 40 tab, 0 Refill(s) Active 01/09/2016 [facility] Metoprolol 1 mg, 1 mL, Route: IVP, Drug form: INJ, Q5Min, Dosing Weight 71.818, kg, PRN Other -See Comment, Start date: 12/21/15 8:05:00, Duration: 5 doses or times, Stop date: Limited # of timesNotes: (Same as: Lopressor) Push over 2 minutes Inactive 12/21/2015 [facility] Oxycodone Hydrochloride 1 MG/ML Oral Solution 5 mg, 5 mL, Route: NG, Drug form: LIQ, Q4H, Dosing Weight 71.818, kg, PRN Pain Score 4-6, Start date: 12/21/15 8:05:00, Duration: 30 day, Stop date: 01/20/16 8:04:00Notes: (Same as: 'Roxicodone) Inactive 12/21/2015 [facility] Calcium Chloride 0.0014 MEQ/ML / Potassium Chloride 0.004 MEQ/ML / Sodium Chloride 0.103 MEQ/ML / Sodium Lactate 0.028 MEQ/ML Injectable Solution 1,000 mL, Rate: 125 ml/hr, Infuse over: 8 hr, Route: IV, Dosing Weight 71.818 kg, Total Volume: 1,000, Start date: 12/21/15 8:05:00, Duration: 30 day, Stop date: 01/20/16 8:04:00 Inactive 12/21/2015 [facility] Hydralazine 10 mg, 0.5 mL, Route: IVP, Drug form: INJ, Q20Min, Dosing Weight 71.818, kg, PRN Elevated BP, Start date: 12/21/15 8:05:00, Duration: 2 doses or times, Stop date: Limited # of timesNotes: (Same as: A presoline) Push over 5 minutes Inactive 12/21/2015 [facility] Ondansetron 4 mg, 2 mL, Route: IVP, Drug form: INJ, ONCE, Dosing Weight 71.818, kg, PRN Nausea & Vomiting, Start date: 12/21/15 8:05:00Notes: (Same as: Zofran) MEDICATION WASTE Product Size: 4 mg Product Wasted: ___ mg Inactive 12/21/2015 [facility] Fentanyl 50 microgram, 1 mL, Route: IVP, Drug form: INJ, Q5Min, Dosing Weight 71.818, kg, PRN Pain Score 7-10, Start date: 12/21/15 8:05:00, Duration: 2 doses or times, Stop date: Limited # of timesNotes: (Same as: Sublimaze) Preservative free. Inactive 12/21/2015 [facility] Morphine 4 mg, 1 mL, Route: IVP, Drug form: INJ, Q5Min, Dosing Weight 71.818, kg, PRN Pain Score 7-10, Start date: 12/21/15 8:05:00, Duration: 3 doses or times, Stop date: Limited # of timesNotes: (Same as:MO RPhine Sulfate) Inactive 12/21/2015 [facility] Meperidine 12.5 mg, 0.25 mL, Route: IVP, Drug form: INJ, Q30Min, Dosing Weight 71.818, kg, PRN Other -See Comment, For shivering, Start date: 12/21/15 8:05:00, Duration: 2 doses or times, Stop date: Limited # of timesNotes: (Same As: Demerol) Inactive 12/21/2015 [facility] Naloxone 0.04 mg, 0.1 mL, Route: IVP, Drug form: INJ, Q2MIN, Dosing Weight 71.818, kg, PRN Narcotic Reversal, Start date: 12/21/15 8:05:00, Duration: 8 doses or times, Stop date: Limited # of timesNotes: Same as Narcan Inactive 12/21/2015 [facility] Flumazenil 0.2 mg, 2 mL, Route: IVP, Drug form: INJ, PRN, Dosing Weight 71.818, kg, PRN Benzodiazepine Reversal, Initial dose, Start date: 12/21/15 8:05:00, Duration: 30 day, Stop date: 01/20/16 8:04:00Notes: ( Same as: Romazicon) Inactive 12/21/2015 [facility] Allergies, Adverse Reactions, Alerts No Known Medication Allergies Immunizations Immunization Date Given Site Status Last Updated Comments Source PCV 13 (Pnuemococcal Conjugated 13 Valent) 03/10/[address] [facility] Tdap (Tetanus Toxoid, Reduced Diphtheria Toxoid And Acellular Pertussis, Absorbed) 01/30/[address] [facility] Results Order Name Results Value Reference Range Date Interpretation Comments Source BASIC METABOLIC PANEL <td ID="[id number]">Sodium</td><td>140</td><td>136 - 145 mmol/L</td><td>[facility]</td><td ID="[id number]"/> 140 136 - 145 04/07/[address] [facility] BASIC METABOLIC PANEL <td ID="[id number]">Potassium</td><td>4.0</td><td>3.5 - 5.1 mmol/L</td><td>[facility]</td><td ID="[id number]"/> 4.0 3.5 - 5.1 04/07/[address] [facility] BASIC METABOLIC PANEL <td ID="[id number]">Chloride</td><td>105</td><td>98 - 107 mmol/L</td><td>[facility]</td><td ID="[id number]"/> 105 98 - 107 04/07/[address] [facility] BASIC METABOLIC PANEL CO2 31 21 - 31 04/07/[address] [facility] BASIC METABOLIC PANEL Urea Nitrogen 15.0 7 - 25 04/07/[address] [facility] BASIC METABOLIC PANEL Creatinine 0.9 0.7 - 1.3 04/07/[address] [facility] BASIC METABOLIC PANEL Glucose 99 70 - 110 04/07/[address] [facility] BASIC METABOLIC PANEL Calcium, Total 9.4 8.6 - 10.3 04/07/[address] [facility] BASIC METABOLIC PANEL GFR, Estimated 82 >=90 mL/min/1.73 m2 04/07/[address] [facility] BASIC METABOLIC PANEL Anion Gap 4 5 - 16 04/07/[address] [facility] BASIC METABOLIC PANEL Lab Interpretation Abnormal 04/07/[address] [facility] THYROID STIMULATING HORMONE (TSH) TSH 3.05 0.57 - 3.74 03/20/[address] [facility] THYROID STIMULATING HORMONE (TSH) Lab Interpretation Normal 03/20/[address] [facility] BASIC METABOLIC PANEL <td ID="[id number]">Sodium</td><td>142</td><td>136 - 145 mmol/L</td><td>[facility]</td><td ID="[id number]"/> 142 136 - 145 03/20/[address] [facility] BASIC METABOLIC PANEL <td ID="[id number]">Potassium</td><td>3.5</td><td>3.5 - 5.1 mmol/L</td><td>[facility]</td><td ID="[id number]"/> 3.5 3.5 - 5.1 03/20/[address] [facility] BASIC METABOLIC PANEL <td ID="[id number]">Chloride</td><td>102</td><td>98 - 107 mmol/L</td><td>[facility]</td><td ID="[id number]"/> 102 98 - 107 03/20/[address] [facility] BASIC METABOLIC PANEL CO2 33 21 - 31 03/20/[address] [facility] BASIC METABOLIC PANEL Urea Nitrogen 10.0 7 - 25 03/20/[address] [facility] BASIC METABOLIC PANEL Creatinine 0.9 0.7 - 1.3 03/20/[address] [facility] BASIC METABOLIC PANEL Glucose 98 70 - 110 03/20/[address] [facility] BASIC METABOLIC PANEL Calcium, Total 9.3 8.6 - 10.3 03/20/[address] [facility] BASIC METABOLIC PANEL GFR, Estimated 82 >=90 mL/min/1.73 m2 03/20/[address] [facility] BASIC METABOLIC PANEL Anion Gap 7 5 - 16 03/20/[address] [facility] BASIC METABOLIC PANEL Lab Interpretation Abnormal 03/20/[address] [facility] LIPID PROFILE Triglyceride 108 <150 03/20/2019 Normal: < 150.0 mg/dL
Borderline: 150-199 mg/dL
High: 200- 499 mg/dL
Very High: >=500 mg/dL
[facility] LIPID PROFILE <td ID="[id number]">Cholesterol</td><td><span>186.0</span>
<span style="allIndent"><span style="cellHeader">Comment: </span>
<span ID="[id number]" style="pre">Desirable: < 200.0 mg/dL
Borderline: 200 - 240 mg/dL
High Risk: > 240 mg/dL
</span&gt ;</span></td><td><=200.0 mg/dL</td><td>[facility]</td><td ID="[id number]"/> 186.0 <=200.0 03/20/2019 Desirable: < 200.0 mg/dL
Borderline: 200 - 240 mg/dL
High Risk: > 240 mg/dL
[facility] LIPID PROFILE <td ID="[id number]">HDL</td><td><span>39.0</span>
<span style="allIndent"><span style="cellHeader">Comment: </span>
<span ID="[id number]" style="pre">Increased CHD Risk: < 40.0 mg/dL
Decreased CHD Risk: > 60 mg/dL
</span></span></td><td>See Reference Range Narrative. mg/dL</td><td>[facility]</td><td ID="[id number]"/> 39.0 See Reference Range Narrative. 03/20/2019 Increased CHD Risk: < 40.0 mg/dL
Decreased CHD Risk: > 60 mg/dL
[facility] LIPID PROFILE <td ID="[id number]">LDL</td><td><span style="flagData">125</span><span style="flagData"> (H)</span>
<span style="allIndent"><span style="cellHeader">Comment: </span>
<span ID="[id number]" style="pre">Optimal: < 100.0 mg/dL
Near Optimal: 120-129 mg/dL
Borderline: 130-159 mg/dL
High: 160-189 mg/dL
Very High: >=190 mg/dL
</span></span></td><td><100 mg/dL</td><td>[facility]</td><td ID="[id number]"/> 125 <100 03/20/2019 Optimal: < 100.0 mg/dL
Near Optimal: 120-129 mg/dL
Borderline: 130-159 mg/dL
High: 160-189 mg/dL
Very High: >=190 mg/dL
[facility] LIPID PROFILE Lab Interpretation Abnormal 03/20/[address] [facility] GLUCOSE, FLD Glucose, Fld 64 03/11/2019
The reference range and other method performance specifications have not been established for body fluids. The test result must be interpreted into clinical context for integration.
[facility] GLUCOSE, FLD <p>TEST PERFORMED [facility]</p> TEST PERFORMED [facility] 03/11/[address] [facility] T PROTEIN, FLD <td ID="[id number]">Protein, Fluid</td><td><span>1.4</span>
<span style="allIndent"><span style="cellHeader">Comment: </span>
<span ID="[id number]" style="pre">
The reference range and other method performance specifications have not been established for body fluids. The test result must be interpreted into clinical context for integration.
</span></span></td><td>g/dL</td><td>[facility]</td><td ID="[id number]"/> 1.4 03/11/2019
The reference range and other method performance specifications have not been established for body fluids. The test result must be interpreted into clinical context for integration.
[facility] T PROTEIN, FLD <p>Transudate <3 g/dL, Exudate >3 g/dL</p><p>TEST PERFORMED [facility]</p> Transudate 3 g/dLTEST PERFORMED [facility] 03/11/[address] [facility] LDH, FLD LDH, Fld 59 03/11/2019
The reference range and other method performance specifications have not been established for body fluids. The test result must be interpreted into clinical context for integration.
[facility] LDH, FLD <p>Transudate <200 U/L, Exudate >200 U/L</p><p>TEST PERFORMED [facility]</p> Transudate 200 U/LTEST PERFORMED [facility] 03/11/[address] [facility] FLUID CULTURE AND GRAM STAIN <td ID="[id number]">Body Fluid Culture</td><td>No growth 3 days</td><td/><td>[facility]</td><td ID="[id number]"/> No growth 3 days 03/05/[address] [facility] FLUID CULTURE AND GRAM STAIN <td ID="[id number]">Gram Stain</td><td>2+ WBCs</td><td/><td>[facility]</td><td ID="[id number]"/> 2+ WBCs 03/05/[address] [facility] FLUID CULTURE AND GRAM STAIN <td ID="[id number]">Gram Stain</td><td>No organisms seen</td><td/><td>[facility]</td><td ID="[id number]"/> No organisms seen 03/05/[address] [facility] PLEURAL FLUID CYTOLOGY Case Report Non-gynecologic CytologyCase: [id number] Authorizing Provider:Narendra Petty MD Collected: 03/02/2019 01:27 PM Ordering Location: [address] SurgReceived:03/03/2019 07:38 AM Pathologist: Kassidy Pearl MD Specimen:Pleural Cavity, right 03/04/[address] [facility] PLEURAL FLUID CYTOLOGY Specimen Adequacy Satisfactory for evaluation 03/04/[address] [facility] PLEURAL FLUID CYTOLOGY INTERPRETATION Negative for malignancy 03/04/[address] [facility] PLEURAL FLUID CYTOLOGY Final Diagnosis Negative for malignancy 03/04/[address] [facility] PLEURAL FLUID CYTOLOGY Comment Chronic inflammation and scant degenerative mesothelial cells 03/04/[address] [facility] PLEURAL FLUID CYTOLOGY Pertinent Clinical Information right pleural effusion 03/04/[address] [facility] PLEURAL FLUID CYTOLOGY Gross Description 10cc unfixed cloudy orange fluid 1 PAP cytospin prepared 1 DQ cytospin prepared 1 Cell Block prepared 03/04/[address] [facility] TRANSTHORACIC ECHO (TTE) TRANSTHORACIC ECHO (TTE) Transthoracic Echo Report JEFF MA Age:79 Gender: M :1940 Exam Date: 03/03/2019 07:51 Exam Location: [facility] Echo Ordering Phys: NARENDRA PETTY Referring Phys:[id number] Pérez Reading Phys:Clemencia Robles M.D. Fellow Phys: Fellow Phys: Jack Frame Tender: Nicole John Reason For Exam: Indications:CHF exacerbation ICD-9 Codes: Exam Type: Transthoracic Echo Procedure CPT:50708 Addtional CPT: Ht (in): 60 BSA: 1.72HR: [...] BP 87.2 cm LV Cardiac Output MOD FL0961 cm/min LV Cardiac Index MOD BP 3863 cm/minm LV Diastolic Volume MOD 4C195 cm LV Systolic Volume MOD 4C 128 cm LV Ejection Fraction MOD 4C 34 % LV Stroke Volume MOD 4C 66.1 cm LV Cardiac Output MOD 8M7765 cm/min LV Cardiac Index MOD 4C 2928 cm/minm LV Diastolic Volume MOD 2C249 cm LV Systolic Volume MOD 2C 160 cm LV Ejection Fraction MOD 2C 35.7 % LV Stroke Volume MOD 2C 89 cm LV Cardiac Output MOD 9I4751 cm/min LV Cardiac Index MOD 2C 3943 cm/minm LA Volume 75.4 cm LA Volume Index 44 cm/m 16 - 34 cm/m LA Volume MOD 2C99.5 cm LA Volume MOD 4C92.8 cm LV Mass by linear xvopcs542 g LV Mass by linear method Nyntp583 g/m IVC Diameter Inspiration1.1 cm IVC Diameter Expiration 1.6 cm RA Volume 81.4 cm RA Volume Index 47.4 cm/m DOPPLER AV Peak Rhmydmxs583 cm/s AV Peak Gradient6.6 mmHg AV Mean Erokvpoy43.1 cm/s AV Mean Gradient3.8 mmHg AV Velocity Time Integral 20.6 cm AI Peak Cfaadguy494 cm/s AI Peak Ctfbbmbl37 mmHg AI Deceleration Murray 245 cm/s LVOT Peak Tjrssjml315 cm/s LVOT Peak Gradient5.7 mmHg LVOT Mean Jpjbrvxg60.8 cm/s LVOT Mean Gradient3.6 mmHg LVOT Velocity Time Integral 23.5 cm LVOT Stroke Khbccn87.1 cm AV Area Cont Eq vti 3.5 cm AV Area Cont Eq pk2.8 cm Mitral E Point Velocity 162 cm/s MR Peak Adyfvtas925 cm/s MR Peak Uikvswul745 mmHg MR Velocity Time Integral 154 cm MR Flow Rate PISA 19.7 cm/s MR ERO PISA 0.039 cm MR Regurgitant Volume PISA6 cm PV Peak Uxvboxxf40.2 cm/s PV Peak Gradient3.5 mmHg PV Mean Buowdjbe31.2 cm/s PV Mean Gradient1.9 mmHg PV Velocity [...] BP 87.2 cm LV Cardiac Output MOD RD6495 cm/min LV Cardiac Index MOD BP 3863 cm/minm LV Diastolic Volume MOD 4C195 cm LV Systolic Volume MOD 4C 128 cm LV Ejection Fraction MOD 4C 34 % LV Stroke Volume MOD 4C 66.1 cm LV Cardiac Output MOD 6Z4476 cm/min LV Cardiac Index MOD 4C 2928 cm/minm LV Diastolic Volume MOD 2C249 cm LV Systolic Volume MOD 2C 160 cm LV Ejection Fraction MOD 2C 35.7 % LV Stroke Volume MOD 2C 89 cm LV Cardiac Output MOD 0D2261 cm/min LV Cardiac Index MOD 2C 3943 cm/minm LA Volume 75.4 cm LA Volume Index 44 cm/m 16 - 34 cm/m LA Volume MOD 2C99.5 cm LA Volume MOD 4C92.8 cm LV Mass by linear kafakj102 g LV Mass by linear method Chsfk398 g/m IVC Diameter Inspiration1.1 cm IVC Diameter Expiration 1.6 cm RA Volume 81.4 cm RA Volume Index 47.4 cm/m DOPPLER AV Peak Dddjipyj768 cm/s AV Peak Gradient6.6 mmHg AV Mean Otmwapho79.1 cm/s AV Mean Gradient3.8 mmHg AV Velocity Time Integral 20.6 cm AI Peak Smkzwzum575 cm/s AI Peak Pfgwyehm12 mmHg AI Deceleration Murray 245 cm/s LVOT Peak Sqpzrukf409 cm/s LVOT Peak Gradient5.7 mmHg LVOT Mean Ombixdts60.8 cm/s LVOT Mean Gradient3.6 mmHg LVOT Velocity Time Integral 23.5 cm LVOT Stroke Dnmmcn32.1 cm AV Area Cont Eq vti 3.5 cm AV Area Cont Eq pk2.8 cm Mitral E Point Velocity 162 cm/s MR Peak Haztblwj273 cm/s MR Peak Wwirwvqd870 mmHg MR Velocity Time Integral 154 cm MR Flow Rate PISA 19.7 cm/s MR ERO PISA 0.039 cm MR Regurgitant Volume PISA6 cm PV Peak Facpjpfi88.2 cm/s PV Peak Gradient3.5 mmHg PV Mean Eyadphnr65.2 cm/s PV Mean Gradient1.9 mmHg PV Velocity Time Integral 18.6 cm 03/03/[address] [facility] CBC <td ID="[id number]">WBC</td><td>6.1</td><td>4.5 - 12.0 K/uL</td><td>[facility]</td><td ID="[id number]"/> 6.1 4.5 - 12 03/03/[address] [facility] CBC <td ID="[id number]">RBC</td><td>4.60</td><td>4.60 - 6.20 M/uL</td><td>[facility]</td><td ID="Gxqrfh329325238Uxyw5Zzcwpiizd"/> 4.60 4.60 - 6.20 03/03/[address] [facility] CBC <td ID="[id number]">Hemoglobin</td><td><span style="flagData">12.8</span><span style="flagData"> (L)</span></td><td>14.0 - 18.0 g/dL</td><td>[facility]</td><td ID="[id number]"/> 12.8 14 - 18 03/03/[address] [facility] CBC <td ID="[id number]">Hematocrit</td><td><span style="flagData">39.2</span><span style="flagData"> (L)</span></td><td>40.0 - 54.0 %</td><td>[facility]</td><td ID="[id number]"/> 39.2 40 - 54 03/03/[address] [facility] CBC <td ID="[id number]">MCV</td><td>85.2</td><td>82.0 - 92.0 fL</td><td>[facility]</td><td ID="[id number]"/> 85.2 82 - 92 03/03/[address] [facility] CBC <td ID="[id number]">MCH</td><td>27.8</td><td>27.0 - 31.0 pg</td><td>[facility]</td><td ID="[id number]"/> 27.8 27 - 31 03/03/[address] [facility] CBC <td ID="[id number]">MCHC</td><td>32.7</td><td>32.0 - 36.0 g/dL</td><td>[facility]</td><td ID="Kcseub994537493Lylr0Szgrxjbbu"/> 32.7 32 - 36 03/03/[address] [facility] <td ID="[id number]">RDW</td><td>43.4</td><td>35.1 - 43.9 fL</td><td>[facility]</td><td ID="Vncorm980454789Kqfq2Unqqcyxzi"/> 43.4 35.1 - 43.9 03/03/[address] [facility] <td ID="[id number]">Platelet</td><td>230</td><td>150 - 400 K/uL</td><td>[facility]</td><td ID="Xoyfah275841510Acch6Aafhldbzh"/> 230 150 - 400 03/03/[address] [facility] <td ID="Emwill137560755Fvzo88Dvsk">Mean Platelet Volume</td><td>9.8</td><td>9.4 - 12.4 fL</td><td>[facility]</td><td ID="Ndevnc456773625Kwgg09Wdymimggt"/> 9.8 9.4 - 12.4 03/03/[address] [facility] CBC Percent NRBC 0.0 03/03/[address] [facility] <td ID="Yxomba625160187Gaeg21Wpqp">Neutrophil</td><td>65.4</td><td>34.0 - 67.9 %</td><td>[facility]</td><td ID="Flovnl113604421Vukb83Tvmcwumzr"/> 65.4 34 - 67.9 03/03/[address] [facility] <td ID="[id number]">Lymphocyte</td><td><span style="flagData">18.8</span><span style="flagData"> (L)</span></td><td>21.8 - 50.0 %</td><td>[facility]</td><td ID="[id number]"/> 18.8 21.8 - 50 03/03/[address] [facility] CBC <td ID="[id number]">Monocyte</td><td>9.9</td><td>5.3 - 12.0 %</td><td>[facility]</td><td ID="Pfmzox810227617Kggm36Euglhthrz"/> 9.9 5.3 - 12 03/03/[address] [facility] CBC <td ID="[id number]">Eosinophil</td><td><span style="flagData">5.1</span><span style="flagData"> (H)</span></td><td>0.8 - 5.0 %</td><td>[facility]</td><td ID="[id number]"/> 5.1 0.8 - 5 03/03/[address] [facility] CBC <td ID="[id number]">Basophil</td><td>0.5</td><td>0.2 - 1.2 %</td><td>[facility] LABORATORY</td><td ID="[id number]"/> 0.5 0.2 - 1.2 03/03/[address] [facility] CBC Pct Immat Gran 0.3 0 - 0.5 03/03/[address] [facility] CBC Neutrophil, Abs 3.98 1.78 - 5.36 03/03/[address] [facility] CBC Lymphocyte, Abs 1.14 1.32 - 3.57 03/03/[address] [facility] CBC Monocyte, Abs 0.60 0.3 - 0.82 03/03/[address] [facility] CBC Eosinophil, Abs 0.31 0.04 - 0.54 03/03/[address] [facility] CBC Basophil, Abs 0.03 0.01 - 0.08 03/03/[address] [facility] CBC Absol Immat Gran 0.02 0 - 0.03 03/03/[address] [facility] CBC Absolute NRBC-CV 0.00 03/03/[address] [facility] CBC Lab Interpretation Abnormal 03/03/[address] [facility] BLD GAS, MIXED VENOUS POC pCO2, Mix Carl POC 44.5 40 - 50 03/02/[address] [facility] BLD GAS, MIXED VENOUS POC pH, Mix Carl POC 7.32 7.32 - 7.45 03/02/[address] [facility] BLD GAS, MIXED VENOUS POC pO2, Mix Carl POC 98 36 - 42 03/02/[address] [facility] BLD GAS, MIXED VENOUS POC HCO3, Mix Carl POC 23 22 - 31 03/02/[address] [facility] BLD GAS, MIXED VENOUS POC Base Deficit, Mix Carl POC -2 03/02/[address] [facility] BLD GAS, MIXED VENOUS POC % Sat, Mix Carl POC 97 60 - 80 03/02/[address] [facility] BLD GAS, MIXED VENOUS POC Lactic Acid, Mix Carl POC 5.0 0.4 - 2 03/02/[address] [facility] BLD GAS, MIXED VENOUS POC Vitaliy's Test POSITI 03/02/[address] [facility] BLD GAS, MIXED VENOUS POC Sample Type [facility] CENTRA 03/02/[address] [facility] BLD GAS, MIXED VENOUS POC TCO2, MIXED VENOUS POC 24 47 - 9999 03/02/[address] [facility] BLD GAS, MIXED VENOUS POC Lab Interpretation Abnormal 03/02/[address] [facility] AB POC pH, Art POC 7.41 7.35 - 7.45 03/02/2019 [facility] POC pCO2, Arterial POC 37.1 32 - 45 03/02/2019 [facility] POC pO2, Arterial POC 57 72 - 104 03/02/2019 [facility] POC HCO3, Arterial POC 24 22 - 26 [facility] Deficit Arterial POC -1 03/02/[address] [facility] ABG POC % Sat, Art POC 90 [facility] TCO2, ART POC 25 21 - 32 03/02/2019 [facility] POC Lactic Acid POC 1 0.4 - 2 [facility]/02[facility] Sample Type IART [facility] ETCO2 ETCO2 [facility] Lab Interpretation Abnormal 03/02/2019 [facility] POC Sodium POC 142 136 - 145 03/02/2019 [facility] POC Potassium POC 3.9 3.5 - 5.1 03/02/2019 [facility] POC Chloride POC 103 98 - 107 03/02/2019 [facility] POC TCO2 POC 29 21 - 32 03/02/2019 [facility] POC Urea Nitrogen POC 11 7 - 18 03/02/2019 [facility] POC Creatinine POC 1.0 0.6 - 1.3 03/02/2019 [facility] POC Glucose POC 86 74 - 106 03/02/2019 [facility] POC Ionized Calcium POC 1.14 1.15 - 1.29 03/02/2019 [facility] POC GFR, Estimated, -[place]agu[place] >60 mL/min/1.73 m2 03/02/2019 [facility] POC Lab Interpretation Abnormal 03/02/[address] [facility] TROPONIN I POC Troponin POC 0.08 0 - 0.08 03/01/[address] [facility] TROPONIN I POC Lab Interpretation Normal 03/01/[address] [facility] 12 LEAD EKG 12 LEAD EKG FOR [facility] Test Date:2019-03-01 Pat Name: JEFF MADepartment: 6520 : Gender: MTechnician: [id number] :1940 Requested By: VONNIE Soria Order Number: [id number] MD: Jonny WEBSTER Measurements IntervalsAxis Rate: 92 P:80 MT: 186QRS:-62 QRSD: 100T:88 QT: 377 QTc:468 Interpretive Statements SINUS RHYTHM WITH FREQUENT VENTRICULAR PREMATURE COMPLEXES POSSIBLE RIGHT VENTRICULAR CONDUCTION DELAY LEFT ANTERIOR FASCICULAR BLOCK Poor anterior R wave cannot r/o prior Anteroseptal Infarct POSSIBLE LEFT VENTRICULAR HYPERTROPHY NONSPECIFIC ST and T-WAVE ABNORMALITY Abnormal ECG Electronically Signed On 03-01-2019 11:16:09 CDT by Jonny WEBSTER 03/01/[address] [facility] UA CHEMISTRIES <td ID="[id number]">Color</td><td>Straw</td><td/><td>LBJ MAIN-STATION 2</td><td ID="[id number]"/> Straw 01/23/[address] [facility] UA CHEMISTRIES Clarity Clear 01/23/[address] [facility] UA CHEMISTRIES <td ID="[id number]">Specific Graham</td><td>1.005</td><td>1.001 - 1.035</td><td>LB MAIN-STATION 2</td><td ID="[id number]"/> 1.005 1.001 - 1.035 01/23/[address] [facility] UA CHEMISTRIES <td ID="[id number]">pH</td><td>8.0</td><td>5 - 8</td><td>LB MAIN-STATION 2</td><td ID="[id number]"/> 8.0 5 - 8 01/23/[address] [facility] UA CHEMISTRIES <td ID="[id number]">Protein</td><td>Negative</td><td>NEG</td><td>[facility] MAIN-STATION 2</td><td ID="[id number]"/> Negative NEG 01/23/[address] [facility] UA CHEMISTRIES <td ID="[id number]">Glucose</td><td>Negative</td><td>NEG</td><td>[facility] MAIN-STATION 2</td><td ID="[id number]"/> Negative NEG 01/23/[address] [facility] UA CHEMISTRIES <td ID="[id number]">Ketones</td><td>Negative</td><td>NEG</td><td>LB MAIN-STATION 2</td><td ID="[id number]"/> Negative NEG 01/23/[address] [facility] UA CHEMISTRIES <td ID="[id number]">Bilirubin</td><td>Negative</td><td>NEG</td><td>[facility] MAIN-STATION 2</td><td ID="[id number]"/> Negative NEG 01/23/[address] [facility] UA CHEMISTRIES <td ID="[id number]">Nitrate</td><td>Negative</td><td>NEG</td><td>LB MAIN-STATION 2</td><td ID="[id number]"/> Negative NEG 01/23/[address] [facility] UA CHEMISTRIES <td ID="[id number]">Urobilinogen,Semi- Qn</td><td><1.0</td><td>0.2 - 1.0 EU/dL</td><td>[facility] MAIN-STATION 2</td><td ID="[id number]"/> <1.0 0.2 - 1 01/23/[address] [facility] UA CHEMISTRIES <td ID="[id number]">Leukocyte</td><td>Negative</td><td>NEG</td><td>[facility] MAIN-STATION 2</td><td ID="[id number]"/> Negative NEG 01/23/[address] [facility] UA CHEMISTRIES Occult Blood Negative NEG 01/23/[address] [facility] LIPASE <td ID="[id number]">Lipase</td><td><span style="flagData">7</span><span style="flagData"> (L)</span></td><td>11 - 81 U/L</td><td>[facility] MAIN-STATION 1</td><td ID=&a mp;quot;[id number]"/> 7 11 - 81 01/23/[address] [facility] LIPASE Lab Interpretation Abnormal 01/23/[address] [facility] LIVER PROFILE <td ID="[id number]">Protein, Total, Serum</td><td>7.2</td><td>6.0 - 8.3 g/dL</td><td>LBJ MAIN-STATION 1</td><td ID="[id number]"/> 7.2 6 - 8.3 01/23/2019 [facility] LIVER PROFILE <td ID="[id number]">Albumin</td><td>4.3</td><td>4.2 - 5.5 g/dL</td><td>LB MAIN-STATION 1</td><td ID="[id number]"/> 4.3 4.2 - 5.5 01/23/2019 [facility] LIVER PROFILE <td ID="[id number]">Bilirubin, Total</td><td>0.6</td><td>0.2 - 1.2 mg/dL</td><td>[facility] MAIN-STATION 1</td><td ID="[id number]"/> 0.6 0.2 - 1.2 01/23/2019 [facility] LIVER PROFILE <td ID="[id number]">Alkaline Phosphatase, S</td><td>90</td><td>34 - 104 U/L</td><td>[facility] MAIN-STATION 1</td><td ID="[id number]"/> 90 34 - 104 01/23/2019 [facility] LIVER PROFILE <td ID="[id number]">AST (SGOT)</td><td>19</td><td>13 - 39 U/L</td><td>[facility] MAIN-STATION 1</td><td ID="[id number]"/> 19 13 - 39 01/23/2019 [facility] LIVER PROFILE <td ID="[id number]">ALT</td><td>14</td><td>7 - 52 U/L</td><td>[facility] MAIN-STATION 1</td><td ID="[id number]"/> 14 7 - 52 01/23/2019 [facility] LIVER PROFILE <td ID="[id number]">D Bilirubin</td><td>0.1</td><td>0.0 - 0.2 mg/dL</td><td>[facility] MAIN-STATION 1</td><td ID="[id number]"/> 0.1 0 - 0.2 01/23/[address] [facility] 12 LEAD EKG 12 LEAD EKG FOR [facility] Test Date:2019-01-23 Pat Name: JEFF Spauldingpartment: [id number] : Gender: MTechnician: [id number] :1940 Requested By: VONNIE Soria Order Number: [id number] MD: Darien Menendez Measurements IntervalsAxis Rate: 91 P:49 MT: 194QRS:-40 QRSD: 97 T:104 QT: 389 QTc:481 Interpretive Statements SINUS RHYTHM WITH OCCASIONAL VENTRICULAR PREMATURE COMPLEXES MARKED LEFT AXIS DEVIATION POSSIBLE LEFT VENTRICULAR HYPERTROPHY PROLONGED QTC NONSPECIFIC T-WAVE ABNORMALITY Abnormal ECG Electronically Signed On 01-23-2019 7:43:25 CDT by Darien Menendez 01/23/[address] [facility] PT/INR/PTT <td ID="[id number]">PT</td><td>14.4</td><td>11.8 - 15.0 Seconds</td><td>[facility] MAIN-STATION 2</td><td ID="[id number]"/> 14.4 11.8 - 15.0 01/23/[address] [facility] PT/INR/PTT INR 1.1 SUGGESTED THERAPEUTIC RANGES: INR 2.0-3.0 for MODERATE INTENSITY ANTICOAGULATION INR 2.5-3.5 for HIGH INTENSITY ANTICOAGULATION 01/23/[address] [facility] PT/INR/PTT PTT 35.9 23.6 - 36.4 01/23/[address] [facility] CBC/DIFF <td ID="[id number]">WBC</td><td>7.4</td><td>4.5 - 12.0 K/uL</td><td>[facility] MAIN-STATION 2</td><td ID="[id number]"/> 7.4 4.5 - 12 01/23/[address] [facility] CBC/DIFF <td ID="[id number]">RBC</td><td>4.72</td><td>4.60 - 6.20 M/uL</td><td>[facility] MAIN-STATION 2</td><td ID="[id number]"/> 4.72 4.60 - 6.20 01/23/[address] [facility] CBC/DIFF <td ID="[id number]">Hemoglobin</td><td><span style="flagData">13.4</span><span style="flagData"> (L)</span></td><td>14.0 - 18.0 g/dL</td><td>[facility] MAIN-STATION 2</td><td ID="[id number]"/> 13.4 14 - 18 01/23/[address] [facility] CBC/DIFF <td ID="[id number]">Hematocrit</td><td>41.8</td><td>40.0 - 54.0 %</td><td>[facility] MAIN-STATION 2</td><td ID="[id number]"/> 41.8 40 - 54 01/23/[address] [facility] CBC/DIFF <td ID="[id number]">MCV</td><td>89</td><td>82 - 92 fL</td><td>[facility] MAIN-STATION 2</td><td ID="[id number]"/> 89 82 - 92 01/23/[address] [facility] CBC/DIFF <td ID="[id number]">MCH</td><td>28.4</td><td>27.0 - 31.0 pg</td><td>[facility] MAIN-STATION 2</td><td ID="[id number]"/> 28.4 27 - 31 01/23/[address] [facility] CBC/DIFF <td ID="[id number]">MCHC</td><td>32.1</td><td>32.0 - 36.0 g/dL</td><td>[facility] MAIN-STATION 2</td><td ID="[id number]"/> 32.1 32 - 36 01/23/[address] [facility] CBC/DIFF <td ID="[id number]">RDW</td><td><span style="flagData">44.3</span><span style="flagData"> (H)</span></td><td>35.1 - 43.9 fL</td><td>[facility] MAIN-STATION 2</td><td ID="[id number]"/> 44.3 35.1 - 43.9 01/23/[address] [facility] CBC/DIFF <td ID="[id number]">Platelets</td><td>254</td><td>150 - 400 K/uL</td><td>[facility] MAIN-STATION 2</td><td ID="[id number]"/> 254 150 - 400 01/23/[address] [facility] CBC/DIFF <td ID="[id number]">Mean Platelet Volume</td><td>10.0</td><td>9.4 - 12.4 fL</td><td>[facility] MAIN-STATION 2</td><td ID="[id number]"/> 10.0 9.4 - 12.4 01/23/[address] [facility] CBC/DIFF Percent NRBC 0.0 01/23/[address] [facility] CBC/DIFF Absolute NRBC 0.00 01/23/[address] [facility] CBC/DIFF <td ID="[id number]">Neutrophils</td><td><span style="flagData">76.9</span><span style="flagData"> (H)</span></td><td>34.0 - 67.9 %</td><td>[facility] MAIN-STATION 2</td><td ID="[id number]"/> 76.9 34 - 67.9 01/23/[address] [facility] CBC/DIFF <td ID="[id number]">Lymphs</td><td><span style="flagData">12.8</span><span style="flagData"> (L)</span></td><td>21.8 - 50.0 %</td><td>[facility] MAIN-STATION 2</td><td ID="[id number]"/> 12.8 21.8 - 50 01/23/[address] [facility] CBC/DIFF <td ID="[id number]">Monocytes</td><td>6.7</td><td>5.3 - 12.0 %</td><td>[facility] MAIN-STATION 2</td><td ID="[id number]"/> 6.7 5.3 - 12 01/23/[address] [facility] CBC/DIFF <td ID="[id number]">Eos</td><td>2.7</td><td>0.8 - 5.0 %</td><td>[facility] MAIN-STATION 2</td><td ID="[id number]"/> 2.7 0.8 - 5 01/23/[address] [facility] CBC/DIFF <td ID="[id number]">Basos</td><td>0.5</td><td>0.2 - 1.2 %</td><td>[facility] MAIN-STATION 2</td><td ID="[id number]"/> 0.5 0.2 - 1.2 01/23/[address] [facility] CBC/DIFF Immature Granulocytes 0.4 0.0 - 0.5 01/23/[address] [facility] CBC/DIFF Neutrophils (Absolute) 5.70 1.78 - 5.36 01/23/[address] [facility] CBC/DIFF Lymphs (Absolute) 0.95 1.32 - 3.57 01/23/[address] [facility] CBC/DIFF Monocytes(Absolute) 0.50 0.3 - 0.82 01/23/[address] [facility] CBC/DIFF Eos (Absolute) 0.20 0.04 - 0.54 01/23/[address] [facility] CBC/DIFF Baso (Absolute) 0.04 0.01 - 0.08 01/23/[address] [facility] CBC/DIFF Immature Grans (Abs) 0.03 0 - 0.03 01/23/[address] [facility] CBC/DIFF Lab Interpretation Abnormal 01/23/[address] [facility] TROPONIN I POC Troponin POC 0.05 0 - 0.08 [facility] pH, Carl POC 7.39 7.33 - 7.43 [facility] pCO2, Carl POC 41.9 38.0 - 50.0 01/23/2019 [facility] pO2, Carl POC 30 50 - 75 [facility] Base Excess, Carl POC 0 01/23/2019 [facility] HCO3, Carl POC 25.4 22 - 26 01/[facility] % Sat, Carl POC 57 60 - 85 01/23[facility] Lactic Acid, Carl POC 1.18 0.4 - 2 01/23/[address] [facility] VBG POC Sample Type Carl 01/[facility] TCO2, CARL POC 27 21 - 32 [facility] Lab Interpretation Abnormal 01/23/[address] [facility] BMP POC CO2 POC 25 21 - 32 01/23/2019 [facility] POC Chloride POC 102 98 - 107 01/23/2019 [facility] POC Potassium POC 3.8 3.5 - 5.1 01/23/2019 [facility] POC Sodium POC 141 136 - 145 01/23/2019 [facility] POC <td ID="[id number]">Glucose POC</td><td><span style="flagData">118</span><span style="flagData"> (H)</span></td><td>74 - 106 mg/dL</td><td>[facility] MAIN-STATION 1</td><td ID="[id number]"/> 118 74 - 106 01/23/2019 [facility] POC Urea Nitrogen POC 4 7 - 18 01/23/2019 [facility] POC Creatinine POC 0.8 0.6 - 1.3 01/23/2019 [facility] POC Calcium Ionized POC 1.24 1.15 - 1.29 01/23/2019 [facility] POC Hemoglobin POC 15.0 14 - 18 01/23/2019 [facility] POC Hematocrit POC 44.0 40 - 54 01/23/2019 [facility] POC GFR, Estimated >60 mL/min/1.73 m2 01/23/2019 [facility] POC GFR, Estim, Afr-Am >60 mL/min/1.73 m2 01/23/2019 [facility] POC Lab Interpretation Abnormal 01/23/[address] [facility] HIV-1/HIV-2 ROUTINE SCREENING <td ID="[id number]">HIV-1/HIV-2</td><td>Negative</td><td>NEG</td><td>[facility] BLOOD BANK</td><td ID="[id number]"/> Negative NEG 12/27/2018 [facility] POC pH, Art POC 7.40 7.35 - 7.45 12/27/2018 Physician Notified [facility] POC pCO2,Art POC 39.5 32.0 - 45.0 12/27/2018 [facility] POC pO2, Art POC 31 72 - 104 [facility] Base Excess, ART POC 0 12/27/2018 [facility] POC HCO3, Art POC 24.5 22 - 26 12/[facility] % Sat, Art POC 59 95 - 99 12/27/2018 [facility] POC Lactic Acid POC 1.10 0.4 - 2 12/27/[facility] Sample Type Art 12/27/2018 [facility] POC TCO2, ART POC 26 21 - 32 12/27/2018 [facility] POC Lab Interpretation Abnormal 12/27/[address] [facility] TROPONIN I POC Troponin POC 0.03 0 - 0.08 12/27/2018 [facility] POC CO2 POC 25 21 - 32 12/27/2018 Physician Notified [facility] POC Chloride POC 104 98 - 107 12/27/2018 [facility] POC Potassium POC 4.1 3.5 - 5.1 12/27/2018 [facility] POC Sodium POC 141 136 - 145 12/27/2018 [facility] POC Glucose POC 106 74 - 106 12/27/2018 [facility] POC Urea Nitrogen POC 9 7 - 18 12/27/2018 [facility] POC Creatinine POC 0.8 0.6 - 1.3 12/27/2018 [facility] POC Calcium Ionized POC 1.23 1.15 - 1.29 12/27/2018 [facility] POC Hemoglobin POC 14.6 14 - 18 12/27/2018 [facility] POC Hematocrit POC 43.0 40 - 54 12/27/2018 [facility] POC GFR, Estimated >60 mL/min/1.73 m2 12/27/2018 [facility] POC GFR, Estim, Afr-Am >60 mL/min/1.73 m2 12/27/[address] [facility] Bedside Ultrasound <p>Eloise Villareal ResidentMD [...] pericardial effusion. Bilateral lung slided.IVC: plethoric 12/27/2018 [facility] 12 LEAD EKG 12 LEAD EKG FOR [facility] Test Date:2018-12-27 Pat Name: JEFF Spauldingpartment: [id number] : Gender:[employer] Professional: [id number] :[id number] Requested By: VONNIE Soria Order Number: [id number] MD: Armond Akbar Measurements IntervalsAxis Rate: 84 P:78 MT: 213QRS:-60 QRSD: 124T:56 QT: 386 QTc:458 Interpretive [...] 12-27-2018 12:10:48 CDT by Armond Akbar 12/27/2018 [facility] FOREIGN BODY REMOVAL SIMPLE <p>Franchesca Paz NP [...] of procedure:Tolerated well, no immediate complications 01/31/[address] [facility] URINE AND STOOL UA Protein Negative mg/dL Negative mg/dL 01/08/2016 [facility] URINE AND STOOL UA pH 6.0 5.0 - 8.0 01/08/2016 [facility] URINE AND STOOL UA Glucose Negative mg/dL Negative mg/dL 01/08/2016 [facility] URINE AND STOOL UA Ketones Negative mg/dL Negative mg/dL 01/08/2016 [facility] URINE AND STOOL UA Spec Grav 1.015 <=1.030 01/08/2016 [facility] URINE AND STOOL UA Color Yellow *NA* (01/08/16 6:25 PM) Yellow 01/08/2016 [facility] URINE AND STOOL UA Turbidity Clear (01/08/16 6:25 PM) Clear 01/08/2016 [facility] URINE AND STOOL UA Leuk Est Negative (01/08/16 6:25 PM) Negative 01/08/2016 [facility] URINE AND STOOL UA Bili Negative *NA* (01/08/16 6:25 PM) Negative 01/08/2016 [facility] URINE AND STOOL UA Nitrite Negative (01/08/16 6:25 PM) Negative 01/08/2016 [facility] URINE AND STOOL UA Blood Negative (01/08/16 6:25 PM) Negative 01/08/2016 [facility] URINE AND STOOL UA Urobilinogen 0.2 0.1 - 1.0 01/08/2016 [facility] URINE AND STOOL UA Sq Epi None Seen (01/08/16 6:25 PM) Few 01/08/2016 [facility] URINE AND STOOL UA Bacteria None Seen (01/08/16 6:25 PM) None Seen 01/08/2016 [facility] CHEM PANEL Lipase Lvl 124 73 - 393 01/08/2016 [facility] CHEM PANEL B/C Ratio 10 6 - 25 01/08/2016 [facility] CHEM PANEL Globulin 3.2 2.0 - 4.0 01/08/2016 [facility] CHEM PANEL A/G Ratio 1.2 0.7 - 1.6 01/08/2016 [facility] CHEM PANEL AGAP 10.0 10.0 - 20.0 01/08/2016 [facility] CHEM PANEL Bili Total 0.3 0.2 - 1.3 01/08/2016 [facility] CHEM PANEL AST 15 0 - 37 01/08/2016 [facility] CHEM PANEL Alk Phos 74 39 - 136 01/08/2016 [facility] CHEM PANEL ALT 28 0 - 65 01/08/2016 [facility] CHEM PANEL eGFR 92 01/08/2016 Result Comment: [...] should be multiplied by the estimated BMI. [facility] CHEM PANEL Creatinine Lvl 0.71 0.50 - 1.40 01/08/2016 [facility] CHEM PANEL Glucose Lvl 88 70 - 99 01/08/2016 [facility] CHEM PANEL Calcium Lvl 9.2 8.5 - 10.5 01/08/2016 [facility] CHEM PANEL Chloride Lvl 109 95 - 109 01/08/2016 [facility] CHEM PANEL Sodium Lvl 140 135 - 145 01/08/2016 [facility] CHEM PANEL Potassium Lvl 4.0 3.5 - 5.1 01/08/2016 [facility] CHEM PANEL BUN 7 7 - 22 01/08/2016 [facility] CHEM PANEL Total Protein 7.2 6.4 - 8.4 01/08/2016 [facility] CHEM PANEL Albumin Lvl 4.0 3.5 - 5.0 01/08/2016 [facility] CHEM PANEL CO2 25 24 - 32 01/08/2016 [facility] HEMATOLOGY Segs 50.0 45.0 - 75.0 01/08/2016 [facility] HEMATOLOGY Lymphocytes # 2.3 1.0 - 5.5 01/08/2016 [facility] HEMATOLOGY Monocytes # 0.6 0.0 - 0.8 01/08/2016 [facility] HEMATOLOGY Eosinophils # 0.4 0.0 - 0.5 01/08/[address] [facility] Lymphocytes 33.9 20.0 - 40.0 01/08/[address] [facility] Monocytes 9.0 2.0 - 12.0 01/08/2016 [facility] HEMATOLOGY Segs-Bands # 3.3 1.5 - 8.1 01/08/2016 [facility] HEMATOLOGY Eosinophils 6.5 0.0 - 4.0 01/08/2016 [facility] HEMATOLOGY Basophils 0.6 0.0 - 1.0 01/08/[address] [facility] Basophils # 0.0 0.0 - 0.2 01/08/[address] [facility] PTT 31.0 22.9 - 35.8 01/08/[address] [facility] Hct 47.1 42.0 - 54.0 01/08/[address] [facility] Hgb 15.5 14.0 - 18.0 01/08/[address] [facility] MCV 89.1 80.0 - 94.0 01/08/[address] [facility] MCH 29.3 27.0 - 31.0 01/08/[address] [facility] Platelet 252 133 - 450 01/08/[address] [facility] MCHC 32.9 32.0 - 36.0 01/08/[address] [facility] MPV 7.9 7.4 - 10.4 01/08/[address] [facility] RDW 13.8 11.5 - 14.5 01/08/[address] [facility] WBC 6.7 3.7 - 10.4 01/08/2016 [facility] HEMATOLOGY RBC 5.29 4.70 - 6.10 01/08/2016 [facility] HEMATOLOGY INR 1.04 0.85 - 1.17 01/08/2016 [facility] HEMATOLOGY PT 13.9 12.0 - 14.7 01/08/2016 [facility] ELECTROLYTES AGAP 13.0 10.0 - 20.0 12/21/2015 [facility] ELECTROLYTES eGFR 88 12/21/2015 Result Comment: The [...] should be multiplied by the estimated BMI. [facility] ELECTROLYTES BUN 9 7 - 22 12/21/2015 [facility] ELECTROLYTES Glucose Lvl 103 70 - 99 12/21/2015 [facility] ELECTROLYTES Creatinine Lvl 0.80 0.50 - 1.40 12/21/2015 [facility] ELECTROLYTES Calcium Lvl 9.0 8.5 - 10.5 12/21/2015 [facility] ELECTROLYTES Sodium Lvl 141 135 - 145 12/21/2015 [facility] ELECTROLYTES Chloride Lvl 107 95 - 109 12/21/2015 [facility] ELECTROLYTES Potassium Lvl 4.0 3.5 - 5.1 12/21/2015 [facility] ELECTROLYTES CO2 25 24 - 32 12/21/2015 [facility] HEMATOLOGY Basophils 0.5 0.0 - 1.0 12/21/2015 [facility] HEMATOLOGY Segs-Bands # 2.7 1.5 - 8.1 12/21/2015 [facility] HEMATOLOGY Monocytes # 0.5 0.0 - 0.8 12/21/2015 [facility] HEMATOLOGY Eosinophils # 0.5 0.0 - 0.5 12/21/2015 [facility] HEMATOLOGY Lymphocytes # 1.9 1.0 - 5.5 12/21/[address] [facility] Monocytes 9.4 2.0 - 12.0 12/21/[address] [facility] Eosinophils 8.6 0.0 - 4.0 12/21/[address] [facility] Segs 47.2 45.0 - 75.0 12/21/[address] [facility] Lymphocytes 34.3 20.0 - 40.0 12/21/[address] [facility] MCH 28.9 27.0 - 31.0 12/21/[address] [facility] MCV 87.9 80.0 - 94.0 12/21/[address] [facility] Hct 47.7 42.0 - 54.0 12/21/[address] [facility] RBC 5.43 4.70 - 6.10 12/21/[address] [facility] Hgb 15.7 14.0 - 18.0 12/21/[address] [facility] WBC 5.7 3.7 - 10.4 12/21/[address] [facility] MPV 8.1 7.4 - 10.4 12/21/[address] [facility] Platelet 200 133 - 450 12/21/[address] [facility] RDW 13.6 11.5 - 14.5 12/21/[address] [facility] MCHC 32.8 32.0 - 36.0 12/21/2015 [facility] Pathology Reports No Data Provided for This [...] Aime Palma MD, 03/11/2019 7:28 AM 03/11/[address] [facility] XRAY CHEST 1 VIEW IMPRESSION:1. [...] Nicolette Palomino MD, 03/02/2019 2:18 PM 03/02/[address] [facility] CTA CHEST AORTA IMPRESSION:1.Unchanged thoracic [...] Erin Sotomayor MD, 01/23/2019 9:09 AM 01/23/[address] [facility] CTA ABDOMEN-PELVIS W CONTRAST - [...] Erin Sotomayor MD, 01/23/2019 9:09 AM 01/23/[address] [facility] XRAY CHEST 2 VIEWS IMPRESSION:1.Slight interval enlargement in the moderate sized right pleuraleffusion. Stable trace left pleural effusion.2.Unchanged right lung base opacities may represent atelectasis orconsolidation.3.Mild left basilar subsegmental atelectasis.4.Moderate cardiomegaly with mild pulmonary venous congestion. This [facility] radiology report is a preliminary resident [...] cardiomegaly with mild pulmonary venous congestion. This [facility] radiology report is a preliminary resident dictation until finalized by an attending. Changes to this preliminary report may occur in an additional preliminary or finalized version. Dictated By: Chong Malik MD, 01/23/2019 6:25 AM I have reviewed the study and agree with the findings in this report. Signed By: Porter Santos MD, 01/23/2019 7:10 AM 01/23/[address] [facility] CTA CHEST AORTA IMPRESSION: 1.No [...] L5. Grade 1/2 anterolisthesis at L5-S1. This [facility] radiology report is a preliminary resident [...] L5. Grade 1/2 anterolisthesis at L5-S1. This [facility] radiology report is a preliminary resident dictation until finalized by an attending. Changes to this preliminary report may occur in an additional preliminary or finalized version. I have reviewed the study and agree with the findings in this report. Signed By: Nito Lopez MD, 12/27/2018 4:28 PM 12/27/[address] [facility] CTA ABDOMEN-PELVIS W CONTRAST - [...] L5. Grade 1/2 anterolisthesis at L5-S1. This [facility] radiology report is a preliminary resident [...] L5. Grade 1/2 anterolisthesis at L5-S1. This [facility] radiology report is a preliminary resident dictation until finalized by an attending. Changes to this preliminary report may occur in an additional preliminary or finalized version. I have reviewed the study and agree with the findings in this report. Signed By: Nito Lopez MD, 12/27/2018 4:28 PM 12/27/[address] [facility] XRAY CHEST 2 VIEWS IMPRESSION:1.Small [...] Nito Lopez MD, 12/27/2018 2:54 PM 12/27/[address] [facility] Abdomen AP DX Study: Abdomen, one view Clinical Indication: Abdominal pain, acute; Comparison: None FINDINGS: Supine exam demonstrates a normal bowel gas pattern. Left inguinal hernia repair has been performed. No abnormal soft tissue mass or calcification is seen. Minor spondylosis is noted. IMPRESSION: No acute abnormality. SL: [id number] 01/08/2016 [facility] Consultation Notes No Data Provided for This Section Discharge Summaries No Data Provided for This Section History and Physicals No Data Provided for This Section Vital Signs Vital Sign Value Date Comments Source Systolic (mm Hg) 126 04/30/2019 [facility] Diastolic (mm Hg) 72 04/30/2019 [facility] Heart Rate 90 04/30/2019 [facility] Temperature Oral (F) 36.5 Angélica 04/30/2019 [facility] Respitory Rate 18 04/30/[address] [facility] Height 152.4 cm 04/07/[address] [facility] Weight 64.003 04/07/2019 [facility] [...] [facility] Systolic (mm Hg) 174 12/28/[address] [facility] Diastolic (mm Hg) 53 12/28/[address] [facility] Heart Rate 83 12/28/[address] [facility] Temperature Oral (F) 36.61 Angélica 12/28/[address] [facility] Respitory Rate 18 12/28/[address] [facility] Systolic (mm Hg) 176 12/27/[address] [facility] Diastolic (mm Hg) 55 12/27/[address] [facility] Heart Rate 80 12/27/[address] [facility] Temperature Oral (F) 36.28 Angélica 12/27/2018 [facility] Respitory Rate 16 12/27/[address] [facility] Weight 68.04 12/27/[address] [facility] Heart Rate 71 01/09/2016 [facility] Respitory Rate 20 01/09/2016 [facility] Temperature Oral (F) 98.0 F 01/09/2016 [facility] Systolic (mm Hg) 128 01/09/2016 [facility] Diastolic (mm Hg) 84 01/09/2016 [facility] Temperature Oral (F) 97.6 F 01/08/2016 [facility] Weight 63.636 01/08/2016 [facility] Systolic (mm Hg) 144 01/08/2016 [facility] Diastolic (mm Hg) 94 01/08/2016 [facility] Heart Rate 79 01/08/2016 [facility] Respitory Rate 20 01/08/2016 [facility] Systolic (mm Hg) 150 12/21/2015 [facility] Diastolic (mm Hg) 76 12/21/2015 [facility] Respitory Rate 18 12/21/2015 [facility] Systolic (mm Hg) 152 12/21/2015 [facility] Diastolic (mm Hg) 78 12/21/2015 [facility] Respitory Rate 11 12/21/2015 [facility] Systolic (mm Hg) 142 12/21/2015 [facility] Diastolic (mm Hg) 78 12/21/2015 [facility] Respitory Rate 11 12/21/2015 [facility] Temperature Oral (F) 97.7 F 12/21/2015 [facility] Heart Rate 69 12/21/2015 [facility] BMI Calculated 29.92 12/20/2015 [facility] Height 154.94 cm 12/20/2015 [facility] Weight 71.818 12/20/2015 [facility] Encounters Location Location Details Encounter Type Encounter Number Reason For Visit Attending Provider ADM Date DC Date Status Source [facility] OBS Day Surgery [id number] Mike zacarias Leon 12/21/2015 12/21/2015 [facility] [id number] Jason Resendiz 01/08/2016 01/09/2016 [facility] ([id number] [id number] Chacorta Baltazar MD 01/31/2018 01/31/[address] [facility] Travel [id number] 12/27/[address] [facility] Emergency Center ([id number] [id number] Dayna Saleem MD 12/27/2018 12/28/[address] [facility] Travel [id number] 01/23/[address] [facility] Emergency Center ([id number] [id number] Mahsa Briggs MD 01/23/2019 01/23/[address] [facility] Travel [id number] 03/01/[address] [facility] 2C Med Surg Emergency [id number] Jordan Meadows MD 03/01/2019 03/03/[address] [facility] LABORATORY [facility] Orders Only [id number] Stiven Myrick ResidentPA 03/02/[address] [facility] CUSTOMER RELATIONS SERVICES Telephone [id number] Dante Espinal 03/03/[address] [facility] OC ACS Clinical Case Mgmt Svcs Clinical Case Mgt [id number] Mario Montano [facility] 03/05/[address] [facility] OC ACS Clinical Case Mgmt Svcs Clinical Case Mgt [id number] Mario Montano [facility] 03/06/[address] [facility] CUSTOMER RELATIONS SERVICES Telephone [id number] Denisse Aleman 03/07/[address] [facility] Replenishment Specialist Services Telephone [id number] Judy Pedro RN 03/07/[address] [facility] Medicine Clinic [place] Office Visit [id number] Porter Jones ResidentMD 03/10/2019 03/10/[address] [facility] Radiology [facility] Hospital Encounter [id number] 03/10/2019 03/10/[address] [facility] LABORATORY [facility] Hospital Encounter [id number] 03/10/2019 03/11/[address] [facility] Pre-Clinic Review [id number] Marv Acevedo MD 03/19/[address] [facility] Office Visit [id number] Bebo Simon ResidentMD 03/20/2019 03/20/[address] [facility] LABORATORY [facility] Hospital Encounter [id number] 03/20/2019 03/21/[address] [facility] Pre-Clinic Review [id number] Marv Acevedo MD 04/05/[address] [facility] Travel [id number] 04/07/[address] [facility] Office Visit [id number] Zack Gimenez ResidentMD 04/07/2019 04/07/[address] [facility] LABORATORY [facility] Hospital Encounter [id number] 04/07/2019 04/08/[address] [facility] Travel [id number] 04/30/[address] [facility] Emergency Center ([facility]) [facility] [id number] 04/30/[address] [facility] Procedures Procedure Code Date Perfomer Comments Source LIPID PROFILE [id number] 03/20/2019 [facility] THYROID STIMULATING HORMONE (TSH) 92102 03/20/2019 [facility] BASIC METABOLIC PANEL 57666 03/10/2019 [facility] TRANSTHORACIC ECHO (TTE) 16444 03/03/2019 [facility] T PROTEIN, FLD 41643 03/03/2019 [facility] GLUCOSE, FLD 84402 03/03/2019 [facility] LDH, FLD 08644 03/03/2019 [facility] XRAY CHEST 1 VIEW 51813 03/02/2019 [facility] FLUID CULTURE AND GRAM STAIN 44947 03/02/2019 [facility] PLEURAL FLUID CYTOLOGY 42635 03/02/2019 [facility] BLD GAS, MIXED VENOUS POC 07329 03/02/2019 [facility] BASIC METABOLIC PANEL 92180 03/02/2019 [facility] CBC/DIFF 52170 03/02/2019 [facility] CBC 56160 03/02/2019 [facility] COMPREHENSIVE METABOLIC PANEL 94402 03/01/2019 [facility] UA CHEMISTRIES 78484 01/23/2019 [facility] URINALYSIS [id number] 01/23/2019 [facility] VBG POC 84383 01/23/2019 [facility] CBC/DIFF 24233 01/23/2019 [facility] PT/INR/PTT 56927 01/23/2019 [facility] LIVER PROFILE [id number] 01/23/2019 [facility] LIPASE 99249 01/23/2019 [facility] TYPE AND SCREEN 48311 01/23/2019 [facility] CTA ABDOMEN-PELVIS W CONTRAST - AORTA 42567 12/28/2018 [facility] CTA CHEST AORTA 59843 12/28/2018 [facility] ABG POC 03117 12/28/2018 [facility] XRAY CHEST 2 VIEWS 16294 12/28/2018 [facility] BMP POC 62901 12/28/2018 [facility] BMP POC [id number] 12/28/2018 [facility] TROPONIN I POC 60920 12/28/2018 [facility] HIV-1/HIV-2 ROUTINE SCREENING 76503 12/28/2018 [facility] BEDSIDE ULTRASOUND [id number] 12/27/2018 [facility] 12 LEAD EKG 73582 12/27/2018 [facility] FOREIGN BODY REMOVAL SIMPLE [id number] 01/31/2018 [facility] Operative procedure on hand [id number] [facility] Hernia repair [id number] [facility] Assessment and Plan No Data Provided for This Section Plan of Care Plan of Care Date Source IMM Influenza Seasonal Jul to November (>/=19 yrs) 07/01/[address] [facility] Upcoming EncountersDateTypeSpecialtyCare TeamDescription 05/08/2019 Office Visit Internal Medicine Karel Lopez, Stacia G[address]mez[address] [phone] Health MaintenanceDue DateLast DoneComments IMM Pneumococcal Age 65 and Up 2006 IMM Influenza Seasonal Jul to November (>/=19 yrs) 07/01/2019 04/30/[address] [facility] IMM Influenza Seasonal Oct to November (>/=19 yrs) 07/01/[address] [facility] IMM Pneumococcal Age 65 and Up [address] [facility] Social History Social History Date [...] End No recent travel history available. 04/07/[address] [facility] Social History TypeResponse Substance Abuse Use: None. Alcohol Never Smoking Status Never smoker; Exposure to Tobacco Smoke None; Cigarette Smoking Last 365 Days No; Reg Smoking Cessation Counseling No 12/20/2015 [facility] Family History Value Date Source Medical HistoryRelationNameComments Unknown Fam Hx Father Unknown Fam Hx Maternal Grandfather Unknown Fam Hx Maternal Grandmother Unknown Fam Hx Mother Unknown Fam Hx Paternal Grandfather Unknown Fam Hx Paternal Grandmother RelationNameStatusComments Brother Alive Father Maternal Grandfather Maternal Grandmother Mother Paternal Grandfather Paternal Grandmother Sister Alive 04/30/[address] [facility] Medical HistoryRelationNameComments Unknown Fam Hx Father Unknown Fam Hx Maternal Grandfather Unknown Fam Hx Maternal Grandmother Unknown Fam Hx Mother Unknown Fam Hx Paternal Grandfather Unknown Fam Hx Paternal Grandmother RelationNameStatusComments Brother Alive Father Maternal Grandfather Maternal Grandmother Mother Paternal Grandfather Paternal Grandmother Sister Alive 04/07/[address] [facility] Medical HistoryRelationNameComments Unknown Fam Hx Father Unknown Fam Hx Maternal Grandfather Unknown Fam Hx Maternal Grandmother Unknown Fam Hx Mother Unknown Fam Hx Paternal Grandfather Unknown Fam Hx Paternal Grandmother RelationNameStatusComments Brother Alive Father Maternal Grandfather Maternal Grandmother Mother Paternal Grandfather Paternal Grandmother Sister Alive 01/30/[address] [facility] Medical HistoryRelationNameComments Unknown Fam Hx Father Unknown Fam Hx Maternal Grandfather Unknown Fam Hx Maternal Grandmother Unknown Fam Hx Mother Unknown Fam Hx Paternal Grandfather Unknown Fam Hx Paternal Grandmother RelationNameStatusComments Brother Alive Father Maternal Grandfather Maternal Grandmother Mother Paternal Grandfather Paternal Grandmother Sister Alive 01/23/[address] [facility] Medical HistoryRelationNameComments Unknown Fam Hx Father Unknown Fam Hx Maternal Grandfather Unknown Fam Hx Maternal Grandmother Unknown Fam Hx Mother Unknown Fam Hx Paternal Grandfather Unknown Fam Hx Paternal Grandmother RelationNameStatusComments Brother Alive Father Maternal Grandfather Maternal Grandmother Mother Paternal Grandfather Paternal Grandmother Sister Alive 12/27/[address] [facility] Advance Directives Order Name Results Value Date Source Advance Directives Advance Directives Latest Code Status on FileCode StatusDate ActivatedDate InactivatedComments Full Code 03/01/2019 4:50 PM 03/03/2019 6:46 PM Full Code 01/08/2017 3:24 PM 01/10/2017 7:44 PM Full Code 01/08/2017 8:28 AM 01/08/2017 9:33 AM 04/30/[address] [facility] Advance Directives Advance Directives Latest Code Status on FileCode StatusDate ActivatedDate InactivatedComments Full Code 03/01/2019 4:50 PM 03/03/2019 6:46 PM Full Code 01/08/2017 3:24 PM 01/10/2017 7:44 PM Full Code 01/08/2017 8:28 AM 01/08/2017 9:33 AM 04/07/[address] [facility] Advance Directives Advance Directives For more information, please contact:[address] [id number] Code Status on FileCode StatusDate ActivatedDate InactivatedComments Full Code 01/08/2017 3:24 PM 01/10/2017 7:44 PM Full Code 01/08/2017 8:28 AM 01/08/2017 9:33 AM 01/30/[address] [facility] Advance Directives Advance Directives For more information, please contact:[address] [id number] Code Status on FileCode StatusDate ActivatedDate InactivatedComments Full Code 01/08/2017 3:24 PM 01/10/2017 7:44 PM Full Code 01/08/2017 8:28 AM 01/08/2017 9:33 AM 01/23/[address] [facility] Advance Directives Advance Directives For more information, please contact:[address] [id number] Code Status on FileCode StatusDate ActivatedDate InactivatedComments Full Code 01/08/2017 3:24 PM 01/10/2017 7:44 PM Full Code 01/08/2017 8:28 AM 01/08/2017 9:33 AM 12/27/[address] [facility] Functional Status No Data Provided for This Section
[2019-06-05] MEDS: FUROSEMIDE INJ 10 MG/ML 4 ML VIAL IV SCH ×2 (17:41→20:43)
[2019-06-05] MEDS ORDERED: SODIUM CHLORIDE 0.9% 50ML 50 ML ONE (19:13)
[2019-06-05] MEDS ORDERED: IOPAMIDOL 370 MG/ML 200 ML INFUS..BTL INJ ONE (19:13)
[2019-06-05 22:23] VITALS: BP 128/70
--- NOTE | 2019-06-05 22:25 | NUR ---
PATIENT ARRIVED TO THE UNIT VIA STRETCHER. PATIENT IN NO DISTRESS. RECEIVED REPORT FROM JUDI GILLETTE NURSE. PATIENT'S AND FRIEND ACCOMPANIED HIM AND SPENDING THE NIGHT WITH THE PATIENT. CALL LIGHT WITHIN REACH. PATIENT IS A&OX3. AMBULATING AND ON 2 L NC
[2019-06-05 23:00] VITALS: BP 128/70
[2019-06-05] MEDS: FAMOTIDINE 20 MG/2 ML VIAL IV SCH (23:33)
[2019-06-06] VITALS (7 sets, daily range): BP systolic 110–128; BP diastolic 59–72
[2019-06-06 00:26] LABS: CREATINE KINASE MB 1.5 ng/mL (0-5.0)
--- NOTE | 2019-06-06 02:28 | NUR ---
CALLED DR. MARTINEZ OFFICE AND TALKED TO BOBBIN HAULER DOCTOR, DR. FREDERICK BECAUSE THE PATIENT IS HAVING BIGEMINY PVC'S. DR. FREDERICK ASKED HOW THE PATIENT IS DOING AND THE PATIENT IS ASLEEP. HE GAVE NO FURTHER ORDERS.
[2019-06-06 06:10] LABS: BASOPHILS % 0.5 % (0.0-1.0); EOSINOPHILS # (AUTO) 0.5 (0.0-0.4); EOSINOPHILS % 8.6 % (0.0-6.0); HEMATOCRIT 37.1 % (38.2-49.6); HEMOGLOBIN 11.9 g/dL (14.0-18.0); LYMPHOCYTES % 17.7 % (18.0-39.1); MEAN CORPUSCULAR HEMOGLOBIN 27.9 pg (28-32); MEAN CORPUSCULAR HGB CONC 32.1 g/dL (31-35); MEAN CORPUSCULAR VOLUME 86.9 fL (81-99); MONOCYTES # (AUTO) 0.5 (0.2-0.8); MONOCYTES % 8.6 % (4.4-11.3); NEUTROPHILS # (AUTO) 3.8 (2.1-6.9); NEUTROPHILS % 64.4 % (38.7-80.0); PLATELET COUNT 210 x10e3/uL (140-360); RED BLOOD COUNT 4.27 x10e6/uL (4.3-5.7); RED CELL DISTRIBUTION WIDTH 15.2 % (11.7-14.4)
[2019-06-06 06:31] LABS: ALANINE AMINOTRANSFERASE 12 IU/L (0-55); ALBUMIN 3.4 g/dL (3.5-5.0); ALBUMIN/GLOBULIN RATIO 1.1 (0.8-2.0); ALKALINE PHOSPHATASE 88 IU/L (40-150); ANION GAP 11.9 mmol/L (8-16); BLOOD UREA NITROGEN 12 mg/dL (7-26); BUN/CREATININE RATIO 13 (6-25); CALCIUM 9.5 mg/dL (8.4-10.2); CARBON DIOXIDE 24 mmol/L (22-29); CHLORIDE 106 mmol/L (98-107); CHOL/HDL RATIO 3.1 (3.9-4.7); CHOLESTEROL 104 MD/DL (0-199); CREATININE, SERUM 0.92 mg/dL (0.72-1.25); EST GLOMERULAR FILTRATION RATE > 60 ML/MIN (60-); GLUCOSE 101 mg/dL (74-118); HDL CHOLESTEROL 34 MG/DL (40-60); LDL CHOLESTEROL 54 MG/DL (60-130); POTASSIUM 3.9 mmol/L (3.5-5.1); SODIUM 138 mmol/L (136-145); TRIGLYCERIDES 82 MG/DL (0-149)
--- NOTE | 2019-06-06 07:30 | NUR ---
Received patient this morning, a/ox3, on continuous oxygen NC, audible wheezing and sounds congested, on lasix 40mg IV, will admin per orders, no resp distress at this time, call light within reach, family at bed side, will monitor.
--- NOTE | 2019-06-06 07:38 | NUR ---
Gave report to oncoming nurse. Call light within reach. Patient in bed. Patient in no pain or distress
--- NOTE | 2019-06-06 07:40 | NUR ---
Received patient this morning, a/ox3, no resp distress, in bed and call light within reach, will monitor.
[2019-06-06 07:46] LABS: CREATINE KINASE MB 1.5 ng/mL (0-5.0)
--- NOTE | 2019-06-06 08:25 | NUR ---
Patient picked up for bone scan at this time
--- NOTE | 2019-06-06 08:54 | NUR ---
Patient returned and transporter reported test was not done because patient did not want it at this time, will attempt again.
[2019-06-06] MEDS ORDERED: LISINOPRIL 2.5 MG TAB PO SCH (09:00)
[2019-06-06] MEDS: ASPIRIN 81 MG ENTERIC COATED PO SCH (09:02)
[2019-06-06] MEDS: FAMOTIDINE 20 MG/2 ML VIAL IV SCH ×2 (09:02→20:54)
[2019-06-06] MEDS: FUROSEMIDE INJ 10 MG/ML 4 ML VIAL IV SCH ×2 (09:02→20:54)
--- NOTE | 2019-06-06 11:16 | NUR ---
Patient has still not been seen by plate keeper with consult to him stat. Called again at this time and left message to f/u on called consult.
[2019-06-06 15:30] LABS: CREATINE KINASE MB 1.4 ng/mL (0-5.0)
--- NOTE | 2019-06-06 16:30 | NUR ---
Spoke with Dr. Wild about patient NPO status and he wants patient to be fed. Will go ahead and put and feed patient.
[2019-06-07] VITALS (7 sets, daily range): BP systolic 101–142; BP diastolic 57–70
--- NOTE | 2019-06-07 01:50 | Consultation ---
DATE OF CONSULTATION: Cardiology Consultation HISTORY OF PRESENT ILLNESS: This is a 79-year-old man with a history of hypertension and congestive heart failure, recently diagnosed this summer at [facility], who presented to the emergency department with abdominal and chest pain. The patient reports that the pain is pressure-like non-radiating, moderate in intensity, no other exacerbating or relieving factors, associated with some shortness of breath. Upon arrival here, he was noted to have negative troponins with elevated BNP and a chest x-ray showing cardiomegaly with pulmonary venous congestion. His echocardiogram revealed ejection fraction of 20% to 25%. REVIEW OF SYSTEMS: A 12-point review of system was conducted, is negative except as stated above in the HPI. PAST MEDICAL HISTORY: As stated above in the HPI. PAST SURGICAL HISTORY: None recent. PAST FAMILY HISTORY: No premature coronary artery disease or sudden cardiac . SOCIAL HISTORY: No tobacco use. ALLERGIES: NO KNOWN DRUG ALLERGIES. MEDICATIONS: See medications reconciliation form. PHYSICAL EXAMINATION: VITAL SIGNS: Temperature 96.3, heart rate is 85, respirations are 20, blood pressure is 128/67, and oxygen saturation 97% on 2 L nasal cannula. GENERAL: He is well-appearing elderly man, seated at bedside. HEENT: Head is normocephalic, atraumatic. Eyes, the extraocular muscles are intact. Conjunctivae are clear. NECK: No jugular venous distention. No bruits. CARDIOVASCULAR: He has regular rate and rhythm. Systolic murmur at the apex and left lower sternal border. LUNGS: Diminished breath sounds at bases. ABDOMEN: Soft, nontender, and nondistended. EXTREMITIES: 1+ edema. NEUROLOGIC: No focal deficits noted. CARDIOVASCULAR MEDICATIONS: Reviewed. Include lisinopril, Lasix, and aspirin. LABORATORY DATA: Reviewed. Troponins negative x3. BNP is 1598, creatinine is 0.9, LDL is 54, and potassium 3.9. CT of the abdomen shows cardiomegaly with bilateral effusions and adjacent atelectasis, renal cyst, prostate hypertrophy, gallbladder thickening due to volume overload. Telemetry monitoring revealed normal sinus rhythm with premature ventricular complexes. A 12-lead electrocardiogram showed incomplete right bundle branch block with nonspecific ST-T wave abnormalities. IMPRESSION: 1. Acute likely on chronic systolic congestive heart failure. 2. Abnormal electrocardiogram. 3. Premature ventricular complexes. 4. Hypertension. 5. Anemia. 6. Abnormal electrocardiogram. RECOMMENDATIONS: This patient's echocardiogram showed severely reduced left ventricular ejection fraction with moderate aortic regurgitation and moderate mitral regurgitation. We will increase lisinopril and start carvedilol. The patient likely will need coronary angiography to delineate his coronary anatomy. He will likely need a LifeVest. Continue diuresis with Lasix intravenously. DO ASHLEY Rivas/MODL /[id number]
[2019-06-07] MEDS: LISINOPRIL 2.5 MG TAB PO SCH (08:47)
[2019-06-07] MEDS: ASPIRIN 81 MG ENTERIC COATED PO SCH (08:47)
[2019-06-07] MEDS: FUROSEMIDE INJ 10 MG/ML 4 ML VIAL IV SCH ×2 (08:47→21:06)
[2019-06-07] MEDS: CARVEDILOL 3.125 MG TAB PO SCH ×2 (08:47→17:55)
[2019-06-07] MEDS: FAMOTIDINE 20 MG/2 ML VIAL IV SCH ×2 (08:47→21:06)
[2019-06-07] MEDS: ALBUTEROL/IPRATROPIUM 3 ML NEB NEB SCH ×4 (10:32→23:20)
--- NOTE | 2019-06-07 15:50 | Diagnostic Imaging Report ---
EXAMINATION: CHEST 2 VIEWS INDICATION: Shortness of breath. COMPARISON: Chest radiograph 06/05/2019. FINDINGS: TUBES and LINES: None. LUNGS: Mild perihilar and interstitial opacities. Patchy opacities in the right mid and lower lung zones. No new consolidation. PLEURA: Moderate right and small left pleural effusions. HEART AND MEDIASTINUM: Moderate cardiomegaly. Atherosclerotic vascular calcifications. BONES AND SOFT TISSUES: No acute osseous abnormality. UPPER ABDOMEN: No free air under the diaphragm. IMPRESSION: Cardiomegaly with mild pulmonary edema, asymmetric to the right. Moderate right and small left pleural effusions with associated opacities, likely atelectasis. Signed by: Dr. Emy Cabrera MD on 06/07/2019 3:47 PM
[2019-06-08] VITALS: BP 119/66
--- NOTE | 2019-06-08 00:29 | Progress Note ---
DATE: 06/07/2019 Cardiology Progress Note SUBJECTIVE: No major events overnight. No more chest pain. OBJECTIVE: VITAL SIGNS: Temperature afebrile, pulse 75, respiratory rate 15, blood pressure 101/57, and saturating 94% on 2 L cannula. GENERAL: Elderly man, in no acute distress. CARDIOVASCULAR: Regular rate and rhythm, 2/6 systolic murmur at the apex. LUNGS: Clear to auscultation bilaterally. ABDOMEN: Soft, nontender, and nondistended. NEURO AND PSYCH: Alert and oriented to person, place, and time. Normal affect. INPATIENT MEDICATIONS: Reviewed. LABORATORY DATA: Reviewed. TELEMETRY DATA: Reviewed, shows normal sinus rhythm with rare PVCs. ASSESSMENT: 1. Sxvmc-hz-nzuaulk systolic congestive heart failure exacerbation. 2. Abnormal EKG. 3. PVCs. 4. Hypertension. 5. Anemia. RECOMMENDATIONS: The patient's echo showed severely reduced left ventricular ejection fraction and moderate aortic regurgitation and mitral regurgitation. He will need coronary angiography and LifeVest prior to discharge. We will continue to optimize his cardiovascular and heart failure medications, otherwise continue diuretics with IV Lasix for now. Plan for coronary angiography likely Sunday. Thank you for this consult. We will continue to follow. MD VEENA López/SAE /[id number]
[2019-06-08] MEDS: ALBUTEROL/IPRATROPIUM 3 ML NEB NEB SCH ×6 (03:20→23:25)
[2019-06-08 04:00] VITALS: BP 142/68
[2019-06-08 07:40] VITALS: BP 142/68
[2019-06-08] MEDS: ASPIRIN 81 MG ENTERIC COATED PO SCH (09:24)
[2019-06-08] MEDS: FUROSEMIDE INJ 10 MG/ML 4 ML VIAL IV SCH ×2 (09:24→21:07)
[2019-06-08] MEDS: FAMOTIDINE 20 MG/2 ML VIAL IV SCH ×2 (09:24→21:07)
[2019-06-08] MEDS: LISINOPRIL 2.5 MG TAB PO SCH (09:24)
[2019-06-08] MEDS: CARVEDILOL 3.125 MG TAB PO SCH ×2 (09:24→17:00)
--- NOTE | 2019-06-08 10:42 | Progress Note ---
DATE: SUBJECTIVE: The patient is a 79-year-old gentleman with a history of congestive heart failure, history of coronary artery disease. The patient is admitted and possibly to have left heart catheterization tomorrow. The patient is stable. No chest pain. Positive for some shortness of breath and also for wheezing noted. OBJECTIVE: VITAL SIGNS: Temperature is 96.3, pulse of 75, respirations of 18, blood pressure is 142/68, pulse oximetry of 99% on 2 L of oxygen. HEENT: Normocephalic, atraumatic. Pupils are reactive to light and accommodation. CVS: S1, S2. Regular rate and rhythm. 2/6 systolic murmur present. LUNGS: Positive for some inspiratory wheezes and some crackles at the bases. ABDOMEN: Soft, nontender, and nondistended. NEURO AND PSYCH: Alert and oriented to person and place. Normal affect. No focal neurological changes seen. The patient does appear chronically ill. LABORATORY DATA: White count within normal limits. Hemoglobin is 11.9 and hematocrit 37.6 on the 6th, and chemistries are normal. Has been ruled out, his BNP initially on arrival was 1598. ASSESSMENT: A 79-year-old male with: 1. Zcxgr-ri-mxyuoht congestive heart failure. 2. Abnormal EKG. 3. Hypertension. 4. Anemia. 5. History of asthma. PLAN: Continue with IV Lasix for now. The patient is scheduled for coronary angiogram tomorrow. We will continue to monitor the patient and give him albuterol, Atrovent treatments as needed. The patient's medications are albuterol, Lasix 40 mg q.12 hours, famotidine for GI prophylaxis, carvedilol for beta blockade, lisinopril for CHF and aspirin 81. The patient is also getting morphine for severe pain, 2 mg. Further recommendation per clinical course. We will continue to monitor the patient along with Dr. Olmos. MD GENARO Paul/MODL /[id number]
[2019-06-08 12:11] VITALS: BP 104/66
[2019-06-08 17:02] VITALS: BP 95/53
--- NOTE | 2019-06-08 19:19 | NUR ---
DR. MANJULA FREDERICK DOING ROUNDS. NEW ORDERS RECEIVE FOR NPO DIET AFTER MIDNIGHT AND CONSENT FOR HEART CATH.
[2019-06-08 20:39] VITALS: BP 110/61
[2019-06-09] VITALS (18 sets, daily range): BP systolic 111–128; BP diastolic 56–82
[2019-06-09] MEDS: ALBUTEROL/IPRATROPIUM 3 ML NEB NEB SCH ×6 (02:30→23:45)
--- NOTE | 2019-06-09 04:49 | Progress Note ---
DATE: 06/08/2019 SUBJECTIVE: No major events overnight. OBJECTIVE: VITAL SIGNS: Temperature afebrile, pulse 83, respiratory rate 23, blood pressure 110/51, and saturating 95% on nasal cannula. GENERAL: Elderly man, in no acute distress. CARDIOVASCULAR: Regular rate and rhythm. No murmurs, rubs, or gallops. LUNGS: Clear to auscultation bilaterally. ABDOMEN: Soft, nontender, and nondistended. NEURO AND PSYCH: Alert and oriented to person, place, and time. Normal affect. INPATIENT MEDICATIONS: Reviewed. LABORATORY DATA: Reviewed. TELEMETRY DATA: Reviewed, shows normal sinus rhythm with rare PVCs. ASSESSMENT AND PLAN: 1. Acute on chronic systolic congestive heart failure exacerbation. 2. Hypertension. 3. Anemia. 4. Premature ventricular contractions. 5. Abnormal EKG. RECOMMENDATION: Echo shows severely reduced left ventricular ejection fraction with moderate aortic regurgitation and mitral regurgitation. Plan for coronary angiography tomorrow. MD VEENA López/MODL /[id number]
[2019-06-09 06:26] LABS: BASOPHILS % 0.6 % (0.0-1.0); EOSINOPHILS # (AUTO) 0.8 (0.0-0.4); EOSINOPHILS % 11.2 % (0.0-6.0); HEMATOCRIT 35.5 % (38.2-49.6); LYMPHOCYTES # (AUTO) 1.1 (1.0-3.2); LYMPHOCYTES % 15.7 % (18.0-39.1); MEAN CORPUSCULAR HEMOGLOBIN 27.3 pg (28-32); MEAN CORPUSCULAR VOLUME 88.1 fL (81-99); MONOCYTES # (AUTO) 0.6 (0.2-0.8); MONOCYTES % 8.6 % (4.4-11.3); NEUTROPHILS # (AUTO) 4.6 (2.1-6.9); NEUTROPHILS % 63.5 % (38.7-80.0); PLATELET COUNT 218 x10e3/uL (140-360); RED BLOOD COUNT 4.03 x10e6/uL (4.3-5.7); RED CELL DISTRIBUTION WIDTH 15.1 % (11.7-14.4)
[2019-06-09 06:42] LABS: ANION GAP 13.2 mmol/L (8-16); BLOOD UREA NITROGEN 14 mg/dL (7-26); BUN/CREATININE RATIO 14 (6-25); CALCIUM 9.4 mg/dL (8.4-10.2); CARBON DIOXIDE 31 mmol/L (22-29); CHLORIDE 101 mmol/L (98-107); CREATININE, SERUM 1.01 mg/dL (0.72-1.25); EST GLOMERULAR FILTRATION RATE > 60 ML/MIN (60-); GLUCOSE 90 mg/dL (74-118); POTASSIUM 3.2 mmol/L (3.5-5.1); SODIUM 142 mmol/L (136-145)
--- NOTE | 2019-06-09 07:07 | Diagnostic Imaging Report ---
EXAMINATION: CHEST SINGLE (PORTABLE) COMPARISON: Chest x-ray 06/07/2019 INDICATION: ^wheezing and chf DISCUSSION: Frontal view of the chest obtained at 0618 hours. HEART AND MEDIASTINUM: Stable cardiomegaly and aortic tortuosity. LINES: None. LUNGS: Left upper lobe airspace opacity is increasing. Atelectasis in the right lung is similar. Pulmonary vascular markings are prominent and stable. PLEURA: Moderate right pleural effusion is similar. Small left pleural effusion. No pneumothorax BONES AND SOFT TISSUES: No focal osseous lesion. The soft tissues are normal. IMPRESSION: Increasing left upper lobe airspace opacities suggestive of edema or pneumonia. No change in pleural effusions. Signed by: Dr. Sara Murray MD on 06/09/2019 7:03 AM
--- NOTE | 2019-06-09 07:12 | NUR ---
Received patient lying in bed with eyes open. Respiration even and unlabored without SOB. Call light in reach.
[2019-06-09] MEDS ORDERED: POTASSIUM CHLORIDE 20MEQ/100ML 100 ML IV ONE (07:45)
[2019-06-09] MEDS ORDERED: SODIUM CHLORIDE 0.9% 250ML 250 ML ONE (08:09)
[2019-06-09] MEDS: FAMOTIDINE 20 MG/2 ML VIAL IV SCH ×2 (08:48→20:35)
[2019-06-09] MEDS: FUROSEMIDE INJ 10 MG/ML 4 ML VIAL IV SCH ×2 (08:48→20:34)
[2019-06-09] MEDS: LISINOPRIL 2.5 MG TAB PO SCH (09:00)
[2019-06-09] MEDS: CARVEDILOL 3.125 MG TAB PO SCH ×2 (09:00→17:23)
[2019-06-09] MEDS: ASPIRIN 81 MG ENTERIC COATED PO SCH (09:00)
[2019-06-09] MEDS ORDERED: HEPARIN SOD (PORCINE) 1000 UNIT/ML 30ML ONE (09:54)
[2019-06-09] MEDS ORDERED: FENTANYL CITRATE/PF 100MCG/2 ML INJ ONE (09:54)
[2019-06-09] MEDS ORDERED: VERAPAMIL HCL 2.5 MG/ML 2 ML VIAL ONE (09:54)
[2019-06-09] MEDS ORDERED: LIDOCAINE HCL 2% LOCAL 20 ML VIAL ONE (09:54)
[2019-06-09] MEDS ORDERED: MIDAZOLAM HCL 2 MG/2 ML VIAL ONE (09:54)
[2019-06-09] MEDS ORDERED: HEPARIN SOD/SOD CHLORIDE 2,000 ML ONE (09:55)
[2019-06-09] MEDS ORDERED: IOPAMIDOL 370 MG/ML 200 ML INFUS..BTL INJ ONE (09:55)
[2019-06-09] MEDS ORDERED: NITROGLYCERIN/D5W 200 MCG/ML 250 ML ONE (09:56)
[2019-06-09] MEDS ORDERED: SODIUM CHLORIDE 0.9% 1000ML 1,000 ML ONE (09:56)
--- NOTE | 2019-06-09 10:08 | NUR ---
Patient is transported to engineering laboratory technician at this time. Respiration even and unlabored without SOB.
[2019-06-09] MEDS ORDERED: CLOPIDOGREL BISULFATE 75 MG TAB ONE (12:00)
--- NOTE | 2019-06-09 12:05 | NUR ---
EDUCATED ABOUT IMM, SIGNED, FILED IN CHART, WITH COPY LEFT WITH FAMILY AT BEDSIDE.
--- NOTE | 2019-06-09 14:22 | NUR ---
Patient is back from heart cath. Able to palpate right pulse. No bleeding noted. Coban on right wrist intact and dry. Educated patient that no heavy lifting and cannot use the right hand for 2 days. Verbalized understanding. Family member at bedside.
--- NOTE | 2019-06-09 18:34 | Operative Report ---
DATE OF PROCEDURE: 06/09/2019 SURGEON: Power Olmos MD INDICATION FOR PROCEDURE: New diagnosis of heart failure. PREPROCEDURE ASSESSMENT: The risks, benefits, and alternatives of treatment were explained to the patient prior to the procedure and informed consent was obtained as documented in the medical record. The patient was deemed to be an appropriate candidate for moderate sedation. MEDICATIONS: Please see nursing notes for medications administered during the procedure. PROCEDURES PERFORMED: 1. Coronary angiography, right radial approach. 2. PCI to the mid LAD with drug-eluting stent x1. PROCEDURE DETAILS: The patient was brought to the cardiac catheterization laboratory in a fasting state. Right wrist was prepped and draped in a sterile fashion. Coronary angiography was performed using a JR4 and XB 3.0, 6-Chinese guiding catheter. Multiple orthogonal views were taken of each coronary artery. All catheters were removed and wire. Coronary angiography demonstrated a 90% lesion of the mid LAD. We decided to proceed with PCI after discussing this with the patient. For PCI of the mid LAD, the same XB 3.0 guiding catheter was used. Lesion was crossed using SimGym Runthrough 0.014-inch coronary wire. Direct stenting was performed using Resolute [place] 2.75 x 15 mm drug-eluting stent deployed at 13 atmospheres for 20 seconds. This resulted in excellent angiographic result without significant thrombus dissection or spasm. The patient tolerated the procedure well. There were no immediate complications. Access site was closed using the TR band. ACT near 300 was maintained using IV boluses of heparin. SIGNIFICANT FINDINGS: Left main, large caliber, no significant disease. LAD, large caliber, wraps around the apex. One large diagonal branch is a 90% lesion of the mid LAD right after the takeoff of the first diagonal branch and this is not a true bifurcation lesion. Left circumflex, very large dominant left circumflex with one large OM branch and distal PDA and PL branches. Luminal irregularities only. RCA, small nondominant RCA. There is about a 70% lesion in the mid RCA but very small 1 mm vessel. ESTIMATED BLOOD LOSS: 20 mL. GRAFTS AND IMPLANTS: Drug-eluting stent x1. SPECIMEN REMOVED: None. COMPLICATIONS: None. FINAL RECOMMENDATIONS: 1. TR band deflation after 90 minute. 2. Continue aspirin 81 mg daily for life and Plavix 75 mg daily for at least one year preferably longer. 3. Continue optimal medical therapy for heart failure. 4. Follow up in clinic 2 weeks post procedure. MD VEENA López/SAE /[id number]
--- NOTE | 2019-06-09 19:00 | NUR ---
received report from day nurse. patient is resting comfortably in bed. bed is in lowest position and call beltran is within reach. will continue to monitor patient.
--- NOTE | 2019-06-09 19:06 | NUR ---
Report given to second shift supervisor nurse. patient lying in bed with eyes open. Respiration even and unlabored without SOB. Call light in reach.
--- NOTE | 2019-06-09 23:49 | NUR ---
patient has repeatedly taken off laboratory monitor box. patient states its not necessary. paged. awaiting call back
[2019-06-10] VITALS: BP 104/56
--- NOTE | 2019-06-10 01:11 | Progress Note ---
DATE: 06/09/2019 Cardiology progress note. SUBJECTIVE: The patient denies chest pain or shortness of breath. Cardiac catheterization today with stent in the LAD. OBJECTIVE: VITAL SIGNS: Temperature 97.3 degrees, pulse 86, respiratory rate 17, blood pressure 120/62 and oxygen saturation 94% on room air. GENERAL: Elderly man, in no acute distress, awake and alert. LUNGS: Clear to auscultation bilaterally. No wheezes or crackles. CARDIOVASCULAR: Normal rate, regular rhythm. No murmur. Normal S1, S2. ABDOMEN: Soft and nontender. EXTREMITIES: No edema. CARDIAC MEDICATIONS: Furosemide 40 mg IV q.12 hours, carvedilol 3.125 mg p.o. b.i.d., lisinopril 5 mg p.o. daily, aspirin 81 mg p.o. daily, and Plavix 75 mg p.o. daily. LABORATORY DATA: WBC 7.2, hemoglobin 11, hematocrit 35.5, and platelets 218. Sodium 142, potassium 3.2, chloride 101, CO2 of 31, BUN 14, and creatinine 1.01. IMPRESSION: 1. Dfohb-ap-bukgoka systolic heart failure. 2. Hypertension. 3. Abnormal ECG. 4. Premature ventricular contractions. 5. Anemia. RECOMMENDATIONS: Echocardiogram showed severely reduced LVEF with moderate aortic regurgitation and mitral regurgitation. Coronary angiogram was performed with stent of the LAD. Continue optimal heart failure therapy. Continue IV diuretics. LifeVest on discharge. Thank you for this consult. We will continue to follow. Kiah Oquendo MD ABS/MODL /[id number]
[2019-06-10] MEDS: ALBUTEROL/IPRATROPIUM 3 ML NEB NEB SCH ×4 (03:25→15:00)
[2019-06-10 04:00] VITALS: BP 118/64
[2019-06-10 05:49] LABS: BASOPHILS % 0.6 % (0.0-1.0); EOSINOPHILS # (AUTO) 0.8 (0.0-0.4); EOSINOPHILS % 10.8 % (0.0-6.0); HEMATOCRIT 36.4 % (38.2-49.6); HEMOGLOBIN 11.4 g/dL (14.0-18.0); LYMPHOCYTES # (AUTO) 1.1 (1.0-3.2); LYMPHOCYTES % 16.1 % (18.0-39.1); MEAN CORPUSCULAR HEMOGLOBIN 27.5 pg (28-32); MEAN CORPUSCULAR HGB CONC 31.3 g/dL (31-35); MEAN CORPUSCULAR VOLUME 87.7 fL (81-99); MONOCYTES # (AUTO) 0.6 (0.2-0.8); MONOCYTES % 8.7 % (4.4-11.3); NEUTROPHILS # (AUTO) 4.5 (2.1-6.9); NEUTROPHILS % 63.4 % (38.7-80.0); PLATELET COUNT 216 x10e3/uL (140-360); RED BLOOD COUNT 4.15 x10e6/uL (4.3-5.7); RED CELL DISTRIBUTION WIDTH 15.1 % (11.7-14.4)
[2019-06-10 06:24] LABS: ALANINE AMINOTRANSFERASE 12 IU/L (0-55); ALBUMIN 3.4 g/dL (3.5-5.0); ALBUMIN/GLOBULIN RATIO 1.1 (0.8-2.0); ALKALINE PHOSPHATASE 82 IU/L (40-150); ANION GAP 12.2 mmol/L (8-16); BLOOD UREA NITROGEN 14 mg/dL (7-26); BUN/CREATININE RATIO 15 (6-25); CALCIUM 9.3 mg/dL (8.4-10.2); CARBON DIOXIDE 31 mmol/L (22-29); CHLORIDE 99 mmol/L (98-107); CREATININE, SERUM 0.91 mg/dL (0.72-1.25); EST GLOMERULAR FILTRATION RATE > 60 ML/MIN (60-); GLUCOSE 95 mg/dL (74-118); POTASSIUM 3.2 mmol/L (3.5-5.1); SODIUM 139 mmol/L (136-145)
--- NOTE | 2019-06-10 06:59 | NUR ---
report given to day nurse. patient is resting comfortably in bed, bed is in lowest position and call beltran is within reach
--- NOTE | 2019-06-10 07:10 | NUR ---
Received patient lying in bed, awake, alert, Respiration even and unlabored without SOB. call light in reach.
[2019-06-10 07:33] VITALS: BP 140/93
[2019-06-10 08:50] VITALS: BP 117/57
[2019-06-10] MEDS ORDERED: CLOPIDOGREL BISULFATE 75 MG TAB PO SCH (09:00)
[2019-06-10] MEDS: FAMOTIDINE 20 MG/2 ML VIAL IV SCH (09:11)
[2019-06-10] MEDS: ASPIRIN 81 MG ENTERIC COATED PO SCH (09:11)
[2019-06-10] MEDS: FUROSEMIDE INJ 10 MG/ML 4 ML VIAL IV SCH (09:11)
[2019-06-10] MEDS: LISINOPRIL 2.5 MG TAB PO SCH (09:12)
[2019-06-10] MEDS: CARVEDILOL 3.125 MG TAB PO SCH (09:12)
[2019-06-10 12:28] VITALS: BP 128/75
[2019-06-10] MEDS ORDERED: LISINOPRIL2.5 MG PO (15:20)
[2019-06-10] MEDS ORDERED: LASIX20 MG PO (15:20)
[2019-06-10] MEDS ORDERED: COREG3.125 MG PO (15:20)
--- NOTE | 2019-06-10 15:43 | NUR ---
Prescriptions called into [facility] pharmacy and spoke with pharmacist [phone]
[2019-06-10 16:00] VITALS: BP 107/56
--- NOTE | 2019-06-10 16:00 | NUR ---
Life vest teaching provided via the [employer] rep via omani.
[2019-06-10] MEDS ORDERED: PLAVIX75 MG PO (16:39)
--- NOTE | 2019-06-10 16:59 | NUR ---
Patient is to be discharge to home today. PIV to left AC discontinued, catheter tip intact, no bleeding. respiration even and unlabored without SOB. Transported via wheelchair to private vehicle with all belongings to the family members.
--- NOTE | 2019-06-11 01:08 | Progress Note ---
DATE: 06/10/2019 Cardiology Progress Note SUBJECTIVE: The patient denies chest pain or shortness of breath. OBJECTIVE: VITAL SIGNS: Temperature 97.6 degrees, pulse 82, respiratory rate 17, blood pressure 128/75, and oxygen saturation 99% on 2 L nasal cannula. GENERAL: Elderly man, in no acute distress, awake and alert. LUNGS: Clear to auscultation bilaterally. No wheezes or crackles. CARDIOVASCULAR: Normal rate and regular rhythm. No murmur. Normal S1, S2. ABDOMEN: Soft, nontender. EXTREMITIES: No edema. CARDIAC MEDICATIONS: Plavix 75 mg p.o. daily, lisinopril 5 mg p.o. daily, aspirin 81 mg p.o. daily, furosemide 40 mg IV q.12 hours. LABORATORY DATA: WBC 7.04, hemoglobin 11.4, hematocrit 36.4, platelets 216. Sodium 139, potassium 3.2, chloride 99, CO2 of 31, BUN 14, creatinine 0.91. IMPRESSION: 1. Cjjss-bj-bmbjswr systolic heart failure. 2. Coronary artery disease, status post left anterior descending percutaneous coronary intervention. 3. Abnormal electrocardiograms, premature ventricular contractions. 4. Hypertension. 5. Anemia. RECOMMENDATIONS: Echocardiogram showed severely reduced LVF with moderate aortic regurgitation and mitral regurgitation. Coronary angiogram was performed with PCI of the LAD. Continue optimal heart failure therapy. LifeVest has been ordered. He will need fitting prior to discharge. Thank you for this consult. We will continue to follow. Kiah Oquendo MD ABS/MODL /[id number]
--- NOTE | 2019-06-22 16:31 | Discharge Summary ---
DISCHARGE DIAGNOSES: 1. New onset systolic heart failure. 2. Coronary disease, status post stent. HISTORY OF PRESENT ILLNESS AND HOSPITAL COURSE: The patient is a gentleman, who presented with a month long history of shortness of breath, orthopnea, dyspnea on exertion, where he was found to have new onset of acute systolic heart failure. He was seen by Cardiology, who then performed ischemic workup where they did heart cath, was diagnosed and has some coronary artery disease, so they placed a stent. He had no complications. He felt much better afterwards with the medical treatment. Then, he had a LifeVest placed. On the LifeVest was placed, he was cleared by Cardiology to go home with medications and he will follow up with Cardiology in 1 to 2 weeks. Please see hospital chart for full details. MD SAMI Thompson/SAE /[id number]
== END 2019-06-10 16:59 | disposition home or self-care (01) | DRG 247 ==
LOC: ER 12:07 → ERHOLD 16:29 → MED/SURG 22:23 → OBSVTOIN 06-08 07:17
PROVIDERS: ADMIT Internal Medicine; ATTEND Internal Medicine
PROC: 027034Z Dilation of Coronary Artery, One Artery with Drug-eluting Intraluminal Device, Percutaneous Approach (ICD-10-PCS; principal; 2019-06-09)
PROC: B2111ZZ Fluoroscopy of Multiple Coronary Arteries using Low Osmolar Contrast (ICD-10-PCS; 2019-06-09)
DX: I11.0 Hypertensive heart disease with heart failure (principal); I50.23 Acute on chronic systolic (congestive) heart failure; I49.3 Ventricular premature depolarization; D64.9 Anemia, unspecified; I08.0 Rheumatic disorders of both mitral and aortic valves; R94.31 Abnormal electrocardiogram [ECG] [EKG]; I25.10 Atherosclerotic heart disease of native coronary artery without angina pectoris
CPT/HCPCS: 36415; 71045; 71046; 74177; 80048; 80053; 80061; 81001; 82150; 82550; 82553; 83690; 83880; 84484; 85025; 85610; 85730; 87086; 92928; 93005; 93306; 93454; 94640; 99284; C1769; C1874; C1887; G0378; J1644; J1940; J2001; J2250; J2405; J3010; J3480; J7030; J7050; Q9967

== ENCOUNTER 2019-08-31 21:47 | Inpatient (IN) | payer MEDICARE, OTHER ==
[~2019-08-31] VITALS: Ht 160 cm; Wt 60.3 kg
[~2019-08-31 21:47] MED LIST: COREG3.125 MG PO; LASIX20 MG PO; LISINOPRIL2.5 MG PO; PLAVIX75 MG PO
--- NOTE | 2019-08-31 21:57 | NUR ---
CLEAT LAYER IN ROOM SETTING UP BIPAP
[2019-08-31] MEDS ORDERED: FUROSEMIDE INJ 10 MG/ML 4 ML VIAL IV ONE (22:00)
[2019-08-31 22:13] LABS: BASOPHILS % 0.3 % (0.0-1.0); EOSINOPHILS # (AUTO) 0.4 (0.0-0.4); EOSINOPHILS % 6.5 % (0.0-6.0); HEMATOCRIT 37.6 % (38.2-49.6); HEMOGLOBIN 12.1 g/dL (14.0-18.0); LYMPHOCYTES # (AUTO) 1.1 (1.0-3.2); LYMPHOCYTES % 18.3 % (18.0-39.1); MEAN CORPUSCULAR HEMOGLOBIN 27.4 pg (28-32); MEAN CORPUSCULAR HGB CONC 32.2 g/dL (31-35); MEAN CORPUSCULAR VOLUME 85.3 fL (81-99); MONOCYTES # (AUTO) 0.5 (0.2-0.8); MONOCYTES % 9.2 % (4.4-11.3); NEUTROPHILS # (AUTO) 3.8 (2.1-6.9); NEUTROPHILS % 65.5 % (38.7-80.0); PLATELET COUNT 224 x10e3/uL (140-360); RED BLOOD COUNT 4.41 x10e6/uL (4.3-5.7); RED CELL DISTRIBUTION WIDTH 14.6 % (11.7-14.4)
[2019-08-31 22:30] LABS: ALANINE AMINOTRANSFERASE 23 IU/L (0-55); ALBUMIN 3.8 g/dL (3.5-5.0); ALBUMIN/GLOBULIN RATIO 1.2 (0.8-2.0); ALKALINE PHOSPHATASE 111 IU/L (40-150); ANION GAP 14.3 mmol/L (8-16); BLOOD UREA NITROGEN 10 mg/dL (7-26); BUN/CREATININE RATIO 10 (6-25); CALCIUM 9.4 mg/dL (8.4-10.2); CARBON DIOXIDE 21 mmol/L (22-29); CHLORIDE 108 mmol/L (98-107); CREATINE KINASE 83 IU/L (30-200); CREATININE, SERUM 0.97 mg/dL (0.72-1.25); EST GLOMERULAR FILTRATION RATE > 60 ML/MIN (60-); GLUCOSE 120 mg/dL (74-118); POTASSIUM 4.3 mmol/L (3.5-5.1); SODIUM 139 mmol/L (136-145)
--- NOTE | 2019-08-31 22:41 | Diagnostic Imaging Report ---
EXAMINATION: CHEST SINGLE (PORTABLE) INDICATION: Shortness of breath. COMPARISON: Chest radiograph 06/09/2019. FINDINGS: TUBES and LINES: None. LUNGS: Mild perihilar and interstitial opacities. Consolidative opacities in the right mid and lower lung. Patchy left basilar opacity. Moderate right and small left pleural effusion. HEART AND MEDIASTINUM: Moderate cardiomegaly. Atherosclerotic vascular calcifications. BONES AND SOFT TISSUES: No acute osseous abnormality. UPPER ABDOMEN: No free air under the diaphragm. IMPRESSION: Cardiomegaly with moderate pulmonary edema, asymmetric to the right. Moderate right and small left pleural effusions with associated opacities, which may represent atelectasis, alveolar edema, or pneumonia in the appropriate clinical setting. Follow-up chest radiograph in 6-8 weeks to assess resolution. Signed by: Dr. Emy Cabrera MD on 08/31/2019 10:38 PM
[2019-08-31] MEDS ORDERED: ALBUTEROL INH (23:07)
[2019-08-31] MEDS ORDERED: ASPIR 8181 MG PO (23:11)
[2019-08-31] MEDS ORDERED: ASPIRIN 81 MG CHEW TAB PO ONE (23:15)
--- NOTE | 2019-09-01 00:10 | NUR ---
pt c resp even and unlabored on bipap. pt changed to o2 4l via nc per md orders.
--- NOTE | 2019-09-01 00:46 | NUR ---
o2 sat remains 100% on o2 4l nc. pt resting quietly on stretcher. no distress noted. resp even and unlabored. md informed. o2 decreased to 2l via nc per md orders.
--- NOTE | 2019-09-01 02:20 | NUR ---
o2 sat 98-100% on o2 2l nc. o2 turned off per md request. pt o2 sat 94-97% on ra. pt resting quietly in bed. no distress noted.
[2019-09-01] MEDS ORDERED: FUROSEMIDE INJ 10 MG/ML 4 ML VIAL IV ONE (04:00)
[2019-09-01 06:21] LABS: CREATINE KINASE MB 2.3 ng/mL (0-5.0)
[2019-09-01] MEDS ORDERED: MORPHINE SULFATE 2 MG/ML SYR 1ML IV PRN (09:00)
[2019-09-01] MEDS ORDERED: ACETAMINOPHEN 325 MG TAB PO PRN (09:00)
[2019-09-01] MEDS ORDERED: HYDROCODONE/APAP 5MG-325MG TAB PO PRN (09:00)
[2019-09-01] MEDS ORDERED: ONDANSETRON HCL INJ 2MG/ML 2ML 2 MG/ML VIAL IV PRN (09:00)
--- NOTE | 2019-09-01 09:17 | NUR ---
dr hensley at pt bedside
[2019-09-01] MEDS: CARVEDILOL 3.125 MG TAB PO SCH ×2 (09:18→18:38)
[2019-09-01] MEDS: LISINOPRIL 2.5 MG TAB PO SCH (09:18)
[2019-09-01] MEDS: ASPIRIN 81 MG CHEW TAB PO SCH (09:32)
[2019-09-01] MEDS: CLOPIDOGREL BISULFATE 75 MG TAB PO SCH (09:32)
[2019-09-01] MEDS: FUROSEMIDE INJ 10 MG/ML 4 ML VIAL IV SCH ×3 (09:32→22:49)
--- NOTE | 2019-09-01 12:52 | NUR ---
Received patient via stretcher from ER. Accompanied by . AAOX4 to time, person, place, situation. Kazakh speaking. Respirations even and unlabored. O2 2L NC. Denies sob. Oriented patient and to room. Instructed to use call light for assistance. Voiced understanding.
[2019-09-01 13:15] VITALS: BP 118/57
[2019-09-01 13:30] VITALS: BP 118/57
[2019-09-01] MEDS ORDERED: INFLUENZA VIRUS VAC SPLIT INJ 0.5 ML SYR IM SCH (13:59)
[2019-09-01 15:05] LABS: CREATINE KINASE MB 2.2 ng/mL (0-5.0)
[2019-09-01 16:00] VITALS: BP 106/56
--- NOTE | 2019-09-01 17:30 | History and Physical ---
CHIEF COMPLAINT: Shortness of breath. HISTORY OF PRESENT ILLNESS: This is a 79-year-old male, very poor historian, history of questionable heart failure, hypertension, comes into the ED with complaints of shortness of breath ongoing for the last several weeks. The patient reports, he takes some diuretics at home, but it has not helped him at all. He also reports he does not follow up with a food service specialist as an outpatient. Reports having some orthopnea, dyspnea on exertion. Denies any chest pain on examination. No recent cough, congestion, or any fever. The patient was seen and evaluated in the emergency room. He is currently doing well after given diuretics. He is on nasal cannula. Vital signs stable during my evaluation. REVIEW OF SYSTEMS: Pertinent positive: Shortness of breath, orthopnea, dyspnea on exertion. Pertinent negatives: Denies any chest pain, palpitation, nausea, vomiting, diarrhea, dysuria, hematuria, frequency, urgency, lightheadedness, dizziness, abdominal pain, headaches, cough, congestion, fever, or any other complaints. The rest of 14-point review of systems are reviewed with the patient and are negative. ALLERGIES: NO KNOWN DRUG ALLERGIES. HOME MEDICATIONS: He takes Lasix 20 mg p.o. b.i.d., aspirin 81 mg daily, Coreg 3.125 p.o. b.i.d., Plavix 75 mg daily, lisinopril 2.5 mg daily. PAST MEDICAL HISTORY: He has a history of heart failure, unknown dysfunction, hypertension. PAST SURGICAL HISTORY: Reports none. FAMILY HISTORY: Hypertension, diabetes. SOCIAL HISTORY: No drugs. No alcohol. Does not smoke. Good social support. PHYSICAL EXAMINATION: VITAL SIGNS: Temperature is 97.7, pulse 77, respiratory rate is 18, blood pressure 125/61, pulse ox 99% on 2 L nasal cannula. GENERAL: Not in acute distress. Alert and oriented x3. Cooperative on examination. HEENT: Head; normocephalic, atraumatic. Eyes; pupils are equal, round, and reactive to light bilaterally. Extraocular movements are intact bilaterally. Throat; no evidence of erythema or exudates in the posterior pharynx. Has poor dentition. NECK: Supple. Good range of motion. PULMONARY: He has decreased breath sounds in bilateral lower bases. Positive rales. No crackles. No wheezing. CARDIOVASCULAR: Positive S1 and S2. No murmurs, rubs, or gallops appreciated. ABDOMEN: Soft, nondistended, and nontender to palpation. Bowel sounds present. MUSCULOSKELETAL: Strength is 5/5 throughout. No evidence of any muscle deficits on examination. No weakness appreciated. NEUROLOGIC: Cranial nerve 2 through 12 grossly intact. No evidence of any neurological deficits on exam. SKIN: Intact. Warm to touch. Good cap refill. PSYCHIATRIC: Normal affect and mood. EXTREMITIES: He does have 1 to 2+ pedal edema in bilateral lower extremities. LABORATORY FINDINGS: Show white count 5.8, hemoglobin 12, hematocrit 37, platelets of 224. Chemistry; sodium 139, potassium 4.3, chloride 108, bicarb 21, anion gap of 14, BUN is 10, creatinine 0.97, calcium 9.4. LFTs were normal. Troponins were all negative x2. Albumin is 3.8. BNP 1700. MICROBIOLOGY: None. IMAGING STUDIES: Chest x-ray showed cardiomegaly with moderate pulmonary edema, asymmetric to the right. Moderate right and small left pleural effusion associated opacity, which may represent atelectasis, alveolar edema, or pneumonia in appropriate clinical setting. IMPRESSION: 1. Acute exacerbation of congestive heart failure, unknown dysfunction at this time. 2. Hypertension. 3. Pulmonary edema secondary likely to congestive heart failure. PLAN: At this time, continue with Lasix 40 mg IV q.8h x3 doses. Replace potassium accordingly. Get a.m. labs including lipid panel, TSH, A1c, CBC and chemistry. A 2D echo has been ordered. Cardiology has been consulted. Resume same antihypertensive medications at this time. We will also get PT and OT evaluation. Lovenox for DVT prophylaxis. Await Cardiology evaluation for further management. We will also get a chest x-ray in the morning. MD ARTURO Mccall/SAE /[id number]
--- NOTE | 2019-09-01 17:30 | NUR ---
patient c/o constant chest pain 11/10. Per payroll technician EJ<25%. BP P68. Dr.Jeroudi Cecil nguyen. States "I am heading to the hospital to see him"
[2019-09-01] MEDS: ENOXAPARIN SOD INJ 40 MG/0.4 ML SYR SC SCH (18:39)
--- NOTE | 2019-09-01 19:10 | NUR ---
Report given to oncoming nurse of patient's status. Resting in bed. AAOX4 to time, person, place, situation. Respirations even and unlabored. O2 2L NC. Side rails upx2, call light within reach. at bedside.
[2019-09-01 20:00] VITALS: BP 99/59
[2019-09-01 23:10] LABS: CREATINE KINASE MB 2.4 ng/mL (0-5.0)
[2019-09-02] VITALS (8 sets, daily range): BP systolic 101–121; BP diastolic 58–68
[2019-09-02 05:34] LABS: BASOPHILS % 0.6 % (0.0-1.0); EOSINOPHILS # (AUTO) 0.7 (0.0-0.4); EOSINOPHILS % 9.8 % (0.0-6.0); HEMATOCRIT 39.3 % (38.2-49.6); HEMOGLOBIN 12.5 g/dL (14.0-18.0); LYMPHOCYTES # (AUTO) 0.9 (1.0-3.2); LYMPHOCYTES % 13.2 % (18.0-39.1); MEAN CORPUSCULAR HEMOGLOBIN 27.4 pg (28-32); MEAN CORPUSCULAR HGB CONC 31.8 g/dL (31-35); MONOCYTES # (AUTO) 0.6 (0.2-0.8); MONOCYTES % 9.2 % (4.4-11.3); NEUTROPHILS # (AUTO) 4.6 (2.1-6.9); NEUTROPHILS % 67.1 % (38.7-80.0); PLATELET COUNT 250 x10e3/uL (140-360); RED BLOOD COUNT 4.57 x10e6/uL (4.3-5.7); RED CELL DISTRIBUTION WIDTH 14.4 % (11.7-14.4)
[2019-09-02 05:57] LABS: ANION GAP 13.5 mmol/L (8-16); BLOOD UREA NITROGEN 12 mg/dL (7-26); BUN/CREATININE RATIO 11 (6-25); CALCIUM 9.6 mg/dL (8.4-10.2); CARBON DIOXIDE 28 mmol/L (22-29); CHLORIDE 100 mmol/L (98-107); CHOL/HDL RATIO 3.9 (3.9-4.7); CHOLESTEROL 120 MD/DL (0-199); CREATININE, SERUM 1.09 mg/dL (0.72-1.25); EST GLOMERULAR FILTRATION RATE > 60 ML/MIN (60-); GLUCOSE 95 mg/dL (74-118); HDL CHOLESTEROL 31 MG/DL (40-60); LDL CHOLESTEROL 76 MG/DL (60-130); POTASSIUM 3.5 mmol/L (3.5-5.1); SODIUM 138 mmol/L (136-145); TRIGLYCERIDES 64 MG/DL (0-149)
--- NOTE | 2019-09-02 06:32 | Diagnostic Imaging Report ---
EXAMINATION: CHEST SINGLE (PORTABLE) INDICATION: ^PULM EDEMA ^[id number] ^0500 COMPARISON: 08/31/2019 FINDINGS: AP view TUBES and LINES: None. LUNGS: Lungs are well inflated. Pulmonary vascular congestion and mild additional edema. PLEURA: No pneumothorax. Moderate right and small left pleural effusions. HEART AND MEDIASTINUM: The cardiac silhouette is enlarged. BONES AND SOFT TISSUES: No acute osseous lesion. Soft tissues are unremarkable. UPPER ABDOMEN: No free air under the diaphragm. IMPRESSION: Enlarged cardiac silhouette, pulmonary vascular congestion, and mild interstitial edema. Moderate right and small left pleural effusions, unchanged. Signed by: Dr. Andrade Falcon MD on 09/02/2019 6:28 AM
[2019-09-02] MEDS: CLOPIDOGREL BISULFATE 75 MG TAB PO SCH (08:00)
[2019-09-02] MEDS: LISINOPRIL 2.5 MG TAB PO SCH (08:00)
[2019-09-02] MEDS: CARVEDILOL 3.125 MG TAB PO SCH ×2 (08:00→16:25)
[2019-09-02] MEDS: ASPIRIN 81 MG CHEW TAB PO SCH (08:00)
[2019-09-02] MEDS ORDERED: POTASSIUM CHLORIDE 20 MEQ TAB CR PO ONE (09:50)
[2019-09-02] MEDS: FUROSEMIDE INJ 100 MG in SODIUM CHLORIDE 0.9% 100 ML 90 ML IV SCH ×2 (10:20→20:55)
--- NOTE | 2019-09-02 11:39 | Progress Note ---
DATE: 09/02/2019 Medicine Progress Note SUBJECTIVE: The patient is doing much better, but still very short of breath, still requiring oxygen. He still has orthopnea on examination. We will start him on a Lasix drip. PHYSICAL EXAMINATION: VITAL SIGNS: Temperature is 97.6, pulse 86, respiratory rate is 20, blood pressure 113/68, pulse ox 98% on 2 L of nasal cannula. GENERAL: Not in acute distress. Alert and oriented x3. Cooperative on examination. HEENT: Head; normocephalic, atraumatic. Eyes; pupils are equal, round, and reactive to light bilaterally. Extraocular movements are intact bilaterally. Throat; no evidence of erythema or exudates in the posterior pharynx. Has poor dentition. NECK: Supple. Good range of motion. PULMONARY: Clear to auscultation bilaterally. No wheezing or rhonchi. No crackles appreciated. He has positive rales in the bilateral lower bases of his lungs. CARDIOVASCULAR: Positive S1 and S2. No murmurs, rubs, or gallops appreciated. ABDOMEN: Soft, nondistended, and nontender to palpation. Bowel sounds present. MUSCULOSKELETAL: Strength is 5/5 throughout. No evidence of any muscle deficits on examination. No weakness appreciated. NEUROLOGIC: Cranial nerve 2 through 12 grossly intact. No evidence of any neurological deficits on exam. SKIN: Intact. Warm to touch. Good cap refill. PSYCHIATRIC: Normal affect and mood. EXTREMITIES: He has maybe 1+ pedal edema in bilateral lower extremities. LABORATORY FINDINGS: Show CBC stable. Chemistry; creatinine is stable at 1, potassium is 3.5. The rest of electrolytes are stable. LDL was 76. Hemoglobin A1c was 5.8. MICROBIOLOGY: None. IMAGING STUDIES: Chest x-ray still shows evidence of pulmonary edema with moderate right-sided effusion. IMPRESSION: 1. Acute exacerbation of congestive heart failure with systolic dysfunction. 2. Hypertension. 3. Pulmonary edema secondary to acute exacerbation of congestive heart failure. PLAN: At this time, he still has pulmonary edema seen on chest x-ray. We will go ahead and put him on a Lasix drip at 10 mg/hour. Replace potassium. Get a.m. labs. Monitor electrolytes closely. His blood pressure is stable. Continue with same antihypertensive medications. Get PT, OT evaluation. Lovenox for DVT prophylaxis. Cardiology following very closely. Get a.m. chest x-ray. If there is still evidence of pulmonary edema, we will go ahead and get a Pulmonary consultation for thoracentesis. I discussed the plan of care with the patient and nursing staff. MD ARTURO Mccall/SAE /[id number]
[2019-09-02] MEDS: ENOXAPARIN SOD INJ 40 MG/0.4 ML SYR SC SCH (16:25)
--- NOTE | 2019-09-02 19:08 | NUR ---
WALKING ROUNDS PERFORMED, RECEIVED PT LAYING SEMI FOWLERS IN BED, AAOX3, RR EVEN AND NON-LABORED, ON ROOM AIR. NO S/SX OF DISTRESS NOTED. LEFT PT LAYING SEMI FOWLERS IN BED, BED IN LOW LOCKED POSITION, SIDE RAILS UPX2, CALL LIGHT AND PHONE WITHIN REACH.
--- NOTE | 2019-09-02 19:14 | NUR ---
Report given to oncoming nurse of patients status. Resting in bed. No s/s of acute distress noted. Neighbor at bedside. Side rails upx2, call light within reach.
--- NOTE | 2019-09-02 23:54 | Consultation ---
DATE OF CONSULTATION: Cardiology Consultation REASON FOR CONSULTATION: Heart failure. HISTORY OF PRESENT ILLNESS: This is a 79-year-old man, who has a history of chronic systolic congestive heart failure, coronary artery disease, status post percutaneous coronary intervention of the left anterior descending coronary, hypertension, hyperlipidemia, who presented to the emergency department with shortness of breath. The patient states that his symptoms have been progressively worsening over the last couple of days to a week, moderate to severe in intensity, associated with some orthopnea, no associated chest discomfort or pressure, symptoms are worse with exertion, however, do occur at rest as well. The patient has not followed up with any greensman. He was discharged on LifeVest, however, sent the LifeVest back after a few weeks wearing it. The patient is a very poor historian and cannot report his cardiac medications. REVIEW OF SYSTEMS: A 12-point review of system was conducted, is negative except as stated above in the HPI. PAST MEDICAL HISTORY: As stated above in the HPI. PAST SURGICAL HISTORY: Percutaneous coronary intervention. PAST FAMILY HISTORY: Noncontributory. ALLERGIES: NO KNOWN DRUG ALLERGIES. MEDICATIONS: See medication reconciliation form. SOCIAL HISTORY: No illicit drug, alcohol, or tobacco use. The patient does report to significant salt intake. PHYSICAL EXAMINATION: VITAL SIGNS: Temperature is 96.7, heart rate is 72, respirations are 18, blood pressure is 113/68, and oxygen saturation 98% on 2 L nasal cannula. GENERAL: Well appearing, in no apparent distress. Alert and oriented x3. HEAD: Normocephalic, atraumatic. EYES: Extraocular muscles are intact. Conjunctivae clear. NECK: No JVD. No bruits. CARDIOVASCULAR: He has regular rate and rhythm. Murmur at the left sternal border. LUNGS: Diminished breath sounds at bases. ABDOMEN: Soft, nontender, and nondistended. EXTREMITIES: No clubbing or cyanosis, with trace edema. VASCULAR: Diminished pulses. NEUROLOGIC: No focal deficits noted. LABORATORY DATA: Reviewed. Hemoglobin 12.5. Troponin values are negative x3. Creatinine is 1.09. Chest x-ray shows a large cardiac silhouette, pulmonary vascular congestion with an interstitial edema with a moderate right and small left pleural effusions. IMPRESSION: 1. Sugbh-hg-jbgueae systolic congestive heart failure. 2. Dietary noncompliance. 3. Coronary artery disease status post percutaneous coronary intervention. 4. Hypertension. RECOMMENDATIONS: Continue Lasix drip for adequate diuresis. Continue to monitor his daily creatinine, electrolyte levels and ins and outs. Continue aspirin, statin, and clopidogrel for his coronary artery disease. He will be continued on carvedilol and lisinopril for his optimal medical therapy for his heart failure as well. Ralph Wild DO BM/MODL /[id number]
[2019-09-03] VITALS (8 sets, daily range): BP systolic 105–121; BP diastolic 51–62
[2019-09-03 05:49] LABS: BASOPHILS % 0.7 % (0.0-1.0); EOSINOPHILS # (AUTO) 0.7 (0.0-0.4); EOSINOPHILS % 12.6 % (0.0-6.0); HEMATOCRIT 39.8 % (38.2-49.6); LYMPHOCYTES # (AUTO) 1.1 (1.0-3.2); MEAN CORPUSCULAR HEMOGLOBIN 27.6 pg (28-32); MEAN CORPUSCULAR HGB CONC 32.7 g/dL (31-35); MEAN CORPUSCULAR VOLUME 84.5 fL (81-99); MONOCYTES # (AUTO) 0.6 (0.2-0.8); MONOCYTES % 11.3 % (4.4-11.3); NEUTROPHILS % 55.2 % (38.7-80.0); PLATELET COUNT 273 x10e3/uL (140-360); RED BLOOD COUNT 4.71 x10e6/uL (4.3-5.7); RED CELL DISTRIBUTION WIDTH 14.2 % (11.7-14.4)
[2019-09-03 06:19] LABS: ANION GAP 15.4 mmol/L (8-16); BLOOD UREA NITROGEN 15 mg/dL (7-26); BUN/CREATININE RATIO 15 (6-25); CALCIUM 9.1 mg/dL (8.4-10.2); CARBON DIOXIDE 27 mmol/L (22-29); CHLORIDE 101 mmol/L (98-107); CREATININE, SERUM 0.97 mg/dL (0.72-1.25); EST GLOMERULAR FILTRATION RATE > 60 ML/MIN (60-); GLUCOSE 94 mg/dL (74-118); POTASSIUM 3.4 mmol/L (3.5-5.1); SODIUM 140 mmol/L (136-145)
[2019-09-03] MEDS: FUROSEMIDE INJ 100 MG in SODIUM CHLORIDE 0.9% 100 ML 90 ML IV SCH ×2 (07:46→18:53)
[2019-09-03] MEDS: CLOPIDOGREL BISULFATE 75 MG TAB PO SCH (08:30)
[2019-09-03] MEDS: ASPIRIN 81 MG CHEW TAB PO SCH (08:30)
[2019-09-03] MEDS: LISINOPRIL 2.5 MG TAB PO SCH (09:00)
[2019-09-03] MEDS: CARVEDILOL 3.125 MG TAB PO SCH ×2 (09:00→17:15)
--- NOTE | 2019-09-03 09:25 | Diagnostic Imaging Report ---
Chest, 1 view, 09/03/2019. History: CHF. Comparison: 09/02/2019. Findings: The cardiomediastinal silhouette and pulmonary vasculature are prominent. There is hazy right basilar opacity with blunting of the right costophrenic sulcus. Linear opacities are present at the left lung base with minimal blunting of the left costophrenic sulcus. There are no acute osseous or soft tissue abnormalities. Impression: Mild CHF with bibasilar atelectasis and pleural effusions, right greater than left. No significant change. Signed by: Ion Hilario on 09/03/2019 9:21 AM
[2019-09-03] MEDS ORDERED: POTASSIUM CHLORIDE 20 MEQ TAB CR PO ONE (13:30)
[2019-09-03 15:11] LABS: INR 1.1; PROTHROMBIN TIME 14.7 seconds (11.9-14.5)
[2019-09-03 15:12] LABS: PARTIAL THROMBOPLASTIN TIME 30.9 seconds (23.8-35.5)
--- NOTE | 2019-09-03 16:40 | Progress Note ---
DATE: 09/03/2019 Medicine Progress Note SUBJECTIVE: The patient is doing much better today. Still short of breath. We are going to do thoracentesis today, but he is on Plavix and it will be now be deferred to a later date. PHYSICAL EXAMINATION: VITAL SIGNS: Temperature 96.1, pulse 69, respiratory rate is 18, blood pressure 116/57, pulse ox 97% on room air. GENERAL: Not in acute distress. Alert and oriented x3. Cooperative on examination. HEENT: Head; normocephalic, atraumatic. Eyes; pupils are equal, round, and reactive to light bilaterally. PULMONARY: Clear to auscultation bilaterally. No wheezing, no rales, no rhonchi, no crackles appreciated. CARDIOVASCULAR: Positive S1 and S2. No murmurs, rubs, or gallops appreciated. ABDOMEN: Soft, nondistended, and nontender to palpation. Bowel sounds present. MUSCULOSKELETAL: Strength is 5/5 throughout. No evidence of any muscle deficits on examination. No weakness appreciated. NEUROLOGIC: Cranial nerves 2 through 12 grossly intact. No evidence of any neurological deficits on exam. SKIN: Intact. Warm to touch. Good cap refill. PSYCHIATRIC: Normal affect and mood. EXTREMITIES: No edema. Good range of motion throughout. LABORATORY DATA: Show chemistry within normal limits except for potassium low, which will be replaced. CBC stable. MICROBIOLOGY: None. IMPRESSION: 1. Acute exacerbation of congestive heart failure with systolic dysfunction. 2. Hypertension. 3. Pulmonary edema secondary to acute exacerbation of congestive heart failure. PLAN: At this time, the patient continues to be on nasal cannula, but not very short of breath. He still shows some pulmonary edema on chest x-ray. We will continue with Lasix drip at 10 mg/hour. The plan was for us to do a thoracentesis, but he is currently on Plavix and Radiology refuses to do a thoracentesis. I will go ahead and get Pulmonary consultation. Cardiology is following closely. Potassium has been replaced. Get PT, OT evaluation. Lovenox for DVT prophylaxis. Get a.m. labs. Continue same plan of care. Discussed with nursing staff and patient. MD ARTURO Mccall/MODL /[id number]
--- NOTE | 2019-09-03 16:42 | Diagnostic Imaging Report ---
Ultrasound-guided thoracentesis. Clinical History: Right pleural effusion. Informed consent was obtained from the patient and the risks of the procedure were explained including bleeding, infection, pneumothorax and visceral injury. Sedation: 1% Xylocaine was used as local sedation. Conscious sedation protocol was not utilized as no systemic analgesia was administered. Technique: Using sterile technique, ultrasound guidance and 4 Yi coaxial needle, the tip of the needle was inserted into the right pleural space. The needle was removed and the outer catheter was connected to plastic tubing. The tubing then was connected to a Vacutainer bottle. The procedure yielded 200 cc of pericardial fluid. The catheter was removed. No immediate complications developed. Estimated blood loss: Less than 1 cc. Patient disposition: The patient was asymptomatic at the end of the exam. A followup chest x-ray will be performed while the patient is in the department to ensure that no pneumothorax developed. Impression: Successful right sided thoracentesis. Signed by: Ion Hilario on 09/03/2019 4:39 PM
--- NOTE | 2019-09-03 16:43 | Diagnostic Imaging Report ---
Chest, 1 view, 09/03/2019. History: Post right thoracentesis. Comparison: X-ray from earlier this morning. Findings: The cardiomediastinal silhouette and pulmonary vasculature are within normal limits for a portable exam. There is decreased right basilar opacity and effusion. There is no evidence of pneumothorax. There are no acute osseous or soft tissue abnormalities. Impression: No evidence of complication post right thoracentesis. Signed by: Ion Hilario on 09/03/2019 4:40 PM
[2019-09-03] MEDS: ENOXAPARIN SOD INJ 40 MG/0.4 ML SYR SC SCH (17:15)
--- NOTE | 2019-09-03 18:40 | NUR ---
Nutrition Screen Note RD Recommendation for Physician: -Continue cardiac diet Plan of Care: RD following, monitoring for tolerance and adequacy Nutrition reason for involvement: MST Primary Diagnose(s): CHF PMH: heart failure, HTN Ht: 63 in Wt: 134 lb BMI: 23.7 kg/m2 IBW:[address] Assessment: (09/03/19) Chart reviewed. Labs and meds reviewed. Pt is a 79 year old male admitted with CHF. Attempted to speak to pt, but there was a language barrier; therefore, information was obtained from chart. Per documentation, pt has been consuming 100% of his meals during admission. Per wt history, pt weighed 140-144 lbs in June 2019. Pt has weights ranging from 134-137 lbs in chart during this admission. Will continue to monitor. Current Diet: cardiac diet Malnutrition Evaluation (09/03/19) The patient does not meet criteria for a specified degree of malnutrition at this time. Will re-evaluate at follow-up as appropriate. Diet Education Needs Assessment: RD is available for diet education as needed. Nutrition Care Level: low Signed: Zoila Tomas, ANAND, LD
--- NOTE | 2019-09-03 22:00 | NUR ---
Checked with lab about the pleural fluid investigation.no specimen in the lab for cytology study right now.Dr.Nassif Ma put the order for lab study after the procedure.lab charge informed to Md Vaughn.
[2019-09-04 00:49] VITALS: BP 115/58
--- NOTE | 2019-09-04 02:28 | Consultation ---
DATE OF CONSULTATION: 09/03/2019 Pulmonary Medicine Consult REASON FOR REFERRAL: Pleural effusion. HISTORY OF PRESENT ILLNESS: Mr. Pineda is a pleasant 79-year-old gentleman with pleural effusion. The patient presented to [facility] on August 31, 2019. The patient has an unclear history of heart failure, possibly up to a year in time. The patient denies any heart attacks in the past. He was recently having some orthopnea and dyspnea on exertion. When he came to the emergency room, BNP was 1700. Albumin 3.8. Creatinine 0.97. Chest x-ray demonstrated cardiomegaly with moderate pulmonary edema, right-sided moderate pleural effusion and left-sided small effusion. The patient was getting initial diuretics with Lasix. Today, he went for ultrasound-guided thoracentesis and 200 mL was removed from right side. PAST MEDICAL HISTORY: CHF with LVEF less than 20%, moderate aortic regurgitation, mild to moderate mitral regurgitation, hypertension. MEDICATIONS: Medication list reviewed per the chart record. ALLERGIES: NO KNOWN DRUG ALLERGIES. SOCIAL HISTORY: No smoking. No drinking. No drugs. He lived in [facility] [place] until age 43, [place] The patient moved to [facility] in 1982. 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 FAMILY HISTORY: Noncontributory. REVIEW OF SYSTEMS: GENERAL: No weight changes. OPHTHALMOLOGIC: No floaters. ENT: No mouth ulcers. ENDOCRINE: No known thyroid disease. PULMONARY: No hemoptysis. CARDIAC: No prior stents. GI: No constipation. : No blood in urine. DERMATOLOGIC: No rashes. NEUROLOGIC: No seizures. PSYCHIATRIC: No depression. MUSCULOSKELETAL: Mild arthritis only. OBJECTIVE: VITAL SIGNS: Afebrile, vital signs noted and reviewed per the chart record. GENERAL: In no acute distress, alert, calm, talkative in bed. HEENT: Normocephalic, atraumatic. NECK: Supple. Throat midline. LUNGS: Bilateral air entry with mildly decreased breath sounds at bases, rare rales. CARDIOVASCULAR: S1, S2. No murmurs, rubs, or gallops. ABDOMEN: Soft, nontender. EXTREMITIES: No clubbing. No cyanosis. There is only a trace edema mostly without edema. INTEGUMENT: With no rash, no purpura. LABORATORY DATA: Potassium 3.4, BUN 15, creatinine 0.97. White count 6, hematocrit 39.8, platelets 270. Alkaline phosphatase 111, LFTs otherwise unremarkable. IMPRESSION AND PLAN: 1. Thoracentesis, postoperative. 2. Pleural effusion, possibly due to congestive heart failure. 3. Tzctj-qn-swqsqmt systolic cardiomyopathy, less than 20% LVEF, moderate AR/phyj-iv-rqzqmtzj MR. 4. Hypertension. 5. Pulmonary edema, improved. I agree with Lasix. Pleural fluid analysis was tested on fluid. Discuss with lab. Recommend to optimize cardiac medications given likely this is cardiac related pleural effusion. Supplemental oxygen as needed. Recommend outpatient sleep study due to extensive cardiomyopathy and this sleep study should be in the laboratory. Repeat chest x-ray tomorrow to ensure appropriate improvement. Thank you very much, Dr. Calero for this consult. Please call for questions. MD SHADY Blankenship/SAE /[id number]
[2019-09-04] MEDS: FUROSEMIDE INJ 100 MG in SODIUM CHLORIDE 0.9% 100 ML 90 ML IV SCH ×2 (05:21→12:15)
[2019-09-04 06:07] LABS: BASOPHILS % 0.7 % (0.0-1.0); EOSINOPHILS # (AUTO) 0.6 (0.0-0.4); HEMOGLOBIN 13.4 g/dL (14.0-18.0); LYMPHOCYTES # (AUTO) 1.1 (1.0-3.2); LYMPHOCYTES % 18.3 % (18.0-39.1); MEAN CORPUSCULAR HEMOGLOBIN 27.3 pg (28-32); MEAN CORPUSCULAR HGB CONC 32.7 g/dL (31-35); MEAN CORPUSCULAR VOLUME 83.7 fL (81-99); MONOCYTES # (AUTO) 0.6 (0.2-0.8); MONOCYTES % 10.7 % (4.4-11.3); NEUTROPHILS # (AUTO) 3.6 (2.1-6.9); NEUTROPHILS % 60.1 % (38.7-80.0); PLATELET COUNT 274 x10e3/uL (140-360)
[2019-09-04 06:25] LABS: ANION GAP 15.3 mmol/L (8-16); BLOOD UREA NITROGEN 14 mg/dL (7-26); BUN/CREATININE RATIO 15 (6-25); CALCIUM 9.3 mg/dL (8.4-10.2); CARBON DIOXIDE 28 mmol/L (22-29); CHLORIDE 99 mmol/L (98-107); CREATININE, SERUM 0.95 mg/dL (0.72-1.25); EST GLOMERULAR FILTRATION RATE > 60 ML/MIN (60-); GLUCOSE 93 mg/dL (74-118); POTASSIUM 3.3 mmol/L (3.5-5.1); SODIUM 139 mmol/L (136-145)
--- NOTE | 2019-09-04 07:01 | NUR ---
Bed side shift report given to the oncoming Rn.stable condition.
[2019-09-04 08:00] VITALS: BP 113/61
[2019-09-04 08:05] VITALS: BP 113/61
[2019-09-04] MEDS: ASPIRIN 81 MG CHEW TAB PO SCH (08:08)
[2019-09-04] MEDS: CARVEDILOL 3.125 MG TAB PO SCH (08:08)
[2019-09-04] MEDS: LISINOPRIL 2.5 MG TAB PO SCH (08:08)
--- NOTE | 2019-09-04 08:20 | Diagnostic Imaging Report ---
Chest, portable AP view History: CHF Comparison: 09/03/2019 IMPRESSION: The cardiac silhouette is stably enlarged. The aorta has a tortuous appearance. There are unchanged small bilateral pleural effusions, right greater than left. Bibasilar atelectasis is present. No definite focal consolidation. No pneumothorax. Signed by: Aime Mathur MD on 09/04/2019 8:16 AM
--- NOTE | 2019-09-04 11:27 | NUR ---
Pulmonary Medicine DATE 09/04/2019 SUBJECTIVE: BETTER symptoms sitting up independent on mobilizing fluid not present for analysis of effusion CXR right effusion stable REVIEW OF SYSTEMS: no headaches, no rash OBJECTIVE: VITAL SIGNS: vital signs noted and reviewed per the chart record. GENERAL: In no acute distress, alert, calm, talkative in bed. HEENT: Normocephalic, atraumatic. NECK: Supple. Throat midline. LUNGS: mildly decreased breath sounds at bases, rare rales. CARDIOVASCULAR: S1, S2. No murmurs, rubs, or gallops. ABDOMEN: Soft, nontender. EXTREMITIES: No clubbing. No cyanosis. trace edema INTEGUMENT: With no rash, no purpura. LABORATORY DATA: k 3.3, cr 0.95. 6 wbc, hct 41. IMPRESSION AND PLAN: 1. s/p thoracentesis 2. Pleural effusion, possibly due to congestive heart failure. 3. Knuwq-qv-difqqku systolic cardiomyopathy, < 20% LVEF, moderate AR/hesd-jm-zqelvrtn MR. 4. Hypertension. 5. Pulmonary edema, improved. Continue diuretics Close follow up of CXR Consider repeat pleural fluid analysis in the future Cardiac medications optimize per cardiology outpatient sleep study in-lab due to extensive cardiomyopathy Thank you very much, Dr. Calero for this consult. Please call for questions.
[2019-09-04] MEDS ORDERED: POTASSIUM CHLORIDE 20 MEQ TAB CR PO NR (11:30)
--- NOTE | 2019-09-04 11:45 | NUR ---
patient alert and oriented with at bedside. discharge instructions given at this time, patient verbalized understanding. Taxi cab voucher provided for patient transport home. IV discontinued, catheter in tact and small dressing applied.
[2019-09-04 12:14] VITALS: BP 112/65
--- NOTE | 2019-09-05 11:00 | Discharge Summary ---
FINAL DISCHARGE DIAGNOSES: 1. Acute exacerbation of congestive heart failure with systolic dysfunction. 2. History of coronary artery disease with stents in the past. 3. Hypertension. 4. Medical noncompliance. CONSULTANTS: Cardiology and Pulmonary. PHYSICAL EXAMINATION: VITAL SIGNS: Temperature is 97.4, pulse 73, respiratory rate is 18, blood pressure is 112/65, pulse ox 96% on room air. LABORATORY FINDINGS: Show white count 5.9, hemoglobin 13.4, hematocrit 41, platelets of 274. Coagulation; PT 14, INR 1.1, and PTT is 30. Chemistry; sodium 139, potassium 3.3, replaced prior to discharge, chloride 99, bicarb 20, anion gap is 15, BUN is 14, creatinine is 0.95, calcium is 9.3. A1c 5.8. LFTs within normal range. Troponins were all negative. Albumin was 3.8, LDL was 76. MICROBIOLOGY: None. IMAGING STUDIES: Chest x-ray on admission shows evidence of moderate pulmonary edema as well as moderate right and small left pleural effusions associated with pulmonary edema. Thoracentesis was performed on 09/03/2019, yielded 200 mL of fluid removed. No complications postprocedure. No fluid was sent for culture analysis by IR and the fluid was discarded by Interventional Radiology. Unable to analyze at this time. Chest x-ray on 09/04/2019, shows very mild small bilateral pleural effusions. Much improved now. He is on room air. HOSPITAL COURSE: A 79-year-old male, very noncompliant with his diet and his medications, has a history of systolic heart failure, came in with shortness of breath and severe pulmonary edema and lower extremity edema. The patient reported some orthopnea and dyspnea on exertion. He was started on Lasix drip at 10 mg/hour for several days, in which he improved. He was on oxygen additionally and then weaned off to room air. Cardiology and Pulmonary were consulted. As per Cardiology, they recommended cardioprotective medications, diuretics, and close followup in their office for further management and care. The patient was educated on a heart healthy diet, low-sodium diet as well as the amount of volume intake at home. As per Pulmonary, the patient underwent a thoracentesis and approximately 200 mL of fluid was removed, but was not sent for analysis by Interventional Radiology nor culture. At this time, the patient was afebrile, normotensive, and his white count was normal, and was okayed by Pulmonary for no analysis at this time. He was advised to follow up with Pulmonary in their office in about 1-2 weeks' time for further management and care. It is felt that the fluid is likely due to his underlying CHF history. The patient was cleared for discharge by both Cardiology and Pulmonary. On the day of discharge, vital signs were stable, labs were reviewed and stable. The patient was seen and evaluated, examined thoroughly on the day of discharge. No other complaints. The patient verbalized understanding and agreed to plan of care to follow up accordingly as an outpatient, with the primary care physician in 1 week. Pulmonary and Cardiology in 2 weeks' time. MEDICATIONS: See med reconciliation form including Bumex 1 mg p.o. b.i.d., Aldactone 12.5 mg one tab p.o. daily as well as the rest of his cardioprotective medications. DISPOSITION: Home. CONDITION: Stable. DIET: Heart healthy. In the event of any worsening symptoms, the patient was advised to come back to the ED for further evaluation. Discharge summary took greater than 35 minutes. MD ARTURO Mccall/RICARDOL /[id number]
== END 2019-09-04 12:20 | disposition home or self-care (01) | DRG 292 ==
LOC: ER 21:47 → ERHOLD 23:13 → MED/SURG 09-01 12:53
PROVIDERS: ADMIT Internal Medicine; ATTEND Internal Medicine
PROC: 0W993ZZ Drainage of Right Pleural Cavity, Percutaneous Approach (ICD-10-PCS; principal; 2019-09-03)
DX: I11.0 Hypertensive heart disease with heart failure (principal); J90 Pleural effusion, not elsewhere classified; Z91.19 Patient's noncompliance with other medical treatment and regimen; Z91.11 Patient's noncompliance with dietary regimen; I50.23 Acute on chronic systolic (congestive) heart failure; I25.10 Atherosclerotic heart disease of native coronary artery without angina pectoris; I43 Cardiomyopathy in diseases classified elsewhere; I08.0 Rheumatic disorders of both mitral and aortic valves
CPT/HCPCS: 32555; 36415; 71045; 74470; 80048; 80053; 80061; 82550; 82553; 83036; 83880; 84484; 85025; 85610; 85730; 93005; 93041; 93306; 94660; 96374; 96376; 99284; J1650; J1940

== ENCOUNTER 2019-09-16 18:09 | Emergency (ER) | payer MEDICARE, OTHER ==
[~2019-09-16] VITALS: Ht 160 cm; Wt 60.3 kg
[~2019-09-16 18:09] MED LIST changes: +ALBUTEROL INH; +ASPIR 8181 MG PO
[2019-09-16] MEDS ORDERED: ASPIRIN 81 MG CHEW TAB PO NR (19:00)
[2019-09-16 19:12] LABS: BASOPHILS % 0.4 % (0.0-1.0); EOSINOPHILS # (AUTO) 0.4 (0.0-0.4); EOSINOPHILS % 5.9 % (0.0-6.0); HEMATOCRIT 39.1 % (38.2-49.6); HEMOGLOBIN 12.2 g/dL (14.0-18.0); LYMPHOCYTES # (AUTO) 0.9 (1.0-3.2); LYMPHOCYTES % 13.3 % (18.0-39.1); MEAN CORPUSCULAR HEMOGLOBIN 27.3 pg (28-32); MEAN CORPUSCULAR HGB CONC 31.2 g/dL (31-35); MEAN CORPUSCULAR VOLUME 87.5 fL (81-99); MONOCYTES # (AUTO) 0.6 (0.2-0.8); MONOCYTES % 8.1 % (4.4-11.3); NEUTROPHILS # (AUTO) 4.9 (2.1-6.9); PLATELET COUNT 223 x10e3/uL (140-360); RED BLOOD COUNT 4.47 x10e6/uL (4.3-5.7); RED CELL DISTRIBUTION WIDTH 14.8 % (11.7-14.4)
[2019-09-16 19:17] LABS: CLARITY,URINE CLEAR (CLEAR); COLOR,URINE YELLOW (YELLOW); KETONES,URINE NEGATIVE (NEGATIVE); LEUKOCYTE ESTERASE ,URINE NEGATIVE (NEGATIVE); NITRITE,URINE NEGATIVE (NEGATIVE); PROTEIN,URINE DIPSTICK 1+ (NEGATIVE)
[2019-09-16 19:18] LABS: BILIRUBIN,URINE NEGATIVE (NEGATIVE); URINE UROBILINOGEN 0.2 mg/dL (0.2 - 1)
[2019-09-16 19:27] LABS: BACTERIA,URINE MODERATE /HPF
[2019-09-16 19:33] LABS: ALANINE AMINOTRANSFERASE 17 IU/L (0-55); ALBUMIN 3.5 g/dL (3.5-5.0); ALBUMIN/GLOBULIN RATIO 1.1 (0.8-2.0); ALKALINE PHOSPHATASE 97 IU/L (40-150); ANION GAP 12.3 mmol/L (8-16); BLOOD UREA NITROGEN 17 mg/dL (7-26); BUN/CREATININE RATIO 20 (6-25); CALCIUM 9.3 mg/dL (8.4-10.2); CARBON DIOXIDE 24 mmol/L (22-29); CHLORIDE 107 mmol/L (98-107); CREATINE KINASE 71 IU/L (30-200); CREATININE, SERUM 0.86 mg/dL (0.72-1.25); EST GLOMERULAR FILTRATION RATE > 60 ML/MIN (60-); GLUCOSE 101 mg/dL (74-118); POTASSIUM 4.3 mmol/L (3.5-5.1); SODIUM 139 mmol/L (136-145)
--- NOTE | 2019-09-16 20:08 | Diagnostic Imaging Report ---
EXAMINATION: CHEST SINGLE (PORTABLE) INDICATION: ^CHEST PAIN ^Y COMPARISON: 09/04/2019 FINDINGS: AP view TUBES and LINES: None. LUNGS: Lungs are well inflated. Pulmonary vascular congestion and mild additional edema. PLEURA: No pneumothorax. Moderate right and small left pleural effusions again observed.. HEART AND MEDIASTINUM: The cardiac silhouette is enlarged. There are atherosclerotic calcifications within the aorta. BONES AND SOFT TISSUES: No acute osseous lesion. UPPER ABDOMEN: No free air under the diaphragm. IMPRESSION: No interval change. Decompensated CHF with pulmonary venous congestion. Signed by: Dr. Ananya Anderson M.D. on 09/16/2019 8:04 PM
[2019-09-16] MEDS ORDERED: FUROSEMIDE INJ 10 MG/ML 4 ML VIAL IV ONE (21:00)
[2019-09-16 22:23] VITALS: BP 138/71
[2019-09-17 11:42] LABS: INR 1.3; PROTHROMBIN TIME 15.3 seconds (11.9-14.5)
[2019-09-17 11:43] LABS: PARTIAL THROMBOPLASTIN TIME 35.1 seconds (23.8-35.5)
== END 2019-09-16 22:29 | disposition home or self-care (01) ==
LOC: ER 18:09
DX: R07.89 Other chest pain (principal); I50.22 Chronic systolic (congestive) heart failure; I50.1 Left ventricular failure, unspecified; I10 Essential (primary) hypertension
CPT/HCPCS: 36415; 71045; 80053; 81001; 82550; 82553; 83880; 84484; 85025; 85610; 85730; 93005; 99284; J1940

== ENCOUNTER 2020-01-20 17:47 | Inpatient (IN) | payer MEDICARE, OTHER ==
[~2020-01-20] VITALS: Ht 170.2 cm; Wt 70.0 kg
[2020-01-20] MEDS ORDERED: ONDANSETRON HCL INJ 2MG/ML 2ML 2 MG/ML VIAL IV STA (18:29)
[2020-01-20] MEDS ORDERED: SODIUM CHLORIDE 0.9% 1000ML 1,000 ML IV STA (18:29)
[2020-01-20] MEDS ORDERED: PANTOPRAZOLE 40 MG 10ML VIAL IV STA (18:29)
[2020-01-20 18:58] LABS: BASOPHILS % 0.4 % (0.0-1.0); EOSINOPHILS # (AUTO) 0.2 (0.0-0.4); EOSINOPHILS % 3.4 % (0.0-6.0); HEMATOCRIT 34.6 % (38.2-49.6); HEMOGLOBIN 10.8 g/dL (14.0-18.0); LYMPHOCYTES # (AUTO) 0.9 (1.0-3.2); LYMPHOCYTES % 16.1 % (18.0-39.1); MEAN CORPUSCULAR HEMOGLOBIN 24.3 pg (28-32); MEAN CORPUSCULAR HGB CONC 31.2 g/dL (31-35); MEAN CORPUSCULAR VOLUME 77.9 fL (81-99); MONOCYTES # (AUTO) 0.6 (0.2-0.8); MONOCYTES % 11.1 % (4.4-11.3); NEUTROPHILS # (AUTO) 3.8 (2.1-6.9); NEUTROPHILS % 68.8 % (38.7-80.0); PLATELET COUNT 245 x10e3/uL (140-360); RED BLOOD COUNT 4.44 x10e6/uL (4.3-5.7); RED CELL DISTRIBUTION WIDTH 17.5 % (11.7-14.4)
[2020-01-20 19:06] LABS: INR 1.18; PROTHROMBIN TIME 15.8 seconds (11.9-14.5)
[2020-01-20 19:07] LABS: PARTIAL THROMBOPLASTIN TIME 33.9 seconds (23.8-35.5)
[2020-01-20] MEDS ORDERED: ALBUTEROL/IPRATROPIUM 3 ML NEB NEB STA (19:07)
[2020-01-20 19:15] LABS: ALANINE AMINOTRANSFERASE 9 IU/L (0-55); ALBUMIN 3.6 g/dL (3.5-5.0); ALBUMIN/GLOBULIN RATIO 1.1 (0.8-2.0); ALKALINE PHOSPHATASE 88 IU/L (40-150); ANION GAP 10.2 mmol/L (8-16); BLOOD UREA NITROGEN 9 mg/dL (7-26); BUN/CREATININE RATIO 11 (6-25); CALCIUM 9.3 mg/dL (8.4-10.2); CARBON DIOXIDE 24 mmol/L (22-29); CHLORIDE 103 mmol/L (98-107); CREATINE KINASE 69 IU/L (30-200); CREATININE, SERUM 0.81 mg/dL (0.72-1.25); EST GLOMERULAR FILTRATION RATE > 60 ML/MIN (60-); GLUCOSE 97 mg/dL (74-118); LIPASE 9 U/L (8-78); POTASSIUM 4.2 mmol/L (3.5-5.1); SODIUM 133 mmol/L (136-145)
[2020-01-20] MEDS ORDERED: ALBUTEROL/IPRATROPIUM 3 ML NEB ONE (19:49)
[2020-01-20] MEDS ORDERED: SODIUM CHLORIDE 0.9% 50ML 50 ML ONE (20:01)
[2020-01-20] MEDS ORDERED: IOPAMIDOL 370 MG/ML 200 ML INFUS..BTL INJ ONE (20:01)
[2020-01-20] MEDS ORDERED: SODIUM CHLORIDE FLUSH 10 ML SYR INJ PRN (20:15)
[2020-01-20] MEDS ORDERED: MORPHINE SULFATE 2 MG/ML SYR 1ML IV PRN (20:15)
[2020-01-20] MEDS ORDERED: ASPIRIN 81 MG CHEW TAB PO ONE (20:15)
[2020-01-20] MEDS ORDERED: ONDANSETRON HCL INJ 2MG/ML 2ML 2 MG/ML VIAL IV PRN (20:15)
[2020-01-20] MEDS ORDERED: MORPHINE SULFATE INJ 4 MG/ML INJ 1ML IV PRN (20:30)
--- NOTE | 2020-01-20 21:05 | Diagnostic Imaging Report ---
EXAM: CT Chest, Abdomen and Pelvis WITH contrast INDICATION: ^GUERA/RUQ ABD PAIN ^[id number] ^1999 COMPARISON: CT abdomen/pelvis dated 06/05/2019 TECHNIQUE: Chest, abdomen and pelvis were scanned utilizing a multidetector helical scanner from the lung apex to the pubic symphysis after administration of IV contrast. Coronal and sagittal reformations were obtained. Dose modulation, iterative reconstruction, and/or weight based adjustment of the mA/kV was utilized to reduce the radiation dose to as low as reasonably achievable. Routine protocol was performed. Scan was performed when during portal venous phase. IV CONTRAST: 100 mL of Omnipaque 370 ORAL CONTRAST: None COMPLICATIONS: None RADIATION DOSE: Total DLP: 747.79 mGy*cm Estimated effective dose: (DLP x 0.015 x size factor) mSv CTDIvol has been reviewed. It is below the limits set by the Radiation Protocol Committee (RPC). FINDINGS: LINES and TUBES: None. LUNGS, PLEURA, AND AIRWAYS: Pulmonary vascular congestion and mild interstitial edema. Not significantly changed moderate loculated appearing right and small left pleural effusions with adjacent compressive atelectasis in the right side. Unchanged right pleural enhancement adjacent to the effusion. Airways are normal. HEART AND MEDIASTINUM: The thyroid gland is normal. Scattered mildly prominent mediastinal lymph nodes. No mediastinal, hilar or axillary lymphadenopathy. Cardiomegaly.. There is no pericardial effusion. Main pulmonary artery measures 3.2 cm, suggestive of pulmonary hypertension. Ascending thoracic aorta is distended up to 4.7 cm. Moderate atherosclerotic calcification of aorta and coronary arteries. No filling defects within pulmonary arteries. HEPATOBILIARY: No focal hepatic lesions. No biliary ductal dilation. GALLBLADDER: No radio-opaque stones or sludge. No wall thickening. SPLEEN: No splenomegaly. Unchanged peripheral and punctate calcifications. PANCREAS: No focal masses or ductal dilatation. ADRENALS: No adrenal nodules KIDNEYS/URETERS: Kidneys enhance symmetrically. No hydronephrosis. Again seen bilateral renal cysts. No stones. GI TRACT: No abnormal distention, wall thickening, or evidence of bowel obstruction. Appendix is normal. PELVIC ORGANS/BLADDER: Enlarged prostate. Mild bladder wall thickening. LYMPH NODES: 1.5 cm aortocaval lymph node (series 2, image 63), previously 1.3 cm. VESSELS: There is moderate atherosclerotic disease in the aorta and major arterial branches. PERITONEUM / RETROPERITONEUM: No free air. Trace dependent/pelvic ascites, unchanged. BONES: Bilateral L5 pars defects with grade 1 L5-S1 spondylolisthesis. No acute osseous abnormality. Degenerative changes of spine. SOFT TISSUES: Unremarkable. IMPRESSION: 1. Cardiomegaly, pulmonary vascular congestion, and mild residual edema. 2. Not significantly changed loculated appearing moderate right pleural effusion with adjacent compressive atelectasis and pleural enhancement. Unchanged small left pleural effusion. 3. Ectatic ascending thoracic aorta. 4. No definite evidence of acute inflammatory process in the abdomen/pelvis. 5. Prostatomegaly. 6. Indeterminate 1.5 cm aortocaval lymph node, slightly increased in size from prior exam. Attention on follow-up examination. 7. Redemonstration of bilateral renal cysts. Signed by: Dr. Andrade Falcon MD on 01/20/2020 9:01 PM
[2020-01-20 21:37] LABS: CLARITY,URINE SL CLOUDY (CLEAR); COLOR,URINE YELLOW (YELLOW); LEUKOCYTE ESTERASE ,URINE NEGATIVE (NEGATIVE); NITRITE,URINE NEGATIVE (NEGATIVE); PROTEIN,URINE DIPSTICK NEGATIVE (NEGATIVE)
[2020-01-20 21:38] LABS: BILIRUBIN,URINE NEGATIVE (NEGATIVE); KETONES,URINE NEGATIVE (NEGATIVE); URINE UROBILINOGEN 0.2 mg/dL (0.2 - 1)
[2020-01-20 21:58] LABS: RBC,URINE 0-5 /HPF (0-5)
[2020-01-20] MEDS: FUROSEMIDE INJ 10 MG/ML 4 ML VIAL IV SCH (23:09)
[2020-01-21] VITALS (10 sets, daily range): BP systolic 94–130; BP diastolic 58–80
[2020-01-21 03:05] LABS: CREATINE KINASE MB 2.2 ng/mL (0-5.0)
[2020-01-21 07:11] LABS: ALANINE AMINOTRANSFERASE 9 IU/L (0-55); ALBUMIN 3.5 g/dL (3.5-5.0); ALKALINE PHOSPHATASE 87 IU/L (40-150); ANION GAP 14.1 mmol/L (8-16); BLOOD UREA NITROGEN 10 mg/dL (7-26); BUN/CREATININE RATIO 10 (6-25); CALCIUM 9.1 mg/dL (8.4-10.2); CARBON DIOXIDE 22 mmol/L (22-29); CHLORIDE 104 mmol/L (98-107); CREATININE, SERUM 0.97 mg/dL (0.72-1.25); EST GLOMERULAR FILTRATION RATE > 60 ML/MIN (60-); GLUCOSE 104 mg/dL (74-118); POTASSIUM 4.1 mmol/L (3.5-5.1); SODIUM 136 mmol/L (136-145)
[2020-01-21 07:38] LABS: ABG PCO2 34 mmHg (35-45); ABG PH 7.44 (7.35-7.45)
[2020-01-21 07:39] LABS: ABG HCO3 24 mmol/L (22-26)
[2020-01-21 07:47] LABS: BASOPHILS % 0.4 % (0.0-1.0); EOSINOPHILS # (AUTO) 0.1 (0.0-0.4); EOSINOPHILS % 2.7 % (0.0-6.0); HEMATOCRIT 32.7 % (38.2-49.6); HEMOGLOBIN 9.9 g/dL (14.0-18.0); LYMPHOCYTES # (AUTO) 1.1 (1.0-3.2); LYMPHOCYTES % 21.5 % (18.0-39.1); MEAN CORPUSCULAR HGB CONC 30.3 g/dL (31-35); MEAN CORPUSCULAR VOLUME 79.4 fL (81-99); MONOCYTES # (AUTO) 0.6 (0.2-0.8); MONOCYTES % 12.3 % (4.4-11.3); NEUTROPHILS # (AUTO) 3.1 (2.1-6.9); NEUTROPHILS % 62.9 % (38.7-80.0); PLATELET COUNT 220 x10e3/uL (140-360); RED BLOOD COUNT 4.12 x10e6/uL (4.3-5.7); RED CELL DISTRIBUTION WIDTH 17.5 % (11.7-14.4)
[2020-01-21] MEDS: FUROSEMIDE INJ 10 MG/ML 4 ML VIAL IV SCH ×2 (08:14→20:17)
[2020-01-21 08:33] LABS: CREATINE KINASE MB 2.3 ng/mL (0-5.0)
[2020-01-21] MEDS ORDERED: ASPIRIN 325 MG TAB EC PO SCH (09:00)
[2020-01-21] MEDS ORDERED: FUROSEMIDE20 MG PO (11:38)
[2020-01-21] MEDS ORDERED: FLOMAX0.4 MG PO (11:38)
[2020-01-21] MEDS ORDERED: POTASSIUM CHLO10 ME1 PO (11:38)
[2020-01-21] MEDS ORDERED: ATORVASTATIN CA20 MG PO (11:38)
[2020-01-21] MEDS: CLOPIDOGREL BISULFATE 75 MG TAB PO SCH (11:42)
[2020-01-21] MEDS: CARVEDILOL 3.125 MG TAB PO SCH (16:11)
[2020-01-21 19:50] LABS: CREATINE KINASE MB 2.2 ng/mL (0-5.0)
--- NOTE | 2020-01-21 20:02 | Consultation ---
DATE OF CONSULTATION: 01/21/2020 Cardiac Consultation. REASON FOR CONSULTATION: Heart failure, acute exacerbation. HISTORY OF PRESENT ILLNESS: A 80-year-old gentleman, who is now with chronic congestive heart failure. The patient is followed by Dr. Redd. He only speaks [place]. He came twice to this institution last year. In June 2009, he had PCI to mid LAD. Regardless, his ejection fraction is less than 20%, which is by far much more than his mid LAD disease as per his description. Regardless, he is coming back and forth with heart failure. He is confused with his medication. He does not follow any insurance claims examiner. He is confused with his medication. He takes only single tablet for his all illnesses. He does not know what his medication and he is very confused. Regardless for the last year or so, he is having heart failure like symptoms, class 3. Progressively worse in the last couple of months or so. The patient unable to stay home because he cannot breathe. He came to the emergency room. Admitted for further management. Cardiac consultation is obtained. Of note, the patient is anemic with hemoglobin of 9.9, hematocrit 32%. His renal function was normal. His BNP is 1783. His cardiac enzymes are normal. Unfortunately, he had CT of his chest with dye load and he had 1 L of normal saline. Regardless with diuretics, he is feeling better. The patient's symptoms are class IV heart failure symptoms. No angina. There is orthopnea, paroxysmal nocturnal dyspnea. No syncope or presyncope. No palpitation. REVIEW OF SYSTEMS: GENERAL: No fever, no chills, weakness. No weight loss. No weight gain. HEENT: Unremarkable. CARDIAC AND PULMONARY: Class IV heart failure with orthopnea, paroxysmal nocturnal dyspnea, cough, swelling of the lower extremities. GI: Bloating, indigestion. : Increased frequency of urination. MUSCULOSKELETAL: Aches and pains. NEUROLOGIC: No weakness. No seizure activity. HEMATOLOGY: No easy bruising or bleeding. ENDOCRINE: No diabetes mellitus. SOCIAL HISTORY: He is . He is nonsmoker and non-alcohol drinker. PAST MEDICAL HISTORY: Congestive heart failure, PCI of mid LAD. CT film reviewed. The patient having mid LAD lesion with very large circumflex dominant. No left ventriculogram. HOME MEDICATION: He takes home medication, does not know the name. ALLERGIES: NONE. FAMILY HISTORY: No family history of premature coronary artery disease. PHYSICAL EXAMINATION: VITAL SIGNS: Height of 5 feet 7 inches, weight of 154 pounds, blood pressure 120/60, heart rate of 80, respiratory rate of 18. HEENT: Pupils are reactive. NECK: Elevation of jugular venous pulsation. No bruit. CHEST: Bilateral crackles. HEART: PMI 5th left intercostal space. Normal first heart sound. Normal second heart sound. Gallop is heard with soft TR. ABDOMEN: Liver edge is palpable. Bowel sounds are present. EXTREMITIES: Mild peripheral edema. NEUROLOGIC: Awake, alert, oriented. LABORATORY DATA: Sodium of 136, potassium 4.1, BUN of 10, creatinine of 1. White blood cell count of 4.9, hemoglobin of 10, hematocrit 32%, platelet count of 220,000, BNP of 1783. Chest x-ray showing cardiomegaly, pleural effusion, dilated pulmonary artery pressure at 3.2, dilated ascending aorta at 4.7 cm. EKG showing normal sinus rhythm, right bundle-branch block, left anterior fascicular block, left ventricular hypertrophy with strain pattern. IMPRESSION AND PLAN: 1. Acute on chronic systolic heart failure. 2. Heart failure out of proportion of coronary artery disease. 3. Status post PCI of mid LAD. 4. Pulmonary hypertension as evident by CT scan. 5. Ascending aortic aneurysm at 4.7 cm. 6. Confusion with medication with poor compliance and poor followup. The patient is seen and we talked to him extensively in [place] with our team. Explained his condition. Explained the importance of medications, followup. The patient will be started on Coreg 3.125 mg twice a day. He will continue Lasix. We will continue aspirin. We will add Plavix. We will consider adding ARB, but we will hold on that since the patient had load of iodine yesterday. We will await his lab in the morning. We will adjust his medication. We will try to maximize them pending on his blood pressure and his renal function and his tolerance. The patient definitely does have congestive heart failure and also low cardiac output symptoms. Prognosis is very guarded. We will try to put the patient on appropriate medication and we will try to explain for him everything and will try to give him supply at least for 90 days prior to discharge. Management of congestive heart failure is discussed including weight management, etc. Total care time was prolonged with me evaluating the patient as well as my nurse practitioner who explained everything in . We will explain to the patient everything again every day and will try to hopefully dismiss him on appropriate medication and with appropriate followup. Questions are answered and the patient advised if he have any more questions to let us know. We will be happy to answer them. MD CONSTANTIN Last/SAE /[id number]
[2020-01-22] VITALS (7 sets, daily range): BP systolic 108–124; BP diastolic 55–68
[2020-01-22 05:00] LABS: BASOPHILS % 0.6 % (0.0-1.0); EOSINOPHILS # (AUTO) 0.4 (0.0-0.4); EOSINOPHILS % 6.7 % (0.0-6.0); HEMATOCRIT 33.7 % (38.2-49.6); HEMOGLOBIN 10.6 g/dL (14.0-18.0); LYMPHOCYTES # (AUTO) 0.8 (1.0-3.2); LYMPHOCYTES % 15.2 % (18.0-39.1); MEAN CORPUSCULAR HEMOGLOBIN 24.6 pg (28-32); MEAN CORPUSCULAR HGB CONC 31.5 g/dL (31-35); MEAN CORPUSCULAR VOLUME 78.2 fL (81-99); MONOCYTES # (AUTO) 0.6 (0.2-0.8); MONOCYTES % 10.6 % (4.4-11.3); NEUTROPHILS # (AUTO) 3.6 (2.1-6.9); NEUTROPHILS % 66.5 % (38.7-80.0); PLATELET COUNT 242 x10e3/uL (140-360); RED BLOOD COUNT 4.31 x10e6/uL (4.3-5.7); RED CELL DISTRIBUTION WIDTH 17.6 % (11.7-14.4)
[2020-01-22 05:17] LABS: ALANINE AMINOTRANSFERASE 9 IU/L (0-55); ALBUMIN 3.4 g/dL (3.5-5.0); ALKALINE PHOSPHATASE 80 IU/L (40-150); ANION GAP 9.5 mmol/L (8-16); BLOOD UREA NITROGEN 15 mg/dL (7-26); BUN/CREATININE RATIO 14 (6-25); CALCIUM 8.9 mg/dL (8.4-10.2); CARBON DIOXIDE 29 mmol/L (22-29); CHLORIDE 103 mmol/L (98-107); CHOL/HDL RATIO 3.4 (3.9-4.7); CHOLESTEROL 115 MD/DL (0-199); CREATININE, SERUM 1.04 mg/dL (0.72-1.25); EST GLOMERULAR FILTRATION RATE > 60 ML/MIN (60-); GLUCOSE 107 mg/dL (74-118); HDL CHOLESTEROL 34 MG/DL (40-60); LDL CHOLESTEROL 71 MG/DL (60-130); POTASSIUM 3.5 mmol/L (3.5-5.1); SODIUM 138 mmol/L (136-145); TRIGLYCERIDES 51 MG/DL (0-149)
[2020-01-22 05:37] LABS: THYROID STIMULATING HORMONE 3.637 uIU/mL (0.350-4.940)
--- NOTE | 2020-01-22 08:08 | Progress Note ---
DATE: SUBJECTIVE: The patient is a 80-year-old gentleman, who presented with acute systolic congestive heart failure. The patient's EF was found to be 20%. The patient is very nonchalant about his medication and/or his medical condition. It has been explained to him that CHF is deadly. The patient has a history of PCI to LAD, currently asymptomatic. The patient wants to go home. No chest pain. A little short of breath according to him, and meets criteria for [facility]. The patient continues to not want to take medication. OBJECTIVE: VITAL SIGNS: Temperature is 97.6, pulse of 80, respirations of 18, blood pressure is 115/65, pulse oximetry of 93%. HEENT: Normocephalic and atraumatic. Pupils are reactive. Arcus present. CVS: S1 and S2 are normal. Regular rate and rhythm. LUNGS: Positive for crackles in the lung bases. ABDOMEN: Nontender, nondistended. EXTREMITIES: Positive for trace edema. LABORATORY VALUES: White count is 5.39, hemoglobin of 10.6, hematocrit of 33.7, and platelet count is 242. Chemistry; sodium of 138, potassium 3.5, BUN of 15, creatinine of 1.04, HDL of 34, LDL of 71, triglycerides of 51. TSH is 3.63. Coags are normal. A CT chest done shows cardiomegaly, ectatic descending thoracic aorta, ascending thoracic aorta 4.7 cm, prostatomegaly, indeterminate aortocaval lymph node slightly increased in size from the prior exam. ASSESSMENT: Mr. Jose Pineda with: 1. [id number] congestive heart failure. Continue with diuresis, beta-blockade have been added to the patient by Cardiology. The patient also has had Lasix. Plavix has been started and continued. Dr. Dowd has talked extent to this patient. We will continue monitoring his labs. ARB and/or Aldactone in addition depending on blood pressure control. More likely, the patient is very unlikely to take his medications, but we will go ahead and up titrate his medicines. The patient also has an ascending aortic aneurysm at 4.7 cm, noncritical. We will continue to monitor it and have his primary care monitor this. As far as lymph node, it needs to be taken care of, but we will need to do this as an outpatient basis. 2. Questionable diagnosis of early dementia is also entertained. Further recommendation per clinical course. We will continue to monitor the patient along with consultants. MD GENARO Paul/MODL /[id number]
[2020-01-22] MEDS: ASPIRIN 81 MG ENTERIC COATED PO SCH (08:14)
[2020-01-22] MEDS: CLOPIDOGREL BISULFATE 75 MG TAB PO SCH (08:14)
[2020-01-22] MEDS: FUROSEMIDE INJ 10 MG/ML 4 ML VIAL IV SCH ×2 (08:14→20:48)
[2020-01-22] MEDS: CARVEDILOL 3.125 MG TAB PO SCH ×2 (08:14→17:37)
[2020-01-22] MEDS: LOSARTAN POTASSIUM 25 MG TAB PO SCH (11:45)
[2020-01-23 00:34] VITALS: BP 122/65
[2020-01-23] MEDS ORDERED: CLONAZEPAM 0.5 MG TAB PO PRN (02:15)
[2020-01-23 05:01] VITALS: BP 116/59
[2020-01-23 05:58] LABS: BASOPHILS % 0.3 % (0.0-1.0); EOSINOPHILS # (AUTO) 0.4 (0.0-0.4); EOSINOPHILS % 5.6 % (0.0-6.0); HEMATOCRIT 32.6 % (38.2-49.6); LYMPHOCYTES # (AUTO) 0.9 (1.0-3.2); MEAN CORPUSCULAR HEMOGLOBIN 24.1 pg (28-32); MEAN CORPUSCULAR HGB CONC 30.7 g/dL (31-35); MEAN CORPUSCULAR VOLUME 78.6 fL (81-99); MONOCYTES # (AUTO) 0.7 (0.2-0.8); MONOCYTES % 10.6 % (4.4-11.3); NEUTROPHILS # (AUTO) 4.9 (2.1-6.9); NEUTROPHILS % 70.2 % (38.7-80.0); PLATELET COUNT 243 x10e3/uL (140-360); RED BLOOD COUNT 4.15 x10e6/uL (4.3-5.7); RED CELL DISTRIBUTION WIDTH 17.2 % (11.7-14.4)
[2020-01-23 06:19] LABS: ANION GAP 8.1 mmol/L (8-16); BLOOD UREA NITROGEN 15 mg/dL (7-26); BUN/CREATININE RATIO 15 (6-25); CALCIUM 8.9 mg/dL (8.4-10.2); CARBON DIOXIDE 31 mmol/L (22-29); CHLORIDE 101 mmol/L (98-107); CREATININE, SERUM 0.99 mg/dL (0.72-1.25); EST GLOMERULAR FILTRATION RATE > 60 ML/MIN (60-); GLUCOSE 109 mg/dL (74-118); POTASSIUM 3.1 mmol/L (3.5-5.1); SODIUM 137 mmol/L (136-145)
[2020-01-23] MEDS ORDERED: POTASSIUM CHLORIDE 20 MEQ TAB CR PO ONE (07:50)
--- NOTE | 2020-01-23 08:22 | Progress Note ---
DATE: SUBJECTIVE: A 80-year-old gentleman, who came in with acute on chronic congestive heart failure. The patient is still a little short of breath. No chest pains. However, was not sleeping, yesterday, was given a small dose of clonazepam 0.25 mg. The patient is sleeping well. No chest pains. No shortness of breath as recorded by the patient. OBJECTIVE: VITAL SIGNS: Temperature is 98.2, pulse of 73, respirations 16, blood pressure is 116/59. HEENT: Normocephalic. CVS: S1 and S2 normal. Ejection systolic murmur present. ABDOMEN: Nontender and nondistended. EXTREMITIES: No clubbing. No cyanosis. Trace edema present. LABORATORY VALUES: Normal. Hemoglobin 10, hematocrit of 32.6. Chemistry; sodium 137, potassium 3.1, BUN of 15, creatinine 0.19. Again, TSH is normal. An LDL was good. ASSESSMENT: Mr. Jose Pineda with acute on chronic congestive heart failure. PLAN: Continue with beta-blockade. Addition of lisinopril has been done by Cardiology. We will continue with 40 mg of Lasix, carvedilol has been added. Continue monitor the patient. Further recommendation per clinical course. Plan, disposition discharged him soon, daily weights, and low-salt diet has been advocated to the patient, need to follow up also stressed to the patient. Aspirin and clopidogrel for coronary artery disease have been instituted and the patient has also history of PCIs. MD GENARO Paul/MODL /[id number]
[2020-01-23 08:34] VITALS: BP 126/61
[2020-01-23] MEDS ORDERED: POTASSIUM CHLORIDE 20 MEQ TAB CR PO SCH (09:00)
[2020-01-23] MEDS: ASPIRIN 81 MG ENTERIC COATED PO SCH (09:39)
[2020-01-23] MEDS: FUROSEMIDE INJ 10 MG/ML 4 ML VIAL IV SCH (09:39)
[2020-01-23] MEDS: LOSARTAN POTASSIUM 25 MG TAB PO SCH (09:39)
[2020-01-23] MEDS: CARVEDILOL 3.125 MG TAB PO SCH (09:39)
[2020-01-23] MEDS: CLOPIDOGREL BISULFATE 75 MG TAB PO SCH (09:40)
[2020-01-23 11:16] LABS: ABG PO2 71 mmHg (80-105)
[2020-01-23 12:38] VITALS: BP 103/57
[2020-01-23 13:11] VITALS: BP 103/57
[2020-01-23] MEDS ORDERED: LOSARTAN POTASS25 MG PO (13:15)
[2020-01-23] MEDS ORDERED: ONDANSETRON HCL 4 MG ORAL DISINTEGRATING TAB PO PRN (13:15)
[2020-01-23] MEDS ORDERED: LASIX40 MG PO (13:15)
[2020-01-23] MEDS ORDERED: CARVEDILOL3.125 MG PO (13:17)
[2020-01-23] MEDS ORDERED: FUROSEMIDE 40 MG TAB PO SCH (18:00)
[2020-01-24] MEDS ORDERED: LOSARTAN POTASSIUM 25 MG TAB PO SCH (09:00)
== END 2020-01-23 13:29 | disposition home or self-care (01) | DRG 292 ==
LOC: ER 17:47 → ERHOLD 20:11 → MED/SURG3 01-21 01:46 → OBSVTOIN 01-22 13:42
PROVIDERS: ADMIT Family Medicine; ATTEND Family Medicine
DX: I11.0 Hypertensive heart disease with heart failure (principal); J96.12 Chronic respiratory failure with hypercapnia; J96.11 Chronic respiratory failure with hypoxia; I50.23 Acute on chronic systolic (congestive) heart failure; I25.10 Atherosclerotic heart disease of native coronary artery without angina pectoris; Z95.5 Presence of coronary angioplasty implant and graft; I71.4 Abdominal aortic aneurysm, without rupture; Z91.14 Patient's other noncompliance with medication regimen; F03.90 Unspecified dementia, unspecified severity, without behavioral disturbance, psychotic disturbance, mood disturbance, and anxiety; I27.20 Pulmonary hypertension, unspecified
CPT/HCPCS: 36415; 36600; 71260; 74177; 80048; 80053; 80061; 81001; 82550; 82553; 82805; 83690; 83735; 83880; 84443; 84484; 85025; 85610; 85730; 87086; 93005; 93306; 94640; 99284; G0378; J1940; J2405; J7030; Q9967